=== PATIENT | female | born 1970 | race Caucasian/White ===

== ENCOUNTER → 2018-06-06 | Outpatient (CLI) | payer OTHER ==
--- NOTE | 2018-06-06 13:41 | Diagnostic Imaging Report ---
PROCEDURE: CT abdomen and pelvis without contrast. TECHNIQUE: Multiple contiguous axial images were obtained through the abdomen and pelvis without the use of intravenous contrast. INDICATION: Left upper quadrant pain. COMPARISON: No prior studies are available for comparison. FINDINGS: The lung bases are clear. The liver and gallbladder are unremarkable. The pancreas and spleen are unremarkable. No adrenal mass is detected. No renal calculi or hydronephrosis is identified. The aorta is non-aneurysmal. No definite central retroperitoneal or mesenteric lymphadenopathy is seen. The small and large bowel loops are normal in caliber. There is no ascites. The uterus appears enlarged. The bladder is unremarkable. There are some enlarged lymph nodes in the pelvis. A left obturator node measures approximately 2.2 x 1.6 cm. A second node just anterior to this on the left measures 2.3 x 1.6 cm. Mildly prominent right iliac nodes are seen. There are prominent left iliac nodes present as well as mildly prominent bilateral inguinal nodes. Bony structures demonstrate postop changes of posterior instrumented fusion at the L4-5 level. IMPRESSION: 1. Uterine enlargement. 2. Pelvic lymphadenopathy in the iliac and obturator regions, etiology indeterminate. Neoplastic or lymphomatous process cannot be entirely excluded. No other significant abnormality is seen. Dictated by: Dictated on workstation # [id number]
== END ==
LOC: RAD 13:07
PROVIDERS: ATTEND Nurse Practitioner Family
DX: C91.10 Chronic lymphocytic leukemia of B-cell type not having achieved remission (principal); R59.0 Localized enlarged lymph nodes; N85.2 Hypertrophy of uterus
CPT/HCPCS: 74176

== ENCOUNTER → 2018-07-06 | Outpatient (RCR) | payer OTHER ==
[2018-04-07 09:23] LABS: ABSOLUTE RETIC # 50 10e9/L (24-90); BASOPHILS % (AUTO) 0 % (0-10); EOSINOPHILS # (AUTO) 0.4 10^3/uL (0.0-0.3); EOSINOPHILS % (AUTO) 3 % (0-10); HEMATOCRIT 34 % (35-52); HEMOGLOBIN 10.4 G/DL (11.5-16.0); LYMPHOCYTES # (AUTO) 7.4 X 10^3 (1.0-4.0); LYMPHOCYTES % (AUTO) 52 % (12-44); MEAN CORPUSCULAR HEMOGLOBIN 21 PG (25-34); MEAN CORPUSCULAR HGB CONC 30 G/DL (32-36); MEAN CORPUSCULAR VOLUME 69 FL (80-99); MONOCYTES # (AUTO) 0.7 X 10^3 (0.0-1.0); MONOCYTES % (AUTO) 5 % (0-12); NEUTROPHILS # (AUTO) 5.7 X 10^3 (1.8-7.8); NEUTROPHILS % (AUTO) 40 % (42-75); PLATELET COUNT 337 10^3/uL (130-400); RED BLOOD COUNT 4.96 10^6/uL (4.35-5.85); RED CELL DISTRIBUTION WIDTH 20.2 % (10.0-14.5); WHITE BLOOD COUNT 14.1 10^3/uL (4.3-11.0)
[2018-04-07 10:08] LABS: BAND NEUTROPHILS 0 %; BASOPHILS % (MANUAL) 2 %; EOSINOPHILS % (MANUAL) 2 %; LYMPHOCYTES % (MANUAL) 51 %; MONOCYTES % (MANUAL) 3 %; NEUTROPHILS % (MANUAL) 42 %
[2018-04-07 10:09] LABS: ANISOCYTOSIS SLIGHT; ELLIPT/OVALOCYTES SLIGHT; MICROCYTOSIS SLIGHT
[2018-06-17 08:43] LABS: BASOPHILS % (AUTO) 0 % (0-10); EOSINOPHILS # (AUTO) 0.4 10^3/uL (0.0-0.3); EOSINOPHILS % (AUTO) 3 % (0-10); HEMATOCRIT 38 % (35-52); HEMOGLOBIN 12.5 G/DL (11.5-16.0); LYMPHOCYTES # (AUTO) 7.6 X 10^3 (1.0-4.0); LYMPHOCYTES % (AUTO) 51 % (12-44); MEAN CORPUSCULAR HEMOGLOBIN 26 PG (25-34); MEAN CORPUSCULAR HGB CONC 33 G/DL (32-36); MEAN CORPUSCULAR VOLUME 78 FL (80-99); MONOCYTES # (AUTO) 0.8 X 10^3 (0.0-1.0); MONOCYTES % (AUTO) 5 % (0-12); NEUTROPHILS % (AUTO) 41 % (42-75); PLATELET COUNT 269 10^3/uL (130-400); RED BLOOD COUNT 4.87 10^6/uL (4.35-5.85); RED CELL DISTRIBUTION WIDTH 20.7 % (10.0-14.5); WHITE BLOOD COUNT 14.8 10^3/uL (4.3-11.0)
[2018-06-17 09:00] LABS: ALANINE AMINOTRANSFERASE 34 U/L (0-55); ALBUMIN 4.2 GM/DL (3.2-4.5); ALKALINE PHOSPHATASE 47 U/L (40-136); BILIRUBIN,TOTAL 0.4 MG/DL (0.1-1.0); BUN/CREATININE RATIO 16; CALCIUM 9.2 MG/DL (8.5-10.1); CARBON DIOXIDE 24 MMOL/L (21-32); CHLORIDE 106 MMOL/L (98-107); CREATININE SERUM 0.87 MG/DL (0.60-1.30); GFR ESTIMATED > 60; GLUCOSE 110 MG/DL (70-105); POTASSIUM 4.4 MMOL/L (3.6-5.0); SODIUM 138 MMOL/L (135-145); TOTAL PROTEIN 6.5 GM/DL (6.4-8.2)
[2018-07-01 09:43] LABS: BASOPHILS % (AUTO) 0 % (0-10); EOSINOPHILS # (AUTO) 0.6 10^3/uL (0.0-0.3); EOSINOPHILS % (AUTO) 4 % (0-10); HEMATOCRIT 40 % (35-52); HEMOGLOBIN 13.2 G/DL (11.5-16.0); LYMPHOCYTES # (AUTO) 7.8 X 10^3 (1.0-4.0); LYMPHOCYTES % (AUTO) 50 % (12-44); MEAN CORPUSCULAR HEMOGLOBIN 26 PG (25-34); MEAN CORPUSCULAR HGB CONC 33 G/DL (32-36); MEAN CORPUSCULAR VOLUME 80 FL (80-99); MEAN PLATELET VOLUME 10.8 FL (7.4-10.4); MONOCYTES # (AUTO) 0.7 X 10^3 (0.0-1.0); MONOCYTES % (AUTO) 5 % (0-12); NEUTROPHILS # (AUTO) 6.6 X 10^3 (1.8-7.8); NEUTROPHILS % (AUTO) 42 % (42-75); PLATELET COUNT 306 10^3/uL (130-400); RED BLOOD COUNT 5.04 10^6/uL (4.35-5.85); RED CELL DISTRIBUTION WIDTH 18.7 % (10.0-14.5); WHITE BLOOD COUNT 15.6 10^3/uL (4.3-11.0)
[2018-07-01 09:59] LABS: ALANINE AMINOTRANSFERASE 32 U/L (0-55); ALKALINE PHOSPHATASE 51 U/L (40-136); BILIRUBIN,TOTAL 0.2 MG/DL (0.1-1.0); BUN/CREATININE RATIO 15; CALCIUM 9.2 MG/DL (8.5-10.1); CARBON DIOXIDE 25 MMOL/L (21-32); CHLORIDE 107 MMOL/L (98-107); CREATININE SERUM 0.87 MG/DL (0.60-1.30); GFR ESTIMATED > 60; GLUCOSE 106 MG/DL (70-105); POTASSIUM 4.6 MMOL/L (3.6-5.0); SODIUM 138 MMOL/L (135-145); TOTAL PROTEIN 6.6 GM/DL (6.4-8.2)
[2018-07-05 06:51] LABS: HEPATITIS C ANTIBODY C Non-Reactive (Non-Reactive)
[~2018-07-06] VITALS: Ht 165.1 cm; Wt 94.8 kg
[~2018-07-06] MED LIST: ACHD5005 PO; BENDAMUSTINE HCL IV SCH; BUSP5TAB59 PO; ESCI10TA PO; FAMOTIDINE 20MG/2ML IV (CANCER CTR) IV SCH; FERR159T2 PO; FEXO180T84 PO; LISI10TA2 PO; MULT-35 PO; NS (IVPB) CANCER CENTER 250 ML IV SCH; NS IV SCH; PALONOSETRON HCL 0.25 MG, DEXAMETHASONE INJECTION 10 MG in NS (IVPB) CANCER CENTER 50 ML IV SCH; RITUXIMAB FOR IV SCH; RITUXIMAB IV SCH; SIME125T50 PO; diphenhydrAMINE 50 MG/ML INJ (CANCER CENTER) IV PRN
== END | disposition home or self-care (01) ==
LOC: ONC 04-07 07:55
PROVIDERS: ATTEND Internal Medicine Hematology & Oncology
DX: C91.10 Chronic lymphocytic leukemia of B-cell type not having achieved remission (principal); D50.9 Iron deficiency anemia, unspecified; I10 Essential (primary) hypertension; F41.9 Anxiety disorder, unspecified; F32.9 Major depressive disorder, single episode, unspecified; E66.9 Obesity, unspecified; Z68.35 Body mass index [BMI] 35.0-35.9, adult; Z79.899 Other long term (current) drug therapy
CPT/HCPCS: 36415; 80053; 80074; 83615; 85007; 85025; 85027; 85045; 88184; 88185; 88368; 88369; 99213; 99214

== ENCOUNTER 2018-07-26 13:55 | Outpatient (CLI) | payer OTHER ==
[~2018-07-26] VITALS: Ht 160 cm; Wt 97.1 kg
[~2018-07-26 13:55] MED LIST changes: -BENDAMUSTINE HCL IV SCH; -FAMOTIDINE 20MG/2ML IV (CANCER CTR) IV SCH; -FERR159T2 PO; -FEXO180T84 PO; -MULT-35 PO; -NS (IVPB) CANCER CENTER 250 ML IV SCH; -NS IV SCH; -PALONOSETRON HCL 0.25 MG, DEXAMETHASONE INJECTION 10 MG in NS (IVPB) CANCER CENTER 50 ML IV SCH; -RITUXIMAB FOR IV SCH; -RITUXIMAB IV SCH; -SIME125T50 PO; -diphenhydrAMINE 50 MG/ML INJ (CANCER CENTER) IV PRN
[2018-07-26] MEDS ORDERED: FEXO180T84 PO ×2 (14:13)
[2018-07-26] MEDS ORDERED: MULT-35 PO ×2 (14:13)
[2018-07-26] MEDS ORDERED: SIME125T50 PO ×2 (14:13)
[2018-07-26] MEDS ORDERED: FERR159T2 PO ×2 (14:13)
[2018-07-27] MEDS ORDERED: ACHD5005 PO ×2 (10:56)
== END 2018-07-26 14:27 | disposition home or self-care (01) ==
LOC: PREOP 13:55
PROVIDERS: ATTEND Surgery
DX: Z01.818 Encounter for other preprocedural examination (principal)

== ENCOUNTER 2018-07-27 07:44 | Outpatient (RCR) | payer OTHER ==
[2018-07-13 08:54] LABS: BASOPHILS % (AUTO) 0 % (0-10); EOSINOPHILS # (AUTO) 0.4 10^3/uL (0.0-0.3); EOSINOPHILS % (AUTO) 3 % (0-10); HEMATOCRIT 39 % (35-52); HEMOGLOBIN 13.1 G/DL (11.5-16.0); LYMPHOCYTES # (AUTO) 7.2 X 10^3 (1.0-4.0); LYMPHOCYTES % (AUTO) 53 % (12-44); MEAN CORPUSCULAR HEMOGLOBIN 27 PG (25-34); MEAN CORPUSCULAR HGB CONC 33 G/DL (32-36); MEAN CORPUSCULAR VOLUME 80 FL (80-99); MEAN PLATELET VOLUME 11.3 FL (7.4-10.4); MONOCYTES # (AUTO) 0.8 X 10^3 (0.0-1.0); MONOCYTES % (AUTO) 6 % (0-12); NEUTROPHILS # (AUTO) 5.1 X 10^3 (1.8-7.8); NEUTROPHILS % (AUTO) 38 % (42-75); PLATELET COUNT 273 10^3/uL (130-400); RED BLOOD COUNT 4.92 10^6/uL (4.35-5.85); WHITE BLOOD COUNT 13.5 10^3/uL (4.3-11.0)
[2018-07-13 09:12] LABS: ALANINE AMINOTRANSFERASE 33 U/L (0-55); ALBUMIN 4.1 GM/DL (3.2-4.5); ALKALINE PHOSPHATASE 52 U/L (40-136); BILIRUBIN,TOTAL 0.3 MG/DL (0.1-1.0); BUN/CREATININE RATIO 17; CALCIUM 9.3 MG/DL (8.5-10.1); CARBON DIOXIDE 22 MMOL/L (21-32); CHLORIDE 106 MMOL/L (98-107); CREATININE SERUM 0.86 MG/DL (0.60-1.30); GFR ESTIMATED > 60; GLUCOSE 97 MG/DL (70-105); POTASSIUM 4.4 MMOL/L (3.6-5.0); SODIUM 137 MMOL/L (135-145); TOTAL PROTEIN 6.6 GM/DL (6.4-8.2)
[2018-07-20 10:50] LABS: BASOPHILS % (AUTO) 0 % (0-10); EOSINOPHILS # (AUTO) 0.4 10^3/uL (0.0-0.3); EOSINOPHILS % (AUTO) 6 % (0-10); HEMATOCRIT 42 % (35-52); LYMPHOCYTES # (AUTO) 0.8 X 10^3 (1.0-4.0); LYMPHOCYTES % (AUTO) 11 % (12-44); MEAN CORPUSCULAR HEMOGLOBIN 27 PG (25-34); MEAN CORPUSCULAR HGB CONC 34 G/DL (32-36); MEAN CORPUSCULAR VOLUME 80 FL (80-99); MEAN PLATELET VOLUME 10.9 FL (7.4-10.4); MONOCYTES # (AUTO) 0.5 X 10^3 (0.0-1.0); MONOCYTES % (AUTO) 7 % (0-12); NEUTROPHILS # (AUTO) 5.5 X 10^3 (1.8-7.8); NEUTROPHILS % (AUTO) 76 % (42-75); PLATELET COUNT 279 10^3/uL (130-400); RED BLOOD COUNT 5.21 10^6/uL (4.35-5.85); RED CELL DISTRIBUTION WIDTH 17.1 % (10.0-14.5); WHITE BLOOD COUNT 7.3 10^3/uL (4.3-11.0)
[2018-07-20 11:10] LABS: BUN/CREATININE RATIO 16; CALCIUM 9.4 MG/DL (8.5-10.1); CARBON DIOXIDE 24 MMOL/L (21-32); CHLORIDE 106 MMOL/L (98-107); CREATININE SERUM 0.85 MG/DL (0.60-1.30); GFR ESTIMATED > 60; GLUCOSE 98 MG/DL (70-105); POTASSIUM 3.9 MMOL/L (3.6-5.0); SODIUM 137 MMOL/L (135-145)
[~2018-07-27] VITALS: Ht 165.1 cm; Wt 94.8 kg
[~2018-07-27 07:44] MED LIST changes: +ACETAMINOPHEN 325 MG TAB (TYLENOL) CANCER CTR ONE; +BENDAMUSTINE HCL IV SCH; +FAMOTIDINE 20MG/2ML IV (CANCER CTR) IV SCH; +FERR159T2 PO; +FEXO180T84 PO; +MULT-35 PO; +NS (IVPB) CANCER CENTER 250 ML IV SCH; +NS IV 1000 ML (CANCER CTR) IV SCH; +NS IV SCH; +ONDANSETRON MDV (CANCER CENTER 16 MG, DEXAMETHASONE INJECTION 10 MG in NS (IVPB) CANCER... IV SCH; +PALONOSETRON HCL 0.25 MG, DEXAMETHASONE INJECTION 10 MG in NS (IVPB) CANCER CENTER 50 ML IV SCH; +RITUXIMAB FOR IV SCH; +RITUXIMAB IV SCH; +SIME125T50 PO; +[UNRECOGNIZED DRUG - REMARK] IV SCH; +diphenhydrAMINE 50 MG/ML INJ (CANCER CENTER) IV PRN
[2018-07-27 08:11] LABS: BASOPHILS % (AUTO) 0 % (0-10); EOSINOPHILS # (AUTO) 0.4 10^3/uL (0.0-0.3); EOSINOPHILS % (AUTO) 5 % (0-10); HEMATOCRIT 39 % (35-52); HEMOGLOBIN 13.1 G/DL (11.5-16.0); LYMPHOCYTES # (AUTO) 1.9 X 10^3 (1.0-4.0); LYMPHOCYTES % (AUTO) 21 % (12-44); MEAN CORPUSCULAR HEMOGLOBIN 27 PG (25-34); MEAN CORPUSCULAR HGB CONC 34 G/DL (32-36); MEAN CORPUSCULAR VOLUME 81 FL (80-99); MEAN PLATELET VOLUME 11.2 FL (7.4-10.4); MONOCYTES # (AUTO) 0.7 X 10^3 (0.0-1.0); MONOCYTES % (AUTO) 8 % (0-12); NEUTROPHILS # (AUTO) 6.1 X 10^3 (1.8-7.8); NEUTROPHILS % (AUTO) 67 % (42-75); PLATELET COUNT 229 10^3/uL (130-400); RED BLOOD COUNT 4.79 10^6/uL (4.35-5.85); RED CELL DISTRIBUTION WIDTH 16.5 % (10.0-14.5); WHITE BLOOD COUNT 9.2 10^3/uL (4.3-11.0)
[2018-07-27 08:32] LABS: BUN/CREATININE RATIO 14; CALCIUM 9.2 MG/DL (8.5-10.1); CARBON DIOXIDE 23 MMOL/L (21-32); CHLORIDE 107 MMOL/L (98-107); CREATININE SERUM 0.79 MG/DL (0.60-1.30); GFR ESTIMATED > 60; GLUCOSE 102 MG/DL (70-105); POTASSIUM 4.3 MMOL/L (3.6-5.0); SODIUM 139 MMOL/L (135-145)
[2018-07-27] MEDS ORDERED: ACHD5005 PO (10:56)
== END 2018-07-31 | disposition home or self-care (01) ==
LOC: ONC 07:44
PROVIDERS: ATTEND Internal Medicine Hematology & Oncology
DX: C91.10 Chronic lymphocytic leukemia of B-cell type not having achieved remission (principal); D50.9 Iron deficiency anemia, unspecified; I10 Essential (primary) hypertension; F41.9 Anxiety disorder, unspecified; F32.9 Major depressive disorder, single episode, unspecified; E66.9 Obesity, unspecified; Z68.35 Body mass index [BMI] 35.0-35.9, adult; Z79.899 Other long term (current) drug therapy
CPT/HCPCS: 36415; 80048; 80053; 83615; 85025; 96375; 96409; 96411; 96413; 96415

== ENCOUNTER 2018-07-27 07:54 | Day surgery (SDC) | payer OTHER ==
[~2018-07-27] VITALS: Ht 160 cm; Wt 97.1 kg
[~2018-07-27 07:54] MED LIST changes: -ACETAMINOPHEN 325 MG TAB (TYLENOL) CANCER CTR ONE; -BENDAMUSTINE HCL IV SCH; -FAMOTIDINE 20MG/2ML IV (CANCER CTR) IV SCH; -NS (IVPB) CANCER CENTER 250 ML IV SCH; -NS IV 1000 ML (CANCER CTR) IV SCH; -NS IV SCH; -ONDANSETRON MDV (CANCER CENTER 16 MG, DEXAMETHASONE INJECTION 10 MG in NS (IVPB) CANCER... IV SCH; -PALONOSETRON HCL 0.25 MG, DEXAMETHASONE INJECTION 10 MG in NS (IVPB) CANCER CENTER 50 ML IV SCH; -RITUXIMAB FOR IV SCH; -RITUXIMAB IV SCH; -[UNRECOGNIZED DRUG - REMARK] IV SCH; -diphenhydrAMINE 50 MG/ML INJ (CANCER CENTER) IV PRN
--- OUTSIDE RECORDS SUMMARY | 2018-07-27 07:58 | XMS REPORT ---
Author Author PEARL ALICEA [facility] Address [address] [place] [address] Care Team Providers Care Fish Housekeeper Name Role Phone PEARL ALICEA Unavailable PROBLEMS Type Condition ICD9-CM Code [id number] Code Onset Dates Condition Status SNOMED Code Problem Acute stress reaction F43.0 Active 36564264 Problem CLL (chronic lymphocytic leukemia) C91.90 Active 01921357 Problem Atypical lymphocytes present on peripheral blood smear R88.8 Active 667301624 Problem Moderate single current episode of major depressive disorder F32.1 Active 90911081 Problem Generalized anxiety disorder F41.1 Active 25604567 Problem Essential hypertension I10 Active 54101465 Problem Obesity (BMI 30-39.9) E66.9 Active 638119397 ALLERGIES Substance Reaction Event Type Date Status Sulfamethoxazole-Trimethoprim rash, itching Drug Allergy May, Active ENCOUNTERS Encounter Location Date Diagnosis [place] [id number] [place] [address] [id number] Jun, CLL (chronic lymphocytic leukemia) C91.90 [place] [id number] [place] [address] [id number] May, Left upper quadrant pain R10.12 ; Bloating R14.0 and CLL (chronic lymphocytic leukemia) C91.90 [facility] [id number] [place] [address] [id number] May, Muscle strain T14.8XXA [place] [id number] [place] [address] [id number] March, Atypical lymphocytes present on peripheral blood smear R88.8 and Anemia, unspecified type D64.9 [place] [id number] [place] [address] [id number] March, Generalized anxiety disorder F41.1 ; Moderate single current episode of major depressive disorder F32.1 ; Acute nasopharyngitis J00 ; Essential hypertension I10 and Anemia due to other cause, not classified D64.89 [facility] [id number] [place] [address] [id number] Jan, Acute nasopharyngitis J00 ; Laceration of right ear canal, initial encounter S01.311A and Essential hypertension I10 [place] [address] [place] [id number] [place] [address] [id number] Jan, Moderate single current episode of major depressive disorder F32.1 ; Generalized anxiety disorder F41.1 ; Cough R05 ; Elevated blood pressure reading in office without diagnosis of hypertension R03.0 and Allergic contact dermatitis due to plants, except food L23.7 [place] [id number] [place] [address] [id number] Dec, [address] [id number] Nov, Abnormal complete blood count R79.[address] [id number] Oct, Abnormal complete blood count R79.89 ; Obesity (BMI 30-39.9) E66.9 ; Generalized anxiety disorder F41.1 and Moderate single current episode of major depressive disorder F32.1 [place] [id number] [place] [address] [id number] Oct, Acute stress reaction F43.0 [place] [id number] [place] [address] [id number] Oct, Moderate single current episode of major depressive disorder F32.1 [place] [id number] [place] [address] [id number] Sep, Acute stress reaction F43.0 [place] [id number] [place] [address] [id number] Aug, Obesity (BMI 30-39.9) E66.[address] [id number] Aug, Acute stress reaction F43.0 ; Moderate single current episode of major depressive disorder F32.1 and Obesity (BMI 30-39.9) E66.[address] [place] [id number] Aug, [facility] [address] [facility] [id number] [id number] Aug, Acute stress reaction F43.0 ; Generalized anxiety disorder F41.1 and Moderate single current episode of major depressive disorder F32.1 [facility] [place] [address] [id number] [id number] Jul, Allergic contact dermatitis due to plants, except food L23.7 [facility] [address] [id number] [place] [phone] 10 May, 2017 Muscle spasm of back M62.830 and Strain of muscle and tendon of back wall of thorax, initial encounter S29.012A [facility] [place] [address] [facility] [id number] [id number] Jan, Allergic contact dermatitis due to plants, except food L23.7 [facility] [place] [address] [facility] [id number] [id number] March, Plant allergic contact dermatitis L23.7 and Itching L29.9 [facility] [address] [facility] [id number] [phone] Jan, Allergic contact dermatitis due to plants, except food L23.7 and Itching L29.9 IMMUNIZATIONS No Known Immunizations SOCIAL HISTORY Never Assessed REASON FOR VISIT Pt c/o chills/sweats, pain on left side after eating . started a couple weeks ago Anne PRINGLE PLAN OF CARE Activity Details Follow Up 1 Week Reason:abd pain VITAL SIGNS Height 62 in 2018-05-31 Weight 209.2 lbs 2018-05-31 Temperature 99.8 degrees Fahrenheit 2018-05-31 Heart Rate 80 bpm 2018-05-31 Respiratory Rate 16 2018-05-31 BMI 38.26 kg/m2 2018-05-31 Blood pressure systolic 122 mmHg 2018-05-31 Blood pressure diastolic 68 mmHg 2018-05-31 MEDICATIONS Medication Instructions Dosage Frequency Start Date End Date Duration Status Flonase 50 MCG/ACT Nasally twice a day 1 spray in each nostril 12h Jan, Active Flora Allergy 180 MG Orally Once a day 1 tablet as needed 24h Active Lisinopril 10 mg Orally Once a day 1 tablet 24h Jan, 30 day(s) Active Lexapro 10 mg Orally Once a day 1 tablet 24h Aug, 0 days Active Iron 325 (65 Fe) MG Orally Once a day 1 tablet 24h Active Simethicone 125 MG Orally Four times a day ac &hs 1 tablet w meals May Active BusPIRone HCl 5 mg Orally Three times a day 1 tablet 8h Aug, 0 days Active RESULTS No Results PROCEDURES Procedure Date Ordered Result Body Site MANUAL CELL COUNT, EACH May 31, 2018 COMPREHEN METABOLIC PANEL May 31, 2018 VENIPUNCT, ROUTINE* May 31, 2018 URINALYSIS, AUTO, W/O SCOPE May 31, 2018 INSTRUCTIONS MEDICATIONS ADMINISTERED No Known Medications MEDICAL (GENERAL) HISTORY Type Description Date Medical History anxiety Medical History [facility] Onc Consult 04/07/18 Suspect CLL, absolute lymphocytosis, not symptomatic, Iron def anemia-take OTC iron pills 65mg elemental iron twice per day before meals with orange juice, RTC in 3 weeks for lab results. Medical History 04/29/2018 Dr Islas [facility] Hematology consult, monitor in 8 weeks , CBC CMP and LDH, borderline CLL, since pt is not symtomtic will observe for now. Surgical History tubal ligation Surgical History MRSA in groin 2007 Surgical History back surgery, hardware placed in L3-L4-- Dr. [facility] 2009 Surgical History section Hospitalization History Surgery(s)/Childbirth(s) only
--- OUTSIDE RECORDS SUMMARY | 2018-07-27 07:58 | XMS REPORT ---
Author Author PEARL ALICAE [facility] Address [address] [place] [address] Care Team Providers Care Senior Mechanical Design Engineer Name Role Phone PEARL ALICEA Unavailable PROBLEMS Type Condition ICD9-CM Code FMZ92-SZ Code Onset Dates Condition Status SNOMED Code Problem Acute stress reaction F43.0 Active 93788021 Problem CLL (chronic lymphocytic leukemia) C91.90 Active 52422266 Problem Atypical lymphocytes present on peripheral blood smear R88.8 Active 180276240 Problem Moderate single current episode of major depressive disorder F32.1 Active 21560947 Problem Generalized anxiety disorder F41.1 Active 31565573 Problem Essential hypertension I10 Active 40019871 Problem Obesity (BMI 30-39.9) E66.9 Active 381207787 ALLERGIES Substance Reaction Event Type Date Status Sulfamethoxazole-Trimethoprim rash, itching Drug Allergy Jun, Active ENCOUNTERS Encounter Location Date Diagnosis [place] [id number] [place] [address] [id number] Jun, CLL (chronic lymphocytic leukemia) C91.90 [place] [id number] [place] [address] [id number] May, Left upper quadrant pain R10.12 ; Bloating R14.0 and CLL (chronic lymphocytic leukemia) C91.90 [place] [id number] [place] [address] [id number] May, Muscle strain T14.8XXA [place] [id number] [place] [address] [id number] March, Atypical lymphocytes present on peripheral blood smear R88.8 and Anemia, unspecified type D64.9 [place] [id number] [place] [address] [id number] March, Generalized anxiety disorder F41.1 ; Moderate single current episode of major depressive disorder F32.1 ; Acute nasopharyngitis J00 ; Essential hypertension I10 and Anemia due to other cause, not classified D64.89 [facility] [id number] [place] [address] [id number] Jan, Acute nasopharyngitis J00 ; Laceration of right ear canal, initial encounter S01.311A and Essential hypertension I10 [place] [id number] [place] [address] [id number] Jan, Moderate single current episode of major depressive disorder F32.1 ; Generalized anxiety disorder F41.1 ; Cough R05 ; Elevated blood pressure reading in office without diagnosis of hypertension R03.0 and Allergic contact dermatitis due to plants, except food L23.7 [place] [id number] [place] [id number] Dec, [address] [id number] Nov, Abnormal complete blood count R79.[address] [id number] Oct, Abnormal complete blood count R79.89 ; Obesity (BMI 30-39.9) E66.9 ; Generalized anxiety disorder F41.1 and Moderate single current episode of major depressive disorder F32.1 [place] [id number] [place] [address] [id number] Oct, Acute stress reaction F43.0 [place] [id number] [place] [address] [id number] Oct, Moderate single current episode of major depressive disorder F32.1 [place] [id number] [place] [address] [id number] Sep, Acute stress reaction F43.0 [place] [id number] [place] [address] [id number] Aug, Obesity (BMI 30-39.9) E66.[address] [id number] Aug, Acute stress reaction F43.0 ; Moderate single current episode of major depressive disorder F32.1 and Obesity (BMI 30-39.9) E66.[address] [place] [id number] Aug, [facility] [address] [id number] [id number] Aug, Acute stress reaction F43.0 ; Generalized anxiety disorder F41.1 and Moderate single current episode of major depressive disorder F32.1 [facility] [place] [address] [id number] [place] [id number] Jul, Allergic contact dermatitis due to plants, except food L23.7 [facility] [address] [id number] [place] [phone] 10 May, 2017 Muscle spasm of back M62.830 and Strain of muscle and tendon of back wall of thorax, initial encounter S29.012A [facility] [address] [facility] [id number] [id number] Jan, Allergic contact dermatitis due to plants, except food L23.7 [facility] [address] [facility] [id number] [id number] March, Plant allergic contact dermatitis L23.7 and Itching L29.9 [facility] [place] [address] [facility] [id number][place] [id number] Jan, Allergic contact dermatitis due to plants, except food L23.7 and Itching L29.9 IMMUNIZATIONS No Known Immunizations SOCIAL HISTORY Never Assessed REASON FOR VISIT here to go over lab results. tha Peace PLAN OF CARE Activity Details Follow Up prn Reason: VITAL SIGNS Height 62 in 2018-06-08 Weight 209.6 lbs 2018-06-08 Temperature 98.2 degrees Fahrenheit 2018-06-08 Heart Rate 55 bpm 2018-06-08 Respiratory Rate 16 2018-06-08 BMI 38.33 kg/m2 2018-06-08 Blood pressure systolic 130 mmHg 2018-06-08 Blood pressure diastolic 72 mmHg 2018-06-08 MEDICATIONS Medication Instructions Dosage Frequency Start Date End Date Duration Status Lexapro 10 mg Orally Once a day 1 tablet 24h Aug, 0 days Active Lisinopril 10 mg Orally Once a day 1 tablet 24h Jan, 30 day(s) Active Simethicone 125 MG Orally Four times a day ac &hs 1 tablet w meals May Active BusPIRone HCl 5 mg Orally Three times a day 1 tablet 8h 20 Aug, 2017 0 days Active Flonase 50 MCG/ACT Nasally twice a day 1 spray in each nostril 12h 16 Jan, 2018 Active Flora Allergy 180 MG Orally Once a day 1 tablet as needed 24h Active Iron 325 (65 Fe) MG Orally Once a day 1 tablet 24h Active RESULTS No Results PROCEDURES No Known procedures INSTRUCTIONS MEDICATIONS ADMINISTERED No Known Medications MEDICAL [...]
[2018-07-27 08:15] VITALS: BP 111/69
[2018-07-27] MEDS ORDERED: ceFAZolin 2 GM IV Premixed 50 ML IV ONE (08:30)
[2018-07-27] MEDS ORDERED: LACTATED RINGERS 1,000 ML IV PRN (08:45)
[2018-07-27] MEDS ORDERED: 0.9% SODIUM CHLORIDE PF INJ 20 ML VIAL ONE (08:55)
[2018-07-27] MEDS ORDERED: HEParin (CENTRAL IV FLUSH) 500 UNIT/5 ML SYR ONE (08:55)
[2018-07-27] MEDS ORDERED: FAMOTIDINE 20MG/2ML IV (PEPCID) IV ONE (09:45)
[2018-07-27] MEDS ORDERED: SCOPOLAMINE 1.5 MG (TRANSDERM-SCOP) PATCH TOP ONE (09:45)
[2018-07-27] MEDS ORDERED: ONDANSETRON 4 MG/2 ML (SDV) Z0FRAN IV ONE (09:45)
[2018-07-27] MEDS ORDERED: proPOfol 200 MG/20 ML (DIPRIVAN) VIAL IV ONE ×2 (09:46→10:48)
[2018-07-27] MEDS ORDERED: LIDOCAINE/EPI 1%-1:200,000 (XYLOCAINE) 10 ML VIAL ONE (09:47)
[2018-07-27] MEDS ORDERED: MIDAZOLAM 2 MG/2 ML (VERSED) VIAL ONE (09:47)
[2018-07-27] MEDS ORDERED: fentaNYL INJECTION 100 MCG/2 ML AMP ONE (09:47)
--- NOTE | 2018-07-27 10:13 | Progress Note-Pre Operative ---
Pre-Operative Progress Note H&P Reviewed The H&P was reviewed, patient examined and no changes noted. Time Seen by Provider: 10:11 Date H&P Reviewed: Jul 27, 2018 Time H&P Reviewed: 10:12 Pre-Operative Diagnosis: Leukemia, BRITTANY العلي DO Jul 27, 2018 10:13
--- NOTE | 2018-07-27 10:55 | Progress Note-Post Operative ---
Post-Operative Progess Note Surgeon (s)/Forest Fire Specialist Supervisor (s) Surgeon BRITTANY العلي DO Forest Fire Specialist Supervisor: NONE Pre-Operative Diagnosis Leukemia, Post-Operative Diagnosis Same Procedure & Operative Findings Date of Procedure 07/27/18 Procedure Performed/Findings Ling-Cath insertion Anesthesia Type MAC Estimated Blood Loss Estimated blood loss (mL): scant Specimens/Packing Specimens Removed none BRITTANY العلي DO Jul 27, 2018 10:55
[2018-07-27] MEDS ORDERED: ACHD5005 PO ×2 (10:56)
--- NOTE | 2018-07-27 10:58 | Discharge Inst-Surgical ---
Discharge Inst-Surgical Depart Medication/Instructions New, Converted or Re-Newed RX: RX Given to Pt/Family Patient Instructions Follow up Appt: Make appointment for 1 week. Instructions: No strenuous activity. May shower in 24 hours, no tub bath or soaking. Use incentive spirometer at home as directed. No Smoking Skin/Wound Care: May remove bandages in am. You need to leave the Dermabond on over incision it will fall off on its own. Symptoms to Report: Appetite Changes, Extremity Discoloration, Numbness/Tingling, Swelling Increased , Bleeding Excessive, Eyesight Changes, Pain Increased, Urine Color Change, Constipation(Persistent), Fever over 101 degree F, Pain/Pressure in chest, Urinating Difficulty, Cough Up/Vomit Blood, Heart Beat Irreg/Pounding, Pain/ Pressure in jaw, Vaginal Bleeding Increase, Cramps in feet or legs, Lightheadedness, Pain/Pressure in shoulder, Diarrhea(Persistent), Memory Changes Suddenly, Questions/Concerns, Weight gain consecutive days, Dizziness/ Fainting, Nausea/Vomiting, Shortness of Breath, Weight gain over 2 pounds If questions or concerns contact your physician Or seek help at emergency department. Activity Activity as Tolerated: Yes Driving Instructions: No Driving/Refer to Dr. Burgos Discharge Diet: No Restrictions Diet After 24 Hours: Clear Liquid if Nauseous If Any Problems/Questions/Issu: Contact Your Physician, Go to Emergency Room Skin/Wound Care Infection Signs and Symptoms: Increased Redness, Foul Odor of Wound, Increased Drainage, Skin Itchy or Has a Rash, Increased Swelling, Temperature Above 101 F Bathing Instructions: Shower Operative Area Clean and Dry: Keep Incision Clean/Dry Stitches/Chester/Dermabond Dis: Dermabond Ice Pack: Ice On and Off Site (as needed for pain) BRITTANY العلي DO Jul 27, 2018 10:58
[2018-07-27 11:25] VITALS: BP 122/79
[2018-07-27] MEDS ORDERED: HYDROcodone/APAP 5 MG/325 MG (LORTAB) TAB ONE (11:30)
[2018-07-27] MEDS ORDERED: HYDROcodone/APAP 5 MG/325 MG (LORTAB) TAB PO ONE (11:45)
[2018-07-27 11:55] VITALS: BP 115/68
--- NOTE | 2018-07-27 12:24 | Diagnostic Imaging Report ---
EXAMINATION: Fluoroscopy INDICATION: PowerPort insertion Fluoroscopic assistance was provided for Dr. Joseph during his power port insertion procedure. 4.7 seconds of fluoroscopy time was utilized. A single spot film of the right thorax was obtained. There is a Port-A-Cath in place. IMPRESSION: Fluoroscopic assistance was provided for Dr. Joseph. Dictated by: Dictated on workstation # [id number]
--- NOTE | 2018-07-27 13:34 | OPERATIVE REPORT ---
DATE OF SERVICE: PREOPERATIVE DIAGNOSES: 1. Leukemia. 2. Venous insufficiency. POSTOPERATIVE DIAGNOSES: 1. Leukemia. 2. Venous insufficiency. PROCEDURE: Port-A-Cath insertion right anterior chest wall and right subclavian vein. SURGEON: Elgin Joseph DO. TRANSMITTER CHIEF: None. ANESTHESIA: IV sedation by the FORMS DESIGNER. BLOOD LOSS: Scant. SPECIMENS: None. FLUIDS: Per anesthesia. POSTOPERATIVE CONDITION: Stable. INDICATION FOR PROCEDURE: The patient is a 47-year-old female, who was unfortunately recently diagnosed with leukemia and needs a Port-A-Cath for long-term IV access for chemotherapy. FINDINGS: The patient had a Port-A-Cath placed right anterior chest wall confirmed with fluoroscopy right subclavian vein. PROCEDURE NOTE: After informed consent was obtained, the patient was brought to the operating room, placed on the operating table in supine position. She was sterilely prepped and draped in a normal fashion. Local lidocaine was then used to infiltrate the right anterior chest wall towards the clavicle and under as well as area on the chest wall that we had used to create the pocket. The patient placed slightly Trendelenburg and then using negative aspiration, advanced the 18-gauge finder needle, on the second attempt cannulated the subclavian vein. Good flash of blood, removed the syringe, placed a guidewire down the needle using Seldinger technique, it went in easily, checked with fluoroscopy, a guidewire was down into the heart. Removed the needle, made a stab incision along the wire using a #11 blade and then made an incision on the right anterior chest wall with #11 blade, carried down through the skin into subcutaneous tissue, then deepened down to subcutaneous tissue with Bovie electrocautery, creating a pocket with a Bovie electrocautery as well as blunt dissection. I then tunneled the catheter from the stab incision into the pocket and then over the guidewire placed a dilator using the Seldinger technique, checked with fluoroscopy, it was in good position. I then removed the inner portion of the dilator and the guidewire and then placed the catheter down the dilator sheath, checked with fluoroscopy, it was again in good position, removed the dilator sheath and then attached the port to the catheter, attached easily and then placed a locking mechanism, accessed the port with a Venegas needle, good flash of blood, then easily flushed with saline and then got another good flash of blood and then flushed with heparinized saline. A 3-0 Prolene was then used to suture the port down in place, placed into the pocket, appeared to be in good position, checked with the fluoroscopy. There were no kinks, able to easily aspirate and flushed the port again and at this point tied this down. I then closed the subcutaneous tissue with 3-0 Vicryl two interrupted sutures and closed the skin with a 4-0 undyed Monocryl in a subcuticular fashion. Area was cleaned and dried. Dermabond was placed over this incision as well as a small stab incision and then a Band-Aid placed. The patient then transferred to the recovery room in stable condition. Sponge, instrument and needle count correct at the end of the case. Job ID: [id number] DocumentID: [id number] Dictated Date: 07/27/2018 11:02:03 Snuff Grinder And Screener Date: 07/27/2018 13:33:30 Dictated By: DO KIRK LOZA
== END 2018-07-27 12:15 | disposition home or self-care (01) ==
LOC: SDC 07:54
PROVIDERS: ATTEND Surgery
DX: C91.10 Chronic lymphocytic leukemia of B-cell type not having achieved remission (principal); I87.2 Venous insufficiency (chronic) (peripheral); Z11.2 Encounter for screening for other bacterial diseases; I10 Essential (primary) hypertension; F32.9 Major depressive disorder, single episode, unspecified; Z79.899 Other long term (current) drug therapy; Z88.2 Allergy status to sulfonamides
CPT/HCPCS: 84703; 87081

== ENCOUNTER 2018-08-10 21:21 | Inpatient (IN) | payer OTHER ==
[~2018-08-10] VITALS: Ht 165.1 cm; Wt 96.8 kg
--- OUTSIDE RECORDS SUMMARY | 2018-08-10 21:27 | XMS REPORT ---
Author Author LULU ROCK [facility] Address [address] [place] [address] Care Team Providers Care Regional Clinical Research Associate Name Role Phone LULU ROCK Unavailable PROBLEMS ALLERGIES ENCOUNTERS IMMUNIZATIONS No Known Immunizations SOCIAL HISTORY No smoking Hx information available REASON FOR VISIT PLAN OF CARE VITAL SIGNS MEDICATIONS RESULTS No Results PROCEDURES No Known procedures INSTRUCTIONS MEDICATIONS ADMINISTERED No Known Medications MEDICAL (GENERAL) HISTORY
--- OUTSIDE RECORDS SUMMARY | 2018-08-10 21:27 | XMS REPORT ---
Author Author LULU ROCK Organization [facility] Address [address] [place] [address] Care Team Providers Care Circuit Breaker Assembler Name Role Phone YADIRATAMMYJULISA LULU Unavailable PROBLEMS Type Condition ICD9-CM Code [id number] Code Onset Dates Condition Status SNOMED Code Problem Acute stress reaction F43.0 Active 12298597 Problem CLL (chronic lymphocytic leukemia) C91.90 Active 96824275 Problem Atypical lymphocytes present on peripheral blood smear R88.8 Active 828813769 Problem Moderate single current episode of major depressive disorder F32.1 Active 40329418 Problem Generalized anxiety disorder F41.1 Active 16311094 Problem Essential hypertension I10 Active 57849482 Problem Obesity (BMI 30-39.9) E66.9 Active 273111694 ALLERGIES Substance Reaction Event Type Date Status Sulfamethoxazole-Trimethoprim rash, itching Drug Allergy May, Active ENCOUNTERS Encounter Location Date Diagnosis [address] [id number] Aug, Acute nasopharyngitis [address] [place] [address] [place] [id number] [place] [address] [id number] Jul, Acute non-recurrent maxillary sinusitis J01.00 and CLL (chronic lymphocytic leukemia) C91.90 [facility] [id number] [place] [address] [id number] Jun, CLL (chronic lymphocytic leukemia) C91.90 [place] [id number] [place] [address] [id number] May, Left upper quadrant pain R10.12 ; Bloating R14.0 and CLL (chronic lymphocytic leukemia) C91.90 [facility] [id number] [place] [address] [id number] May, Muscle strain T14.8XXA [facility] [address] [id number] March, Atypical lymphocytes present on peripheral blood smear R88.8 and Anemia, unspecified type D64.9 [place] [id number] [place] [address] [id number] March, Generalized anxiety disorder F41.1 ; Moderate single current episode of major depressive disorder F32.1 ; Acute nasopharyngitis J00 ; Essential hypertension I10 and Anemia due to other cause, not classified D64.89 [place] [id number] [place] [address] [id number] Jan, Acute nasopharyngitis J00 ; Laceration of right ear canal, initial encounter S01.311A and Essential hypertension I10 [place] [id number] [place] [address] [id number] Jan, Moderate single current episode of major depressive disorder F32.1 ; Generalized anxiety disorder F41.1 ; Cough R05 ; Elevated blood pressure reading in office without diagnosis of hypertension R03.0 and Allergic contact dermatitis due to plants, except food L23.[address] [place] [address] [id number] Dec, [address] [id number] Nov, Abnormal complete blood count R79.89 [place] [id number] [place] [address] [id number] Oct, Abnormal complete blood count R79.89 ; Obesity (BMI 30-39.9) E66.9 ; Generalized anxiety disorder F41.1 and Moderate single current episode of major depressive disorder F32.[address] [place] [address] [id number] Oct, Acute stress reaction F43.0 [place] [id number] [place] [address] [id number] Oct, Moderate single current episode of major depressive disorder F32.1 [place] [id number] [place] [address] [id number] Sep, Acute stress reaction F43.0 [place] [id number] [place] [address] [id number] Aug, Obesity (BMI 30-39.9) E66.9 [facility] [id number] [id number] Aug, Acute stress reaction F43.0 ; Moderate single current episode of major depressive disorder F32.1 and Obesity (BMI 30-39.9) E66.9 [facility] [id number] [id number] Aug, [facility] [id number] [place] [address] [id number] Aug, Acute stress reaction F43.0 ; Generalized anxiety disorder F41.1 and Moderate single current episode of major depressive disorder F32.[address] [place] [address] [id number] Jul, Allergic contact dermatitis due to plants, except food L23.7 [facility] [place] [id number] [facility] [id number] [id number] May, Muscle spasm of back M62.830 and Strain of muscle and tendon of back wall of thorax, initial encounter S29.012A [facility] [id number] [place] [address] [id number] Jan, Allergic contact dermatitis due to plants, except food L23.7 [facility] [id number] [id number] March, Plant allergic contact dermatitis L23.7 and Itching L29.9 [facility] [id number] [phone] Jan, Allergic contact dermatitis due to plants, except food L23.7 and Itching L29.9 IMMUNIZATIONS No Known Immunizations SOCIAL HISTORY Never Assessed REASON FOR VISIT Pt c/o pain left groin, worse in the morning when she wakes up. hematology told her to watch her lymph nodes after dx w/ CLL Anne PRINGLE PLAN OF CARE Activity Details Follow Up prn Reason: VITAL SIGNS Height 62 in 2018-05-20 Weight 211 lbs 2018-05-20 Temperature 97.8 degrees Fahrenheit 2018-05-20 Heart Rate 78 bpm 2018-05-20 Respiratory Rate 16 2018-05-20 BMI 38.59 kg/m2 2018-05-20 Blood pressure systolic 128 mmHg 2018-05-20 Blood pressure diastolic 78 mmHg 2018-05-20 MEDICATIONS Medication Instructions Dosage Frequency Start Date End Date Duration Status Lisinopril 10 mg Orally Once a day 1 tablet 24h Jan, 30 day(s) Active Flonase 50 MCG/ACT Nasally twice a day 1 spray in each nostril 12h Jan, Active Flora Allergy 180 MG Orally Once a day 1 tablet as needed 24h Active BusPIRone HCl 5 mg Orally Three times a day 1 tablet 8h Aug, 0 days Active Lexapro 10 mg Orally Once a day 1 tablet 24h Aug, 0 days Active Iron 325 (65 Fe) MG Orally Once a day 1 tablet 24h Active RESULTS No Results PROCEDURES No Known procedures INSTRUCTIONS MEDICATIONS ADMINISTERED No Known Medications MEDICAL (GENERAL) HISTORY Type Description Date Medical History anxiety Medical History Onc Consult 04/07/18 Suspect CLL, absolute lymphocytosis, not symptomatic, Iron def anemia-take OTC iron pills 65mg elemental iron twice per day before meals with orange juice, RTC in 3 weeks for lab results. Medical History 04/29/2018 Dr Islas Hematology consult, monitor in 8 weeks , CBC CMP and LDH, borderline CLL, since pt is not symtomtic will observe for now. Medical History 07/06/18 ON, Dr Byrnes, CLL/SLL lugano stage III, CD49d unfavorable with classic B symptoms, iron def anemia, improved on dialy oral iron, treatmetn discussed and planned to begin in the next week. Medical History [facility] Currently doing twice a month Surgical History tubal ligation Surgical History MRSA in groin 2007 Surgical History back surgery, hardware placed in L3-L4-- Dr. [facility] 2010 Surgical History section Hospitalization History Surgery(s)/Childbirth(s) only
--- OUTSIDE RECORDS SUMMARY | 2018-08-10 21:27 | XMS REPORT ---
Author Author MCKENZIE GO Organization [facility] Address [address] [place] [address] Care Team Providers Care Tar Kettle Runner Name Role Phone MCKENZIE GO Unavailable PROBLEMS Type Condition ICD9-CM Code RKE09-FL Code Onset Dates Condition Status SNOMED Code Problem Acute stress reaction F43.0 Active 05272877 Problem CLL (chronic lymphocytic leukemia) C91.90 Active 60262172 Problem Atypical lymphocytes present on peripheral blood smear R88.8 Active 071639852 Problem Moderate single current episode of major depressive disorder F32.1 Active 53908589 Problem Generalized anxiety disorder F41.1 Active 98305808 Problem Essential hypertension I10 Active 24708221 Problem Obesity (BMI 30-39.9) E66.9 Active 394705982 ALLERGIES No Information ENCOUNTERS Encounter Location Date Diagnosis [facility] [address] [id number] Aug, Acute nasopharyngitis J00 [place] [address] [id number] Jul, Acute non-recurrent maxillary sinusitis J01.00 and CLL (chronic lymphocytic leukemia) C91.90 [facility] [address] [place] [address] [id number] [place] [address] [id number] Jun, CLL (chronic lymphocytic leukemia) C91.90 [facility] [address] [address] [id number] [place] [address] [id number] May, Left upper quadrant pain R10.12 ; Bloating R14.0 and CLL (chronic lymphocytic leukemia) C91.90 [facility] [address] [id number] [place] [address] [id number] May, Muscle strain T14.8XXA [place] [id number] [place] [address] [id number] March, Atypical lymphocytes present on peripheral blood smear R88.8 and Anemia, unspecified type D64.[address] [place] [address] [id number] March, Generalized anxiety disorder F41.1 ; Moderate single current episode of major depressive disorder F32.1 ; Acute nasopharyngitis J00 ; Essential hypertension I10 and Anemia due to other cause, not classified D64.89 [place] [id number] [place] [address] [id number] Jan, Acute nasopharyngitis J00 ; Laceration of right ear canal, initial encounter S01.311A and Essential hypertension I10 [place] [address] [place] [address] [id number] Jan, Moderate single current episode of major depressive disorder F32.1 ; Generalized anxiety disorder F41.1 ; Cough R05 ; Elevated blood pressure reading in office without diagnosis of hypertension R03.0 and Allergic contact dermatitis due to plants, except food L23.7 [address] [place] [address] [id number] Dec, [place] [id number] [place] [address] [id number] Nov, Abnormal complete blood count R79.89 [place] [id number] [place] [address] [id number] Oct, Abnormal complete blood count R79.89 ; Obesity (BMI 30-39.9) E66.9 ; Generalized anxiety disorder F41.1 and Moderate single current episode of major depressive disorder F32.[address] [place] [address] [id number] Oct, Acute stress reaction F43.0 [address] [place] [address] [id number] Oct, Moderate single current episode of major depressive disorder F32.1 [place] [id number] [place] [address] [id number] Sep, Acute stress reaction F43.0 [place] [id number] [place] [address] [id number] Aug, Obesity (BMI 30-39.9) E66.9 [place] [address] [facility] [id number] [id number] Aug, Acute stress reaction F43.0 ; Moderate single current episode of major depressive disorder F32.1 and Obesity (BMI 30-39.9) E66.9 [facility] [address] [facility] [id number] [id number] Aug, [address] [place] [address] [id number] Aug, Acute stress reaction F43.0 ; Generalized anxiety disorder F41.1 and Moderate single current episode of major depressive disorder F32.1 [address] [place] [address] [id number] Jul, Allergic contact dermatitis due to plants, except food L23.7 [facility] [address] [address] [id number] [id number] May, Muscle spasm of back M62.830 and Strain of muscle and tendon of back wall of thorax, initial encounter S29.012A [address] [id number] [id number] Jan, Allergic contact dermatitis due to plants, except food L23.7 [address] [place] [address] [id number] March, Plant allergic contact dermatitis L23.7 and Itching L29.[address] [id number][place] [id number] Jan, Allergic contact dermatitis due to plants, except food L23.7 and Itching L29.9 IMMUNIZATIONS No Known Immunizations SOCIAL HISTORY Never Assessed REASON FOR VISIT Refill request PLAN OF CARE VITAL SIGNS MEDICATIONS Medication Instructions Dosage Frequency Start Date End Date Duration Status Flonase 50 MCG/ACT Nasally twice a day 1 spray in each nostril 12h Jan, Active RESULTS No Results PROCEDURES No Known [...]
--- NOTE | 2018-08-10 21:41 | ED General ---
General Stated Complaint: CHILLS,VOMITING Source of Information: Patient, RN/MD (Dr Guardado), Spouse Exam Limitations: No Limitations History of Present Illness Date Seen by Provider: Aug 10, 2018 Time Seen by Provider: 21:26 Initial Comments The patient presents to the ER by private conveyance with her significant other chief complaint that she is been having one day prodromal syndromes and today she is having body aches fever or chills malaise. This really started this afternoon. She did have some nausea and vomiting so she tried eating some ice chips She felt so dry and continued to vomit. She is currently being treated by Dr. Ku, oncology for CLL and received her dose of chemotherapy this morning and was out by 2:00 in the afternoon. She is on month to of her treatment. She' s been tolerating the treatments very well. She's had a fever today and has used Tylenol for it with marginal success. She called Dr. Oshea who was on- call and he recommended she come out for evaluation. She's not had a cough or shortness of breath. She does not smoke or drink or use drugs. She denies any history of respiratory disease. She's had some marginal dull aching in her abdomen mostly in the epigastric region. Dr. Ku pushed on her belly and she said it was a little tender this morning while recieving Chemo. She thinks it has gotten a little worse. No painful urination or hematuria. And she had a loose watery stool this morning but she said that's normal about the time she starts her period and she started her period today. She's had her tubes tied. Allergies and Home Medications Allergies Coded Allergies: Sulfa (Sulfonamide Antibiotics) (Verified Allergy, Mild, RASH, 07/26/18) Home Medications Buspirone HCl 5 Mg Tablet, 5 MG PO TID, (Reported) Escitalopram Oxalate 10 Mg Tablet, 10 MG PO DAILY, (Reported) Ferrous Sulfate, Dried 159 Mg Tablet.er, 65 MG PO DAILY, (Reported) Fexofenadine HCl 180 Mg Tablet, 180 MG PO DAILY, (Reported) Hydrocodone Bit/Acetaminophen 1 Tab Tab, 1 TAB PO Q6H PRN for PAIN-MODERATE Prescribed by: BRITTANY العلي on 07/27/18 1050 Lisinopril 10 Mg Tablet, 10 MG PO DAILY, (Reported) Multivitamin 1 Each Tablet, 1 EACH PO DAILY, (Reported) Simethicone 125 Mg Tab.chew, 125 MG PO ACHS, (Reported) Patient Home Medication List Home Medication List Reviewed: Yes Review of Systems Review of Systems Constitutional: No chills, No diaphoresis EENTM: No hearing loss, No ear pain Respiratory: No cough, No dyspnea on exertion Cardiovascular: No no symptoms reported, No chest pain, No palpitations Gastrointestinal: abdominal pain; No constipation; diarrhea, nausea, vomiting Genitourinary: No decreased output, No discharge, No dysuria, No frequency, No hematuria : No Musculoskeletal: No back pain, No joint pain Skin: No pruritus, No rash Psychiatric/Neurological: Denies Headache, Denies Numbness Past Hfeodxz-Kdomuk-Binudx Hx Patient Social History Alcohol Use: Denies Use Recreational Drug Use: No Smoking Status: Never a Smoker Recent Foreign Travel: No Contact w/Someone Who Travel: No Recent Hopitalizations: No Seasonal Allergies Seasonal Allergies: Yes Past Medical History Section, Tubal Ligation Hypertension Reproductive Disorders: No Sexually Transmitted Disease: No HIV/AIDS: No Arthritis, Chronic Back Pain Hearing Impairment: Denies Leukemia What Type of Treatment Did You: Chemotherapy Anxiety Adverse Reaction/Blood Tranf: No Physical Exam-Suspected Sepsis Physical Exam Vital Signs Vital Signs - First Documented 08/10/18 22:07 Temp 101.7 Pulse 103 Resp 18 B/P (MAP) 144/79 (100) Pulse Ox 95 Capillary Refill : Height, Weight, BMI Height: 5'3.00" Weight: 214lbs. 0.0oz. 97.323790fh; 37.9 BMI Method:Stated General Appearance: WD/WN, Anxious, Mild Distress Eyes: Bilateral Eye Normal Inspection, Bilateral Eye PERRL, Bilateral Eye EOMI HEENT: PERRL/EOMI, TMs Normal, Normal ENT Inspection, Pharynx Normal; No Moist Mucous Membranes (Dry mm) Neck: Full Range of Motion, Normal Inspection, Non Tender, Supple Respiratory: Chest Non Tender, Lungs Clear, Normal Breath Sounds, No Accessory Muscle Use, No Respiratory Distress Cardiovascular: Regular Rate, Rhythm, No Edema, Normal Peripheral Pulses, Tachycardia Gastrointestinal: Normal Bowel Sounds, No Organomegaly, No Pulsatile Mass, Soft , Tenderness (suprapubic region; negative for Chan sign, McBurney's point tenderness, Rovsing, so as her other mesenteric signs.) Extremity: Normal Capillary Refill, Normal Inspection, Normal Range of Motion, No Calf Tenderness Neurologic/Psychiatric: Alert, Oriented x3, No Motor/Sensory Deficits Skin: normal color, warm/dry Focused Exam Lactate Level 08/10/18 21:36: Lactic Acid Level 3.11*H 08/10/18 23:35: Lactic Acid Level 2.70*H Lactic Acid Level Laboratory Tests Test 08/10/18 23:35 Lactic Acid Level 2.70 MMOL/L (0.50-2.00) *H Progress/Results/Core Measures Suspected Sepsis SIRS Temperature: Pulse: Respiratory Rate: Laboratory Tests 08/10/18 21:36: White Blood Count 18.0H Blood Pressure / Mean: 08/10/18 21:36: Lactic Acid Level 3.11*H 08/10/18 23:35: Lactic Acid Level 2.70*H Laboratory Tests 08/10/18 21:36: Creatinine 0.99, INR Comment 1.0, Platelet Count 243, Total Bilirubin 0.4 Results/Orders Lab Results Laboratory Tests Test 08/10/18 21:36 08/10/18 22:20 08/10/18 22:47 08/10/18 23:35 Range/Units White Blood Count 18.0 H 4.3-11.0 10^3/uL Red Blood Count 4.62 4.35-5.85 10^6/uL Hemoglobin 13.0 11.5-16.0 G/DL Hematocrit 37 35-52 % Mean Corpuscular Volume 80 80-99 FL Mean Corpuscular Hemoglobin 28 25-34 PG Mean Corpuscular Hemoglobin Concent 35 32-36 G/DL Red Cell Distribution Width 14.7 H 10.0-14.5 % Platelet Count 243 130-400 10^3/uL Mean Platelet Volume 11.2 H 7.4-10.4 FL Neutrophils (%) (Auto) 96 H 42-75 % Lymphocytes (%) (Auto) 1 L 12-44 % Monocytes (%) (Auto) 3 0-12 % Eosinophils (%) (Auto) 0 0-10 % Basophils (%) (Auto) 0 0-10 % Neutrophils # (Auto) 17.3 H 1.8-7.8 X 10^3 Lymphocytes # (Auto) 0.1 L 1.0-4.0 X 10^3 Monocytes # (Auto) 0.6 0.0-1.0 X 10^3 Eosinophils # (Auto) 0.0 0.0-0.3 10^3/uL Basophils # (Auto) 0.0 0.0-0.1 10^3/uL Neutrophils % (Manual) 76 % Lymphocytes % (Manual) 2 % Monocytes % (Manual) 5 % Eosinophils % (Manual) 0 % Basophils % (Manual) 0 % Band Neutrophils 17 % Clumped Platelets NORMAL Prothrombin Time 13.4 12.2-14.7 SEC INR Comment 1.0 0.8-1.4 Activated Partial Thromboplast Time 20 L 24-35 SEC Sodium Level 137 135-145 MMOL/L Potassium Level 3.7 3.6-5.0 MMOL/L Chloride Level 108 H 98-107 MMOL/L Carbon Dioxide Level 17 L 21-32 MMOL/L Anion Gap 12 5-14 MMOL/L Blood Urea Nitrogen 14 7-18 MG/DL Creatinine 0.99 0.60-1.30 MG/DL Estimat Glomerular Filtration Rate 60 BUN/Creatinine Ratio 14 Glucose Level 160 H 70-105 MG/DL Lactic Acid Level 3.11 *H 2.70 *H 0.50-2.00 MMOL/L Calcium Level 9.2 8.5-10.1 MG/DL Corrected Calcium 9.0 8.5-10.1 MG/DL Total Bilirubin 0.4 0.1-1.0 MG/DL Aspartate Amino Transf (AST/SGOT) 26 5-34 U/L Alanine Aminotransferase (ALT/SGPT) 37 0-55 U/L Alkaline Phosphatase 55 40-136 U/L Total Protein 6.9 6.4-8.2 GM/DL Albumin 4.2 3.2-4.5 GM/DL Serum Test, Qualitative NEGATIVE NEGATIVE Monoscreen NEGATIVE NEGATIVE Group A Streptococcus Screen NEGATIVE NEGATIVE Urine Color YELLOW Urine Clarity SLIGHTLY CLOUDY Urine pH 5 5-9 Urine Specific [place] 1.010 L 1.016-1.022 Urine Protein 2+ H NEGATIVE Urine Glucose (UA) NEGATIVE NEGATIVE Urine Ketones NEGATIVE NEGATIVE Urine Nitrite NEGATIVE NEGATIVE Urine Bilirubin NEGATIVE NEGATIVE Urine Urobilinogen NORMAL NORMAL MG/DL Urine Leukocyte Esterase 1+ H NEGATIVE Urine RBC (Auto) 5+ H NEGATIVE Urine RBC TNTC H /HPF Urine WBC 2-5 /HPF Urine Squamous Epithelial Cells 2-5 /HPF Urine Crystals NONE /LPF Urine Bacteria NONE /HPF Urine Casts NONE /LPF Urine Mucus NEGATIVE /LPF Urine Culture Indicated NO Micro Results Microbiology 08/10/18 Influenza Types A,B Antigen (ALFRED) - Final, Complete My Orders Orders - AGUEDA JOHNSON Cbc With Automated Diff (08/10/18 21:33) Comprehensive Metabolic Panel (08/10/18 21:33) Blood Culture (08/10/18 21:33) Sputum Culture (08/10/18:33) Urinalysis (08/10/18:33) Urine Culture (08/10/18:33) Protime With Inr (08/10/18:) Partial Thromboplastin Time (08/10/18:33) Chest 1 View, Ap/Pa Only (08/10/18:33) Saline Lock/Iv-Start (08/10/18:33) Saline Lock/Iv-Start (08/10/18:33) Vital Signs Adult Sepsis Patie Q15M (08/10/18 21:33) Ondansetron Injection (Zofran Injectio (08/10/18 21:45) O2 (08/10/18 21:33) Remove Rings In Anticipation O (08/10/18:33) Lactic Acid Analyzer (08/10/18:33) Lactated Ringers (Lr 1000 Ml Iv Solution (08/10/18 21:45) Piperacillin Sodium/Tazobactam (Zosyn Vi (08/10/18 21:45) Ketorolac Injection (Toradol Injection) (08/10/18 21:45) Influenza A And B Antigens (08/10/18 21:33) Rapid Strep A Screen (08/10/18 21:38) Monotest (08/10/18 21:38) Hcg,Qualitative Serum (08/10/18 21:41) Manual Differential (08/10/18 21:36) Acetaminophen Tablet (Tylenol Tablet) (08/10/18 23:00) Iohexol Injection (Omnipaque 350 Mg/Ml 1 (08/10/18 23:45) Ns (Ivpb) (Sodium Chloride 0.9%) (08/10/18 23:45) Ct Abdomen/Pelvis W (10/11/18 00:01) Medications Given in ED Current Medications Medications Dose Ordered Sig/Cehri Route Start Time Stop Time Status Last Admin Dose Admin Acetaminophen 1,000 mg ONCE ONCE PO 08/10/18 23:00 08/10/18 23:01 DC 08/10/18 23:28 1,000 MG Iohexol 100 ml ONCE ONCE IV 08/10/18 23:45 08/10/18 23:46 DC 08/11/18 00:26 100 ML Ketorolac Tromethamine 30 mg ONCE ONCE IVP 08/10/18 21:45 08/10/18 21:46 DC 08/10/18 21:53 30 MG Lactated Ringer's 2,000 ml @ 2,000 mls/hr PRN PRN IV 08/10/18 21:45 08/10/18 21:54 2,000 MLS/HR Ondansetron HCl 4 mg PRN PRN IV 08/10/18 21:45 08/10/18 21:54 DC 08/10/18 21:53 4 MG Piperacillin Sod/ Tazobactam Sod 4.5 gm/Sodium Chloride 100 ml @ 200 mls/hr ONCE ONCE IV 08/10/18 21:45 08/10/18 22:14 DC 08/10/18 22:53 200 MLS/HR Sodium Chloride 80 ml ONCE ONCE IV 08/10/18 23:45 08/10/18 23:46 DC 08/11/18 00:26 80 ML Vital Signs/I&O 08/10/18 08/10/18 08/11/18 22:07 23:28 00:45 Temp 101.7 102.5 101.6 Pulse 103 Resp 18 B/P (MAP) 144/79 (100) Pulse Ox 95 08/11/18 00:00 Intake Total 100 ml Balance 100 ml Capillary Refill : Progress Note #1: Time: 21:[address] Oshea encourages us to expect normal cell counts despite having received chemotherapy today. With her fever, chills runny get flu swab, UA given her suprapubic pain, septic workup with some fluids and Toradol for her body aches and fever. If we do not find a source of her infection then we would look into the abdomen with a CT scan. Zofran for nausea. We've selected Zosyn since we don 't have a clear source and it would control intra-abdominal sources. Progress Note #2: Time: 23:13 Progress Note Patient continues to have a mildly tender belly and no obvious reason for her symptoms. The red blood cells seen in her urine probably reflect the fact that she is on her period right now. She is not having any costovertebral angle tenderness. We'll obtain a CT with contrast for still's anything and be reasonable to put her in the hospital on IV antibiotics for observation. Viral gastroenteritis, dehydration, colitis versus other. Yesterday's white count was 8000 today's white count is 18,000 with a left shift of 75% neutrophils. Diagnostic Imaging Diagonstic Imaging: Xray Plain Films/CT/US/NM/MRI: chest (1v) Comments No acute cardiopulmonary process. Reviewed: Reviewed by Me Diagonstic Imaging: CT (with contrast) Plain Films/CT/US/NM/MRI: abdomen, pelvis Comments No acute intra-abdominal process noted. Reviewed: Reviewed by Me Departure Communication (Admissions) Time/Spoke to Admitting Phy: 02:00 Discussed case lab imaging findings with Dr. Cueto and she agrees to accept the patient. She agrees with Noy. Impression Primary Impression: Sepsis Qualified Codes: A41.9 - Sepsis, unspecified organism Additional Impressions: CLL (chronic lymphocytic leukemia) Dehydration Abdominal pain Qualified Codes: R10.13 - Epigastric pain Disposition: ADMITTED INPATIENT Condition: Stable Admissions Decision to Admit Reason: Admit from ER (General) Decision to Admit/Date: Aug 11, 2018 Time/Decision to Admit Time: 01:48 Departure-Patient Inst. Referrals: MAXWELL MURPHY WARNER MD (PCP/Family) Primary Care Physician Copy Copies To 1: MAXWELL MURPHY DO; TESSA KU MD, TITUS J Aug 10, 2018 21:41
[2018-08-10] MEDS ORDERED: KETOROLAC 30 MG/ML VIAL IVP ONE (21:45)
[2018-08-10] MEDS ORDERED: LACTATED RINGERS 2,000 ML IV PRN (21:45)
[2018-08-10] MEDS ORDERED: ONDANSETRON 4 MG/2 ML (SDV) Z0FRAN IV PRN (21:45)
[2018-08-10 21:52] LABS: BASOPHILS % (AUTO) 0 % (0-10); EOSINOPHILS % (AUTO) 0 % (0-10); HEMATOCRIT 37 % (35-52); LYMPHOCYTES # (AUTO) 0.1 X 10^3 (1.0-4.0); LYMPHOCYTES % (AUTO) 1 % (12-44); MEAN CORPUSCULAR HEMOGLOBIN 28 PG (25-34); MEAN CORPUSCULAR HGB CONC 35 G/DL (32-36); MEAN CORPUSCULAR VOLUME 80 FL (80-99); MEAN PLATELET VOLUME 11.2 FL (7.4-10.4); MONOCYTES # (AUTO) 0.6 X 10^3 (0.0-1.0); MONOCYTES % (AUTO) 3 % (0-12); NEUTROPHILS # (AUTO) 17.3 X 10^3 (1.8-7.8); NEUTROPHILS % (AUTO) 96 % (42-75); PLATELET COUNT 243 10^3/uL (130-400); RED BLOOD COUNT 4.62 10^6/uL (4.35-5.85); RED CELL DISTRIBUTION WIDTH 14.7 % (10.0-14.5)
[2018-08-10] MEDS: PIPERACILLIN SODIUM/TAZOBACTAM 4.5 GM in NS (IVPB) 100 ML IV ONE ×2 (21:53→22:53)
[2018-08-10 22:02] LABS: PROTHROMBIN TIME PATIENT 13.4 SEC (12.2-14.7)
[2018-08-10 22:09] LABS: ALBUMIN 4.2 GM/DL (3.2-4.5); BILIRUBIN,TOTAL 0.4 MG/DL (0.1-1.0); CALCIUM 9.2 MG/DL (8.5-10.1); CREATININE SERUM 0.99 MG/DL (0.60-1.30); POTASSIUM 3.7 MMOL/L (3.6-5.0); TOTAL PROTEIN 6.9 GM/DL (6.4-8.2)
[2018-08-10 22:10] LABS: BAND NEUTROPHILS 17 %; BASOPHILS % (MANUAL) 0 %; EOSINOPHILS % (MANUAL) 0 %; LYMPHOCYTES % (MANUAL) 2 %; MONOCYTES % (MANUAL) 5 %; NEUTROPHILS % (MANUAL) 76 %; PLATELET CLUMPS NORMAL
[2018-08-10] MEDS ORDERED: ACETAMINOPHEN 500 MG TAB (TYLENOL) PO ONE (23:00)
[2018-08-10 23:04] LABS: BILIRUBIN,URINE NEGATIVE (NEGATIVE); CLARITY,URINE SLIGHTLY CLOUDY; COLOR,URINE YELLOW; GLUCOSE, URINE (UA) NEGATIVE (NEGATIVE); KETONES,URINE NEGATIVE (NEGATIVE); LEUKOCYTE ESTERASE ,URINE 1+ (NEGATIVE); NITRITE,URINE NEGATIVE (NEGATIVE); PH,URINE 5 (5-9); PROTEIN,URINE 2+ (NEGATIVE); RBC,URINE TNTC /HPF; UROBILINOGEN,URINE NORMAL (NORMAL)
[2018-08-10] MEDS ORDERED: IOHEXOL 350 MG/ML 100 ML (OMNIPAQUE 350) VIAL IV ONE (23:45)
[2018-08-10] MEDS ORDERED: NS 250 ML (IVPB) BAG IV ONE (23:45)
[2018-08-11] MEDS ORDERED: KETOROLAC 30 MG/ML VIAL IVP ONE (03:15)
[2018-08-11] MEDS ORDERED: NS W/KCL 20 MEQ/L 1,000 ML IV ONE (03:25)
[2018-08-11] MEDS: NS W/KCL 20 MEQ/L 1,000 ML IV SCH ×5 (04:00→21:44)
[2018-08-11 04:27] VITALS: BP 119/56
[2018-08-11 05:00] LABS: BASOPHILS % (AUTO) 0 % (0-10); EOSINOPHILS # (AUTO) 0.2 10^3/uL (0.0-0.3); EOSINOPHILS % (AUTO) 1 % (0-10); HEMATOCRIT 34 % (35-52); HEMOGLOBIN 11.7 G/DL (11.5-16.0); LYMPHOCYTES # (AUTO) 0.1 X 10^3 (1.0-4.0); LYMPHOCYTES % (AUTO) 0 % (12-44); MEAN CORPUSCULAR HEMOGLOBIN 27 PG (25-34); MEAN CORPUSCULAR HGB CONC 34 G/DL (32-36); MEAN CORPUSCULAR VOLUME 80 FL (80-99); MEAN PLATELET VOLUME 10.8 FL (7.4-10.4); MONOCYTES # (AUTO) 0.7 X 10^3 (0.0-1.0); MONOCYTES % (AUTO) 4 % (0-12); NEUTROPHILS # (AUTO) 15.3 X 10^3 (1.8-7.8); NEUTROPHILS % (AUTO) 95 % (42-75); PLATELET COUNT 221 10^3/uL (130-400); RED CELL DISTRIBUTION WIDTH 14.9 % (10.0-14.5); WHITE BLOOD COUNT 16.2 10^3/uL (4.3-11.0)
[2018-08-11] MEDS ORDERED: PROMETHAZINE INJ 25 MG/ML (PHENERGAN) AMP IV PRN (05:00)
[2018-08-11] MEDS ORDERED: KETOROLAC 15 MG/ML VIAL IV PRN (05:00)
[2018-08-11] MEDS ORDERED: fentaNYL INJECTION 100 MCG/2 ML AMP IV PRN (05:00)
[2018-08-11] MEDS ORDERED: ONDANSETRON 4 MG/2 ML (SDV) Z0FRAN IV PRN (05:00)
[2018-08-11] MEDS ORDERED: KETOROLAC 15 MG/ML VIAL IVP PRN (05:15)
[2018-08-11 05:19] LABS: BUN/CREATININE RATIO 14; CALCIUM 8.4 MG/DL (8.5-10.1); CARBON DIOXIDE 19 MMOL/L (21-32); CHLORIDE 109 MMOL/L (98-107); CREATININE SERUM 0.95 MG/DL (0.60-1.30); GFR ESTIMATED > 60; GLUCOSE 141 MG/DL (70-105); POTASSIUM 3.9 MMOL/L (3.6-5.0); SODIUM 137 MMOL/L (135-145)
[2018-08-11] MEDS: PIPERACILLIN/TAZO 4.5 GM/NS 100 ML IV SCH ×6 (06:14→20:08)
--- NOTE | 2018-08-11 06:23 | Diagnostic Imaging Report ---
INDICATION: Nausea, emesis and epigastric pain. FINDINGS: Upright portable AP view of the chest is obtained. Overall heart size and pulmonary vascularity are within normal limits. There is no evidence of pneumothorax or consolidation. There is right anterior chest wall port with catheter tip projecting over the mid superior vena cava. No pneumothorax is seen. There is no evidence of significant pleural fluid. IMPRESSION: No definite acute abnormality is identified. Dictated by: Dictated on workstation # [id number]
--- NOTE | 2018-08-11 06:58 | Diagnostic Imaging Report ---
PROCEDURE: CT abdomen and pelvis with contrast. TECHNIQUE: Multiple contiguous axial images were obtained through the abdomen and pelvis after administration of intravenous contrast. INDICATION: Emesis and chills. Comparison is made to study of 06/06/2018. There is mild atelectasis in the left lung base. Note is made of low-density throughout the liver suggesting fatty infiltration. No focal, hepatic or splenic lesion is identified. Gallbladder, pancreas and adrenal glands are also unremarkable. There is no evidence of renal lesion. No free fluid is seen in the abdomen or pelvis. There are surgical findings in the lumbar spine. There are persistent prominent lymph nodes along the external iliac chains. The largest is near the left inguinal ring measuring 2 cm long axis. Heterogeneous solid mass in the uterus measures approximately 6 cm in diameter and would be most suggestive of uterine fibroid. IMPRESSION: Fatty infiltration of liver with left basilar atelectasis. Note is made of pelvic adenopathy which is not significantly changed when compared to the previous study. There is probable myomatous uterus, although clinical correlation and possible ultrasound followup would be of use. Dictated by: Dictated on workstation # [id number]
[2018-08-11] MEDS ORDERED: FLU QUADRIvalent (5+ YOA) 2018-2019 (AFLURIA) 0.5 ML IM ONE (07:30)
[2018-08-11 08:00] VITALS: BP 115/65
[2018-08-11] MEDS: ACETAMINOPHEN 500 MG TAB (TYLENOL) PO PRN ×2 (08:33→17:34)
[2018-08-11] MEDS ORDERED: ONDA8TAB12 PO (09:45)
[2018-08-11] MEDS ORDERED: FERR325T18 PO (09:45)
[2018-08-11] MEDS ORDERED: BUSP5TAB59 PO (09:45)
[2018-08-11] MEDS ORDERED: FLUT16SP22 NS (09:45)
[2018-08-11] MEDS ORDERED: ESCI10TA55 PO (09:45)
[2018-08-11] MEDS ORDERED: DOCU-143 PO (09:48)
[2018-08-11 12:00] VITALS: BP 111/57
[2018-08-11 15:35] VITALS: BP 108/56
--- NOTE | 2018-08-11 19:08 | CONSULTATION REPORT ---
DATE OF SERVICE: 08/11/2018 The patient is admitted to room #423. REFERRING PHYSICIAN: Delmy Cueto MD IMPRESSION: A 47-year-old female with: 1. History of CLL/SLL and on chemotherapy with Treanda plus Rituxan regimen started one month ago. 2. The patient admitted with one day history of shaking chills, fever to more than 101 degrees Fahrenheit, nausea and vomiting as well as abdominal pain. 3. Left lower lobe atelectasis by CT scan of the abdomen and pelvis, rule out pneumonia. RECOMMENDATIONS: 1. Obtain centeno cultures and start the patient on broad spectrum antibiotics because of the fever and immunocompromised status. 2. The patient started second course of chemotherapy on 08/10/2018 and I will hold day 2 of chemotherapy because of her infection. 3. We will monitor her blood counts serially as well as the chemistries. 4. Continue rest of care as you are doing. 5. We will follow the patient with you. BRIEF HISTORY: The patient is a 47-year-old female, who was diagnosed with CLL/SLL in 06/2018. She had stage III disease with unfavorable features. Because of this, she was started on chemotherapy with Treanda plus Rituxan regimen with the first course administered in July and the second course started on 08/10/2018. She contacted me on 08/10/2018 evening with complaints of shaking chills and fever to more than 101 degrees Fahrenheit at home. It is also associated with abdominal pain, nausea and vomiting with difficulty to eat or drink. Because of these reasons, she was instructed to proceed to the emergency room where she was evaluated and admitted to the hospital. Oncology consultation was obtained for concurrent care. PAST MEDICAL HISTORY: Significant for CLL/SLL diagnosed in 06/2018 as mentioned above. She has history of anxiety and depression dating back several years. History of hypertension diagnosed a few years ago and obesity. PAST SURGICAL HISTORY: Include tubal ligation in the past and back surgery. Also had axillary lymph node biopsy done in June and a diagnosis of SLL/CLL was made. SOCIAL HISTORY: The patient is and lives near [place], [place]. She denied any history of tobacco, alcohol or other recreational drug use. 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 Denied any significant exposure to chemicals. FAMILY HISTORY: Significant for her father with diabetes mellitus as well as coronary artery disease. Mother has diabetes mellitus and hypertension. PHYSICAL EXAMINATION: GENERAL: Today showed a middle-aged female, moderately obese, awake and oriented and in mild distress because of fatigue. VITAL SIGNS: Temperature at the time of evaluation was 98.1, pulse rate 77, respirations 16, blood pressure 108/56 with oxygen saturation of 98% on room air. T-max was 102.5 last night and 102.8 earlier today morning. HEENT: Normocephalic, extraocular muscles intact, conjunctivae pink, oral mucosa moist. NECK: Supple with no JVD. No cervical or supraclavicular lymphadenopathy palpable. Axillary lymph node palpable, measuring less than an inch. CHEST: Symmetrical. Port present and the site looked normal. LUNGS: Fairly clear to auscultation without wheezes or rales. CARDIOVASCULAR EXAM: Regular in rate and rhythm without murmurs or gallops. ABDOMEN: Obese, soft with mild tenderness diffusely without guarding or rebound. No hepatosplenomegaly or other masses palpable. EXTREMITIES: Showed no edema. NEUROLOGIC EXAMINATION: Grossly intact without focal motor deficits. LABORATORY DATA: CBC done today showed WBC 16.2, hemoglobin 11.7, platelet count of 221,000 with neutrophil count 15.3 and lymphocyte count 0.1. CBC done last night at the emergency room showed white count of 18, hemoglobin 13.0, platelet count 243,000 with neutrophil count of 17.3 and lymphocyte count of 0.1. The band neutrophils were 17% with mature neutrophils 76% on manual differential. Chemistry panel done at the time of admission showed normal electrolytes except CO2 level of 17. BUN was 14 and creatinine 0.99 with GFR of 60 mL per minute. Nonfasting glucose was 160. Lactic acid was elevated at 3.11. Liver function studies were within normal limits. Follow up lactic acid levels were decreasing. BMP done today showed a BUN of 13 and creatinine 0.95 with GFR more than 60 mL per minute. Nasal swab for influenza A and B antigens were negative. Blood cultures obtained last night showed no growth so far. Throat culture done yesterday showed no beta strep. Urine culture is in progress. UA showed 1+ leukocyte esterase, 2+ protein, too numerous to count red blood cells, 2 to 5 WBCs, no bacteria. Chest x-ray done at the emergency room showed no definite acute abnormality. CT scan of the abdomen and pelvis showed fatty infiltration of liver. Left basilar atelectasis. Pelvic adenopathy was present, which is stable compared to the previous scan from 06/06/2018. Heterogeneous solid mass in the uterus measuring 6 cm, felt to be a uterine fibroid. Thank you for allowing me to participate in this patient's care. I will follow the patient with you and make appropriate recommendations. Job ID: [id number] DocumentID: [id number] Dictated Date: 08/11/2018 17:53:29 Homeopathic Doctor Date: 08/11/2018 19:08:07 Dictated By: GISEL REED MD MTDD
--- NOTE | 2018-08-11 19:52 | History & Physicial (CHS) ---
HPI History of Present Illness: 47 yo female with CLL had rituxamab yesterday for the second course of her treatment and afterward when she went home she had nausea, vomiting and then started having severe chills. She denies symptoms prior to her appointment, including no cough, congestion, nausea, vomiting, dysuria. She does admit alternating diarrhea and constipation which she has always had trouble with. Date seen by provider: Aug 11, 2018 Time Seen by Provider: 12:25 Attending Physician Yeison Cueto MD PCP Roshan Byrnes MD Consult Date of Admission Aug 11, 2018 at 01:20 Home Medications Home Medications Reviewed patient Home Medication Reconciliation performed by pharmacy medication reconciliations aerospace technician and/or nursing. Patients Allergies have been reviewed. Allergies Coded Allergies: Sulfa (Sulfonamide Antibiotics) (Verified Allergy, Mild, RASH, 07/26/18) DYM-Plnzmb-Daycin Hx Patient Social History Alcohol Use: Denies Use Recreational Drug Use: No Smoking Status: Never a Smoker Recent Foreign Travel: No Contact w/other who traveled: No Recent Hopitalizations: No Recent Infectious Disease Expo: No Physical Abuse Screen: No Sexual Abuse: No Past Medical History PMHx: CLL Anxiety Depression HTN SurgHx: Tubal ligation C section Lumbar fusion Family Medical History Significant Family History: Diabetes, Hypertension Family History: Diabetes mellitus 19 FATHER 19 MOTHER Hypertension 19 FATHER 19 MOTHER G8 BROTHER Review of Systems (CHC) Constitutional: see HPI EENTM: No throat pain Respiratory: No cough Cardiovascular: No chest pain Gastrointestinal: see HPI Genitourinary: No dysuria Musculoskeletal: no symptoms reported Skin: no symptoms reported Psychiatric/Neurological: No Symptoms Reported Reviewed Test Results Reviewed Test Results Lab Laboratory Tests Test 08/10/18 21:36 08/10/18 22:20 08/10/18 22:47 08/10/18 23:35 Range/Units White Blood Count 18.0 H 4.3-11.0 10^3/uL Red Blood Count 4.62 4.35-5.85 10^6/uL Hemoglobin 13.0 11.5-16.0 G/DL Hematocrit 37 35-52 % Mean Corpuscular Volume 80 80-99 FL Mean Corpuscular Hemoglobin 28 25-34 PG Mean Corpuscular Hemoglobin Concent 35 32-36 G/DL Red Cell Distribution Width 14.7 H 10.0-14.5 % Platelet Count 243 130-400 10^3/uL Mean Platelet Volume 11.2 H 7.4-10.4 FL Neutrophils (%) (Auto) 96 H 42-75 % Lymphocytes (%) (Auto) 1 L 12-44 % Monocytes (%) (Auto) 3 0-12 % Eosinophils (%) (Auto) 0 0-10 % Basophils (%) (Auto) 0 0-10 % Neutrophils # (Auto) 17.3 H 1.8-7.8 X 10^3 Lymphocytes # (Auto) 0.1 L 1.0-4.0 X 10^3 Monocytes # (Auto) 0.6 0.0-1.0 X 10^3 Eosinophils # (Auto) 0.0 0.0-0.3 10^3/uL Basophils # (Auto) 0.0 0.0-0.1 10^3/uL Neutrophils % (Manual) 76 % Lymphocytes % (Manual) 2 % Monocytes % (Manual) 5 % Eosinophils % (Manual) 0 % Basophils % (Manual) 0 % Band Neutrophils 17 % Clumped Platelets NORMAL Prothrombin Time 13.4 12.2-14.7 SEC INR Comment 1.0 0.8-1.4 Activated Partial Thromboplast Time 20 L 24-35 SEC Sodium Level 137 135-145 MMOL/L Potassium Level 3.7 3.6-5.0 MMOL/L Chloride Level 108 H 98-107 MMOL/L Carbon Dioxide Level 17 L 21-32 MMOL/L Anion Gap 12 5-14 MMOL/L Blood Urea Nitrogen 14 7-18 MG/DL Creatinine 0.99 0.60-1.30 MG/DL Estimat Glomerular Filtration Rate 60 BUN/Creatinine Ratio 14 Glucose Level 160 H 70-105 MG/DL Lactic Acid Level 3.11 *H 2.70 *H 0.50-2.00 MMOL/L Calcium Level 9.2 8.5-10.1 MG/DL Corrected Calcium 9.0 8.5-10.1 MG/DL Total Bilirubin 0.4 0.1-1.0 MG/DL Aspartate Amino Transf (AST/SGOT) 26 5-34 U/L Alanine Aminotransferase (ALT/SGPT) 37 0-55 U/L Alkaline Phosphatase 55 40-136 U/L Total Protein 6.9 6.4-8.2 GM/DL Albumin 4.2 3.2-4.5 GM/DL Serum Test, Qualitative NEGATIVE NEGATIVE Monoscreen NEGATIVE NEGATIVE Group A Streptococcus Screen NEGATIVE NEGATIVE Urine Color YELLOW Urine Clarity SLIGHTLY CLOUDY Urine pH 5 5-9 Urine Specific [place] 1.010 L 1.016-1.022 Urine Protein 2+ H NEGATIVE Urine Glucose (UA) NEGATIVE NEGATIVE Urine Ketones NEGATIVE NEGATIVE Urine Nitrite NEGATIVE NEGATIVE Urine Bilirubin NEGATIVE NEGATIVE Urine Urobilinogen NORMAL NORMAL MG/DL Urine Leukocyte Esterase 1+ H NEGATIVE Urine RBC (Auto) 5+ H NEGATIVE Urine RBC TNTC H /HPF Urine WBC 2-5 /HPF Urine Squamous Epithelial Cells 2-5 /HPF Urine Crystals NONE /LPF Urine Bacteria NONE /HPF Urine Casts NONE /LPF Urine Mucus NEGATIVE /LPF Urine Culture Indicated NO Test 08/11/18 04:50 08/11/18 09:12 Range/Units White Blood Count 16.2 H 4.3-11.0 10^3/uL Red Blood Count 4.30 L 4.35-5.85 10^6/uL Hemoglobin 11.7 11.5-16.0 G/DL Hematocrit 34 L 35-52 % Mean Corpuscular Volume 80 80-99 FL Mean Corpuscular Hemoglobin 27 25-34 PG Mean Corpuscular Hemoglobin Concent 34 32-36 G/DL Red Cell Distribution Width 14.9 H 10.0-14.5 % Platelet Count 221 130-400 10^3/uL Mean Platelet Volume 10.8 H 7.4-10.4 FL Neutrophils (%) (Auto) 95 H 42-75 % Lymphocytes (%) (Auto) 0 L 12-44 % Monocytes (%) (Auto) 4 0-12 % Eosinophils (%) (Auto) 1 0-10 % Basophils (%) (Auto) 0 0-10 % Neutrophils # (Auto) 15.3 H 1.8-7.8 X 10^3 Lymphocytes # (Auto) 0.1 L 1.0-4.0 X 10^3 Monocytes # (Auto) 0.7 0.0-1.0 X 10^3 Eosinophils # (Auto) 0.2 0.0-0.3 10^3/uL Basophils # (Auto) 0.0 0.0-0.1 10^3/uL Sodium Level 137 135-145 MMOL/L Potassium Level 3.9 3.6-5.0 MMOL/L Chloride Level 109 H 98-107 MMOL/L Carbon Dioxide Level 19 L 21-32 MMOL/L Anion Gap 9 5-14 MMOL/L Blood Urea Nitrogen 13 7-18 MG/DL Creatinine 0.95 0.60-1.30 MG/DL Estimat Glomerular Filtration Rate > 60 BUN/Creatinine Ratio 14 Glucose Level 141 H 70-105 MG/DL Lactic Acid Level 2.44 *H 1.68 0.50-2.00 MMOL/L Calcium Level 8.4 L 8.5-10.1 MG/DL Physical Exam-(CHC) Physical Exam Vital Signs VS - Last 72 Hours, by Label 08/10/18 08/10/18 08/11/18 08/11/18 22:07 23:28 00:45 02:41 Temp 101.7 102.5 101.6 100.5 Pulse 103 92 Resp 18 18 B/P (MAP) 144/79 (100) 138/76 (96) Pulse Ox 95 95 08/11/18 08/11/18 08/11/18 08/11/18 02:45 04:27 08:00 08:00 Temp 102.8 101.4 Pulse 93 94 Resp 20 18 B/P (MAP) 119/56 (77) 115/65 (82) Pulse Ox 96 97 97 97 O2 Delivery Room Air Room Air 08/11/18 08/11/18 08/11/18 08/11/18 08:33 10:00 12:00 15:15 Temp 101.4 100.4 99.5 99.6 Pulse 87 Resp 18 B/P (MAP) 111/57 (75) Pulse Ox 96 O2 Delivery Room Air 08/11/18 08/11/18 08/11/18 08/11/18 15:35 17:34 17:38 19:16 Temp 98.1 100.4 100.4 Pulse 77 Resp 16 B/P (MAP) 108/56 (73) Pulse Ox 98 O2 Delivery Room Air Room Air 08/11/18 20:27 O2 Delivery Room Air Capillary Refill : Less Than 3 Seconds General Appearance: no apparent distress Respiratory: lungs clear, normal breath sounds Cardiovascular: regular rate, rhythm, no murmur Gastrointestinal: normal bowel sounds, soft Neurologic/Psychiatric: alert, normal mood/affect Skin: normal color, warm/dry Assessment/Plan Assessment/Plan Admission Status: Inpatient Order (span 2 midnights) Reason for Inpatient Admission: Febrile with leukocytosis with underlying hematologic malignancy and high risk for complication (1) Severe sepsis Status: Acute Assessment & Plan: Suspected severe sepsis but no clear source of infection at this time. Lactate above 2 on admit, has resolved with IVF. Febrile, leukocytosis and tachycardia on admission. CXR unremarkable, UA without evidence of infection, CT abdomen/pelvis unremarkable. Consider port infection, follow blood cultures. Zosyn for infection of unknown source. (2) CLL (chronic lymphocytic leukemia) Status: Chronic Assessment & Plan: Undergoing chemotherapy, had rituximab today, will consult with Oncology. (3) Hypertension Status: Chronic Assessment & Plan: BP on lower side currently, hold home meds Qualifiers: Qualified Codes: I10 - Essential (primary) hypertension (4) Anxiety Status: Chronic Assessment & Plan: Resume home meds (5) Depression Status: Chronic Assessment & Plan: Resume home meds (6) DVT prophylaxis Status: Acute Assessment & Plan: Enoxaparin Clinical Quality Measures DVT/VTE Risk/Contraindication: Risk Factor Score Per Nursin RFS Level Per Nursing on Admit: 4+=Very High YEISON CUETO MD Aug 11, 2018 7:52 pm
[2018-08-11 20:00] VITALS: BP 120/67
[2018-08-11] MEDS ORDERED: NON-FORMULARY MEDICATION 1 EA EA (Buspirone HCl 10 MG) PO SCH (21:00)
[2018-08-11] MEDS ORDERED: NON-FORMULARY MEDICATION 1 EA EA (Multivitamin (Daily Multiple Vitamin) 1 TAB) PO SCH (21:00)
[2018-08-11] MEDS ORDERED: NON-FORMULARY MEDICATION 1 EA EA (Simethicone 125 MG) PO SCH (21:00)
[2018-08-11] MEDS ORDERED: FLUTICASONE NASAL SPRAY (FLONASE) 16 GM BTL NS PRN (21:00)
[2018-08-11] MEDS: DOCUSATE SODIUM 100 MG (COLACE) CAP PO SCH (21:44)
[2018-08-11] MEDS: FERROUS SULF 325 MG (IRON) TAB PO SCH (21:44)
[2018-08-12 00:03] VITALS: BP 116/56
[2018-08-12] MEDS: NS W/KCL 20 MEQ/L 1,000 ML IV SCH ×2 (02:43→08:05)
[2018-08-12 04:04] VITALS: BP 111/56
[2018-08-12] MEDS: PIPERACILLIN/TAZO 4.5 GM/NS 100 ML IV SCH ×6 (04:17→20:56)
[2018-08-12] MEDS: MULTIVIT W/MINERALS TAB (THERAGRAN M) PO SCH (05:23)
[2018-08-12] MEDS: SIMETHICONE 80 MG (MYLICON) CHEW PO SCH ×4 (05:23→20:56)
[2018-08-12 05:36] LABS: BASOPHILS % (AUTO) 0 % (0-10); EOSINOPHILS # (AUTO) 1.3 10^3/uL (0.0-0.3); EOSINOPHILS % (AUTO) 14 % (0-10); HEMATOCRIT 33 % (35-52); LYMPHOCYTES # (AUTO) 0.2 X 10^3 (1.0-4.0); LYMPHOCYTES % (AUTO) 2 % (12-44); MEAN CORPUSCULAR HEMOGLOBIN 27 PG (25-34); MEAN CORPUSCULAR HGB CONC 33 G/DL (32-36); MEAN CORPUSCULAR VOLUME 82 FL (80-99); MEAN PLATELET VOLUME 10.7 FL (7.4-10.4); MONOCYTES # (AUTO) 0.6 X 10^3 (0.0-1.0); MONOCYTES % (AUTO) 6 % (0-12); NEUTROPHILS # (AUTO) 7.8 X 10^3 (1.8-7.8); NEUTROPHILS % (AUTO) 79 % (42-75); PLATELET COUNT 201 10^3/uL (130-400); RED BLOOD COUNT 4.02 10^6/uL (4.35-5.85); RED CELL DISTRIBUTION WIDTH 15.4 % (10.0-14.5); WHITE BLOOD COUNT 9.9 10^3/uL (4.3-11.0)
[2018-08-12 05:51] LABS: CALCIUM 7.4 MG/DL (8.5-10.1); POTASSIUM 4.1 MMOL/L (3.6-5.0)
[2018-08-12 08:00] VITALS: BP 128/58
[2018-08-12] MEDS: LORATADINE (CLARITIN) 10 MG TAB PO SCH (08:43)
[2018-08-12] MEDS: busPIRone 5 MG (BUSPAR) TAB PO SCH (08:44)
[2018-08-12] MEDS ORDERED: NON-FORMULARY MEDICATION 1 EA EA (Fexofenadine HCl (Allegra Allergy) 180 MG) PO SCH (09:00)
[2018-08-12] MEDS ORDERED: NON-FORMULARY MEDICATION 1 EA EA (Escitalopram Oxalate 10 MG) PO SCH (09:00)
[2018-08-12] MEDS ORDERED: NON-FORMULARY MEDICATION 1 EA EA (Buspirone HCl 5 MG) PO SCH (09:00)
[2018-08-12 12:00] VITALS: BP 118/59
--- NOTE | 2018-08-12 13:41 | Progress Note (SOAP) ---
Subjective Subjective/Events-last exam Febrile to Tmax 101.4 yesterday am with decreasing fever curve since then. She states she is feeling pretty well but quite swollen. Review of Systems Date Seen by Provider: Aug 12, 2018 Time Seen by Provider: 10:45 Focused Exam Lactate Level 08/10/18 23:35: Lactic Acid Level 2.70*H 08/11/18 04:50: Lactic Acid Level 2.44*H 08/11/18 09:12: Lactic Acid Level 1.68 Objective Exam Last Set of Vital Signs Vital Signs Date Time Temp Pulse Resp B/P (MAP) Pulse Ox O2 Delivery O2 Flow Rate FiO2 08/12/18 12:00 99.6 71 20 118/59 (78) 96 Room Air Capillary Refill : Less Than 3 Seconds I&O Intake and Output 08/12/18 00:00 Intake Total 5350 ml Output Total 1200 ml Balance 4150 ml Intake Oral 1150 ml IV Total 4200 ml Output Urine Total 1200 ml Daily Weight Change No General: Alert, No Acute Distress Lungs: Clear to Auscultation, Normal Air Movement Heart: Regular Rate, No Murmurs Neuro: Normal Speech Other physical findings Faintly erythematous plaques on lower abdomen and thighs Results/Procedures Lab Laboratory Tests 08/12/18 05:25: White Blood Count 9.9, Red Blood Count 4.02L, Hemoglobin 11.0L, Hematocrit 33L, Mean Corpuscular Volume 82, Mean Corpuscular Hemoglobin 27, Mean Corpuscular Hemoglobin Concent 33, Red Cell Distribution Width 15.4H, Platelet Count 201, Mean Platelet Volume 10.7H, Neutrophils (%) (Auto) 79H, Lymphocytes (%) (Auto) 2L, Monocytes (%) (Auto) 6, Eosinophils (%) (Auto) 14H, Basophils (%) (Auto) 0, Neutrophils # (Auto) 7.8, Lymphocytes # (Auto) 0.2L, Monocytes # (Auto) 0.6, Eosinophils # (Auto) 1.3H, Basophils # (Auto) 0.0, Sodium Level 143, Potassium Level 4.1, Chloride Level 115H, Carbon Dioxide Level 21, Anion Gap 7, Blood Urea Nitrogen 12, Creatinine 1.00, Estimat Glomerular Filtration Rate 59, BUN/ Creatinine Ratio 12, Glucose Level 102, Calcium Level 7.4L Microbiology 08/10/18 Blood Culture - Preliminary, Resulted No growth 08/10/18 Throat Culture - Preliminary, Resulted No Beta Strep isolated 08/10/18 Urine Culture - Preliminary, Resulted Culture In Progress Assessment/Plan Assessment/Plan (1) Severe sepsis Status: Resolved Assessment & Plan: Suspected severe sepsis but no clear source of infection at this time. Lactate above 2 on admit, has resolved with IVF. Febrile, leukocytosis and tachycardia on admission. CXR unremarkable, UA without evidence of infection, CT abdomen/pelvis unremarkable. Consider port infection, follow blood cultures. Zosyn for infection of unknown source. (2) CLL (chronic lymphocytic leukemia) Status: Chronic Assessment & Plan: Undergoing chemotherapy, had rituximab day of admit, will consult with Oncology. (3) Hypertension Status: Chronic Assessment & Plan: BP on lower side currently, hold home meds Qualifiers: Qualified Codes: I10 - Essential (primary) hypertension (4) Anxiety Status: Chronic Assessment & Plan: Resume home meds (5) Depression Status: Chronic Assessment & Plan: Resume home meds (6) DVT prophylaxis Status: Acute Assessment & Plan: Enoxaparin Clinical Quality Measures DVT/VTE Risk/Contraindication: Risk Factor Score Per Nursin RFS Level Per Nursing on Admit: 4+=Very High YEISON JAFFE MD Aug 12, 2018 1:41 pm
[2018-08-12 16:22] VITALS: BP 142/64
--- NOTE | 2018-08-12 16:38 | Progress Note-Standard ---
Standard Progress Note Progress Notes/Assess & Plan Date Seen by a Provider: Aug 12, 2018 Time Seen by a Provider: 16:33 Progress/Assessment & Plan 47-year-old female with CLL/SLL who was on treatment with Treanda plus Rituxan regimen admitted to the hospital on 08/10/2018 with fevers and chills. Patient received course 2 day 1 of chemotherapy earlier in that day. Warren cultures were obtained and patient was started on broad-spectrum antibiotic with cefepime. Cultures negative so far. Admission CT scan showed left lower lobe atelectasis. Patient is feeling better today with only low-grade temperature spikes. She is doing incentive spirometry regularly. Physical examination is unremarkable. Lab work reviewed and leukocytosis improving. Continue current therapy. There is no oncology coverage for this weekend. We will follow the patient on Wednesday. Focused Exam Lactate Level 08/10/18 23:35: Lactic Acid Level 2.70*H 08/11/18 04:50: Lactic Acid Level 2.44*H 08/11/18 09:12: Lactic Acid Level 1.68 GISEL REED Aug 12, 2018 16:38
[2018-08-12] MEDS: ACETAMINOPHEN 500 MG TAB (TYLENOL) PO PRN (17:43)
[2018-08-12 19:53] VITALS: BP 136/76
[2018-08-12] MEDS: DOCUSATE SODIUM 100 MG (COLACE) CAP PO SCH (20:55)
[2018-08-12] MEDS: FERROUS SULF 325 MG (IRON) TAB PO SCH (20:56)
[2018-08-12] MEDS ORDERED: busPIRone 10 MG (BUSPAR) TAB PO SCH (21:00)
[2018-08-13] VITALS: BP 122/60
[2018-08-13] MEDS: MULTIVIT W/MINERALS TAB (THERAGRAN M) PO SCH (05:09)
[2018-08-13] MEDS: SIMETHICONE 80 MG (MYLICON) CHEW PO SCH ×2 (05:30→11:33)
[2018-08-13] MEDS: PIPERACILLIN/TAZO 4.5 GM/NS 100 ML IV SCH ×4 (05:30→13:23)
[2018-08-13 08:00] VITALS: BP 129/61
[2018-08-13] MEDS: busPIRone 5 MG (BUSPAR) TAB PO SCH (08:44)
[2018-08-13] MEDS: LORATADINE (CLARITIN) 10 MG TAB PO SCH (08:44)
[2018-08-13] MEDS ORDERED: CEFD300C3 PO (12:25)
--- NOTE | 2018-08-13 12:26 | Discharge Instructions ---
Discharge [facility] Discharge Medications New, Converted or Re-Newed RX: Transmitted to Pharmacy New Medications: Cefdinir (Cefdinir) 300 Mg Capsule 300 MG PO BID for 5 Days, #10 CAP Continued Medications: Buspirone HCl (Buspirone HCl) 5 Mg Tablet 5 MG PO DAILY, TAB Buspirone HCl (Buspirone HCl) 5 Mg Tablet 10 MG PO HS, TAB TAKES 2 (5MG) TABLETS Docusate Sodium (Colace) 100 Mg Capsule 100 MG PO HS, CAP Escitalopram Oxalate (Escitalopram Oxalate) 10 Mg Tablet 10 MG PO DAILY, TAB Ferrous Sulfate (Ferrous Sulfate) 325 Mg Tablet 325 MG PO HS, TAB Fexofenadine HCl (Flora Allergy) 180 Mg Tablet 180 MG PO DAILY, TAB Fluticasone Propionate (Fluticasone Propionate) 16 Gm Forsan.susp 1 SPRAY NS BID PRN for ALLERGIES, EA Multivitamin (Daily Multiple Vitamin) 1 Each Tablet 1 TAB PO HS, TAB Ondansetron HCl (Ondansetron HCl) 8 Mg Tablet 8 MG PO Q8H PRN for NAUSEA/VOMITING-1ST LINE, TAB Simethicone (Simethicone) 125 Mg Tab.chew 125 MG PO ACHS, TAB Discontinued Medications: Lisinopril (Lisinopril) 10 Mg Tablet 10 MG PO DAILY, TAB Patient Instructions Goal/Follow Up Appt: You will be called on Wednesday with an appt for next week Patient Instructions: make sure you start your antibiotic tomorrow Return to The Hospital For: Unable to take medication Shortness of breath Fever or chills Activity & Diet Discharge Diet: No Restrictions Activity as Tolerated: Yes Copy Copies To 1: JOSE R VAIL MD, HOLLY R MD Aug 13, 2018 12:26 pm
[2018-08-13 15:50] VITALS: BP 128/61
== END 2018-08-13 15:50 | disposition home or self-care (01) | DRG 872 ==
LOC: EDUNIT# 21:21 → ER 21:23 → 4TH 08-11 01:20
PROVIDERS: ADMIT Family Medicine; ATTEND Family Medicine
DX: A41.9 Sepsis, unspecified organism (principal); E86.0 Dehydration; R10.13 Epigastric pain; C91.10 Chronic lymphocytic leukemia of B-cell type not having achieved remission; J98.11 Atelectasis; I10 Essential (primary) hypertension; F41.9 Anxiety disorder, unspecified; F32.9 Major depressive disorder, single episode, unspecified; E66.9 Obesity, unspecified; Z68.35 Body mass index [BMI] 35.0-35.9, adult
CPT/HCPCS: 36415; 71045; 74177; 80048; 80053; 81000; 83605; 84703; 85007; 85025; 85027; 85610; 85730; 86308; 87040; 87088; 87430; 87804; 94664; 96361; 96365; 96375

== ENCOUNTER 2018-10-27 10:40 | Outpatient (RCR) | payer OTHER ==
[2018-08-04 14:42] LABS: BASOPHILS % (AUTO) 0 % (0-10); EOSINOPHILS # (AUTO) 0.6 10^3/uL (0.0-0.3); EOSINOPHILS % (AUTO) 7 % (0-10); HEMATOCRIT 38 % (35-52); HEMOGLOBIN 13.2 G/DL (11.5-16.0); LYMPHOCYTES # (AUTO) 1.1 X 10^3 (1.0-4.0); LYMPHOCYTES % (AUTO) 14 % (12-44); MEAN CORPUSCULAR HEMOGLOBIN 28 PG (25-34); MEAN CORPUSCULAR HGB CONC 35 G/DL (32-36); MEAN CORPUSCULAR VOLUME 81 FL (80-99); MEAN PLATELET VOLUME 10.9 FL (7.4-10.4); MONOCYTES # (AUTO) 0.7 X 10^3 (0.0-1.0); MONOCYTES % (AUTO) 9 % (0-12); NEUTROPHILS # (AUTO) 5.6 X 10^3 (1.8-7.8); NEUTROPHILS % (AUTO) 70 % (42-75); PLATELET COUNT 266 10^3/uL (130-400); RED BLOOD COUNT 4.73 10^6/uL (4.35-5.85); RED CELL DISTRIBUTION WIDTH 15.2 % (10.0-14.5); WHITE BLOOD COUNT 8.1 10^3/uL (4.3-11.0)
[2018-08-04 14:56] LABS: BUN/CREATININE RATIO 12; CALCIUM 9.4 MG/DL (8.5-10.1); CARBON DIOXIDE 19 MMOL/L (21-32); CHLORIDE 108 MMOL/L (98-107); CREATININE SERUM 0.84 MG/DL (0.60-1.30); GFR ESTIMATED > 60; GLUCOSE 95 MG/DL (70-105); POTASSIUM 3.9 MMOL/L (3.6-5.0); SODIUM 139 MMOL/L (135-145)
[2018-08-10 11:30] LABS: BASOPHILS # (AUTO) 0.1 10^3/uL (0.0-0.1); BASOPHILS % (AUTO) 1 % (0-10); EOSINOPHILS # (AUTO) 0.6 10^3/uL (0.0-0.3); EOSINOPHILS % (AUTO) 7 % (0-10); HEMATOCRIT 39 % (35-52); HEMOGLOBIN 13.1 G/DL (11.5-16.0); LYMPHOCYTES # (AUTO) 1.1 X 10^3 (1.0-4.0); LYMPHOCYTES % (AUTO) 13 % (12-44); MEAN CORPUSCULAR HEMOGLOBIN 27 PG (25-34); MEAN CORPUSCULAR HGB CONC 34 G/DL (32-36); MEAN CORPUSCULAR VOLUME 80 FL (80-99); MEAN PLATELET VOLUME 10.8 FL (7.4-10.4); MONOCYTES # (AUTO) 0.7 X 10^3 (0.0-1.0); MONOCYTES % (AUTO) 8 % (0-12); NEUTROPHILS # (AUTO) 5.9 X 10^3 (1.8-7.8); NEUTROPHILS % (AUTO) 71 % (42-75); PLATELET COUNT 283 10^3/uL (130-400); RED BLOOD COUNT 4.84 10^6/uL (4.35-5.85); RED CELL DISTRIBUTION WIDTH 14.9 % (10.0-14.5); WHITE BLOOD COUNT 8.3 10^3/uL (4.3-11.0)
[2018-08-10 11:50] LABS: ALANINE AMINOTRANSFERASE 37 U/L (0-55); ALBUMIN 4.3 GM/DL (3.2-4.5); ALKALINE PHOSPHATASE 57 U/L (40-136); BILIRUBIN,TOTAL 0.3 MG/DL (0.1-1.0); BUN/CREATININE RATIO 15; CALCIUM 9.4 MG/DL (8.5-10.1); CARBON DIOXIDE 22 MMOL/L (21-32); CHLORIDE 107 MMOL/L (98-107); CREATININE SERUM 0.91 MG/DL (0.60-1.30); GFR ESTIMATED > 60; GLUCOSE 102 MG/DL (70-105); MAGNESIUM 2.2 MG/DL (1.8-2.4); POTASSIUM 4.1 MMOL/L (3.6-5.0); SODIUM 138 MMOL/L (135-145)
[2018-08-17 11:32] LABS: BASOPHILS # (AUTO) 0.1 10^3/uL (0.0-0.1); BASOPHILS % (AUTO) 1 % (0-10); EOSINOPHILS # (AUTO) 0.8 10^3/uL (0.0-0.3); EOSINOPHILS % (AUTO) 11 % (0-10); HEMATOCRIT 36 % (35-52); HEMOGLOBIN 12.7 G/DL (11.5-16.0); LYMPHOCYTES # (AUTO) 1.1 X 10^3 (1.0-4.0); LYMPHOCYTES % (AUTO) 16 % (12-44); MEAN CORPUSCULAR HEMOGLOBIN 28 PG (25-34); MEAN CORPUSCULAR HGB CONC 36 G/DL (32-36); MEAN CORPUSCULAR VOLUME 79 FL (80-99); MEAN PLATELET VOLUME 10.3 FL (7.4-10.4); MONOCYTES # (AUTO) 0.6 X 10^3 (0.0-1.0); MONOCYTES % (AUTO) 9 % (0-12); NEUTROPHILS # (AUTO) 4.5 X 10^3 (1.8-7.8); NEUTROPHILS % (AUTO) 64 % (42-75); PLATELET COUNT 263 10^3/uL (130-400); RED BLOOD COUNT 4.53 10^6/uL (4.35-5.85); RED CELL DISTRIBUTION WIDTH 14.3 % (10.0-14.5)
[2018-08-17 11:51] LABS: BUN/CREATININE RATIO 10; CALCIUM 9.3 MG/DL (8.5-10.1); CARBON DIOXIDE 23 MMOL/L (21-32); CHLORIDE 105 MMOL/L (98-107); CREATININE SERUM 0.87 MG/DL (0.60-1.30); GFR ESTIMATED > 60; GLUCOSE 86 MG/DL (70-105); POTASSIUM 3.6 MMOL/L (3.6-5.0); SODIUM 140 MMOL/L (135-145)
[2018-08-24 12:21] LABS: BASOPHILS % (AUTO) 1 % (0-10); EOSINOPHILS # (AUTO) 0.7 10^3/uL (0.0-0.3); EOSINOPHILS % (AUTO) 10 % (0-10); HEMATOCRIT 38 % (35-52); HEMOGLOBIN 12.8 G/DL (11.5-16.0); LYMPHOCYTES # (AUTO) 0.9 X 10^3 (1.0-4.0); LYMPHOCYTES % (AUTO) 13 % (12-44); MEAN CORPUSCULAR HEMOGLOBIN 27 PG (25-34); MEAN CORPUSCULAR HGB CONC 33 G/DL (32-36); MEAN CORPUSCULAR VOLUME 81 FL (80-99); MEAN PLATELET VOLUME 10.6 FL (7.4-10.4); MONOCYTES # (AUTO) 0.8 X 10^3 (0.0-1.0); MONOCYTES % (AUTO) 11 % (0-12); NEUTROPHILS # (AUTO) 4.4 X 10^3 (1.8-7.8); NEUTROPHILS % (AUTO) 65 % (42-75); PLATELET COUNT 244 10^3/uL (130-400); RED BLOOD COUNT 4.74 10^6/uL (4.35-5.85); RED CELL DISTRIBUTION WIDTH 15.1 % (10.0-14.5); WHITE BLOOD COUNT 6.8 10^3/uL (4.3-11.0)
[2018-08-24 12:42] LABS: BUN/CREATININE RATIO 13; CALCIUM 9.7 MG/DL (8.5-10.1); CARBON DIOXIDE 21 MMOL/L (21-32); CHLORIDE 106 MMOL/L (98-107); CREATININE SERUM 0.83 MG/DL (0.60-1.30); GFR ESTIMATED > 60; GLUCOSE 88 MG/DL (70-105); POTASSIUM 3.8 MMOL/L (3.6-5.0); SODIUM 140 MMOL/L (135-145)
[2018-08-31 10:54] LABS: BASOPHILS % (AUTO) 1 % (0-10); EOSINOPHILS # (AUTO) 0.5 10^3/uL (0.0-0.3); EOSINOPHILS % (AUTO) 9 % (0-10); HEMATOCRIT 39 % (35-52); HEMOGLOBIN 12.9 G/DL (11.5-16.0); LYMPHOCYTES % (AUTO) 16 % (12-44); MEAN CORPUSCULAR HEMOGLOBIN 28 PG (25-34); MEAN CORPUSCULAR HGB CONC 33 G/DL (32-36); MEAN CORPUSCULAR VOLUME 83 FL (80-99); MEAN PLATELET VOLUME 10.7 FL (7.4-10.4); MONOCYTES # (AUTO) 0.5 X 10^3 (0.0-1.0); MONOCYTES % (AUTO) 8 % (0-12); NEUTROPHILS # (AUTO) 4.3 X 10^3 (1.8-7.8); NEUTROPHILS % (AUTO) 67 % (42-75); PLATELET COUNT 312 10^3/uL (130-400); RED BLOOD COUNT 4.69 10^6/uL (4.35-5.85); RED CELL DISTRIBUTION WIDTH 15.2 % (10.0-14.5); WHITE BLOOD COUNT 6.3 10^3/uL (4.3-11.0)
[2018-08-31 11:09] LABS: BUN/CREATININE RATIO 13; CALCIUM 9.7 MG/DL (8.5-10.1); CARBON DIOXIDE 23 MMOL/L (21-32); CHLORIDE 106 MMOL/L (98-107); CREATININE SERUM 0.89 MG/DL (0.60-1.30); GFR ESTIMATED > 60; GLUCOSE 106 MG/DL (70-105); POTASSIUM 4.1 MMOL/L (3.6-5.0); SODIUM 138 MMOL/L (135-145)
[2018-09-08 09:36] LABS: BASOPHILS % (AUTO) 0 % (0-10); EOSINOPHILS # (AUTO) 0.5 10^3/uL (0.0-0.3); EOSINOPHILS % (AUTO) 10 % (0-10); HEMATOCRIT 34 % (35-52); HEMOGLOBIN 11.5 G/DL (11.5-16.0); LYMPHOCYTES # (AUTO) 0.7 X 10^3 (1.0-4.0); LYMPHOCYTES % (AUTO) 16 % (12-44); MEAN CORPUSCULAR HEMOGLOBIN 28 PG (25-34); MEAN CORPUSCULAR HGB CONC 34 G/DL (32-36); MEAN CORPUSCULAR VOLUME 82 FL (80-99); MEAN PLATELET VOLUME 10.4 FL (7.4-10.4); MONOCYTES # (AUTO) 0.4 X 10^3 (0.0-1.0); MONOCYTES % (AUTO) 8 % (0-12); NEUTROPHILS # (AUTO) 3.1 X 10^3 (1.8-7.8); NEUTROPHILS % (AUTO) 65 % (42-75); PLATELET COUNT 280 10^3/uL (130-400); RED BLOOD COUNT 4.09 10^6/uL (4.35-5.85); RED CELL DISTRIBUTION WIDTH 14.9 % (10.0-14.5); WHITE BLOOD COUNT 4.7 10^3/uL (4.3-11.0)
[2018-09-08 10:03] LABS: ALANINE AMINOTRANSFERASE 48 U/L (0-55); ALKALINE PHOSPHATASE 44 U/L (40-136); BILIRUBIN,TOTAL 0.3 MG/DL (0.1-1.0); BUN/CREATININE RATIO 13; CALCIUM 9.3 MG/DL (8.5-10.1); CARBON DIOXIDE 21 MMOL/L (21-32); CHLORIDE 107 MMOL/L (98-107); CREATININE SERUM 0.85 MG/DL (0.60-1.30); GFR ESTIMATED > 60; GLUCOSE 106 MG/DL (70-105); MAGNESIUM 1.9 MG/DL (1.8-2.4); POTASSIUM 3.8 MMOL/L (3.6-5.0); SODIUM 138 MMOL/L (135-145); TOTAL PROTEIN 6.3 GM/DL (6.4-8.2)
[2018-09-16 12:57] LABS: BASOPHILS % (AUTO) 0 % (0-10); EOSINOPHILS # (AUTO) 0.2 10^3/uL (0.0-0.3); EOSINOPHILS % (AUTO) 4 % (0-10); HEMATOCRIT 36 % (35-52); LYMPHOCYTES # (AUTO) 0.3 X 10^3 (1.0-4.0); LYMPHOCYTES % (AUTO) 6 % (12-44); MEAN CORPUSCULAR HEMOGLOBIN 28 PG (25-34); MEAN CORPUSCULAR HGB CONC 34 G/DL (32-36); MEAN CORPUSCULAR VOLUME 84 FL (80-99); MEAN PLATELET VOLUME 10.6 FL (7.4-10.4); MONOCYTES # (AUTO) 0.5 X 10^3 (0.0-1.0); MONOCYTES % (AUTO) 10 % (0-12); NEUTROPHILS # (AUTO) 4.3 X 10^3 (1.8-7.8); NEUTROPHILS % (AUTO) 80 % (42-75); PLATELET COUNT 307 10^3/uL (130-400); RED BLOOD COUNT 4.25 10^6/uL (4.35-5.85); RED CELL DISTRIBUTION WIDTH 14.9 % (10.0-14.5); WHITE BLOOD COUNT 5.3 10^3/uL (4.3-11.0)
[2018-09-16 13:15] LABS: BUN/CREATININE RATIO 15; CALCIUM 9.5 MG/DL (8.5-10.1); CARBON DIOXIDE 23 MMOL/L (21-32); CHLORIDE 104 MMOL/L (98-107); CREATININE SERUM 0.87 MG/DL (0.60-1.30); GFR ESTIMATED > 60; GLUCOSE 111 MG/DL (70-105); POTASSIUM 3.8 MMOL/L (3.6-5.0); SODIUM 138 MMOL/L (135-145)
[2018-09-21 10:16] LABS: BASOPHILS % (AUTO) 0 % (0-10); EOSINOPHILS # (AUTO) 0.3 10^3/uL (0.0-0.3); EOSINOPHILS % (AUTO) 6 % (0-10); HEMATOCRIT 39 % (35-52); HEMOGLOBIN 12.8 G/DL (11.5-16.0); LYMPHOCYTES # (AUTO) 0.3 X 10^3 (1.0-4.0); LYMPHOCYTES % (AUTO) 7 % (12-44); MEAN CORPUSCULAR HEMOGLOBIN 27 PG (25-34); MEAN CORPUSCULAR HGB CONC 33 G/DL (32-36); MEAN CORPUSCULAR VOLUME 83 FL (80-99); MEAN PLATELET VOLUME 10.6 FL (7.4-10.4); MONOCYTES # (AUTO) 0.5 X 10^3 (0.0-1.0); MONOCYTES % (AUTO) 10 % (0-12); NEUTROPHILS # (AUTO) 3.9 X 10^3 (1.8-7.8); NEUTROPHILS % (AUTO) 77 % (42-75); PLATELET COUNT 279 10^3/uL (130-400); RED BLOOD COUNT 4.69 10^6/uL (4.35-5.85); RED CELL DISTRIBUTION WIDTH 14.9 % (10.0-14.5)
[2018-09-21 10:37] LABS: BUN/CREATININE RATIO 16; CALCIUM 9.3 MG/DL (8.5-10.1); CARBON DIOXIDE 24 MMOL/L (21-32); CHLORIDE 106 MMOL/L (98-107); CREATININE SERUM 0.88 MG/DL (0.60-1.30); GFR ESTIMATED > 60; GLUCOSE 110 MG/DL (70-105); SODIUM 139 MMOL/L (135-145)
[2018-09-29 10:58] LABS: BASOPHILS % (AUTO) 1 % (0-10); EOSINOPHILS # (AUTO) 0.3 10^3/uL (0.0-0.3); EOSINOPHILS % (AUTO) 7 % (0-10); HEMATOCRIT 38 % (35-52); HEMOGLOBIN 12.5 G/DL (11.5-16.0); LYMPHOCYTES # (AUTO) 0.6 X 10^3 (1.0-4.0); LYMPHOCYTES % (AUTO) 17 % (12-44); MEAN CORPUSCULAR HEMOGLOBIN 27 PG (25-34); MEAN CORPUSCULAR HGB CONC 33 G/DL (32-36); MEAN CORPUSCULAR VOLUME 83 FL (80-99); MEAN PLATELET VOLUME 10.9 FL (7.4-10.4); MONOCYTES # (AUTO) 0.6 X 10^3 (0.0-1.0); MONOCYTES % (AUTO) 17 % (0-12); NEUTROPHILS # (AUTO) 2.2 X 10^3 (1.8-7.8); NEUTROPHILS % (AUTO) 59 % (42-75); PLATELET COUNT 281 10^3/uL (130-400); RED CELL DISTRIBUTION WIDTH 14.2 % (10.0-14.5); WHITE BLOOD COUNT 3.7 10^3/uL (4.3-11.0)
[2018-09-29 11:23] LABS: BUN/CREATININE RATIO 14; CALCIUM 9.2 MG/DL (8.5-10.1); CARBON DIOXIDE 21 MMOL/L (21-32); CHLORIDE 108 MMOL/L (98-107); CREATININE SERUM 0.78 MG/DL (0.60-1.30); GFR ESTIMATED > 60; GLUCOSE 85 MG/DL (70-105); POTASSIUM 4.3 MMOL/L (3.6-5.0); SODIUM 139 MMOL/L (135-145)
[2018-10-06 09:46] LABS: BASOPHILS % (AUTO) 1 % (0-10); EOSINOPHILS # (AUTO) 0.4 10^3/uL (0.0-0.3); EOSINOPHILS % (AUTO) 10 % (0-10); HEMATOCRIT 35 % (35-52); HEMOGLOBIN 11.8 G/DL (11.5-16.0); LYMPHOCYTES # (AUTO) 0.5 X 10^3 (1.0-4.0); LYMPHOCYTES % (AUTO) 13 % (12-44); MEAN CORPUSCULAR HEMOGLOBIN 27 PG (25-34); MEAN CORPUSCULAR HGB CONC 34 G/DL (32-36); MEAN CORPUSCULAR VOLUME 81 FL (80-99); MEAN PLATELET VOLUME 10.5 FL (7.4-10.4); MONOCYTES # (AUTO) 0.5 X 10^3 (0.0-1.0); MONOCYTES % (AUTO) 14 % (0-12); NEUTROPHILS # (AUTO) 2.3 X 10^3 (1.8-7.8); NEUTROPHILS % (AUTO) 63 % (42-75); PLATELET COUNT 297 10^3/uL (130-400); RED CELL DISTRIBUTION WIDTH 13.6 % (10.0-14.5); WHITE BLOOD COUNT 3.7 10^3/uL (4.3-11.0)
[2018-10-06 10:10] LABS: ALANINE AMINOTRANSFERASE 49 U/L (0-55); ALBUMIN 4.1 GM/DL (3.2-4.5); ALKALINE PHOSPHATASE 52 U/L (40-136); BILIRUBIN,TOTAL 0.4 MG/DL (0.1-1.0); BUN/CREATININE RATIO 18; CALCIUM 9.3 MG/DL (8.5-10.1); CARBON DIOXIDE 23 MMOL/L (21-32); CHLORIDE 107 MMOL/L (98-107); CREATININE SERUM 0.91 MG/DL (0.60-1.30); GFR ESTIMATED > 60; GLUCOSE 95 MG/DL (70-105); MAGNESIUM 2.4 MG/DL (1.8-2.4); POTASSIUM 4.1 MMOL/L (3.6-5.0); SODIUM 139 MMOL/L (135-145); TOTAL PROTEIN 6.6 GM/DL (6.4-8.2)
[2018-10-13 13:56] LABS: BASOPHILS % (AUTO) 0 % (0-10); EOSINOPHILS # (AUTO) 0.4 10^3/uL (0.0-0.3); EOSINOPHILS % (AUTO) 7 % (0-10); HEMATOCRIT 38 % (35-52); HEMOGLOBIN 12.3 G/DL (11.5-16.0); LYMPHOCYTES # (AUTO) 0.2 X 10^3 (1.0-4.0); LYMPHOCYTES % (AUTO) 4 % (12-44); MEAN CORPUSCULAR HEMOGLOBIN 27 PG (25-34); MEAN CORPUSCULAR HGB CONC 33 G/DL (32-36); MEAN CORPUSCULAR VOLUME 82 FL (80-99); MONOCYTES # (AUTO) 0.5 X 10^3 (0.0-1.0); MONOCYTES % (AUTO) 10 % (0-12); NEUTROPHILS # (AUTO) 4.3 X 10^3 (1.8-7.8); NEUTROPHILS % (AUTO) 79 % (42-75); PLATELET COUNT 250 10^3/uL (130-400); RED BLOOD COUNT 4.57 10^6/uL (4.35-5.85); RED CELL DISTRIBUTION WIDTH 13.5 % (10.0-14.5); WHITE BLOOD COUNT 5.4 10^3/uL (4.3-11.0)
[2018-10-13 14:11] LABS: BUN/CREATININE RATIO 17; CALCIUM 9.6 MG/DL (8.5-10.1); CARBON DIOXIDE 23 MMOL/L (21-32); CHLORIDE 105 MMOL/L (98-107); CREATININE SERUM 0.82 MG/DL (0.60-1.30); GFR ESTIMATED > 60; GLUCOSE 99 MG/DL (70-105); POTASSIUM 4.1 MMOL/L (3.6-5.0); SODIUM 138 MMOL/L (135-145)
[2018-10-21 13:56] LABS: BASOPHILS % (AUTO) 0 % (0-10); EOSINOPHILS # (AUTO) 0.2 10^3/uL (0.0-0.3); EOSINOPHILS % (AUTO) 4 % (0-10); HEMATOCRIT 38 % (35-52); HEMOGLOBIN 12.6 G/DL (11.5-16.0); LYMPHOCYTES # (AUTO) 0.3 X 10^3 (1.0-4.0); LYMPHOCYTES % (AUTO) 5 % (12-44); MEAN CORPUSCULAR HEMOGLOBIN 27 PG (25-34); MEAN CORPUSCULAR HGB CONC 34 G/DL (32-36); MEAN CORPUSCULAR VOLUME 82 FL (80-99); MEAN PLATELET VOLUME 10.7 FL (7.4-10.4); MONOCYTES # (AUTO) 0.6 X 10^3 (0.0-1.0); MONOCYTES % (AUTO) 10 % (0-12); NEUTROPHILS # (AUTO) 4.5 X 10^3 (1.8-7.8); NEUTROPHILS % (AUTO) 80 % (42-75); PLATELET COUNT 248 10^3/uL (130-400); RED CELL DISTRIBUTION WIDTH 13.9 % (10.0-14.5); WHITE BLOOD COUNT 5.6 10^3/uL (4.3-11.0)
[2018-10-21 14:14] LABS: BUN/CREATININE RATIO 17; CALCIUM 9.1 MG/DL (8.5-10.1); CARBON DIOXIDE 20 MMOL/L (21-32); CHLORIDE 104 MMOL/L (98-107); CREATININE SERUM 0.78 MG/DL (0.60-1.30); GFR ESTIMATED > 60; GLUCOSE 116 MG/DL (70-105); POTASSIUM 3.9 MMOL/L (3.6-5.0); SODIUM 136 MMOL/L (135-145)
[~2018-10-27] VITALS: Ht 165.1 cm; Wt 99.3 kg
[~2018-10-27 10:40] MED LIST changes: +ACETAMINOPHEN 325 MG TAB (TYLENOL) CANCER CTR PO PRN; +CEFD300C3 PO; +DOCU-143 PO; +ESCI10TA55 PO; +FAMOTIDINE 20MG/2ML IV (CANCER CTR) IV SCH; +FERR325T18 PO; +FLUT16SP22 NS; +NS IV 1000 ML (CANCER CTR) IV SCH; +NS IV 500 ML (CANCER CENTER) 500 ML ONE; +NS IV SCH; +ONDA8TAB12 PO; +ONDANSETRON MDV (CANCER CENTER 16 MG, DEXAMETHASONE INJECTION 10 MG in NS (IVPB) CANCER... IV SCH; +PALONOSETRON HCL 0.25 MG, DEXAMETHASONE INJECTION 10 MG in NS (IVPB) CANCER CENTER 50 ML IV SCH; +RITUXIMAB FOR IV SCH; +RITUXIMAB IV SCH; +[UNRECOGNIZED DRUG - REMARK] IV SCH; +diphenhydrAMINE 25 MG TAB (BENADRYL) CANCER CENTER PO ONE; +diphenhydrAMINE 50 MG/ML INJ (CANCER CENTER) IV PRN
[2018-10-27 10:51] LABS: BASOPHILS % (AUTO) 1 % (0-10); EOSINOPHILS # (AUTO) 0.1 10^3/uL (0.0-0.3); EOSINOPHILS % (AUTO) 4 % (0-10); HEMATOCRIT 36 % (35-52); HEMOGLOBIN 12.3 G/DL (11.5-16.0); LYMPHOCYTES # (AUTO) 1.2 X 10^3 (1.0-4.0); LYMPHOCYTES % (AUTO) 34 % (12-44); MEAN CORPUSCULAR HEMOGLOBIN 27 PG (25-34); MEAN CORPUSCULAR HGB CONC 34 G/DL (32-36); MEAN CORPUSCULAR VOLUME 80 FL (80-99); MEAN PLATELET VOLUME 10.5 FL (7.4-10.4); MONOCYTES # (AUTO) 0.5 X 10^3 (0.0-1.0); MONOCYTES % (AUTO) 15 % (0-12); NEUTROPHILS # (AUTO) 1.7 X 10^3 (1.8-7.8); NEUTROPHILS % (AUTO) 47 % (42-75); PLATELET COUNT 254 10^3/uL (130-400); RED BLOOD COUNT 4.57 10^6/uL (4.35-5.85); RED CELL DISTRIBUTION WIDTH 13.7 % (10.0-14.5); WHITE BLOOD COUNT 3.6 10^3/uL (4.3-11.0)
[2018-10-27 11:10] LABS: BUN/CREATININE RATIO 12; CALCIUM 9.3 MG/DL (8.5-10.1); CARBON DIOXIDE 21 MMOL/L (21-32); CHLORIDE 107 MMOL/L (98-107); CREATININE SERUM 0.89 MG/DL (0.60-1.30); GFR ESTIMATED > 60; GLUCOSE 86 MG/DL (70-105); POTASSIUM 3.7 MMOL/L (3.6-5.0); SODIUM 140 MMOL/L (135-145)
== END 2018-11-02 | disposition home or self-care (01) ==
LOC: ONC 10:40
PROVIDERS: ATTEND Internal Medicine Hematology & Oncology
DX: Z51.11 Encounter for antineoplastic chemotherapy (principal); C91.10 Chronic lymphocytic leukemia of B-cell type not having achieved remission; D50.9 Iron deficiency anemia, unspecified; I10 Essential (primary) hypertension; F41.9 Anxiety disorder, unspecified; F32.9 Major depressive disorder, single episode, unspecified; E66.9 Obesity, unspecified; Z68.35 Body mass index [BMI] 35.0-35.9, adult; Z79.899 Other long term (current) drug therapy
CPT/HCPCS: 36415; 36591; 80048; 80053; 82784; 83615; 83735; 85025; 88368; 88369; 96375; 96409; 96411; 96413; 96415; J9310

== ENCOUNTER → 2018-11-10 | Outpatient (CLI) | payer OTHER ==
[~2018-11-10] MED LIST changes: -ACETAMINOPHEN 325 MG TAB (TYLENOL) CANCER CTR PO PRN; -FAMOTIDINE 20MG/2ML IV (CANCER CTR) IV SCH; -NS IV 1000 ML (CANCER CTR) IV SCH; -NS IV 500 ML (CANCER CENTER) 500 ML ONE; -NS IV SCH; -ONDANSETRON MDV (CANCER CENTER 16 MG, DEXAMETHASONE INJECTION 10 MG in NS (IVPB) CANCER... IV SCH; -PALONOSETRON HCL 0.25 MG, DEXAMETHASONE INJECTION 10 MG in NS (IVPB) CANCER CENTER 50 ML IV SCH; -RITUXIMAB FOR IV SCH; -RITUXIMAB IV SCH; -[UNRECOGNIZED DRUG - REMARK] IV SCH; -diphenhydrAMINE 25 MG TAB (BENADRYL) CANCER CENTER PO ONE; -diphenhydrAMINE 50 MG/ML INJ (CANCER CENTER) IV PRN
--- NOTE | 2018-11-10 10:22 | Diagnostic Imaging Report ---
PROCEDURE: MR imaging cervical spine without contrast. TECHNIQUE: Multiplanar, multisequence MR imaging of the cervical spine was performed without contrast. INDICATION: Chronic neck pain. No prior studies are available for comparison. There is mild straightening of the normal cervical lordotic curvature. Overall alignment appears normal. The vertebral body marrow signal intensity is within normal limits. No geographic marrow lesion is seen. No edema or fracture is detected. There is some mild generalized desiccation to the discs as well as mild disc space narrowing at the C5-C6 level, degenerative change. There is normal homogeneous signal intensity to the cervical spinal cord. No abnormal cord signal is identified. C2-C3: Central canal and neural foramina are widely patent. C3-C4: Mild broad-based disc/osteophyte complex is present but central canal and neural foramina are widely patent. C4-C5: There is asymmetric left posterolateral disc/osteophyte complex indenting the ventral thecal sac. This does result in some narrowing of the left neural foramen and lateral recess. The right neural foramen is patent. Very mild central canal narrowing is present. C5-C6: Broad-based disc/osteophyte complex and uncovertebral joint degenerative change is present. This does result in significant bilateral neural foraminal stenosis. There is moderate central canal stenosis. C6-C7: Broad-based disc/osteophyte complex is present. Uncovertebral joint degenerative changes noted as well, greater on the left resulting in significant left neural foraminal stenosis. Right neural foramen appears to be patent. There is [id number] central canal narrowing. C7-T1: There is some asymmetric right para midline disc/osteophyte complex producing slight indentation upon the ventral thecal sac. Central canal and neural foramina remain patent. The paraspinous tissues are unremarkable. IMPRESSION: Multilevel cervical spondylosis with multilevel central canal and neural foraminal narrowing described level by level above. Dictated by: Dictated on workstation # [id number]
== END ==
LOC: RAD 08:25
PROVIDERS: ATTEND Nurse Practitioner Primary Care
DX: M47.22 Other spondylosis with radiculopathy, cervical region (principal); M48.02 Spinal stenosis, cervical region; M50.122 Cervical disc disorder at C5-C6 level with radiculopathy
CPT/HCPCS: 72141

== ENCOUNTER → 2018-12-05 | Outpatient (CLI) | payer OTHER ==
[~2018-12-05] MED LIST changes: +IOHEXOL 350 MG/ML 100 ML (OMNIPAQUE 350) VIAL IV ONE; +NS 100 ML (IVPB) BAG IV ONE; +RECEIVED CONTRAST (Hold Metformin) IV SCH
--- NOTE | 2018-12-05 15:36 | Diagnostic Imaging Report ---
PROCEDURE: CT head with and without contrast. TECHNIQUE: Multiple contiguous axial images were obtained through the brain before and after the administration of intravenous contrast. INDICATION: Patient with history of CLL. Patient complains of right-sided headache for three months as well as right-sided tingling. COMPARISON: No prior studies are available for comparison. FINDINGS: The ventricles and sulci are within normal limits. No sulcal effacement, midline shift or hemorrhage is detected. Cisterns are patent. No abnormal enhancement following contrast administration is identified. The visualized paranasal sinuses are clear. IMPRESSION: Unremarkable pre-and postcontrast CT of the brain. Dictated by: Dictated on workstation # [id number]
== END ==
LOC: RAD 15:01
PROVIDERS: ATTEND Internal Medicine Hematology & Oncology
DX: C91.10 Chronic lymphocytic leukemia of B-cell type not having achieved remission (principal); R51 Headache; R52 Pain, unspecified
CPT/HCPCS: 70470

== ENCOUNTER → 2019-01-02 | Outpatient (CLI) | payer SELFPAY ==
[~2019-01-02] MED LIST changes: -IOHEXOL 350 MG/ML 100 ML (OMNIPAQUE 350) VIAL IV ONE; -NS 100 ML (IVPB) BAG IV ONE; -RECEIVED CONTRAST (Hold Metformin) IV SCH
--- NOTE | 2019-01-02 10:40 | Diagnostic Imaging Report ---
PROCEDURE: US Hepatic (Liver). TECHNIQUE: Multiple real-time grayscale images were obtained over the right upper quadrant in various projections. INDICATION: Elevated liver enzymes and abdominal bloating. FINDINGS: The liver is normal in size at 14.3 cm. There is some increased echogenicity throughout the liver consistent with hepatic steatosis. No discrete liver mass is identified. Gallbladder is without stones or sludge. No wall thickening or biliary duct dilatation is seen. Partially visualized pancreas is unremarkable. Right kidney is unremarkable. There is no ascites. IMPRESSION: Hepatic steatosis. No other significant abnormality is detected. Dictated by: Dictated on workstation # [id number]
== END ==
LOC: RAD 08:55
PROVIDERS: ATTEND Internal Medicine Hematology & Oncology
DX: K76.0 Fatty (change of) liver, not elsewhere classified (principal)
CPT/HCPCS: 76705

== ENCOUNTER 2019-01-26 10:04 | Outpatient (RCR) | payer OTHER ==
[2018-11-03 09:41] LABS: BASOPHILS % (AUTO) 0 % (0-10); EOSINOPHILS # (AUTO) 0.2 10^3/uL (0.0-0.3); EOSINOPHILS % (AUTO) 7 % (0-10); HEMATOCRIT 36 % (35-52); HEMOGLOBIN 11.9 G/DL (11.5-16.0); LYMPHOCYTES # (AUTO) 0.6 X 10^3 (1.0-4.0); LYMPHOCYTES % (AUTO) 19 % (12-44); MEAN CORPUSCULAR HEMOGLOBIN 27 PG (25-34); MEAN CORPUSCULAR HGB CONC 33 G/DL (32-36); MEAN CORPUSCULAR VOLUME 81 FL (80-99); MEAN PLATELET VOLUME 10.6 FL (7.4-10.4); MONOCYTES # (AUTO) 0.4 X 10^3 (0.0-1.0); MONOCYTES % (AUTO) 13 % (0-12); NEUTROPHILS # (AUTO) 1.8 X 10^3 (1.8-7.8); NEUTROPHILS % (AUTO) 61 % (42-75); PLATELET COUNT 284 10^3/uL (130-400); RED CELL DISTRIBUTION WIDTH 13.5 % (10.0-14.5); WHITE BLOOD COUNT 2.9 10^3/uL (4.3-11.0)
[2018-11-03 09:58] LABS: ALANINE AMINOTRANSFERASE 53 U/L (0-55); ALBUMIN 4.1 GM/DL (3.2-4.5); ALKALINE PHOSPHATASE 45 U/L (40-136); BILIRUBIN,TOTAL 0.3 MG/DL (0.1-1.0); BUN/CREATININE RATIO 12; CALCIUM 9.1 MG/DL (8.5-10.1); CARBON DIOXIDE 24 MMOL/L (21-32); CHLORIDE 107 MMOL/L (98-107); GFR ESTIMATED > 60; GLUCOSE 123 MG/DL (70-105); POTASSIUM 3.8 MMOL/L (3.6-5.0); SODIUM 141 MMOL/L (135-145); TOTAL PROTEIN 6.4 GM/DL (6.4-8.2)
[2018-11-10 10:10] LABS: BASOPHILS % (AUTO) 0 % (0-10); EOSINOPHILS # (AUTO) 0.2 10^3/uL (0.0-0.3); EOSINOPHILS % (AUTO) 4 % (0-10); HEMATOCRIT 38 % (35-52); HEMOGLOBIN 12.4 G/DL (11.5-16.0); LYMPHOCYTES # (AUTO) 0.6 X 10^3 (1.0-4.0); LYMPHOCYTES % (AUTO) 12 % (12-44); MEAN CORPUSCULAR HEMOGLOBIN 27 PG (25-34); MEAN CORPUSCULAR HGB CONC 33 G/DL (32-36); MEAN CORPUSCULAR VOLUME 81 FL (80-99); MEAN PLATELET VOLUME 10.8 FL (7.4-10.4); MONOCYTES # (AUTO) 0.6 X 10^3 (0.0-1.0); MONOCYTES % (AUTO) 11 % (0-12); NEUTROPHILS # (AUTO) 3.6 X 10^3 (1.8-7.8); NEUTROPHILS % (AUTO) 73 % (42-75); PLATELET COUNT 313 10^3/uL (130-400); RED CELL DISTRIBUTION WIDTH 13.9 % (10.0-14.5); WHITE BLOOD COUNT 4.9 10^3/uL (4.3-11.0)
[2018-11-10 10:35] LABS: BUN/CREATININE RATIO 14; CALCIUM 9.5 MG/DL (8.5-10.1); CARBON DIOXIDE 25 MMOL/L (21-32); CHLORIDE 106 MMOL/L (98-107); CREATININE SERUM 0.84 MG/DL (0.60-1.30); GFR ESTIMATED > 60; GLUCOSE 88 MG/DL (70-105); POTASSIUM 4.7 MMOL/L (3.6-5.0); SODIUM 139 MMOL/L (135-145)
[2018-11-17 13:28] LABS: BASOPHILS % (AUTO) 0 % (0-10); EOSINOPHILS # (AUTO) 0.2 10^3/uL (0.0-0.3); EOSINOPHILS % (AUTO) 4 % (0-10); HEMATOCRIT 39 % (35-52); HEMOGLOBIN 12.7 G/DL (11.5-16.0); LYMPHOCYTES # (AUTO) 0.5 X 10^3 (1.0-4.0); LYMPHOCYTES % (AUTO) 10 % (12-44); MEAN CORPUSCULAR HEMOGLOBIN 26 PG (25-34); MEAN CORPUSCULAR HGB CONC 33 G/DL (32-36); MEAN CORPUSCULAR VOLUME 80 FL (80-99); MONOCYTES # (AUTO) 0.5 X 10^3 (0.0-1.0); MONOCYTES % (AUTO) 9 % (0-12); NEUTROPHILS # (AUTO) 3.9 X 10^3 (1.8-7.8); NEUTROPHILS % (AUTO) 76 % (42-75); PLATELET COUNT 207 10^3/uL (130-400); RED CELL DISTRIBUTION WIDTH 13.9 % (10.0-14.5); WHITE BLOOD COUNT 5.2 10^3/uL (4.3-11.0)
[2018-11-17 14:00] LABS: BUN/CREATININE RATIO 15; CALCIUM 9.2 MG/DL (8.5-10.1); CARBON DIOXIDE 23 MMOL/L (21-32); CHLORIDE 106 MMOL/L (98-107); CREATININE SERUM 0.82 MG/DL (0.60-1.30); GFR ESTIMATED > 60; GLUCOSE 123 MG/DL (70-105); POTASSIUM 3.9 MMOL/L (3.6-5.0); SODIUM 138 MMOL/L (135-145)
[2018-11-24 11:43] LABS: BASOPHILS % (AUTO) 0 % (0-10); EOSINOPHILS # (AUTO) 0.3 10^3/uL (0.0-0.3); EOSINOPHILS % (AUTO) 8 % (0-10); HEMATOCRIT 38 % (35-52); HEMOGLOBIN 12.6 G/DL (11.5-16.0); LYMPHOCYTES # (AUTO) 1.2 X 10^3 (1.0-4.0); LYMPHOCYTES % (AUTO) 32 % (12-44); MEAN CORPUSCULAR HEMOGLOBIN 27 PG (25-34); MEAN CORPUSCULAR HGB CONC 34 G/DL (32-36); MEAN CORPUSCULAR VOLUME 79 FL (80-99); MEAN PLATELET VOLUME 10.3 FL (7.4-10.4); MONOCYTES # (AUTO) 0.6 X 10^3 (0.0-1.0); MONOCYTES % (AUTO) 16 % (0-12); NEUTROPHILS # (AUTO) 1.8 X 10^3 (1.8-7.8); NEUTROPHILS % (AUTO) 44 % (42-75); PLATELET COUNT 208 10^3/uL (130-400); RED CELL DISTRIBUTION WIDTH 14.6 % (10.0-14.5); WHITE BLOOD COUNT 3.9 10^3/uL (4.3-11.0)
[2018-11-24 11:59] LABS: BUN/CREATININE RATIO 14; CALCIUM 9.4 MG/DL (8.5-10.1); CARBON DIOXIDE 23 MMOL/L (21-32); CHLORIDE 106 MMOL/L (98-107); CREATININE SERUM 0.85 MG/DL (0.60-1.30); GFR ESTIMATED > 60; GLUCOSE 106 MG/DL (70-105); POTASSIUM 4.3 MMOL/L (3.6-5.0); SODIUM 139 MMOL/L (135-145)
[2018-12-01 09:29] LABS: BASOPHILS % (AUTO) 0 % (0-10); EOSINOPHILS # (AUTO) 0.3 10^3/uL (0.0-0.3); EOSINOPHILS % (AUTO) 6 % (0-10); HEMATOCRIT 36 % (35-52); HEMOGLOBIN 11.9 G/DL (11.5-16.0); LYMPHOCYTES # (AUTO) 1.3 X 10^3 (1.0-4.0); LYMPHOCYTES % (AUTO) 28 % (12-44); MEAN CORPUSCULAR HEMOGLOBIN 26 PG (25-34); MEAN CORPUSCULAR HGB CONC 33 G/DL (32-36); MEAN CORPUSCULAR VOLUME 79 FL (80-99); MONOCYTES # (AUTO) 0.7 X 10^3 (0.0-1.0); MONOCYTES % (AUTO) 15 % (0-12); NEUTROPHILS # (AUTO) 2.3 X 10^3 (1.8-7.8); NEUTROPHILS % (AUTO) 51 % (42-75); PLATELET COUNT 229 10^3/uL (130-400); RED CELL DISTRIBUTION WIDTH 14.5 % (10.0-14.5); WHITE BLOOD COUNT 4.5 10^3/uL (4.3-11.0)
[2018-12-01 09:47] LABS: ALANINE AMINOTRANSFERASE 97 U/L (0-55); ALBUMIN 3.9 GM/DL (3.2-4.5); ALKALINE PHOSPHATASE 49 U/L (40-136); BILIRUBIN,TOTAL 0.3 MG/DL (0.1-1.0); BUN/CREATININE RATIO 14; CALCIUM 9.1 MG/DL (8.5-10.1); CARBON DIOXIDE 23 MMOL/L (21-32); CHLORIDE 106 MMOL/L (98-107); CREATININE SERUM 0.84 MG/DL (0.60-1.30); GFR ESTIMATED > 60; GLUCOSE 98 MG/DL (70-105); MAGNESIUM 1.9 MG/DL (1.8-2.4); POTASSIUM 3.8 MMOL/L (3.6-5.0); SODIUM 137 MMOL/L (135-145); TOTAL PROTEIN 6.3 GM/DL (6.4-8.2)
[2018-12-08 14:23] LABS: BASOPHILS % (AUTO) 0 % (0-10); EOSINOPHILS # (AUTO) 0.4 10^3/uL (0.0-0.3); EOSINOPHILS % (AUTO) 9 % (0-10); HEMATOCRIT 36 % (35-52); HEMOGLOBIN 12.2 G/DL (11.5-16.0); LYMPHOCYTES # (AUTO) 0.3 X 10^3 (1.0-4.0); LYMPHOCYTES % (AUTO) 6 % (12-44); MEAN CORPUSCULAR HEMOGLOBIN 27 PG (25-34); MEAN CORPUSCULAR HGB CONC 34 G/DL (32-36); MEAN CORPUSCULAR VOLUME 79 FL (80-99); MEAN PLATELET VOLUME 10.3 FL (7.4-10.4); MONOCYTES # (AUTO) 0.6 X 10^3 (0.0-1.0); MONOCYTES % (AUTO) 14 % (0-12); NEUTROPHILS # (AUTO) 2.9 X 10^3 (1.8-7.8); NEUTROPHILS % (AUTO) 71 % (42-75); PLATELET COUNT 271 10^3/uL (130-400); RED CELL DISTRIBUTION WIDTH 14.9 % (10.0-14.5); WHITE BLOOD COUNT 4.2 10^3/uL (4.3-11.0)
[2018-12-08 14:38] LABS: BUN/CREATININE RATIO 17; CALCIUM 9.5 MG/DL (8.5-10.1); CARBON DIOXIDE 23 MMOL/L (21-32); CHLORIDE 106 MMOL/L (98-107); CREATININE SERUM 0.93 MG/DL (0.60-1.30); GFR ESTIMATED > 60; GLUCOSE 100 MG/DL (70-105); POTASSIUM 4.3 MMOL/L (3.6-5.0); SODIUM 140 MMOL/L (135-145)
[2018-12-15 13:47] LABS: BASOPHILS % (AUTO) 0 % (0-10); EOSINOPHILS # (AUTO) 0.3 10^3/uL (0.0-0.3); EOSINOPHILS % (AUTO) 7 % (0-10); HEMATOCRIT 37 % (35-52); HEMOGLOBIN 12.2 G/DL (11.5-16.0); LYMPHOCYTES # (AUTO) 0.5 X 10^3 (1.0-4.0); LYMPHOCYTES % (AUTO) 13 % (12-44); MEAN CORPUSCULAR HEMOGLOBIN 26 PG (25-34); MEAN CORPUSCULAR HGB CONC 33 G/DL (32-36); MEAN CORPUSCULAR VOLUME 79 FL (80-99); MEAN PLATELET VOLUME 10.4 FL (7.4-10.4); MONOCYTES # (AUTO) 0.5 X 10^3 (0.0-1.0); MONOCYTES % (AUTO) 11 % (0-12); NEUTROPHILS % (AUTO) 70 % (42-75); PLATELET COUNT 241 10^3/uL (130-400); WHITE BLOOD COUNT 4.3 10^3/uL (4.3-11.0)
[2018-12-15 14:02] LABS: BUN/CREATININE RATIO 20; CALCIUM 9.3 MG/DL (8.5-10.1); CARBON DIOXIDE 24 MMOL/L (21-32); CHLORIDE 107 MMOL/L (98-107); CREATININE SERUM 0.79 MG/DL (0.60-1.30); GFR ESTIMATED > 60; GLUCOSE 134 MG/DL (70-105); POTASSIUM 4.1 MMOL/L (3.6-5.0); SODIUM 138 MMOL/L (135-145)
[2018-12-22 14:22] LABS: BASOPHILS % (AUTO) 0 % (0-10); EOSINOPHILS # (AUTO) 0.2 10^3/uL (0.0-0.3); EOSINOPHILS % (AUTO) 5 % (0-10); HEMATOCRIT 37 % (35-52); HEMOGLOBIN 12.2 G/DL (11.5-16.0); LYMPHOCYTES # (AUTO) 0.7 X 10^3 (1.0-4.0); LYMPHOCYTES % (AUTO) 14 % (12-44); MEAN CORPUSCULAR HEMOGLOBIN 27 PG (25-34); MEAN CORPUSCULAR HGB CONC 33 G/DL (32-36); MEAN CORPUSCULAR VOLUME 79 FL (80-99); MEAN PLATELET VOLUME 10.6 FL (7.4-10.4); MONOCYTES # (AUTO) 0.6 X 10^3 (0.0-1.0); MONOCYTES % (AUTO) 12 % (0-12); NEUTROPHILS # (AUTO) 3.7 X 10^3 (1.8-7.8); NEUTROPHILS % (AUTO) 70 % (42-75); PLATELET COUNT 244 10^3/uL (130-400); RED CELL DISTRIBUTION WIDTH 15.7 % (10.0-14.5); WHITE BLOOD COUNT 5.2 10^3/uL (4.3-11.0)
[2018-12-22 14:41] LABS: BUN/CREATININE RATIO 17; CALCIUM 9.8 MG/DL (8.5-10.1); CARBON DIOXIDE 25 MMOL/L (21-32); CHLORIDE 106 MMOL/L (98-107); CREATININE SERUM 0.84 MG/DL (0.60-1.30); GFR ESTIMATED > 60; GLUCOSE 115 MG/DL (70-105); POTASSIUM 4.1 MMOL/L (3.6-5.0); SODIUM 139 MMOL/L (135-145)
[2018-12-29 10:25] LABS: BASOPHILS % (AUTO) 0 % (0-10); EOSINOPHILS # (AUTO) 0.2 10^3/uL (0.0-0.3); EOSINOPHILS % (AUTO) 4 % (0-10); HEMATOCRIT 37 % (35-52); HEMOGLOBIN 12.6 G/DL (11.5-16.0); LYMPHOCYTES % (AUTO) 21 % (12-44); MEAN CORPUSCULAR HEMOGLOBIN 27 PG (25-34); MEAN CORPUSCULAR HGB CONC 34 G/DL (32-36); MEAN CORPUSCULAR VOLUME 78 FL (80-99); MEAN PLATELET VOLUME 10.3 FL (7.4-10.4); MONOCYTES # (AUTO) 0.6 X 10^3 (0.0-1.0); MONOCYTES % (AUTO) 12 % (0-12); NEUTROPHILS # (AUTO) 2.9 X 10^3 (1.8-7.8); NEUTROPHILS % (AUTO) 63 % (42-75); PLATELET COUNT 254 10^3/uL (130-400); RED CELL DISTRIBUTION WIDTH 16.2 % (10.0-14.5); WHITE BLOOD COUNT 4.7 10^3/uL (4.3-11.0)
[2018-12-29 10:46] LABS: ALANINE AMINOTRANSFERASE 123 U/L (0-55); ALBUMIN 4.1 GM/DL (3.2-4.5); ALKALINE PHOSPHATASE 45 U/L (40-136); BILIRUBIN,TOTAL 0.3 MG/DL (0.1-1.0); BUN/CREATININE RATIO 14; CALCIUM 9.7 MG/DL (8.5-10.1); CARBON DIOXIDE 25 MMOL/L (21-32); CHLORIDE 104 MMOL/L (98-107); CREATININE SERUM 0.91 MG/DL (0.60-1.30); GFR ESTIMATED > 60; GLUCOSE 82 MG/DL (70-105); POTASSIUM 4.1 MMOL/L (3.6-5.0); SODIUM 138 MMOL/L (135-145); TOTAL PROTEIN 6.6 GM/DL (6.4-8.2)
[2019-01-12 11:11] LABS: ALANINE AMINOTRANSFERASE 110 U/L (0-55); ALBUMIN 4.1 GM/DL (3.2-4.5); ALKALINE PHOSPHATASE 48 U/L (40-136); BILIRUBIN,TOTAL 0.3 MG/DL (0.1-1.0); BUN/CREATININE RATIO 16; CALCIUM 9.4 MG/DL (8.5-10.1); CARBON DIOXIDE 25 MMOL/L (21-32); CHLORIDE 107 MMOL/L (98-107); CREATININE SERUM 0.89 MG/DL (0.60-1.30); GFR ESTIMATED > 60; GLUCOSE 106 MG/DL (70-105); POTASSIUM 3.9 MMOL/L (3.6-5.0); SODIUM 140 MMOL/L (135-145); TOTAL PROTEIN 6.6 GM/DL (6.4-8.2)
[~2019-01-26] VITALS: Ht 165.1 cm; Wt 101.6 kg
[~2019-01-26 10:04] MED LIST changes: +ACETAMINOPHEN 325 MG TAB (TYLENOL) CANCER CTR PO PRN; +BENDAMUSTINE HCL IV SCH; +FAMOTIDINE 20MG/2ML IV (CANCER CTR) IV SCH; +NS (IVPB) CANCER CENTER 250 ML ONE; +NS IV 1000 ML (CANCER CTR) IV SCH; +NS IV 500 ML (CANCER CENTER) 500 ML ONE; +NS IV SCH; +ONDANSETRON MDV (CANCER CENTER 16 MG, DEXAMETHASONE INJECTION 10 MG in NS (IVPB) CANCER... IV SCH; +PALONOSETRON HCL 0.25 MG, DEXAMETHASONE INJECTION 10 MG in NS (IVPB) CANCER CENTER 50 ML IV SCH; +RITUXIMAB FOR IV SCH; +RITUXIMAB IV SCH; +[UNRECOGNIZED DRUG - REMARK] IV SCH; +diphenhydrAMINE 25 MG TAB (BENADRYL) CANCER CENTER PO SCH
[2019-01-26 10:21] LABS: BASOPHILS % (AUTO) 0 % (0-10); EOSINOPHILS # (AUTO) 0.2 10^3/uL (0.0-0.3); EOSINOPHILS % (AUTO) 5 % (0-10); HEMATOCRIT 39 % (35-52); HEMOGLOBIN 13.5 G/DL (11.5-16.0); LYMPHOCYTES # (AUTO) 0.6 X 10^3 (1.0-4.0); LYMPHOCYTES % (AUTO) 13 % (12-44); MEAN CORPUSCULAR HEMOGLOBIN 28 PG (25-34); MEAN CORPUSCULAR HGB CONC 35 G/DL (32-36); MEAN CORPUSCULAR VOLUME 79 FL (80-99); MONOCYTES # (AUTO) 0.5 X 10^3 (0.0-1.0); MONOCYTES % (AUTO) 10 % (0-12); NEUTROPHILS # (AUTO) 3.5 X 10^3 (1.8-7.8); NEUTROPHILS % (AUTO) 73 % (42-75); PLATELET COUNT 242 10^3/uL (130-400); RED CELL DISTRIBUTION WIDTH 16.3 % (10.0-14.5); WHITE BLOOD COUNT 4.8 10^3/uL (4.3-11.0)
[2019-01-26 10:39] LABS: ALANINE AMINOTRANSFERASE 98 U/L (0-55); ALBUMIN 4.1 GM/DL (3.2-4.5); ALKALINE PHOSPHATASE 49 U/L (40-136); BILIRUBIN,TOTAL 0.4 MG/DL (0.1-1.0); BUN/CREATININE RATIO 16; CALCIUM 9.7 MG/DL (8.5-10.1); CARBON DIOXIDE 25 MMOL/L (21-32); CHLORIDE 107 MMOL/L (98-107); CREATININE SERUM 0.87 MG/DL (0.60-1.30); GFR ESTIMATED > 60; GLUCOSE 87 MG/DL (70-105); POTASSIUM 3.9 MMOL/L (3.6-5.0); SODIUM 139 MMOL/L (135-145); TOTAL PROTEIN 6.6 GM/DL (6.4-8.2)
== END 2019-02-01 | disposition home or self-care (01) ==
LOC: ONC 10:04
PROVIDERS: ATTEND Internal Medicine Hematology & Oncology
DX: Z51.11 Encounter for antineoplastic chemotherapy (principal); C91.10 Chronic lymphocytic leukemia of B-cell type not having achieved remission; D50.9 Iron deficiency anemia, unspecified; I10 Essential (primary) hypertension; F41.9 Anxiety disorder, unspecified; F32.9 Major depressive disorder, single episode, unspecified; E66.9 Obesity, unspecified; Z68.35 Body mass index [BMI] 35.0-35.9, adult; Z79.899 Other long term (current) drug therapy
CPT/HCPCS: 36415; 36591; 80048; 80053; 82728; 83540; 83615; 83735; 85025; 96375; 96409; 96411; 96413; 96415; 99213; J9312

== ENCOUNTER 2019-03-21 15:04 | Emergency (ER) | payer OTHER ==
[~2019-03-21] VITALS: Ht 157.5 cm; Wt 97.5 kg
[~2019-03-21 15:04] MED LIST changes: -ACETAMINOPHEN 325 MG TAB (TYLENOL) CANCER CTR PO PRN; -BENDAMUSTINE HCL IV SCH; -FAMOTIDINE 20MG/2ML IV (CANCER CTR) IV SCH; -NS (IVPB) CANCER CENTER 250 ML ONE; -NS IV 1000 ML (CANCER CTR) IV SCH; -NS IV 500 ML (CANCER CENTER) 500 ML ONE; -NS IV SCH; -ONDANSETRON MDV (CANCER CENTER 16 MG, DEXAMETHASONE INJECTION 10 MG in NS (IVPB) CANCER... IV SCH; -PALONOSETRON HCL 0.25 MG, DEXAMETHASONE INJECTION 10 MG in NS (IVPB) CANCER CENTER 50 ML IV SCH; -RITUXIMAB FOR IV SCH; -RITUXIMAB IV SCH; -[UNRECOGNIZED DRUG - REMARK] IV SCH; -diphenhydrAMINE 25 MG TAB (BENADRYL) CANCER CENTER PO SCH
--- OUTSIDE RECORDS SUMMARY | 2019-03-21 15:11 | XMS REPORT | Continuity of Care Document ---
Author Organization Unknown Address Unknown Allergies There is no data. Medications There is no data. Problems There is no data. Procedures There is no data. Results Test Result Range THYROID ANALYZER - 08/27/17 15:43 TSH 1.01 mIU/L NRG CBC - 10/29/17 11:13 WHITE BLOOD CELL COUNT 14.6 Thousand/uL 3.8-10.8 RED BLOOD CELL COUNT 5.14 Million/uL 3.80-5.10 HEMOGLOBIN 10.7 g/dL 11.7-15.5 HEMATOCRIT 36.2 % 35.0-45.0 MCV 70.4 fL 80.0-100.0 MCH 20.8 pg 27.0-33.0 MCHC 29.6 g/dL 32.0-36.0 RDW 15.8 % 11.0-15.0 PLATELET COUNT 407 Thousand/uL 140-400 MPV 11.3 fL 7.5-12.5 ABSOLUTE NEUTROPHILS 6526 cells/uL 1264-4780 ABSOLUTE LYMPHOCYTES 7139 cells/uL 850-3900 ABSOLUTE MONOCYTES 555 cells/uL 200-950 ABSOLUTE EOSINOPHILS 336 cells/uL 15-500 ABSOLUTE BASOPHILS 44 cells/uL 0-200 NEUTROPHILS 44.7 % NRG LYMPHOCYTES 48.9 % NRG MONOCYTES 3.8 % NRG EOSINOPHILS 2.3 % NRG BASOPHILS 0.3 % NRG CBC w/MANUAL DIFF - 03/14/18 09:34 WHITE BLOOD CELL COUNT 15.6 Thousand/uL 3.8-10.8 RED BLOOD CELL COUNT 4.96 Million/uL 3.80-5.10 HEMOGLOBIN 10.2 g/dL 11.7-15.5 HEMATOCRIT 35.5 % 35.0-45.0 MCV 71.6 fL 80.0-100.0 MCH 20.6 pg 27.0-33.0 MCHC 28.7 g/dL 32.0-36.0 RDW 18.8 % 11.0-15.0 PLATELET COUNT 387 Thousand/uL 140-400 MPV 10.7 fL 7.5-12.5 ABSOLUTE NEUTROPHILS 5772 cells/uL 5925-0579 ABSOLUTE LYMPHOCYTES 8736 cells/uL 850-3900 ABSOLUTE MONOCYTES 624 cells/uL 200-950 ABSOLUTE EOSINOPHILS 468 cells/uL 15-500 ABSOLUTE BASOPHILS 0 cells/uL 0-200 NEUTROPHILS 37 % NRG LYMPHOCYTES 56 % NRG MONOCYTES 4 % NRG EOSINOPHILS 3 % NRG BASOPHILS 0 % NRG COMMENT(S) NRG CBC w/MANUAL DIFF - 05/31/18 17:34 WHITE BLOOD CELL COUNT 18.5 Thousand/uL 3.8-10.8 RED BLOOD CELL COUNT 5.35 Million/uL 3.80-5.10 HEMOGLOBIN 13.3 g/dL 11.7-15.5 HEMATOCRIT 41.5 % 35.0-45.0 MCV 77.6 fL 80.0-100.0 MCH 24.9 pg 27.0-33.0 MCHC 32.0 g/dL 32.0-36.0 RDW 20.7 % 11.0-15.0 PLATELET COUNT 324 Thousand/uL 140-400 MPV 11.1 fL 7.5-12.5 ABSOLUTE NEUTROPHILS 9065 cells/uL 0272-2581 ABSOLUTE LYMPHOCYTES 8510 cells/uL 850-3900 ABSOLUTE MONOCYTES 740 cells/uL 200-950 ABSOLUTE EOSINOPHILS 185 cells/uL 15-500 ABSOLUTE BASOPHILS 0 cells/uL 0-200 NEUTROPHILS 49 % NRG LYMPHOCYTES 46 % NRG MONOCYTES 4 % NRG EOSINOPHILS 1 % NRG BASOPHILS 0 % NRG COMMENT(S) NRG CULTURE, THROAT - 10/21/18 13:52 CULTURE, THROAT SEE NOTE NRG Encounters ACCT No. Visit Date/Time Discharge Status Pt. Type Provider Facility Loc./Unit Complaint [id number] 03/15/2019 16:40:00 03/15/2019 23:59:59 CLS Outpatient [facility] [id number] 10/21/2018 11:20:00 Document Registration [id number] 05/31/2018 16:40:00 Document Registration [id number] 03/14/2018 09:00:00 Document Registration [id number] 10/29/2017 09:00:00 Document Registration [id number] 08/27/2017 15:00:00 Document Registration
--- OUTSIDE RECORDS SUMMARY | 2019-03-21 15:11 | XMS REPORT ---
Author Author LDYEISON Organization [facility] Address [address] [place] [address] Care Team Providers Care Port Cdl A Driver Name Role Phone YEISON JAFFE Unavailable PROBLEMS Type Condition ICD9-CM Code LVM39-XL Code Onset Dates Condition Status SNOMED Code Problem Acute stress reaction F43.0 Active 43165938 Problem CLL (chronic lymphocytic leukemia) C91.90 Active 47987897 Problem Atypical lymphocytes present on peripheral blood smear R88.8 Active 758031529 Problem Moderate single current episode of major depressive disorder F32.1 Active 12953267 Problem Generalized anxiety disorder F41.1 Active 84442461 Problem Essential hypertension I10 Active 17750981 Problem Obesity (BMI 30-39.9) E66.9 Active 497421794 ALLERGIES Substance Reaction Event Type Date Status Sulfamethoxazole-Trimethoprim rash, itching Drug Allergy Aug, Active ENCOUNTERS Encounter Location Date Diagnosis [facility] [id number] [address] Aug, Moderate single current episode of major depressive disorder F32.1 ; Hospital discharge follow-up Z09 ; Essential hypertension I10 and Healthcare maintenance Z00.00 [facility] [id number] [phone] Aug, Acute nasopharyngitis J00 [facility] [id number] [id number] Jul, Acute non-recurrent maxillary sinusitis J01.00 and CLL (chronic lymphocytic leukemia) C91.90 [facility] [address] [place] [id number] [place] [id number] Jun, CLL (chronic lymphocytic leukemia) C91.90 [facility] [id number] [id number] May, Left upper quadrant pain R10.12 ; Bloating R14.0 and CLL (chronic lymphocytic leukemia) C91.90 [address] [place] [address] [id number] May, Muscle strain T14.8XXA [place] [id number] [place] [id number] March, Atypical lymphocytes present on peripheral blood smear R88.8 and Anemia, unspecified type D64.[address] [id number] March, Generalized anxiety disorder F41.1 ; Moderate single current episode of major depressive disorder F32.1 ; Acute nasopharyngitis J00 ; Essential hypertension I10 and Anemia due to other cause, not classified D64.89 [place] [id number] [place] [id number] Jan, Acute nasopharyngitis J00 ; Laceration of right ear canal, initial encounter S01.311A and Essential hypertension I10 [address] [id number] Jan, Moderate single current episode of major depressive disorder F32.1 ; Generalized anxiety disorder F41.1 ; Cough R05 ; Elevated blood pressure reading in office without diagnosis of hypertension R03.0 and Allergic contact dermatitis due to plants, except food L23.7 [place] [id number] [place] [id number] Dec, [place] [id number] [place] [id number] Nov, Abnormal complete blood count R79.89 [place] [id number] [place] [id number] Oct, Abnormal complete blood count R79.89 ; Obesity (BMI 30-39.9) E66.9 ; Generalized anxiety disorder F41.1 and Moderate single current episode of major depressive disorder F32.1 [place] [id number] [place] [address] [id number] Oct, Acute stress reaction F43.0 [place] [id number] [place] [address] [id number] Oct, Moderate single current episode of major depressive disorder F32.1 [facility] [address] [facility] [id number] [id number] Sep, Acute stress reaction F43.0 [facility] [id number] [place] [address] [phone] Aug, Obesity (BMI 30-39.9) E66.9 [address] [place] [address] [phone] Aug, Acute stress reaction F43.0 ; Moderate single current episode of major depressive disorder F32.1 and Obesity (BMI 30-39.9) E66.9 [address] [place] [address] [id number] Aug, [facility] [address] [place] [address] [id number] Aug, Acute stress reaction F43.0 ; Generalized anxiety disorder F41.1 and Moderate single current episode of major depressive disorder F32.1 [facility] [address] [place] [address] [id number] Jul, Allergic contact dermatitis due to plants, except food L23.7 [facility] [address] [id number] [id number] May, Muscle spasm of back M62.830 and Strain of muscle and tendon of back wall of thorax, initial encounter S29.012A [id number] [place] [address] [id number] Jan, Allergic contact dermatitis due to plants, except food L23.[address] [facility] [id number] [place] [address] [id number] March, Plant allergic contact dermatitis L23.7 and Itching L29.9 [facility] [address] [place] [address] [id number] Jan, Allergic contact dermatitis due to plants, except food L23.7 and Itching L29.9 IMMUNIZATIONS No Known Immunizations SOCIAL HISTORY Never Assessed REASON FOR VISIT hosp f/u 08/10-08/13. Pt had chemo tx and developed a fever that evening of 102. Pt was admitted at that time. Pt states that hospital says she was septic.-awoo ds PLAN OF CARE Activity Details Follow Up Next available, 6 Months Reason:Well woman, Depression/anxiety VITAL SIGNS Height 62 in 2018-08-22 Weight 213.7 lbs 2018-08-22 Temperature 98.1 degrees Fahrenheit 2018-08-22 Heart Rate 70 bpm 2018-08-22 Respiratory Rate 18 2018-08-22 BMI 39.08 kg/m2 2018-08-22 Blood pressure systolic 116 mmHg 2018-08-22 Blood pressure diastolic 72 mmHg 2018-08-22 MEDICATIONS Medication Instructions Dosage Frequency Start Date End Date Duration Status Lexapro 10 mg Orally Once a day 1 tablet 24h Aug, 90 days Active Flora Allergy 180 MG Orally Once a day 1 tablet as needed 24h Active Iron 325 (65 Fe) MG Orally Once a day 1 tablet 24h Active Flonase 50 MCG/ACT Nasally twice a day 1 spray in each nostril 12h Jan, Active BusPIRone HCl 5 mg Orally Three times a day 1 tablet 8h Aug, 0 days Active Simethicone 125 MG Orally Four times a day ac &hs 1 tablet w meals May, Active Rituximab 500 MG/50ML as directed Active Bendamustine HCl 100 MG as directed Active RESULTS No Results PROCEDURES No Known [...] Dr Islas Hematology consult, monitor in 8 weeks, CBC CMP and LDH, borderline CLL, since [...]
[2019-03-21] MEDS ORDERED: NS IV 1000 ML 1,000 ML IV SCH (15:22)
[2019-03-21] MEDS ORDERED: fentaNYL INJECTION 100 MCG/2 ML AMP IVP ONE (15:30)
[2019-03-21] MEDS ORDERED: ONDANSETRON 4 MG/2 ML (SDV) Z0FRAN IVP ONE (15:30)
--- NOTE | 2019-03-21 15:31 | ED Abdominal Pain ---
General Chief Complaint: Abdominal/GI Problems Stated Complaint: ABD PAIN/DIARRHEA X 9 DAYS Source of Information: Patient, Spouse Exam Limitations: No Limitations History of Present Illness Date Seen by Provider: March 21, 2019 Time Seen by Provider: 15:16 Initial Comments The patient presents to the ER from home with chief complaint of abdominal pain generally, diffuse, diarrhea 9 days. She recently completed in December her chemotherapy for chronic lymphocytic leukemia. She saw her primary care doctor a few days ago and they talked about ordering a CT of the abdomen pelvis but she has not heard back on that. She saw Dr. Byrnes her oncologist yesterday and he did some blood work and a C. difficile on the stool which was negative. She denies being on steroids or antibiotics recently. The last antibiotic she had was in December 2018, 3 months ago. She does not have a history of IBS, IBD. She's never had a colonoscopy, gluten insensitivity, abdominal surgery or trauma recently. No fevers or chills. She said the pain comes and goes and is a 7 or 8 out of 10 minutes at its peak. She tried Imodium for the first week with no benefit. She had a 3 doses of Imodium yesterday with no effect. She is having nausea without any vomiting. Allergies and Home Medications Allergies Coded Allergies: Sulfa (Sulfonamide Antibiotics) (Verified Allergy, Mild, RASH, 07/26/18) Home Medications Buspirone HCl 5 Mg Tablet, 5 MG PO DAILY, (Reported) Buspirone HCl 5 Mg Tablet, 10 MG PO HS, (Reported) TAKES 2 (5MG) TABLETS Fexofenadine HCl 180 Mg Tablet, 180 MG PO DAILY, (Reported) Patient Home Medication List Home Medication List Reviewed: Yes Review of Systems Review of Systems Constitutional: No chills, No fever EENTM: No Blurred Vision, No Double Vision Respiratory: Denies Cough, Denies Shortness of Air Cardiovascular: Denies Chest Pain, Denies Edema Gastrointestinal: Denies Abdomen Distended; Abdominal Pain; Denies Blood Streaked Stools, Denies Constipated; Diarrhea; Denies Difficulty Swallowing; Nausea; Denies Vomiting Genitourinary: Denies Burning, Denies Discharge Musculoskeletal: No back pain, No joint pain Skin: No pruritus, No rash Psychiatric/Neurological: Denies Headache, Denies Numbness Past Gjexzbg-Evkzlz-Srfacr Hx Patient Social History Alcohol Use: Denies Use Recreational Drug Use: No Smoking Status: Never a Smoker Recent Foreign Travel: No Contact w/Someone Who Travel: No Recent Hopitalizations: No Immunizations Up To Date PED Vaccines UTD: Yes Seasonal Allergies Seasonal Allergies: Yes Past Medical History Surgeries: Yes (infected lymph node removed, back sx, port , , tubal ligation) Section, Tubal Ligation Respiratory: No Currently Using CPAP: No Currently Using BIPAP: No Cardiac: Yes Hypertension Neurological: No Reproductive Disorders: No Sexually Transmitted Disease: No HIV/AIDS: No Gastrointestinal: No Musculoskeletal: Yes Chronic Back Pain Endocrine: No HEENT: No Hearing Impairment: Denies Cancer: Yes (CLL) Leukemia What Type of Treatment Did You: Chemotherapy Psychosocial: Yes Anxiety, Depression Integumentary: No Blood Disorders: Yes (LEUKEMIA) Adverse Reaction/Blood Tranf: No Family Medical History Diabetes mellitus 19 FATHER 19 MOTHER Hypertension 19 FATHER 19 MOTHER G8 BROTHER Diabetes, Hypertension Physical Exam Vital Signs Vital Signs - First Documented 03/21/19 15:10 Temp 97.8 Pulse 62 Resp 18 B/P (MAP) 145/84 (104) Pulse Ox 97 Capillary Refill : Height/Weight/BMI Height: 5'5.00" Weight: 213lbs. 8.0oz. 96.380704jq; 35.5 BMI Method:Stated General Appearance: WD/WN, mild distress HEENT: PERRL/EOMI, pharynx normal Neck: full range of motion, normal inspection Respiratory: normal breath sounds, no respiratory distress, no accessory muscle use Cardiovascular: normal peripheral pulses, regular rate, rhythm Gastrointestinal: normal bowel sounds, non tender, soft, no organomegaly, tenderness (mild, diffuse all 4 quadrants) Extremities: normal range of motion, normal capillary refill Neurologic/Psychiatric: alert, normal mood/affect, oriented x 3 Skin: normal color, warm/dry Focused Exam Lactate Level 03/21/19 15:48: Lactic Acid Level 0.90 Lactic Acid Level Laboratory Tests Test 03/21/19 15:48 Lactic Acid Level 0.90 MMOL/L (0.50-2.00) Progress/Results/Core Measures Results/Orders Lab Results Laboratory Tests Test 03/21/19 15:48 03/21/19 15:50 Range/Units White Blood Count 6.7 4.3-11.0 10^3/uL Red Blood Count 4.58 4.35-5.85 10^6/uL Hemoglobin 12.8 11.5-16.0 G/DL Hematocrit 37 35-52 % Mean Corpuscular Volume 81 80-99 FL Mean Corpuscular Hemoglobin 28 25-34 PG Mean Corpuscular Hemoglobin Concent 34 32-36 G/DL Red Cell Distribution Width 14.8 H 10.0-14.5 % Platelet Count 272 130-400 10^3/uL Mean Platelet Volume 10.9 H 7.4-10.4 FL Neutrophils (%) (Auto) 78 H 42-75 % Lymphocytes (%) (Auto) 10 L 12-44 % Monocytes (%) (Auto) 8 0-12 % Eosinophils (%) (Auto) 3 0-10 % Basophils (%) (Auto) 0 0-10 % Neutrophils # (Auto) 5.3 1.8-7.8 X 10^3 Lymphocytes # (Auto) 0.7 L 1.0-4.0 X 10^3 Monocytes # (Auto) 0.5 0.0-1.0 X 10^3 Eosinophils # (Auto) 0.2 0.0-0.3 10^3/uL Basophils # (Auto) 0.0 0.0-0.1 10^3/uL Sodium Level 140 135-145 MMOL/L Potassium Level 3.8 3.6-5.0 MMOL/L Chloride Level 109 H 98-107 MMOL/L Carbon Dioxide Level 20 L 21-32 MMOL/L Anion Gap 11 5-14 MMOL/L Blood Urea Nitrogen 12 7-18 MG/DL Creatinine 0.89 0.60-1.30 MG/DL Estimat Glomerular Filtration Rate > 60 BUN/Creatinine Ratio 13 Glucose Level 95 70-105 MG/DL Lactic Acid Level 0.90 0.50-2.00 MMOL/L Calcium Level 9.4 8.5-10.1 MG/DL Corrected Calcium 9.4 8.5-10.1 MG/DL Total Bilirubin 0.3 0.1-1.0 MG/DL Aspartate Amino Transf (AST/SGOT) 43 H 5-34 U/L Alanine Aminotransferase (ALT/SGPT) 68 H 0-55 U/L Alkaline Phosphatase 51 40-136 U/L C-Reactive Protein High Sensitivity 0.97 H 0.00-0.50 MG/DL Total Protein 6.4 6.4-8.2 GM/DL Albumin 4.0 3.2-4.5 GM/DL Lipase 19 8-78 U/L Monoscreen NEGATIVE NEGATIVE Urine Color YELLOW Urine Clarity CLEAR Urine pH 5 5-9 Urine Specific [place] 1.025 H 1.016-1.022 Urine Protein 1+ H NEGATIVE Urine Glucose (UA) NEGATIVE NEGATIVE Urine Ketones NEGATIVE NEGATIVE Urine Nitrite NEGATIVE NEGATIVE Urine Bilirubin NEGATIVE NEGATIVE Urine Urobilinogen NORMAL NORMAL MG/DL Urine Leukocyte Esterase NEGATIVE NEGATIVE Urine RBC (Auto) 3+ H NEGATIVE Urine RBC 5-10 H /HPF Urine WBC RARE /HPF Urine Squamous Epithelial Cells 10-25 H /HPF Urine Crystals NONE /LPF Urine Bacteria FEW H /HPF Urine Casts NONE /LPF Urine Mucus MODERATE H /LPF Urine Culture Indicated NO Stool Occult Blood Immunoassay NEGATIVE NEGATIVE Micro Results Microbiology 03/21/19 Fecal Leukocyte Stain - Final, Resulted 03/21/19 C. difficile GDH Antigen & Toxins - Final, Resulted 03/21/19 Stool Culture, Resulted Pending My Orders Orders - AGUEDA JOHNSON Ct Abdomen/Pelvis W (03/21/19 15:22) Cbc With Automated Diff (03/21/19 15:22) Comprehensive Metabolic Panel (03/21/19 15:22) Hs C Reactive Protein (03/21/19 15:22) Lipase (03/21/19 15:22) Monotest (03/21/19 15:22) Ua Culture If Indicated (03/21/19 15:22) Ed Iv/Invasive Line Start (03/21/19 15:22) Ns Iv 1000 Ml (Sodium Chloride 0.9%) (03/21/19 15:22) Fentanyl Injection (Sublimaze Injection (03/21/19 15:30) Ondansetron Injection (Zofran Injectio (03/21/19 15:30) Lactic Acid Analyzer (03/21/19 15:32) C Difficile Ag + Toxin A/B. (03/21/19 15:32) Stool Culture (03/21/19 15:32) Occult Blood Stool (03/21/19 15:32) Parasite Scrn Stool Giard Cryp (03/21/19 15:32) Fecal Wbc (03/21/19 15:32) Isolation Central Supply Req (03/21/19 15:32) Iohexol Injection (Omnipaque 350 Mg/Ml 1 (03/21/19 15:45) Received Contrast (Hold Metformin- Contr (03/21/19 15:45) Ns (Ivpb) (Sodium Chloride 0.9%) (03/21/19 15:45) Medications Given in ED Current Medications Medications Dose Ordered Sig/Cheri Route Start Time Stop Time Status Last Admin Dose Admin Fentanyl Citrate 50 mcg ONCE ONCE IVP 03/21/19 15:30 03/21/19 15:31 DC 03/21/19 15:50 50 MCG Iohexol 100 ml ONCE ONCE IV 03/21/19 15:45 03/21/19 15:46 DC 03/21/19 17:38 100 ML Ondansetron HCl 4 mg ONCE ONCE IVP 03/21/19 15:30 03/21/19 15:31 DC 03/21/19 15:50 4 MG Sodium Chloride 250 ml ONCE ONCE IV 03/21/19 15:45 03/21/19 15:46 DC 03/21/19 17:38 100 ML Vital Signs/I&O 03/21/19 15:10 Temp 97.8 Pulse 62 Resp 18 B/P (MAP) 145/84 (104) Pulse Ox 97 Progress Progress Note : Time: 15:30 Progress Note We've elected to use fentanyl for her pain is a May also help slow down her diarrhea. If we get a stool sample we will check it for usual bacteria. If it is watery we will recheck it for C. difficile toxin. We'll obtain a lactate to rule out severe dehydration or possibility of a mesenteric infarct. Possible she could have diverticulitis or bad gastroenteritis/colitis. We'll give her Zofran for her nausea and 1 L of normal saline and reexamine her. Her vital signs are aseptic. Basic complement of labs to compare to yesterday as well as a CT of the abdomen and pelvis with IV contrast. Diagnostic Imaging Diagonstic Imaging: CT (IV contrast) Plain Films/CT/US/NM/MRI: abdomen, pelvis Comments [facility] [place], [place] NAME: VISHNU THOMAS Milagro [facility] REC#: [id number] PT STATUS: REG ER : 1970 PHYSICIAN: AGUEDA JOHNSON MD ADMIT DATE: 03/21/19/ER Draft Date of Exam:03/21/19 CT ABDOMEN/PELVIS W CLINICAL INDICATION: Patient with nausea, vomiting, and diarrhea x9 days. Patient has entire abdominal pain. EXAM: CT scan of the abdomen and pelvis performed with 100 cc of Omnipaque 350 IV contrast with coronal and sagittal reformatted images. Portal venous and delayed phases were obtained. COMPARISON: CT scan of the abdomen and pelvis dated 08/11/2018. FINDINGS: Visualized lung bases are clear. There are small spurs involving both acetabular regions. There is posterior fusion hardware involving the L4-L5 level with posterior lumbar interbody fusion. This is also noted on the prior study. There are small degenerative spurs involving the visualized lower thoracic spine and lumbar spine. There is diffuse low-attenuation changes seen throughout the liver, likely related to fatty infiltration. There is no liver mass seen. Liver is otherwise unremarkable. Possible nonobstructive stones involving both kidneys versus excreted contrast seen. Otherwise, the spleen, pancreas, gallbladder, adrenal glands and both kidneys are unremarkable. There is no hydronephrosis or renal mass seen. There is no intra-abdominal free air or free fluid. There is no abdominal or pelvic lymphadenopathy. There is interval development of a roughly 4.1 cm cystic structure within the left adnexal region. There is interval decreased size of the mass within the myometrium which is measured at roughly 4.4 cm in greatest axial dimension on this exam and compares to the prior study measured at 6.1 cm. The remainder of the pelvic structures are unremarkable. The previously seen pelvic lymphadenopathy is resolved. Marker lymph node in the left lateral pelvic region currently measures 10 mm x 5 mm compared to prior study measured at 20 mm x 12 mm. There is diverticuli involving the transverse colon. There is no CT evidence of diverticulitis. Appendix is unremarkable. The colon is predominantly decompressed with the appearance of diffuse bowel wall thickening. There is no adjacent fat stranding seen. This appearance is different compared to prior study. The stomach is decompressed with small amount of fluid within it. The visualized portions of small bowel are unremarkable. The abdominal aorta and common iliac arteries are unremarkable. The bladder is fluid filled and unremarkable. The extraabdominal and extrapelvic soft tissue structures are unremarkable. IMPRESSION: 1: There is interval diffuse decompression of the colon with apparent bowel wall thickening. This apparent bowel wall thickening may be related to decompressed colon. There is no adjacent fat stranding adjacent to the colon. Colitis is suspected to be less likely. 2: There is a 4.1 cm cystic structure within the left adnexa region likely representing an ovarian cyst. 3: Interval decreased size of the heterogeneously enhancing mass within the uterine fundus. A fibroid may be considered. Clinical correlation with history of other uterine mass is suggested. 4: There is no evidence of intestinal obstruction, intra-abdominal free fluid or intra-abdominal free air. 5: There is interval resolution of previously seen pelvic lymphadenopathy. 6: Diffuse fatty infiltration of the liver. Dictated on workstation # [id number] Dict: 03/21/19 1747 Trans: 03/21/19 1806 [id number] Interpreted by: AD REAVES MD Electronically signed by: Reviewed: Reviewed by Me Departure Impression Primary Impression: Colitis presumed infectious Disposition: HOME, SELF-CARE Condition: Improved Departure-Patient Inst. Decision time for Depature: 18:49 Referrals: [facility] [place] Primary Care Physician LOLI ARBOLEDA APRN (Family) Primary Care Physician Patient Instructions: Colitis (DC) Add. Discharge Instructions: Please follow-up with the end of the week or early next week with your primary care doctor to review the send out labs that we obtained. Use the Lomotil 5 mg 4 times a day. Once again control of your diarrhea then you can reduce by 25% every day. Drink lots of fluids. Use the Zofran you already have as prescribed for nausea or vomiting. Use Tylenol and/or ibuprofen as necessary for pain. If you have breakthrough pain that lasts you can use the hydrocodone one tablet every 6 hours. Return to the nearest ER if you begin to have a fever, intractable pain, intractable nausea or other worrisome symptoms. Use probiotics one capsule twice a day or eat yogurt twice a day with active culture. All discharge instructions reviewed with patient and/or family. Voiced understanding. Scripts Diphenoxylate HCl/Atropine (Lomotil 2.5-0.025 mg Tablet) 1 Each Tablet 2 EACH PO QID, #30 TAB 0 Refills Prov: AGUEDA JOHNSON 03/21/19 Hydrocodone Bit/Acetaminophen (Hydrocodone/Acetaminophen 5/325mg Tablet) 1 Tab Tab 1 EACH PO Q6H PRN for PAIN-MODERATE MDD 10, #10 TAB 0 Refills Prov: AGUEDA JOHNSON 03/21/19 AGUEDA JOHNSON March 21, 2019 15:31
[2019-03-21] MEDS ORDERED: ESCI10TA PO (15:32)
[2019-03-21] MEDS ORDERED: HOLD METFORMIN - RECEIVED CONTRAST 20 ML VIAL IV SCH (15:45)
[2019-03-21] MEDS ORDERED: IOHEXOL 350 MG/ML 100 ML (OMNIPAQUE 350) VIAL IV ONE (15:45)
[2019-03-21] MEDS ORDERED: NS 250 ML (IVPB) BAG IV ONE (15:45)
[2019-03-21 15:55] LABS: BASOPHILS % (AUTO) 0 % (0-10); EOSINOPHILS # (AUTO) 0.2 10^3/uL (0.0-0.3); EOSINOPHILS % (AUTO) 3 % (0-10); HEMATOCRIT 37 % (35-52); HEMOGLOBIN 12.8 G/DL (11.5-16.0); LYMPHOCYTES # (AUTO) 0.7 X 10^3 (1.0-4.0); LYMPHOCYTES % (AUTO) 10 % (12-44); MEAN CORPUSCULAR HEMOGLOBIN 28 PG (25-34); MEAN CORPUSCULAR HGB CONC 34 G/DL (32-36); MEAN CORPUSCULAR VOLUME 81 FL (80-99); MEAN PLATELET VOLUME 10.9 FL (7.4-10.4); MONOCYTES # (AUTO) 0.5 X 10^3 (0.0-1.0); MONOCYTES % (AUTO) 8 % (0-12); NEUTROPHILS # (AUTO) 5.3 X 10^3 (1.8-7.8); NEUTROPHILS % (AUTO) 78 % (42-75); PLATELET COUNT 272 10^3/uL (130-400); RED CELL DISTRIBUTION WIDTH 14.8 % (10.0-14.5); WHITE BLOOD COUNT 6.7 10^3/uL (4.3-11.0)
[2019-03-21 16:05] LABS: BILIRUBIN,URINE NEGATIVE (NEGATIVE); CLARITY,URINE CLEAR; COLOR,URINE YELLOW; GLUCOSE, URINE (UA) NEGATIVE (NEGATIVE); KETONES,URINE NEGATIVE (NEGATIVE); LEUKOCYTE ESTERASE ,URINE NEGATIVE (NEGATIVE); NITRITE,URINE NEGATIVE (NEGATIVE); PH,URINE 5 (5-9); PROTEIN,URINE 1+ (NEGATIVE); UROBILINOGEN,URINE NORMAL (NORMAL)
[2019-03-21 16:14] LABS: ALANINE AMINOTRANSFERASE 68 U/L (0-55); ALKALINE PHOSPHATASE 51 U/L (40-136); BILIRUBIN,TOTAL 0.3 MG/DL (0.1-1.0); BUN/CREATININE RATIO 13; CALCIUM 9.4 MG/DL (8.5-10.1); CARBON DIOXIDE 20 MMOL/L (21-32); CHLORIDE 109 MMOL/L (98-107); CREATININE SERUM 0.89 MG/DL (0.60-1.30); GFR ESTIMATED > 60; GLUCOSE 95 MG/DL (70-105); LIPASE 19 U/L (8-78); POTASSIUM 3.8 MMOL/L (3.6-5.0); SODIUM 140 MMOL/L (135-145); TOTAL PROTEIN 6.4 GM/DL (6.4-8.2)
[2019-03-21 16:17] LABS: BACTERIA,URINE FEW /HPF; WBC,URINE RARE /HPF
--- NOTE | 2019-03-21 18:07 | Diagnostic Imaging Report ---
CLINICAL INDICATION: Patient with nausea, vomiting, and diarrhea x9 days. Patient has entire abdominal pain. EXAM: CT scan of the abdomen and pelvis performed with 100 cc of Omnipaque 350 IV contrast with coronal and sagittal reformatted images. Portal venous and delayed phases were obtained. COMPARISON: CT scan of the abdomen and pelvis dated 08/11/2018. FINDINGS: Visualized lung bases are clear. There are small spurs involving both acetabular regions. There is posterior fusion hardware involving the L4-L5 level with posterior lumbar interbody fusion. This is also noted on the prior study. There are small degenerative spurs involving the visualized lower thoracic spine and lumbar spine. There is diffuse low-attenuation changes seen throughout the liver, likely related to fatty infiltration. There is no liver mass seen. Liver is otherwise unremarkable. Possible nonobstructive stones involving both kidneys versus excreted contrast seen. Otherwise, the spleen, pancreas, gallbladder, adrenal glands and both kidneys are unremarkable. There is no hydronephrosis or renal mass seen. There is no intra-abdominal free air or free fluid. There is no abdominal or pelvic lymphadenopathy. There is interval development of a roughly 4.1 cm cystic structure within the left adnexal region. There is interval decreased size of the mass within the myometrium which is measured at roughly 4.4 cm in greatest axial dimension on this exam and compares to the prior study measured at 6.1 cm. The remainder of the pelvic structures are unremarkable. The previously seen pelvic lymphadenopathy is resolved. Marker lymph node in the left lateral pelvic region currently measures 10 mm x 5 mm compared to prior study measured at 20 mm x 12 mm. There is diverticuli involving the transverse colon. There is no CT evidence of diverticulitis. Appendix is unremarkable. The colon is predominantly decompressed with the appearance of diffuse bowel wall thickening. There is no adjacent fat stranding seen. This appearance is different compared to prior study. The stomach is decompressed with small amount of fluid within it. The visualized portions of small bowel are unremarkable. The abdominal aorta and common iliac arteries are unremarkable. The bladder is fluid filled and unremarkable. The extraabdominal and extrapelvic soft tissue structures are unremarkable. IMPRESSION: 1: There is interval diffuse decompression of the colon with apparent bowel wall thickening. This apparent bowel wall thickening may be related to decompressed colon. There is no adjacent fat stranding adjacent to the colon. Colitis is suspected to be less likely. 2: There is a 4.1 cm cystic structure within the left adnexa region likely representing an ovarian cyst. 3: Interval decreased size of the heterogeneously enhancing mass within the uterine fundus. A fibroid may be considered. 4: There is no evidence of intestinal obstruction, intra-abdominal free fluid or intra-abdominal free air. 5: There is interval resolution of previously seen pelvic lymphadenopathy. 6: Diffuse fatty infiltration of the liver. Dictated by: Dictated on workstation # [id number]
[2019-03-21] MEDS ORDERED: ACHD5005 PO (18:53)
[2019-03-21] MEDS ORDERED: DIPH1TAB PO (18:53)
[2019-03-21 18:55] VITALS: BP 144/85
== END 2019-03-21 18:55 | disposition home or self-care (01) ==
LOC: EDUNIT# 15:04 → ER 15:05
DX: K52.9 Noninfective gastroenteritis and colitis, unspecified (principal); I10 Essential (primary) hypertension; F41.9 Anxiety disorder, unspecified; F32.9 Major depressive disorder, single episode, unspecified; Z88.2 Allergy status to sulfonamides; Z92.21 Personal history of antineoplastic chemotherapy; Z82.49 Family history of ischemic heart disease and other diseases of the circulatory system; Z85.6 Personal history of leukemia; Z98.51 Tubal ligation status; Z98.890 Other specified postprocedural states
CPT/HCPCS: 36415; 74177; 80053; 81000; 82274; 83605; 83690; 85025; 86141; 86308; 87015; 87045; 87046; 87324; 87328; 87329; 87449; 87899; 89055

== ENCOUNTER 2019-04-14 05:47 | Outpatient (CLI) | payer OTHER ==
[~2019-04-14] VITALS: Ht 157.5 cm; Wt 97.5 kg
[~2019-04-14 05:47] MED LIST changes: +DIPH1TAB PO
[2019-04-14] MEDS ORDERED: LISI-552 PO (12:01)
== END 2019-04-14 12:03 | disposition home or self-care (01) ==
LOC: PREOP 05:47
PROVIDERS: ATTEND Surgery
DX: Z01.818 Encounter for other preprocedural examination (principal)

== ENCOUNTER 2019-04-17 11:37 | Day surgery (SDC) | payer OTHER ==
[~2019-04-17] VITALS: Ht 157.5 cm; Wt 97.5 kg
[~2019-04-17 11:37] MED LIST changes: +LISI-552 PO
[2019-04-17] MEDS ORDERED: LACTATED RINGERS 1,000 ML IV ONE (11:41)
--- OUTSIDE RECORDS SUMMARY | 2019-04-17 11:43 | XMS REPORT | Continuity of Care Document ---
Author Organization Unknown Address Unknown Allergies Active Description Code Type Severity Reaction Onset Reported/Identified Relationship to Patient Clinical Status Yes No Allergy Information Available [id number] Drug Allergy Unknown N/A 06/21/2018 Yes Sulfa (Sulfonamide Antibiotics) [id number] Drug Allergy Unknown N/A 06/22/2018 Yes Sulfa (Sulfonamide Antibiotics) [id number] Drug Allergy Mild RASH 07/26/2018 Medications There is no data. Problems Date Dx Coded Attending Type Code Diagnosis Diagnosed By 04/29/2018 TESSA KU MD, Ot D50.9 IRON DEFICIENCY ANEMIA, UNSPECIFIED 04/29/2018 TESSA KU MD Ot D72.820 LYMPHOCYTOSIS (SYMPTOMATIC) 06/22/2018 TESSA KU MD Ot C91.10 CHRONIC LYMPHOCYTIC LEUK OF B-CELL TYPE 06/22/2018 TESSA KU MD Ot D72.820 LYMPHOCYTOSIS (SYMPTOMATIC) 06/22/2018 TESSA KU MD Ot R59.0 LOCALIZED ENLARGED LYMPH NODES 06/22/2018 BRITTANY العلي DO Ot Z01.818 ENCOUNTER FOR OTHER PREPROCEDURAL EXAMIN 06/24/2018 BRITTANY العلي DO Ot Z01.818 ENCOUNTER FOR OTHER PREPROCEDURAL EXAMIN 06/24/2018 BRITTANY العلي DO Ot C91.10 CHRONIC LYMPHOCYTIC LEUK OF B-CELL TYPE 06/24/2018 BRITTANY العلي DO Ot E66.9 OBESITY, UNSPECIFIED 06/24/2018 BRITTANY العلي DO Ot I10 ESSENTIAL (PRIMARY) HYPERTENSION 06/24/2018 BRITTANY العلي DO Ot Z68.35 BODY MASS INDEX (BMI) 35.0-35.9, ADULT 06/26/2018 ES REYES APRN Ot F41.9 ANXIETY DISORDER, UNSPECIFIED 06/26/2018 ES REYES APRN Ot I10 ESSENTIAL (PRIMARY) HYPERTENSION 06/26/2018 ES REYES APRN Ot T63.461A TOXIC EFFECT OF VENOM OF WASPS, ACCIDENT 06/26/2018 ES REYES APRN Ot T78.40XA ALLERGY, UNSPECIFIED, INITIAL ENCOUNTER 06/26/2018 ES REYES APRN Ot Z79.52 HALFWAY (CURRENT) USE OF SYSTEMIC STER 06/26/2018 ES REYES APRN Ot Z85.6 PERSONAL HISTORY OF LEUKEMIA 06/26/2018 ES REYES APRN Ot Z87.59 PERSONAL HISTORY OF COMP OF PREG, CHLDBR 06/26/2018 ES REYES APRN Ot Z88.2 ALLERGY STATUS TO SULFONAMIDES STATUS 06/26/2018 ES REYES APRN Ot Z98.51 TUBAL LIGATION STATUS 06/28/2018 BRITTANY العلي DO Ot C91.10 CHRONIC LYMPHOCYTIC LEUK OF B-CELL TYPE 06/28/2018 BRITTANY العلي DO Ot E66.9 OBESITY, UNSPECIFIED 06/28/2018 BRITTANY العلي DO Ot I10 ESSENTIAL (PRIMARY) HYPERTENSION 06/28/2018 BRITTANY العلي DO Ot Z68.35 BODY MASS INDEX (BMI) 35.0-35.9, ADULT 06/29/2018 ES REYES APRN Ot F41.9 ANXIETY DISORDER, UNSPECIFIED 06/29/2018 ES REYES APRN Ot I10 ESSENTIAL (PRIMARY) HYPERTENSION 06/29/2018 ES REYES APRN Ot T63.461A TOXIC EFFECT OF VENOM OF WASPS, ACCIDENT 06/29/2018 ES REYES APRN Ot T78.40XA ALLERGY, UNSPECIFIED, INITIAL ENCOUNTER 06/29/2018 ES REYES APRN Ot Z79.52 HALFWAY (CURRENT) USE OF SYSTEMIC STER 06/29/2018 ES REYES APRN Ot Z85.6 PERSONAL HISTORY OF LEUKEMIA 06/29/2018 ES REYES APRN Ot Z87.59 PERSONAL HISTORY OF COMP OF PREG, CHLDBR 06/29/2018 ES REYES APRN Ot Z88.2 ALLERGY STATUS TO SULFONAMIDES STATUS 06/29/2018 ES REYES APRN Ot Z98.51 TUBAL LIGATION STATUS 07/01/2018 TESSA KU MD Ot D50.9 IRON DEFICIENCY ANEMIA, UNSPECIFIED 07/01/2018 TESSA KU MD Ot D72.820 LYMPHOCYTOSIS (SYMPTOMATIC) 07/01/2018 TESSA KU MD Ot D50.9 IRON DEFICIENCY ANEMIA, UNSPECIFIED 07/01/2018 TESSA KU MD Ot D72.820 LYMPHOCYTOSIS (SYMPTOMATIC) 07/01/2018 Ot C91.10 CHRONIC LYMPHOCYTIC LEUK OF B-CELL TYPE 07/01/2018 Ot N85.2 HYPERTROPHY OF UTERUS 07/01/2018 Ot R59.0 LOCALIZED ENLARGED LYMPH NODES 07/01/2018 TESSA KU MD Ot C91.10 CHRONIC LYMPHOCYTIC LEUK OF B-CELL TYPE 07/01/2018 TESSA KU MD Ot D72.820 LYMPHOCYTOSIS (SYMPTOMATIC) 07/01/2018 TESSA KU MD Ot R59.0 LOCALIZED ENLARGED LYMPH NODES 07/01/2018 TESSA KU MD Ot C91.10 CHRONIC LYMPHOCYTIC LEUK OF B-CELL TYPE 07/01/2018 TESSA KU MD Ot D72.820 LYMPHOCYTOSIS (SYMPTOMATIC) 07/01/2018 TESSA KU MD Ot R59.0 LOCALIZED ENLARGED LYMPH NODES 07/05/2018 TESSA KU MD Ot D50.9 IRON DEFICIENCY ANEMIA, UNSPECIFIED 07/05/2018 TESSA KU MD Ot D72.820 LYMPHOCYTOSIS (SYMPTOMATIC) 07/06/2018 TESSA KU MD Ot C91.10 CHRONIC LYMPHOCYTIC LEUK OF B-CELL TYPE 07/06/2018 TESSA KU MD Ot D50.9 IRON DEFICIENCY ANEMIA, UNSPECIFIED 07/06/2018 TESSA KU MD Ot D72.820 LYMPHOCYTOSIS (SYMPTOMATIC) 07/06/2018 TESSA KU MD Ot E66.9 OBESITY, UNSPECIFIED 07/06/2018 TESSA KU MD Ot F32.9 MAJOR DEPRESSIVE DISORDER, SINGLE EPISOD 07/06/2018 TESSA KU MD Ot F41.9 ANXIETY DISORDER, UNSPECIFIED 07/06/2018 TESSA KU MD Ot I10 ESSENTIAL (PRIMARY) HYPERTENSION 07/06/2018 TESSA KU MD Ot Z68.35 BODY MASS INDEX (BMI) 35.0-35.9, ADULT 07/06/2018 TESSA KU MD Ot Z79.899 OTHER MANAGER IMPLEMENTATION (CURRENT) DRUG THERAPY 07/08/2018 TESSA KU MD Ot D50.9 IRON DEFICIENCY ANEMIA, UNSPECIFIED 07/08/2018 TESSA KU MD Ot D72.820 LYMPHOCYTOSIS (SYMPTOMATIC) 07/08/2018 TESSA KU MD Ot C91.10 CHRONIC LYMPHOCYTIC LEUK OF B-CELL TYPE 07/08/2018 TESSA KU MD Ot D50.9 IRON DEFICIENCY ANEMIA, UNSPECIFIED 07/08/2018 TESSA KU MD Ot E66.9 OBESITY, UNSPECIFIED 07/08/2018 TESSA KU MD Ot F32.9 MAJOR DEPRESSIVE DISORDER, SINGLE EPISOD 07/08/2018 TESSA KU MD Ot F41.9 ANXIETY DISORDER, UNSPECIFIED 07/08/2018 TESSA KU MD Ot I10 ESSENTIAL (PRIMARY) HYPERTENSION 07/08/2018 TESSA KU MD Ot Z68.35 BODY MASS INDEX (BMI) 35.0-35.9, ADULT 07/08/2018 TESSA KU MD Ot Z79.899 OTHER MANAGER IMPLEMENTATION (CURRENT) DRUG THERAPY 07/12/2018 TESSA KU MD Ot C91.10 CHRONIC LYMPHOCYTIC LEUK OF B-CELL TYPE 07/12/2018 TESSA KU MD Ot D50.9 IRON DEFICIENCY ANEMIA, UNSPECIFIED 07/12/2018 TESSA KU MD Ot E66.9 OBESITY, UNSPECIFIED 07/12/2018 TESSA KU MD Ot F32.9 MAJOR DEPRESSIVE DISORDER, SINGLE EPISOD 07/12/2018 TESSA KU MD Ot F41.9 ANXIETY DISORDER, UNSPECIFIED 07/12/2018 TESSA KU MD Ot I10 ESSENTIAL (PRIMARY) HYPERTENSION 07/12/2018 TESSA KU MD Ot Z68.35 BODY MASS INDEX (BMI) 35.0-35.9, ADULT 07/12/2018 JACK KU MDNER Ot Z79.899 OTHER MANAGER IMPLEMENTATION (CURRENT) DRUG THERAPY 07/13/2018 TESSA KU MD Ot D50.9 IRON DEFICIENCY ANEMIA, UNSPECIFIED 07/13/2018 TESSA KU MD Ot D72.820 LYMPHOCYTOSIS (SYMPTOMATIC) 07/20/2018 TESSA KU MD Ot C91.10 CHRONIC LYMPHOCYTIC LEUK OF B-CELL TYPE 07/20/2018 TESSA KU MD Ot D50.9 IRON DEFICIENCY ANEMIA, UNSPECIFIED 07/20/2018 TESSA KU MD Ot E66.9 OBESITY, UNSPECIFIED 07/20/2018 TESSA KU MD Ot F32.9 MAJOR DEPRESSIVE DISORDER, SINGLE EPISOD 07/20/2018 TESSA KU MD Ot F41.9 ANXIETY DISORDER, UNSPECIFIED 07/20/2018 TESSA KU MD Ot I10 ESSENTIAL (PRIMARY) HYPERTENSION 07/20/2018 TESSA KU MD Ot Z68.35 BODY MASS INDEX (BMI) 35.0-35.9, ADULT 07/20/2018 TESSA KU MD Ot Z79.899 OTHER HALFWAY (CURRENT) DRUG THERAPY 07/26/2018 BRITTANY العلي DO Ot Z01.818 ENCOUNTER FOR OTHER PREPROCEDURAL EXAMIN 07/27/2018 Ot C91.10 CHRONIC LYMPHOCYTIC LEUK OF B-CELL TYPE 07/27/2018 Ot N85.2 HYPERTROPHY OF UTERUS 07/27/2018 Ot R59.0 LOCALIZED ENLARGED LYMPH NODES 07/27/2018 TESSA KU MD Ot C91.10 CHRONIC LYMPHOCYTIC LEUK OF B-CELL TYPE 07/27/2018 TESSA KU MD Ot D72.820 LYMPHOCYTOSIS (SYMPTOMATIC) 07/27/2018 TESSA KU MD Ot R59.0 LOCALIZED ENLARGED LYMPH NODES 07/27/2018 TESSA KU MD Ot C91.10 CHRONIC LYMPHOCYTIC LEUK OF B-CELL TYPE 07/27/2018 TESSA KU MD Ot D50.9 IRON DEFICIENCY ANEMIA, UNSPECIFIED 07/27/2018 TESSA KU MD Ot E66.9 OBESITY, UNSPECIFIED 07/27/2018 TESSA KU MD Ot F32.9 MAJOR DEPRESSIVE DISORDER, SINGLE EPISOD 07/27/2018 TESSA KU MD Ot F41.9 ANXIETY DISORDER, UNSPECIFIED 07/27/2018 TESSA KU MD Ot I10 ESSENTIAL (PRIMARY) HYPERTENSION 07/27/2018 TESSA KU MD, Ot Z68.35 BODY MASS INDEX (BMI) 35.0-35.9, ADULT 07/27/2018 TESSA KU MD Ot Z79.899 OTHER MANAGER IMPLEMENTATION (CURRENT) DRUG THERAPY 07/27/2018 TESSA KU MD Ot C91.10 CHRONIC LYMPHOCYTIC LEUK OF B-CELL TYPE 07/27/2018 TESSA KU MD Ot D50.9 IRON DEFICIENCY ANEMIA, UNSPECIFIED 07/27/2018 TESSA KU MD Ot E66.9 OBESITY, UNSPECIFIED 07/27/2018 TESSA KU MD Ot F32.9 MAJOR DEPRESSIVE DISORDER, SINGLE EPISOD 07/27/2018 TESSA KU MD Ot F41.9 ANXIETY DISORDER, UNSPECIFIED 07/27/2018 TESSA KU MD Ot I10 ESSENTIAL (PRIMARY) HYPERTENSION 07/27/2018 TESSA KU MD Ot Z68.35 BODY MASS INDEX (BMI) 35.0-35.9, ADULT 07/27/2018 TESSA KU MD Ot Z79.899 OTHER MANAGER IMPLEMENTATION (CURRENT) DRUG THERAPY 07/27/2018 TESSA KU MD, Ot C91.10 CHRONIC LYMPHOCYTIC LEUK OF B-CELL TYPE 07/27/2018 TESSA KU MD Ot D50.9 IRON DEFICIENCY ANEMIA, UNSPECIFIED 07/27/2018 TESSA KU MD Ot E66.9 OBESITY, UNSPECIFIED 07/27/2018 TESSA KU MD Ot F32.9 MAJOR DEPRESSIVE DISORDER, SINGLE EPISOD 07/27/2018 TESSA KU MD Ot F41.9 ANXIETY DISORDER, UNSPECIFIED 07/27/2018 TESSA KU MD Ot I10 ESSENTIAL (PRIMARY) HYPERTENSION 07/27/2018 TESSA KU MD Ot Z68.35 BODY MASS INDEX (BMI) 35.0-35.9, ADULT 07/27/2018 TESSA KU MD Ot Z79.899 OTHER HALFWAY (CURRENT) DRUG THERAPY 07/27/2018 BRITTANY العلي DO, Ot C91.10 CHRONIC LYMPHOCYTIC LEUK OF B-CELL TYPE 07/27/2018 BRITTANY العلي DO Ot F32.9 MAJOR DEPRESSIVE DISORDER, SINGLE EPISOD 07/27/2018 BRITTANY العلي DO Ot I10 ESSENTIAL (PRIMARY) HYPERTENSION 07/27/2018 BRITTANY العلي DO Ot I87.2 VENOUS INSUFFICIENCY (CHRONIC) (PERIPHER 07/27/2018 BRITTANY العلي DO Ot Z11.2 ENCOUNTER FOR SCREENING FOR OTHER BACTER 07/27/2018 BRITTANY العلي DO Ot Z79.899 OTHER HALFWAY (CURRENT) DRUG THERAPY 07/27/2018 BRITTANY العلي DO Ot Z88.2 ALLERGY STATUS TO SULFONAMIDES STATUS 07/31/2018 TESSA KU MD Ot C91.10 CHRONIC LYMPHOCYTIC LEUK OF B-CELL TYPE 07/31/2018 TESSA KU MD Ot D50.9 IRON DEFICIENCY ANEMIA, UNSPECIFIED 07/31/2018 TESSA KU MD Ot E66.9 OBESITY, UNSPECIFIED 07/31/2018 TESSA KU MD Ot F32.9 MAJOR DEPRESSIVE DISORDER, SINGLE EPISOD 07/31/2018 TESSA KU MD Ot F41.9 ANXIETY DISORDER, UNSPECIFIED 07/31/2018 TESSA KU MD Ot I10 ESSENTIAL (PRIMARY) HYPERTENSION 07/31/2018 TESSA KU MD Ot Z68.35 BODY MASS INDEX (BMI) 35.0-35.9, ADULT 07/31/2018 TESSA KU MD Ot Z79.899 OTHER MANAGER IMPLEMENTATION (CURRENT) DRUG THERAPY 08/02/2018 BRITTANY العلي DO B Ot C91.10 CHRONIC LYMPHOCYTIC LEUK OF B-CELL TYPE 08/02/2018 ADI العلي DOIC B Ot F32.9 MAJOR DEPRESSIVE DISORDER, SINGLE EPISOD 08/02/2018 SEVERIANO SWANN BRITTANY B Ot I10 ESSENTIAL (PRIMARY) HYPERTENSION 08/02/2018 ADI العلي DOIC B Ot I87.2 VENOUS INSUFFICIENCY (CHRONIC) (PERIPHER 08/02/2018 ADI العلي DOIC B Ot Z11.2 ENCOUNTER FOR SCREENING FOR OTHER BACTER 08/02/2018 BRITTANY العلي DO B Ot Z79.899 OTHER HALFWAY (CURRENT) DRUG THERAPY 08/02/2018 BRITTANY العلي DO B Ot Z88.2 ALLERGY STATUS TO SULFONAMIDES STATUS 08/02/2018 TESSA KU MD Ot C91.10 CHRONIC LYMPHOCYTIC LEUK OF B-CELL TYPE 08/02/2018 TESSA KU MD Ot D50.9 IRON DEFICIENCY ANEMIA, UNSPECIFIED 08/02/2018 TESSA KU MD Ot E66.9 OBESITY, UNSPECIFIED 08/02/2018 TESSA KU MD Ot F32.9 MAJOR DEPRESSIVE DISORDER, SINGLE EPISOD 08/02/2018 TESSA KU MD Ot F41.9 ANXIETY DISORDER, UNSPECIFIED 08/02/2018 TESSA KU MD Ot I10 ESSENTIAL (PRIMARY) HYPERTENSION 08/02/2018 TESSA KU MD Ot Z68.35 BODY MASS INDEX (BMI) 35.0-35.9, ADULT 08/02/2018 TESSA KU MD Ot Z79.899 OTHER MANAGER IMPLEMENTATION (CURRENT) DRUG THERAPY 08/10/2018 TESSA KU MD Ot C91.10 CHRONIC LYMPHOCYTIC LEUK OF B-CELL TYPE 08/10/2018 TESSA KU MD Ot D50.9 IRON DEFICIENCY ANEMIA, UNSPECIFIED 08/10/2018 TESSA KU MD Ot E66.9 OBESITY, UNSPECIFIED 08/10/2018 TESSA KU MD Ot F32.9 MAJOR DEPRESSIVE DISORDER, SINGLE EPISOD 08/10/2018 TESSA KU MD Ot F41.9 ANXIETY DISORDER, UNSPECIFIED 08/10/2018 TESSA KU MD Ot I10 ESSENTIAL (PRIMARY) HYPERTENSION 08/10/2018 TESSA KU MD Ot Z68.35 BODY MASS INDEX (BMI) 35.0-35.9, ADULT 08/10/2018 TESSA KU MD Ot Z79.899 OTHER HALFWAY (CURRENT) DRUG THERAPY 08/10/2018 Ot C91.10 CHRONIC LYMPHOCYTIC LEUK OF B-CELL TYPE 08/10/2018 Ot N85.2 HYPERTROPHY OF UTERUS 08/10/2018 Ot R59.0 LOCALIZED ENLARGED LYMPH NODES 08/10/2018 TESSA KU MD Ot C91.10 CHRONIC LYMPHOCYTIC LEUK OF B-CELL TYPE 08/10/2018 TESSA KU MD Ot D72.820 LYMPHOCYTOSIS (SYMPTOMATIC) 08/10/2018 TESSA KU MD Ot R59.0 LOCALIZED ENLARGED LYMPH NODES 08/10/2018 TESSA KU MD Ot C91.10 CHRONIC LYMPHOCYTIC LEUK OF B-CELL TYPE 08/10/2018 TESSA KU MD Ot D50.9 IRON DEFICIENCY ANEMIA, UNSPECIFIED 08/10/2018 TESSA KU MD Ot E66.9 OBESITY, UNSPECIFIED 08/10/2018 TESSA KU MD Ot F32.9 MAJOR DEPRESSIVE DISORDER, SINGLE EPISOD 08/10/2018 TESSA KU MD Ot F41.9 ANXIETY DISORDER, UNSPECIFIED 08/10/2018 TESSA KU MD Ot I10 ESSENTIAL (PRIMARY) HYPERTENSION 08/10/2018 TESSA KU MD, Ot Z68.35 BODY MASS INDEX (BMI) 35.0-35.9, ADULT 08/10/2018 TESSA KU MD Ot Z79.899 OTHER MANAGER IMPLEMENTATION (CURRENT) DRUG THERAPY 08/11/2018 Ot C91.10 CHRONIC LYMPHOCYTIC LEUK OF B-CELL TYPE 08/11/2018 Ot N85.2 HYPERTROPHY OF UTERUS 08/11/2018 Ot R59.0 LOCALIZED ENLARGED LYMPH NODES 08/11/2018 TESSA KU MD Ot C91.10 CHRONIC LYMPHOCYTIC LEUK OF B-CELL TYPE 08/11/2018 TESSA KU MD Ot D72.820 LYMPHOCYTOSIS (SYMPTOMATIC) 08/11/2018 TESSA KU MD Ot R59.0 LOCALIZED ENLARGED LYMPH NODES 08/11/2018 TESSA KU MD Ot C91.10 CHRONIC LYMPHOCYTIC LEUK OF B-CELL TYPE 08/11/2018 TESSA KU MD Ot D50.9 IRON DEFICIENCY ANEMIA, UNSPECIFIED 08/11/2018 TESSA KU MD Ot E66.9 OBESITY, UNSPECIFIED 08/11/2018 TESSA KU MD Ot F32.9 MAJOR DEPRESSIVE DISORDER, SINGLE EPISOD 08/11/2018 TESSA KU MD Ot F41.9 ANXIETY DISORDER, UNSPECIFIED 08/11/2018 TESSA KU MD Ot I10 ESSENTIAL (PRIMARY) HYPERTENSION 08/11/2018 TESSA KU MD Ot Z68.35 BODY MASS INDEX (BMI) 35.0-35.9, ADULT 08/11/2018 TESSA KU MD Ot Z79.899 OTHER MANAGER IMPLEMENTATION (CURRENT) DRUG THERAPY 08/13/2018 YEISON JAFFE MD Ot A41.9 SEPSIS, UNSPECIFIED ORGANISM 08/13/2018 YEISON JAFFE MD Ot C91.10 CHRONIC LYMPHOCYTIC LEUK OF B-CELL TYPE 08/13/2018 YEISON JAFFE MD Ot E66.9 OBESITY, UNSPECIFIED 08/13/2018 YEISON JAFFE MD Ot E86.0 DEHYDRATION 08/13/2018 YEISON JAFFE MD Ot F32.9 MAJOR DEPRESSIVE DISORDER, SINGLE EPISOD 08/13/2018 YEISON JAFFE MD Ot F41.9 ANXIETY DISORDER, UNSPECIFIED 08/13/2018 YEISON JAFFE MD Ot I10 ESSENTIAL (PRIMARY) HYPERTENSION 08/13/2018 YEISON JAFFE MD Ot J98.11 ATELECTASIS 08/13/2018 YEISON JAFFE MD Ot R10.13 EPIGASTRIC PAIN 08/13/2018 YEISON JAFFE MD Ot Z68.35 BODY MASS INDEX (BMI) 35.0-35.9, ADULT 10/06/2018 TESSA KU MD Ot C91.10 CHRONIC LYMPHOCYTIC LEUK OF B-CELL TYPE 10/06/2018 TESSA KU MD Ot D50.9 IRON DEFICIENCY ANEMIA, UNSPECIFIED 10/06/2018 TESSA KU MD Ot E66.9 OBESITY, UNSPECIFIED 10/06/2018 TESSA KU MD Ot F32.9 MAJOR DEPRESSIVE DISORDER, SINGLE EPISOD 10/06/2018 TESSA KU MD Ot F41.9 ANXIETY DISORDER, UNSPECIFIED 10/06/2018 TESSA KU MD Ot I10 ESSENTIAL (PRIMARY) HYPERTENSION 10/06/2018 TESSA KU MD Ot Z68.35 BODY MASS INDEX (BMI) 35.0-35.9, ADULT 10/06/2018 TESSA KU MD Ot Z79.899 OTHER MANAGER IMPLEMENTATION (CURRENT) DRUG THERAPY 10/13/2018 TESSA KU MD Ot C91.10 CHRONIC LYMPHOCYTIC LEUK OF B-CELL TYPE 10/13/2018 TESSA KU MD Ot D50.9 IRON DEFICIENCY ANEMIA, UNSPECIFIED 10/13/2018 TESSA KU MD Ot E66.9 OBESITY, UNSPECIFIED 10/13/2018 TESSA KU MD Ot F32.9 MAJOR DEPRESSIVE DISORDER, SINGLE EPISOD 10/13/2018 TESSA KU MD Ot F41.9 ANXIETY DISORDER, UNSPECIFIED 10/13/2018 TESSA KU MD Ot I10 ESSENTIAL (PRIMARY) HYPERTENSION 10/13/2018 TESSA KU MD Ot Z68.35 BODY MASS INDEX (BMI) 35.0-35.9, ADULT 10/13/2018 TESSA KU MD Ot Z79.899 OTHER HALFWAY (CURRENT) DRUG THERAPY 11/02/2018 TESSA KU MD Ot C91.10 CHRONIC LYMPHOCYTIC LEUK OF B-CELL TYPE 11/02/2018 TESSA KU MD Ot D50.9 IRON DEFICIENCY ANEMIA, UNSPECIFIED 11/02/2018 TESSA KU MD Ot E66.9 OBESITY, UNSPECIFIED 11/02/2018 TESSA KU MD Ot F32.9 MAJOR DEPRESSIVE DISORDER, SINGLE EPISOD 11/02/2018 TESSA KU MD Ot F41.9 ANXIETY DISORDER, UNSPECIFIED 11/02/2018 TESSA KU MD Ot I10 ESSENTIAL (PRIMARY) HYPERTENSION 11/02/2018 TESSA KU MD Ot Z51.11 ENCOUNTER FOR ANTINEOPLASTIC CHEMOTHERAP 11/02/2018 TESSA KU MD Ot Z68.35 BODY MASS INDEX (BMI) 35.0-35.9, ADULT 11/02/2018 TESSA KU MD Ot Z79.899 OTHER HALFWAY (CURRENT) DRUG THERAPY 11/03/2018 Ot C91.10 CHRONIC LYMPHOCYTIC LEUK OF B-CELL TYPE 11/03/2018 Ot N85.2 HYPERTROPHY OF UTERUS 11/03/2018 Ot R59.0 LOCALIZED ENLARGED LYMPH NODES 11/03/2018 TESSA KU MD Ot C91.10 CHRONIC LYMPHOCYTIC LEUK OF B-CELL TYPE 11/03/2018 TESSA KU MD Ot D72.820 LYMPHOCYTOSIS (SYMPTOMATIC) 11/03/2018 TESSA KU MD Ot R59.0 LOCALIZED ENLARGED LYMPH NODES 11/03/2018 TESSA KU MD Ot C91.10 CHRONIC LYMPHOCYTIC LEUK OF B-CELL TYPE 11/03/2018 TESSA KU MD Ot D50.9 IRON DEFICIENCY ANEMIA, UNSPECIFIED 11/03/2018 TESSA KU MD Ot E66.9 OBESITY, UNSPECIFIED 11/03/2018 TESSA KU MD Ot F32.9 MAJOR DEPRESSIVE DISORDER, SINGLE EPISOD 11/03/2018 TESSA KU MD Ot F41.9 ANXIETY DISORDER, UNSPECIFIED 11/03/2018 TESSA KU MD Ot I10 ESSENTIAL (PRIMARY) HYPERTENSION 11/03/2018 TESSA KU MD Ot Z68.35 BODY MASS INDEX (BMI) 35.0-35.9, ADULT 11/03/2018 TESSA KU MD Ot Z79.899 OTHER HALFWAY (CURRENT) DRUG THERAPY 11/03/2018 Ot C91.10 CHRONIC LYMPHOCYTIC LEUK OF B-CELL TYPE 11/03/2018 Ot N85.2 HYPERTROPHY OF UTERUS 11/03/2018 Ot R59.0 LOCALIZED ENLARGED LYMPH NODES 11/03/2018 TESSA KU MD Ot C91.10 CHRONIC LYMPHOCYTIC LEUK OF B-CELL TYPE 11/03/2018 TESSA KU MD Ot D72.820 LYMPHOCYTOSIS (SYMPTOMATIC) 11/03/2018 TESSA KU MD Ot R59.0 LOCALIZED ENLARGED LYMPH NODES 11/03/2018 TESSA KU MD Ot C91.10 CHRONIC LYMPHOCYTIC LEUK OF B-CELL TYPE 11/03/2018 TESSA KU MD, Ot D50.9 IRON DEFICIENCY ANEMIA, UNSPECIFIED 11/03/2018 TESSA KU MD Ot E66.9 OBESITY, UNSPECIFIED 11/03/2018 TESSA KU MD Ot F32.9 MAJOR DEPRESSIVE DISORDER, SINGLE EPISOD 11/03/2018 TESSA KU MD Ot F41.9 ANXIETY DISORDER, UNSPECIFIED 11/03/2018 TESSA KU MD Ot I10 ESSENTIAL (PRIMARY) HYPERTENSION 11/03/2018 TESSA KU MD Ot Z68.35 BODY MASS INDEX (BMI) 35.0-35.9, ADULT 11/03/2018 TESSA KU MD Ot Z79.899 OTHER MANAGER IMPLEMENTATION (CURRENT) DRUG THERAPY 11/03/2018 TESSA KU MD Ot C91.10 CHRONIC LYMPHOCYTIC LEUK OF B-CELL TYPE 11/03/2018 TESSA KU MD Ot D50.9 IRON DEFICIENCY ANEMIA, UNSPECIFIED 11/03/2018 TESSA KU MD Ot E66.9 OBESITY, UNSPECIFIED 11/03/2018 TESSA KU MD Ot F32.9 MAJOR DEPRESSIVE DISORDER, SINGLE EPISOD 11/03/2018 TESSA KU MD Ot F41.9 ANXIETY DISORDER, UNSPECIFIED 11/03/2018 TESSA KU MD Ot I10 ESSENTIAL (PRIMARY) HYPERTENSION 11/03/2018 TESSA KU MD Ot Z68.35 BODY MASS INDEX (BMI) 35.0-35.9, ADULT 11/03/2018 TESSA KU MD Ot Z79.899 OTHER MANAGER IMPLEMENTATION (CURRENT) DRUG THERAPY 11/03/2018 TESSA KU MD Ot C91.10 CHRONIC LYMPHOCYTIC LEUK OF B-CELL TYPE 11/03/2018 TESSA KU MD Ot D50.9 IRON DEFICIENCY ANEMIA, UNSPECIFIED 11/03/2018 TESSA KU MD Ot E66.9 OBESITY, UNSPECIFIED 11/03/2018 TESSA KU MD Ot F32.9 MAJOR DEPRESSIVE DISORDER, SINGLE EPISOD 11/03/2018 TESSA KU MD Ot F41.9 ANXIETY DISORDER, UNSPECIFIED 11/03/2018 TESSA KU MD Ot I10 ESSENTIAL (PRIMARY) HYPERTENSION 11/03/2018 TESSA KU MD Ot Z68.35 BODY MASS INDEX (BMI) 35.0-35.9, ADULT 11/03/2018 TESSA KU MD Ot Z79.899 OTHER MANAGER IMPLEMENTATION (CURRENT) DRUG THERAPY 11/03/2018 Ot C91.10 CHRONIC LYMPHOCYTIC LEUK OF B-CELL TYPE 11/03/2018 Ot N85.2 HYPERTROPHY OF UTERUS 11/03/2018 Ot R59.0 LOCALIZED ENLARGED LYMPH NODES 11/03/2018 TESSA KU MD Ot C91.10 CHRONIC LYMPHOCYTIC LEUK OF B-CELL TYPE 11/03/2018 TESSA KU MD Ot D72.820 LYMPHOCYTOSIS (SYMPTOMATIC) 11/03/2018 TESSA KU MD Ot R59.0 LOCALIZED ENLARGED LYMPH NODES 11/03/2018 TESSA KU MD Ot C91.10 CHRONIC LYMPHOCYTIC LEUK OF B-CELL TYPE 11/03/2018 TESSA KU MD Ot D50.9 IRON DEFICIENCY ANEMIA, UNSPECIFIED 11/03/2018 TESSA KU MD Ot E66.9 OBESITY, UNSPECIFIED 11/03/2018 TESSA KU MD Ot F32.9 MAJOR DEPRESSIVE DISORDER, SINGLE EPISOD 11/03/2018 TESSA KU MD Ot F41.9 ANXIETY DISORDER, UNSPECIFIED 11/03/2018 TESSA KU MD Ot I10 ESSENTIAL (PRIMARY) HYPERTENSION 11/03/2018 TESSA KU MD Ot Z68.35 BODY MASS INDEX (BMI) 35.0-35.9, ADULT 11/03/2018 TESSA KU MD Ot Z79.899 OTHER HALFWAY (CURRENT) DRUG THERAPY 11/04/2018 TESSA KU MD Ot C91.10 CHRONIC LYMPHOCYTIC LEUK OF B-CELL TYPE 11/04/2018 TESSA KU MD Ot D50.9 IRON DEFICIENCY ANEMIA, UNSPECIFIED 11/04/2018 TESSA KU MD Ot E66.9 OBESITY, UNSPECIFIED 11/04/2018 TESSA KU MD Ot F32.9 MAJOR DEPRESSIVE DISORDER, SINGLE EPISOD 11/04/2018 TESSA KU MD Ot F41.9 ANXIETY DISORDER, UNSPECIFIED 11/04/2018 TESSA KU MD Ot I10 ESSENTIAL (PRIMARY) HYPERTENSION 11/04/2018 TESSA KU MD Ot Z68.35 BODY MASS INDEX (BMI) 35.0-35.9, ADULT 11/04/2018 TESSA KU MD Ot Z79.899 OTHER MANAGER IMPLEMENTATION (CURRENT) DRUG THERAPY 11/04/2018 TESSA KU MD Ot C91.10 CHRONIC LYMPHOCYTIC LEUK OF B-CELL TYPE 11/04/2018 TESSA UK MD Ot D50.9 IRON DEFICIENCY ANEMIA, UNSPECIFIED 11/04/2018 TESSA KU MD Ot E66.9 OBESITY, UNSPECIFIED 11/04/2018 TESSA KU MD Ot F32.9 MAJOR DEPRESSIVE DISORDER, SINGLE EPISOD 11/04/2018 TESSA KU MD Ot F41.9 ANXIETY DISORDER, UNSPECIFIED 11/04/2018 TESSA KU MD Ot I10 ESSENTIAL (PRIMARY) HYPERTENSION 11/04/2018 TESSA KU MD Ot Z51.11 ENCOUNTER FOR ANTINEOPLASTIC CHEMOTHERAP 11/04/2018 TESSA KU MD Ot Z68.35 BODY MASS INDEX (BMI) 35.0-35.9, ADULT 11/04/2018 TESSA KU MD Ot Z79.899 OTHER HALFWAY (CURRENT) DRUG THERAPY 11/07/2018 TESSA KU MD, Ot C91.10 CHRONIC LYMPHOCYTIC LEUK OF B-CELL TYPE 11/07/2018 TESSA KU MD, Ot D50.9 IRON DEFICIENCY ANEMIA, UNSPECIFIED 11/07/2018 TESSA KU MD Ot E66.9 OBESITY, UNSPECIFIED 11/07/2018 TESSA KU MD, Ot F32.9 MAJOR DEPRESSIVE DISORDER, SINGLE EPISOD 11/07/2018 TESSA KU MD, Ot F41.9 ANXIETY DISORDER, UNSPECIFIED 11/07/2018 TESSA KU MD Ot I10 ESSENTIAL (PRIMARY) HYPERTENSION 11/07/2018 TESSA KU MD Ot Z51.11 ENCOUNTER FOR ANTINEOPLASTIC CHEMOTHERAP 11/07/2018 TESSA KU MD, Ot Z68.35 BODY MASS INDEX (BMI) 35.0-35.9, ADULT 11/07/2018 TESAS KU MD Ot Z79.899 OTHER HALFWAY (CURRENT) DRUG THERAPY 11/10/2018 Ot C91.10 CHRONIC LYMPHOCYTIC LEUK OF B-CELL TYPE 11/10/2018 Ot N85.2 HYPERTROPHY OF UTERUS 11/10/2018 Ot R59.0 LOCALIZED ENLARGED LYMPH NODES 11/10/2018 TESSA KU MD, Ot C91.10 CHRONIC LYMPHOCYTIC LEUK OF B-CELL TYPE 11/10/2018 TESSA KU MD Ot D72.820 LYMPHOCYTOSIS (SYMPTOMATIC) 11/10/2018 TESSA KU MD Ot R59.0 LOCALIZED ENLARGED LYMPH NODES 11/10/2018 TESSA KU MD Ot C91.10 CHRONIC LYMPHOCYTIC LEUK OF B-CELL TYPE 11/10/2018 TESSA KU MD, Ot D50.9 IRON DEFICIENCY ANEMIA, UNSPECIFIED 11/10/2018 TESSA KU MD Ot E66.9 OBESITY, UNSPECIFIED 11/10/2018 TESSA KU MD Ot F32.9 MAJOR DEPRESSIVE DISORDER, SINGLE EPISOD 11/10/2018 TESSA KU MD Ot F41.9 ANXIETY DISORDER, UNSPECIFIED 11/10/2018 TESSA KU MD Ot I10 ESSENTIAL (PRIMARY) HYPERTENSION 11/10/2018 TESSA KU MD Ot Z68.35 BODY MASS INDEX (BMI) 35.0-35.9, ADULT 11/10/2018 TESSA KU MD Ot Z79.899 OTHER HALFWAY (CURRENT) DRUG THERAPY 11/10/2018 Ot C91.10 CHRONIC LYMPHOCYTIC LEUK OF B-CELL TYPE 11/10/2018 Ot N85.2 HYPERTROPHY OF UTERUS 11/10/2018 Ot R59.0 LOCALIZED ENLARGED LYMPH NODES 11/10/2018 TESSA KU MD Ot C91.10 CHRONIC LYMPHOCYTIC LEUK OF B-CELL TYPE 11/10/2018 TESSA KU MD Ot D72.820 LYMPHOCYTOSIS (SYMPTOMATIC) 11/10/2018 TESSA KU MD Ot R59.0 LOCALIZED ENLARGED LYMPH NODES 11/10/2018 TESSA KU MD Ot C91.10 CHRONIC LYMPHOCYTIC LEUK OF B-CELL TYPE 11/10/2018 TESSA KU MD Ot D50.9 IRON DEFICIENCY ANEMIA, UNSPECIFIED 11/10/2018 TESSA KU MD Ot E66.9 OBESITY, UNSPECIFIED 11/10/2018 TESSA KU MD Ot F32.9 MAJOR DEPRESSIVE DISORDER, SINGLE EPISOD 11/10/2018 TESSA KU MD Ot F41.9 ANXIETY DISORDER, UNSPECIFIED 11/10/2018 TESSA KU MD Ot I10 ESSENTIAL (PRIMARY) HYPERTENSION 11/10/2018 TESSA KU MD Ot Z68.35 BODY MASS INDEX (BMI) 35.0-35.9, ADULT 11/10/2018 TESSA KU MD Ot Z79.899 OTHER MANAGER IMPLEMENTATION (CURRENT) DRUG THERAPY 12/01/2018 TESSA KU MD Ot C91.10 CHRONIC LYMPHOCYTIC LEUK OF B-CELL TYPE 12/01/2018 TESSA KU MD Ot D50.9 IRON DEFICIENCY ANEMIA, UNSPECIFIED 12/01/2018 TESSA KU MD Ot E66.9 OBESITY, UNSPECIFIED 12/01/2018 TESSA KU MD Ot F32.9 MAJOR DEPRESSIVE DISORDER, SINGLE EPISOD 12/01/2018 TESSA KU MD Ot F41.9 ANXIETY DISORDER, UNSPECIFIED 12/01/2018 TESSA KU MD Ot I10 ESSENTIAL (PRIMARY) HYPERTENSION 12/01/2018 TESSA KU MD Ot Z68.35 BODY MASS INDEX (BMI) 35.0-35.9, ADULT 12/01/2018 TESSA KU MD Ot Z79.899 OTHER MANAGER IMPLEMENTATION (CURRENT) DRUG THERAPY 12/06/2018 TESSA KU MD Ot C91.10 CHRONIC LYMPHOCYTIC LEUK OF B-CELL TYPE 12/06/2018 TESSA KU MD Ot R51 HEADACHE 12/06/2018 TESSA KU MD Ot R52 PAIN, UNSPECIFIED 12/08/2018 LOLI ARBOLEDA APRN Ot M47.22 OTHER SPONDYLOSIS WITH RADICULOPATHY, CE 12/08/2018 LOLI ARBOLEDA REED PRESS FEEDER Ot M48.02 SPINAL STENOSIS, CERVICAL REGION 12/08/2018 LOLI ARBOLEDA APRN Ot M50.122 CERVICAL DISC DISORDER AT C5-C6 LEVEL WI 12/28/2018 TESSA KU MD Ot C91.10 CHRONIC LYMPHOCYTIC LEUK OF B-CELL TYPE 12/28/2018 TESSA KU MD Ot R51 HEADACHE 12/28/2018 TESSA KU MD Ot R52 PAIN, UNSPECIFIED 12/28/2018 TESSA KU MD Ot C91.10 CHRONIC LYMPHOCYTIC LEUK OF B-CELL TYPE 12/28/2018 TESSA KU MD Ot R51 HEADACHE 12/28/2018 TESSA KU MD Ot R52 PAIN, UNSPECIFIED 01/03/2019 TESSA KU MD Ot K76.0 FATTY (CHANGE OF) LIVER, NOT ELSEWHERE C 01/26/2019 TESSA KU MD Ot C91.10 CHRONIC LYMPHOCYTIC LEUK OF B-CELL TYPE 01/26/2019 TESSA KU MD Ot D50.9 IRON DEFICIENCY ANEMIA, UNSPECIFIED 01/26/2019 TESSA KU MD Ot E66.9 OBESITY, UNSPECIFIED 01/26/2019 TESSA KU MD Ot F32.9 MAJOR DEPRESSIVE DISORDER, SINGLE EPISOD 01/26/2019 TESSA KU MD Ot F41.9 ANXIETY DISORDER, UNSPECIFIED 01/26/2019 TESSA KU MD Ot I10 ESSENTIAL (PRIMARY) HYPERTENSION 01/26/2019 TESSA KU MD Ot Z68.35 BODY MASS INDEX (BMI) 35.0-35.9, ADULT 01/26/2019 TESSA KU MD Ot Z79.899 OTHER HALFWAY (CURRENT) DRUG THERAPY 02/01/2019 TESSA KU MD Ot C91.10 CHRONIC LYMPHOCYTIC LEUK OF B-CELL TYPE 02/01/2019 TESSA KU MD Ot D50.9 IRON DEFICIENCY ANEMIA, UNSPECIFIED 02/01/2019 TESSA KU MD Ot E66.9 OBESITY, UNSPECIFIED 02/01/2019 TESSA KU MD, Ot F32.9 MAJOR DEPRESSIVE DISORDER, SINGLE EPISOD 02/01/2019 TESSA KU MD Ot F41.9 ANXIETY DISORDER, UNSPECIFIED 02/01/2019 TESSA KU MD, Ot I10 ESSENTIAL (PRIMARY) HYPERTENSION 02/01/2019 TESSA KU MD, Ot Z51.11 ENCOUNTER FOR ANTINEOPLASTIC CHEMOTHERAP 02/01/2019 TESSA KU MD, Ot Z68.35 BODY MASS INDEX (BMI) 35.0-35.9, ADULT 02/01/2019 TESSA KU MD, Ot Z79.899 OTHER HALFWAY (CURRENT) DRUG THERAPY 02/02/2019 Ot C91.10 CHRONIC LYMPHOCYTIC LEUK OF B-CELL TYPE 02/02/2019 Ot N85.2 HYPERTROPHY OF UTERUS 02/02/2019 Ot R59.0 LOCALIZED ENLARGED LYMPH NODES 02/02/2019 TESSA KU MD, Ot C91.10 CHRONIC LYMPHOCYTIC LEUK OF B-CELL TYPE 02/02/2019 TESSA KU MD Ot D72.820 LYMPHOCYTOSIS (SYMPTOMATIC) 02/02/2019 TESSA KU MD Ot R59.0 LOCALIZED ENLARGED LYMPH NODES 02/02/2019 LOLI ARBOLEDA REED [employer]ESS FEEDER Ot M47.22 OTHER SPONDYLOSIS WITH RADICULOPATHY, CE 02/02/2019 LOLI ARBOLEDA APRN Ot M48.02 SPINAL STENOSIS, CERVICAL REGION 02/02/2019 LOLI ARBOLEDA APRN Ot M50.122 CERVICAL DISC DISORDER AT C5-C6 LEVEL [place] 02/02/2019 TESSA KU MD, Ot C91.10 CHRONIC LYMPHOCYTIC LEUK OF B-CELL TYPE 02/02/2019 TESSA KU MD Ot R51 HEADACHE 02/02/2019 TESSA KU MD Ot R52 PAIN, UNSPECIFIED 02/02/2019 TESSA KU MD Ot K76.0 FATTY (CHANGE OF) LIVER, NOT ELSEWHERE C 02/02/2019 TESSA KU MD Ot C91.10 CHRONIC LYMPHOCYTIC LEUK OF B-CELL TYPE 02/02/2019 TESSA KU MD Ot D50.9 IRON DEFICIENCY ANEMIA, UNSPECIFIED 02/02/2019 TESSA KU MD Ot E66.9 OBESITY, UNSPECIFIED 02/02/2019 TESSA KU MD Ot F32.9 MAJOR DEPRESSIVE DISORDER, SINGLE EPISOD 02/02/2019 TESSA KU MD, Ot F41.9 ANXIETY DISORDER, UNSPECIFIED 02/02/2019 TESSA KU MD Ot I10 ESSENTIAL (PRIMARY) HYPERTENSION 02/02/2019 TESSA KU MD Ot Z68.35 BODY MASS INDEX (BMI) 35.0-35.9, ADULT 02/02/2019 TESSA KU MD Ot Z79.899 OTHER MANAGER IMPLEMENTATION (CURRENT) DRUG THERAPY 02/02/2019 TESSA KU MD Ot K76.0 FATTY (CHANGE OF) LIVER, NOT ELSEWHERE C 02/02/2019 TESSA KU MD Ot C91.10 CHRONIC LYMPHOCYTIC LEUK OF B-CELL TYPE 02/02/2019 TESSA KU MD Ot D50.9 IRON DEFICIENCY ANEMIA, UNSPECIFIED 02/02/2019 TESSA KU MD Ot E66.9 OBESITY, UNSPECIFIED 02/02/2019 TESSA KU MD Ot F32.9 MAJOR DEPRESSIVE DISORDER, SINGLE EPISOD 02/02/2019 TESSA KU MD Ot F41.9 ANXIETY DISORDER, UNSPECIFIED 02/02/2019 TESSA KU MD Ot I10 ESSENTIAL (PRIMARY) HYPERTENSION 02/02/2019 TESSA KU MD Ot Z51.11 ENCOUNTER FOR ANTINEOPLASTIC CHEMOTHERAP 02/02/2019 TESSA KU MD Ot Z68.35 BODY MASS INDEX (BMI) 35.0-35.9, ADULT 02/02/2019 TESSA KU MD Ot Z79.899 OTHER MANAGER IMPLEMENTATION (CURRENT) DRUG THERAPY 02/07/2019 TESSA KU MD Ot C91.10 CHRONIC LYMPHOCYTIC LEUK OF B-CELL TYPE 02/07/2019 TESSA KU MD Ot D50.9 IRON DEFICIENCY ANEMIA, UNSPECIFIED 02/07/2019 TESSA KU MD Ot E66.9 OBESITY, UNSPECIFIED 02/07/2019 TESSA KU MD Ot F32.9 MAJOR DEPRESSIVE DISORDER, SINGLE EPISOD 02/07/2019 TESSA KU MD Ot F41.9 ANXIETY DISORDER, UNSPECIFIED 02/07/2019 TESSA KU MD Ot I10 ESSENTIAL (PRIMARY) HYPERTENSION 02/07/2019 TESSA KU MD Ot Z51.11 ENCOUNTER FOR ANTINEOPLASTIC CHEMOTHERAP 02/07/2019 TESSA KU MD Ot Z68.35 BODY MASS INDEX (BMI) 35.0-35.9, ADULT 02/07/2019 TESSA KU MD Ot Z79.899 OTHER HALFWAY (CURRENT) DRUG THERAPY 02/09/2019 TESSA KU MD Ot K76.0 FATTY (CHANGE OF) LIVER, NOT ELSEWHERE C 03/21/2019 Ot C91.10 CHRONIC LYMPHOCYTIC LEUK OF B-CELL TYPE 03/21/2019 Ot N85.2 HYPERTROPHY OF UTERUS 03/21/2019 Ot R59.0 LOCALIZED ENLARGED LYMPH NODES 03/21/2019 TESSA KU MD Ot C91.10 CHRONIC LYMPHOCYTIC LEUK OF B-CELL TYPE 03/21/2019 TESSA KU MD Ot D72.820 LYMPHOCYTOSIS (SYMPTOMATIC) 03/21/2019 TESSA KU MD Ot R59.0 LOCALIZED ENLARGED LYMPH NODES 03/21/2019 LOLI ARBOLEDA APRN Ot M47.22 OTHER SPONDYLOSIS WITH RADICULOPATHY, CE 03/21/2019 LOLI ARBOLEDA APRN Ot M48.02 SPINAL STENOSIS, CERVICAL REGION 03/21/2019 LOLI ARBOLEDA APRN Ot M50.122 CERVICAL DISC DISORDER AT C5-C6 LEVEL [place] 03/21/2019 TESSA KU MD Ot C91.10 CHRONIC LYMPHOCYTIC LEUK OF B-CELL TYPE 03/21/2019 TESSA KU MD Ot R51 HEADACHE 03/21/2019 TESSA UK MD Ot R52 PAIN, UNSPECIFIED 03/21/2019 TESSA KU MD Ot K76.0 FATTY (CHANGE OF) LIVER, NOT ELSEWHERE C 03/21/2019 TESSA KU MD Ot C91.10 CHRONIC LYMPHOCYTIC LEUK OF B-CELL TYPE 03/21/2019 TESSA KU MD Ot Z45.2 ENCOUNTER FOR ADJUSTMENT AND MANAGEMENT 03/21/2019 AGUEDA JOHNSON MD Ot F32.9 MAJOR DEPRESSIVE DISORDER, SINGLE EPISOD 03/21/2019 AGUEDA JOHNSON MD Ot F41.9 ANXIETY DISORDER, UNSPECIFIED 03/21/2019 AGUEDA JOHNSON MD Ot I10 ESSENTIAL (PRIMARY) HYPERTENSION 03/21/2019 AGUEDA JOHNSON MD Ot K52.9 NONINFECTIVE GASTROENTERITIS AND COLITIS 03/21/2019 AGUEDA JOHNSON MD Ot R10.84 GENERALIZED ABDOMINAL PAIN 03/21/2019 AGUEDA JOHNSON MD Ot Z82.49 FAMILY HX OF ISCHEM HEART DIS AND OTH DI 03/21/2019 AGUEDA JOHNSON MD Ot Z85.6 PERSONAL HISTORY OF LEUKEMIA 03/21/2019 AGUEDA JOHNSON MD Ot Z88.2 ALLERGY STATUS TO SULFONAMIDES STATUS 03/21/2019 AGUEDA JOHNSON MD Ot Z92.21 PERSONAL HISTORY OF ANTINEOPLASTIC CHEMO 03/21/2019 AGUEDA JOHNSON MD Ot Z98.51 TUBAL LIGATION STATUS 03/21/2019 AGUEDA JOHNSON MD Ot Z98.890 OTHER SPECIFIED POSTPROCEDURAL STATES 03/23/2019 AGUEDA JOHNSON MD Ot F32.9 MAJOR DEPRESSIVE DISORDER, SINGLE EPISOD 03/23/2019 AGUEDA JOHNSON MD Ot F41.9 ANXIETY DISORDER, UNSPECIFIED 03/23/2019 AGUEDA JOHNSON MD Ot I10 ESSENTIAL (PRIMARY) HYPERTENSION 03/23/2019 AGUEDA JOHNSON MD Ot K52.9 NONINFECTIVE GASTROENTERITIS AND COLITIS 03/23/2019 AGUEDA JOHNSON MD Ot R10.84 GENERALIZED ABDOMINAL PAIN 03/23/2019 AGUEDA JOHNSON MD Ot Z82.49 FAMILY HX OF ISCHEM HEART DIS AND OTH DI 03/23/2019 AGUEDA JOHNSON MD Ot Z85.6 PERSONAL HISTORY OF LEUKEMIA 03/23/2019 AGUEDA OJHNSON MD Ot Z88.2 ALLERGY STATUS TO SULFONAMIDES STATUS 03/23/2019 AGUEDA JOHNSON MD Ot Z92.21 PERSONAL HISTORY OF ANTINEOPLASTIC CHEMO 03/23/2019 AGUEDA JOHNSON MD Ot Z98.51 TUBAL LIGATION STATUS 03/23/2019 AGUEDA JOHNSON MD Ot Z98.890 OTHER SPECIFIED POSTPROCEDURAL STATES Procedures There is no data. Results Test [...] 11.3 fL 7.5-12.5 ABSOLUTE NEUTROPHILS 6526 cells/uL 1327-0329 ABSOLUTE LYMPHOCYTES 7139 cells/uL 850-3900 ABSOLUTE MONOCYTES [...] 10.7 fL 7.5-12.5 ABSOLUTE NEUTROPHILS 5772 cells/uL 1269-4459 ABSOLUTE LYMPHOCYTES 8736 cells/uL 850-3900 ABSOLUTE MONOCYTES [...] 11.1 fL 7.5-12.5 ABSOLUTE NEUTROPHILS 9065 cells/uL 9167-8851 ABSOLUTE LYMPHOCYTES 8510 cells/uL 850-3900 ABSOLUTE MONOCYTES 740 cells/uL 200-950 ABSOLUTE EOSINOPHILS 185 cells/uL 15-500 ABSOLUTE BASOPHILS 0 cells/uL 0-200 NEUTROPHILS 49 % NRG LYMPHOCYTES 46 % NRG MONOCYTES 4 % NRG EOSINOPHILS 1 % NRG BASOPHILS 0 % NRG COMMENT(S) NRG Methicillin resistant Staphylococcus aureus (MRSA) screening culture - 06/24/18 07:25 Methicillin resistant Staphylococcus aureus (MRSA) screening culture NEG NRG Urine beta human chorionic gonadotropin (hCG) measurement - 07/27/18 08:02 Urine beta human chorionic gonadotropin (hCG) measurement NEGATIVE NEGATIVE Methicillin resistant Staphylococcus aureus (MRSA) screening culture - 07/27/18 08:12 Methicillin resistant Staphylococcus aureus (MRSA) screening culture NEG NRG Complete blood count (CBC) with automated white blood cell (WBC) differential - 08/10/18 21:36 Blood leukocytes automated count (number/volume) 18.0 10*3/uL 4.3-11.0 Blood erythrocytes automated count (number/volume) 4.62 10*6/uL 4.35-5.85 Venous blood hemoglobin measurement (mass/volume) 13.0 g/dL 11.5-16.0 Blood hematocrit (volume fraction) 37 % 35-52 Automated erythrocyte mean corpuscular volume 80 [foz_us] 80-99 Automated erythrocyte mean corpuscular hemoglobin (mass per erythrocyte) 28 pg 25-34 Automated erythrocyte mean corpuscular hemoglobin concentration measurement (mass/volume) 35 g/dL 32-36 Automated erythrocyte distribution width ratio 14.7 % 10.0- 14.5 Automated blood platelet count (count/volume) 243 10*3/uL 130-400 Automated blood platelet mean volume measurement 11.2 [foz_us] 7.4-10.4 Automated blood neutrophils/100 leukocytes 96 % 42-75 Automated blood lymphocytes/100 leukocytes 1 % 12-44 Blood monocytes/100 leukocytes 3 % 0-12 Automated blood eosinophils/100 leukocytes 0 % 0-10 Automated blood basophils/100 leukocytes 0 % 0-10 Blood neutrophils automated count (number/volume) 17.3 10*3 1.8-7.8 Blood lymphocytes automated count (number/volume) 0.1 10*3 1.0-4.0 Blood monocytes automated count (number/volume) 0.6 10*3 0.0- 1.0 Automated eosinophil count 0.0 10*3/uL 0.0-0.3 Automated blood basophil count (count/volume) 0.0 10*3/uL 0.0-0.1 Blood lactic acid measurement (moles/volume) - 08/10/18 21:36 Blood lactic acid measurement (moles/volume) 3.11 mmol/L 0.50- 2.00 Serum or plasma choriogonadotropin ( test) detection - 08/10/18 21:36 Serum or plasma choriogonadotropin ( test) detection NEGATIVE NEGATIVE Serum heterophile antibody titer - 08/10/18 21:36 Serum heterophile antibody titer NEGATIVE NEGATIVE PT panel in platelet poor plasma by coagulation assay - 08/10/18 21:36 Prothrombin time (PT) in platelet poor plasma by coagulation assay 13.4 s 12.2-14.7 INR in platelet poor plasma or blood by coagulation assay 1.0 0.8-1.4 Activated partial thromboplastin time (aPTT) in platelet poor plasma bycoagulation assay - 08/10/18 21:36 Activated partial thromboplastin time (aPTT) in platelet poor plasma bycoagulation assay 20 s 24-35 Comprehensive metabolic panel - 08/10/18 21:36 Serum or plasma sodium measurement (moles/volume) 137 mmol/L 135-145 Serum or plasma potassium measurement (moles/volume) 3.7 mmol/L 3.6-5.0 Serum or plasma chloride measurement (moles/volume) 108 mmol/L 98-107 Carbon dioxide 17 mmol/L 21-32 Serum or plasma anion gap determination (moles/volume) 12 mmol/L 5-14 Serum or plasma urea nitrogen measurement (mass/volume) 14 mg/dL 7-18 Serum or plasma creatinine measurement (mass/volume) 0.99 mg/dL 0.60-1.30 Serum or plasma urea nitrogen/creatinine mass ratio 14 NRG Serum or plasma creatinine measurement with calculation of estimated glomerular filtration rate 60 NRG Serum or plasma glucose measurement (mass/volume) 160 mg/dL 70-105 Serum or plasma calcium measurement (mass/volume) 9.2 mg/dL 8.5-10.1 Serum or plasma total bilirubin measurement (mass/volume) 0.4 mg/dL 0.1-1.0 Serum or plasma alkaline phosphatase measurement (enzymatic activity/volume) 55 U/L 40-136 Serum or plasma aspartate aminotransferase measurement (enzymatic activity/volume) 26 U/L 5-34 Serum or plasma alanine aminotransferase measurement (enzymatic activity/volume) 37 U/L 0-55 Serum or plasma protein measurement (mass/volume) 6.9 g/dL 6.4-8.2 Serum or plasma albumin measurement (mass/volume) 4.2 g/dL 3.2-4.5 CALCIUM CORRECTED 9.0 mg/dL 8.5-10.1 Blood manual differential performed detection - 08/10/18 21:36 Blood monocytes/100 leukocytes 5 % NRG Manual blood segmented neutrophils/100 leukocytes 76 % NRG Blood band neutrophils/100 leukocytes 17 % NRG Manual blood lymphocytes/100 leukocytes 2 % NRG Manual eosinophils/100 leukocytes in nose 0 % NRG Manual blood basophils/100 leukocytes 0 % NRG Blood platelet clump detection by light microscopy NORMAL NRG Bacterial blood culture - 08/10/18 21:36 Bacterial blood culture NG NRG Bacterial blood culture - 08/10/18 22:14 Bacterial blood culture NG NRG Streptococcus pyogenes antigen detection - 08/10/18 22:20 Streptococcus pyogenes antigen detection NEGATIVE NEGATIVE Influenza virus A and B antigen detection - 08/10/18 22:20 FLU RESULT NEGATIVE FOR INFLUENZA A AND B ANTIGENS BY IA NRG Bacterial throat culture - 08/10/18 22:20 Bacterial throat culture NBS NRG Complete urinalysis with reflex to culture - 08/10/18 22:47 Urine color determination YELLOW NRG Urine clarity determination SLIGHTLY CLOUDY NRG Urine pH measurement by test strip 5 5-9 Specific gravity of urine by test strip 1.010 1.016-1.022 Urine protein assay by test strip, semi-quantitative 2+ NEGATIVE Urine glucose detection by automated test strip NEGATIVE NEGATIVE Erythrocytes detection in urine sediment by light microscopy 5+ NEGATIVE Urine ketones detection by automated test strip NEGATIVE NEGATIVE Urine nitrite detection by test strip NEGATIVE NEGATIVE Urine total bilirubin detection by test strip NEGATIVE NEGATIVE Urine urobilinogen measurement by automated test strip (mass/volume) NORMAL NORMAL Urine leukocyte esterase detection by dipstick 1+ NEGATIVE Automated urine sediment erythrocyte count by microscopy (number/high power field) TNTC NRG Automated urine sediment leukocyte count by microscopy (number/high power field) [HPF] NRG Bacteria detection in urine sediment by light microscopy NONE NRG Squamous epithelial cells detection in urine sediment by light microscopy 2-5 NRG Crystals detection in urine sediment by light microscopy NONE NRG Casts detection in urine sediment by light microscopy NONE NRG Mucus detection in urine sediment by light microscopy NEGATIVE NRG Complete urinalysis with reflex to culture NO NRG Bacterial urine culture - 08/10/18 22:47 Bacterial urine culture SEE COMMEN NRG COLONY COUNT . NRG Serum or plasma lactate measurement (moles/volume) - 08/10/18 23:35 Serum or plasma lactate measurement (moles/volume) 2.70 mmol/L 0.50-2.00 Complete blood count (CBC) with automated white blood cell (WBC) differential - 08/11/18 04:50 Blood leukocytes automated count (number/volume) 16.2 10*3/uL 4.3-11.0 Blood erythrocytes automated count (number/volume) 4.30 10*6/uL 4.35-5.85 Venous blood hemoglobin measurement (mass/volume) 11.7 g/dL 11.5-16.0 Blood hematocrit (volume fraction) 34 % 35-52 Automated erythrocyte mean corpuscular volume 80 [foz_us] 80-99 Automated erythrocyte mean corpuscular hemoglobin (mass per erythrocyte) 27 pg 25-34 Automated erythrocyte mean corpuscular hemoglobin concentration measurement (mass/volume) 34 g/dL 32-36 Automated erythrocyte distribution width ratio 14.9 % 10.0- 14.5 Automated blood platelet count (count/volume) 221 10*3/uL 130-400 Automated blood platelet mean volume measurement 10.8 [foz_us] 7.4-10.4 Automated blood neutrophils/100 leukocytes 95 % 42-75 Automated blood lymphocytes/100 leukocytes 0 % 12-44 Blood monocytes/100 leukocytes 4 % 0-12 Automated blood eosinophils/100 leukocytes 1 % 0-10 Automated blood basophils/100 leukocytes 0 % 0-10 Blood neutrophils automated count (number/volume) 15.3 10*3 1.8-7.8 Blood lymphocytes automated count (number/volume) 0.1 10*3 1.0-4.0 Blood monocytes automated count (number/volume) 0.7 10*3 0.0- 1.0 Automated eosinophil count 0.2 10*3/uL 0.0-0.3 Automated blood basophil count (count/volume) 0.0 10*3/uL 0.0-0.1 Whole blood basic metabolic panel - 08/11/18 04:50 Serum or plasma sodium measurement (moles/volume) 137 mmol/L 135-145 Serum or plasma potassium measurement (moles/volume) 3.9 mmol/L 3.6-5.0 Serum or plasma chloride measurement (moles/volume) 109 mmol/L 98-107 Carbon dioxide 19 mmol/L 21-32 Serum or plasma anion gap determination (moles/volume) 9 mmol/L 5-14 Serum or plasma urea nitrogen measurement (mass/volume) 13 mg/dL 7-18 Serum or plasma creatinine measurement (mass/volume) 0.95 mg/dL 0.60-1.30 Serum or plasma urea nitrogen/creatinine mass ratio 14 NRG Serum or plasma creatinine measurement with calculation of estimated glomerular filtration rate > NRG Serum or plasma glucose measurement (mass/volume) 141 mg/dL 70-105 Serum or plasma calcium measurement (mass/volume) 8.4 mg/dL 8.5-10.1 Blood lactic acid measurement (moles/volume) - 08/11/18 04:50 Blood lactic acid measurement (moles/volume) 2.44 mmol/L 0.50- 2.00 Blood lactic acid measurement (moles/volume) - 08/11/18 09:12 Blood lactic acid measurement (moles/volume) 1.68 mmol/L 0.50- 2.00 Complete blood count (CBC) with automated white blood cell (WBC) differential - 08/12/18 05:25 Blood leukocytes automated count (number/volume) 9.9 10*3/uL 4.3-11.0 Blood erythrocytes automated count (number/volume) 4.02 10*6/uL 4.35-5.85 Venous blood hemoglobin measurement (mass/volume) 11.0 g/dL 11.5-16.0 Blood hematocrit (volume fraction) 33 % 35-52 Automated erythrocyte mean corpuscular volume 82 [foz_us] 80-99 Automated erythrocyte mean corpuscular hemoglobin (mass per erythrocyte) 27 pg 25-34 Automated erythrocyte mean corpuscular hemoglobin concentration measurement (mass/volume) 33 g/dL 32-36 Automated erythrocyte distribution width ratio 15.4 % 10.0- 14.5 Automated blood platelet count (count/volume) 201 10*3/uL 130-400 Automated blood platelet mean volume measurement 10.7 [foz_us] 7.4-10.4 Automated blood neutrophils/100 leukocytes 79 % 42-75 Automated blood lymphocytes/100 leukocytes 2 % 12-44 Blood monocytes/100 leukocytes 6 % 0-12 Automated blood eosinophils/100 leukocytes 14 % 0-10 Automated blood basophils/100 leukocytes 0 % 0-10 Blood neutrophils automated count (number/volume) 7.8 10*3 1.8-7.8 Blood lymphocytes automated count (number/volume) 0.2 10*3 1.0-4.0 Blood monocytes automated count (number/volume) 0.6 10*3 0.0- 1.0 Automated eosinophil count 1.3 10*3/uL 0.0-0.3 Automated blood basophil count (count/volume) 0.0 10*3/uL 0.0-0.1 Whole blood basic metabolic panel - 08/12/18 05:25 Serum or plasma sodium measurement (moles/volume) 143 mmol/L 135-145 Serum or plasma potassium measurement (moles/volume) 4.1 mmol/L 3.6-5.0 Serum or plasma chloride measurement (moles/volume) 115 mmol/L 98-107 Carbon dioxide 21 mmol/L 21-32 Serum or plasma anion gap determination (moles/volume) 7 mmol/L 5-14 Serum or plasma urea nitrogen measurement (mass/volume) 12 mg/dL 7-18 Serum or plasma creatinine measurement (mass/volume) 1.00 mg/dL 0.60-1.30 Serum or plasma urea nitrogen/creatinine mass ratio 12 NRG Serum or plasma creatinine measurement with calculation of estimated glomerular filtration rate 59 NRG Serum or plasma glucose measurement (mass/volume) 102 mg/dL 70-105 Serum or plasma calcium measurement (mass/volume) 7.4 mg/dL 8.5-10.1 CULTURE, THROAT - 10/21/18 13:52 CULTURE, THROAT SEE NOTE NRG Complete blood count (CBC) with automated white blood cell (WBC) differential - 03/21/19 15:48 Blood leukocytes automated count (number/volume) 6.7 10*3/uL 4.3-11.0 Blood erythrocytes automated count (number/volume) 4.58 10*6/uL 4.35-5.85 Venous blood hemoglobin measurement (mass/volume) 12.8 g/dL 11.5-16.0 Blood hematocrit (volume fraction) 37 % 35-52 Automated erythrocyte mean corpuscular volume 81 [foz_us] 80-99 Automated erythrocyte mean corpuscular hemoglobin (mass per erythrocyte) 28 pg 25-34 Automated erythrocyte mean corpuscular hemoglobin concentration measurement (mass/volume) 34 g/dL 32-36 Automated erythrocyte distribution width ratio 14.8 % 10.0- 14.5 Automated blood platelet count (count/volume) 272 10*3/uL 130-400 Automated blood platelet mean volume measurement 10.9 [foz_us] 7.4-10.4 Automated blood neutrophils/100 leukocytes 78 % 42-75 Automated blood lymphocytes/100 leukocytes 10 % 12-44 Blood monocytes/100 leukocytes 8 % 0-12 Automated blood eosinophils/100 leukocytes 3 % 0-10 Automated blood basophils/100 leukocytes 0 % 0-10 Blood neutrophils automated count (number/volume) 5.3 10*3 1.8-7.8 Blood lymphocytes automated count (number/volume) 0.7 10*3 1.0-4.0 Blood monocytes automated count (number/volume) 0.5 10*3 0.0- 1.0 Automated eosinophil count 0.2 10*3/uL 0.0-0.3 Automated blood basophil count (count/volume) 0.0 10*3/uL 0.0-0.1 Blood lactic acid measurement (moles/volume) - 03/21/19 15:48 Blood lactic acid measurement (moles/volume) 0.90 mmol/L 0.50- 2.00 Serum heterophile antibody titer - 03/21/19 15:48 Serum heterophile antibody titer NEGATIVE NEGATIVE Comprehensive metabolic panel - 03/21/19 15:48 Serum or plasma sodium measurement (moles/volume) 140 mmol/L 135-145 Serum or plasma potassium measurement (moles/volume) 3.8 mmol/L 3.6-5.0 Serum or plasma chloride measurement (moles/volume) 109 mmol/L 98-107 Carbon dioxide 20 mmol/L 21-32 Serum or plasma anion gap determination (moles/volume) 11 mmol/L 5-14 Serum or plasma urea nitrogen measurement (mass/volume) 12 mg/dL 7-18 Serum or plasma creatinine measurement (mass/volume) 0.89 mg/dL 0.60-1.30 Serum or plasma urea nitrogen/creatinine mass ratio 13 NRG Serum or plasma creatinine measurement with calculation of estimated glomerular filtration rate > NRG Serum or plasma glucose measurement (mass/volume) 95 mg/dL 70-105 Serum or plasma calcium measurement (mass/volume) 9.4 mg/dL 8.5-10.1 Serum or plasma total bilirubin measurement (mass/volume) 0.3 mg/dL 0.1-1.0 Serum or plasma alkaline phosphatase measurement (enzymatic activity/volume) 51 U/L 40-136 Serum or plasma aspartate aminotransferase measurement (enzymatic activity/volume) 43 U/L 5-34 Serum or plasma alanine aminotransferase measurement (enzymatic activity/volume) 68 U/L 0-55 Serum or plasma protein measurement (mass/volume) 6.4 g/dL 6.4-8.2 Serum or plasma albumin measurement (mass/volume) 4.0 g/dL 3.2-4.5 CALCIUM CORRECTED 9.4 mg/dL 8.5-10.1 Lipase - 03/21/19 15:48 Lipase 19 U/L 8-78 Serum or plasma C reactive protein measurement (mass/volume) - 03/21/19 15:48 Serum or plasma C reactive protein measurement (mass/volume) 0.97 mg/dL 0.00-0.50 Stool occult blood screen - 03/21/19 15:50 Stool gastrointestinal hemoglobin detection NEGATIVE NEGATIVE Complete urinalysis with reflex to culture - 03/21/19 15:50 Urine color determination YELLOW NRG Urine clarity determination CLEAR NRG Urine pH measurement by test strip 5 5-9 Specific gravity of urine by test strip 1.025 1.016-1.022 Urine protein assay by test strip, semi-quantitative 1+ NEGATIVE Urine glucose detection by automated test strip NEGATIVE NEGATIVE Erythrocytes detection in urine sediment by light microscopy 3+ NEGATIVE Urine ketones detection by automated test strip NEGATIVE NEGATIVE Urine nitrite detection by test strip NEGATIVE NEGATIVE Urine total bilirubin detection by test strip NEGATIVE NEGATIVE Urine urobilinogen measurement by automated test strip (mass/volume) NORMAL NORMAL Urine leukocyte esterase detection by dipstick NEGATIVE NEGATIVE Automated urine sediment erythrocyte count by microscopy (number/high power field) [HPF] NRG Automated urine sediment leukocyte count by microscopy (number/high power field) RARE NRG Bacteria detection in urine sediment by light microscopy FEW NRG Squamous epithelial cells detection in urine sediment by light microscopy 10-25 NRG Crystals detection in urine sediment by light microscopy NONE NRG Casts detection in urine sediment by light microscopy NONE NRG Mucus detection in urine sediment by light microscopy MODERATE NRG Complete urinalysis with reflex to culture NO NRG Stool leukocytes detection by light microscopy - 03/21/19 15:50 FECAL WBC RESULTS FEW WBC'S OBSERVED ON DIRECT SMEAR NRG FECAL NOTE FECAL LEUKOCYTES MAY BE INTERMITTENTLY PRESENT OR NRG FECAL NOTE UNEVENLY DISTRIBUTED IN STOOL SPECIMENS, AND WBC NRG FECAL NOTE MORPHOLOGY DEGRADES DURING TRANSPORT NRG FECAL NOTE NOTE: NRG C DIFFICILE AG + TOXIN A/B. - 03/21/19 15:50 RESULTS NEGATIVE FOR ANTIGEN AND TOXIN A/B NRG [id number] - 03/21/19 15:50 Stool bacteria identification by culture - 03/21/19 15:50 QUANTITY OF GROWTH . NRG Stool bacteria identification by culture SEE COMMEN NRG SUREPATH PAP AND HPV mRNA E6/E7 - 03/30/19 10:19 CLINICAL INFORMATION: NRG LMP: 10/2019 NRG PREV. PAP: NRG PREV. BX: NRG SOURCE: [employer] NRG STATEMENT OF ADEQUACY: NRG INTERPRETATION/RESULT: NRG FLAME DEGREASER: NRG HPV mRNA E6/E7, SUREPATH VIAL Not Detected NOT DETECTED COMMENT NRG Encounters ACCT No. Visit Date/Time Discharge Status Pt. Type Provider Facility Loc./Unit Complaint [id number] 04/03/2019 14:00:00 04/03/2019 23:59:59 CLS Outpatient LOLI ARBOLEDA [facility] [id number] 03/30/2019 09:20:00 Document Registration [id number] 10/21/2018 11:20:00 Document Registration [id number] 05/31/2018 16:40:00 Document Registration [id number] 03/14/2018 09:00:00 Document Registration [id number] 10/29/2017 09:00:00 Document Registration [id number] 08/27/2017 15:00:00 Document Registration [id number] 04/14/2019 05:47:00 04/14/2019 12:03:00 DIS Outpatient BRITTANY العلي DO [facility] PREOP COLONOSCOPY/EGD [id number] 03/21/2019 15:05:00 03/21/2019 18:55:00 DIS Emergency AGUEDA JOHNSON MD [facility] ER ABD PAIN/DIARRHEA X 9 DAYS [id number] 03/20/2019 12:56:00 03/20/2019 23:59:59 CLS Outpatient TESSA KU MD [facility] ONC [id number] 01/26/2019 10:04:00 02/01/2019 00:01:00 DIS Outpatient TESSA KU MD [facility] ONC [id number] 01/02/2019 08:55:00 01/02/2019 23:59:59 CLS Outpatient TESSA KU MD [facility] RAD ELEVATED LIVER ENZYMES [id number] 12/05/2018 15:01:00 12/05/2018 23:59:59 CLS Outpatient TESSA KU MD [facility] RAD CLL,HEADACHE,PAIN [id number] 11/10/2018 08:25:00 11/10/2018 23:59:59 CLS Outpatient LOLI ARBOLEDA APRN [facility] RAD CERVICAL RADICULOPATHY [id number] 10/27/2018 10:40:00 11/02/2018 00:01:00 DIS Outpatient TESSA KU MD [facility] ONC [id number] 08/11/2018 01:20:00 08/13/2018 15:50:00 DIS Inpatient YEISON JAFEF MD [facility] 4TH SEPSIS,HX CLL ON CHEMO, DEHYDRATION,ABDOMINAL PAIN [id number] 07/27/2018 07:44:00 07/31/2018 00:01:00 DIS Outpatient TESSA KU MD [facility] ONC [id number] 07/27/2018 07:54:00 07/27/2018 12:15:00 DIS Outpatient BRITTANY العلي DO [facility] SDC LEUKEMIA [id number] 07/26/2018 13:55:00 07/26/2018 14:27:00 DIS Outpatient BRITTANY العلي DO [facility] PREOP LEUKEMIA [id number] 07/06/2018 11:12:00 07/06/2018 00:01:00 DIS Outpatient TESSA KU MD [facility] ONC [id number] 06/26/2018 18:40:00 06/26/2018 19:35:00 DIS Emergency ES REYES APRN [facility] ER L LEG POSS RED HORNET STING [id number] 06/24/2018 07:10:00 06/24/2018 13:00:00 DIS Outpatient BRITTANY العلي DO [facility] CLL [id number] 06/22/2018 05:53:00 06/22/2018 23:59:59 CLS Outpatient BRITTANY العلي DO [facility] PREOP CLL [id number] 06/21/2018 08:34:00 06/21/2018 23:59:59 CLS Outpatient TESSA KU MD [facility] RAD [id number] LYMPHOCYTOSIS [id number] 04/17/2019 13:20:00 PEN Preadmit BRITTANY العلي DO [facility] ENDO DIARRHEA/ABD PAIN/DIVERTICULITIS [id number] 06/06/2018 13:07:00 Document Registration
[2019-04-17] MEDS ORDERED: LACTATED RINGERS 1,000 ML IV STA (11:52)
[2019-04-17] MEDS ORDERED: HURRICAINE EXT TUBE (BENZOCAINE) XX PRN (12:00)
[2019-04-17] MEDS ORDERED: PROPOFOL INJECTION 50 ML IV ONE (12:04)
[2019-04-17] MEDS ORDERED: MIDAZOLAM 2 MG/2 ML (VERSED) VIAL ONE (12:04)
--- NOTE | 2019-04-17 12:11 | Progress Note-Pre Operative ---
Pre-Operative Progress Note H&P Reviewed The H&P was reviewed, patient examined and no changes noted. Time Seen by Provider: 10:05 Date H&P Reviewed: Apr 17, 2019 Time H&P Reviewed: 10:06 Pre-Operative Diagnosis: Diarrhea, Gastritis, Diverticulitis BRITTANY العلي DO Apr 17, 2019 12:10
[2019-04-17 12:23] VITALS: BP 126/78
--- NOTE | 2019-04-17 12:38 | Progress Note-Post Operative ---
Post-Operative Progess Note Surgeon (s)/Entry Level Sales Consultant (s) Surgeon BRITTANY العلي DO Entry Level Sales Consultant: none Pre-Operative Diagnosis Diarrhea, Gastritis, Colitis Post-Operative Diagnosis Gastritis Hiatal hernia Internal hemorrhoids Procedure & Operative Findings Date of Procedure 04/17/19 Procedure Performed/Findings EGD with bx Colon Anesthesia Type IV sedation by GLAZE SUPERVISOR Estimated Blood Loss Estimated blood loss (mL): scant Specimens/Packing Specimens Removed antral bx GE jxn bx BRITTANY العلي DO Apr 17, 2019 12:38
--- NOTE | 2019-04-17 12:39 | Endoscopy Discharge Instruct ---
Endo Procedure/Findings Findings 1.: Gastritis 2.: Hiatal Hernia 3.: Internal Hemorrhoids Discharge Instructions - Activity: You might feel a little sleepy until tomorrow. This is due to the medicine you received to relax you. Until tomorrow, you should: NOT drive a car, operate machinery or power tools. NOT drink any alcoholic beverages. NOT make any important decisions or sign importortant papers. Do not return to work until tomorrow, unless otherwise instructed. Resume previous activities tomorrow. Diet: Start by taking liquids. If you tolerate liquids, advance to solid food. make an appointment for one week Notify Physician - If you experience excessive bleeding, unusual abdominal pain, fever, or chest pain, contact your doctor immediately. Follow-Up: - I have received and understand the above instructions and will call my doctor if I have any further questions. Patient Signature Date Nurse Signature Other (Relationship) BRITTANY العلي DO Apr 17, 2019 12:39
[2019-04-17 12:45] VITALS: BP 94/53
[2019-04-17 13:20] VITALS: BP 114/66
[2019-04-17 13:34] VITALS: BP 114/66
--- NOTE | 2019-04-17 14:38 | Anesthesia-General Post-Op ---
MAC Patient Condition Mental Status/LOC: Same as Preop Cardiovascular: Satisfactory Nausea/Vomiting: Absent Respiratory: Satisfactory Pain: Controlled Complications: Absent Post Op Complications Complications None Follow Up Care/Instructions Patient Instructions None needed. Anesthesiology Discharge Order Discharge Order Patient is doing well, no complaints, stable vital signs, no apparent adverse anesthesia problems. No complications reported per nursing. HUMBERTO GIRALDO CRNA Apr 17, 2019 14:38
--- NOTE | 2019-04-17 20:48 | OPERATIVE REPORT ---
DATE OF SERVICE: 04/17/2019 PREOPERATIVE DIAGNOSES: Diarrhea, gastritis, colitis. POSTOPERATIVE DIAGNOSES: Gastritis, hiatal hernia, internal hemorrhoids. PROCEDURES: 1. EGD with biopsy. 2. Colonoscopy. SURGEON: Elgin Joseph DO. CRUMB PACKER: None. ANESTHESIA: IV sedation by SPECIAL EDUCATION EDUCATIONAL ASSISTANT. SPECIMEN: Biopsy from antrum, biopsy of GE junction. BLOOD LOSS: Scant. FLUIDS: Per anesthesia. POSTOPERATIVE CONDITION: Stable. INDICATION FOR PROCEDURE: The patient is a 48-year-old female who has been having diarrhea, abdominal pain. A CT scan showed possible colitis. She had some chronic gastritis and needed a workup. FINDINGS: The patient had some mild gastritis seen, also had a hiatal hernia and then colonoscopy basically normal except for some internal hemorrhoids. PROCEDURE NOTE: After informed consent was obtained, the patient was brought to the endoscopy suite, placed in the bed, in left lateral decubitus position. She was administered IV sedation by the SPECIAL EDUCATION EDUCATIONAL ASSISTANT who then monitored her vitals the entire time, heart rate, blood pressure, and pulse ox and the scope was inserted down the mouth through the esophagus into the stomach. Upon entering the stomach, noted some mild gastritis, took a picture of this portion of the duodenum. First and second portion of duodenum looked fine. Pulled back and then did a biopsy of the antrum. Retroflexed the scope, saw a small hiatal hernia, took a picture of this, then pulled back into the GE junction, did a biopsy of the GE junction and then pulled this scope up the esophagus and out the mouth. Switched the camera, switched gloves and went down below, started the colonoscopy, pushed the scope all the way about 150 cm, able to get to the cecum, took a picture of appendiceal orifice, noted the ileocecal valve and then slowly withdrew the scope insufflating to look circumferentially at the holcomb looking at the cecum up the ascending colon to hepatic flexure, then down the transverse colon, splenic flexure, into the descending colon down in the sigmoid and finally into the rectum, retroflexed the rectal vault, saw some minimal internal hemorrhoids, did not see either obvious inflammation, thickening or ulcers or anything in the colon. Scope was removed. The patient tolerated the procedure and she was recovered in the endoscopy suite. Job ID: [id number] DocumentID: [id number] Dictated Date: 04/17/2019 14:47:26 Silk Screen Operator Date: 04/17/2019 20:47:14 Dictated By: ELGIN JOSEPH DO
== END 2019-04-17 13:35 | disposition home or self-care (01) ==
LOC: ENDO 11:37
PROVIDERS: ATTEND Surgery
DX: K29.50 Unspecified chronic gastritis without bleeding (principal); K44.9 Diaphragmatic hernia without obstruction or gangrene; K64.8 Other hemorrhoids; K52.9 Noninfective gastroenteritis and colitis, unspecified; F41.9 Anxiety disorder, unspecified; F32.9 Major depressive disorder, single episode, unspecified; I10 Essential (primary) hypertension; I87.2 Venous insufficiency (chronic) (peripheral); E66.9 Obesity, unspecified; C91.10 Chronic lymphocytic leukemia of B-cell type not having achieved remission

== ENCOUNTER 2019-04-27 08:18 | Outpatient (RCR) | payer OTHER ==
[2019-03-20 13:16] LABS: BASOPHILS % (AUTO) 0 % (0-10); EOSINOPHILS # (AUTO) 0.2 10^3/uL (0.0-0.3); EOSINOPHILS % (AUTO) 4 % (0-10); HEMATOCRIT 38 % (35-52); HEMOGLOBIN 13.2 G/DL (11.5-16.0); LYMPHOCYTES # (AUTO) 0.6 X 10^3 (1.0-4.0); LYMPHOCYTES % (AUTO) 9 % (12-44); MEAN CORPUSCULAR HEMOGLOBIN 28 PG (25-34); MEAN CORPUSCULAR HGB CONC 34 G/DL (32-36); MEAN CORPUSCULAR VOLUME 82 FL (80-99); MEAN PLATELET VOLUME 10.9 FL (7.4-10.4); MONOCYTES # (AUTO) 0.3 X 10^3 (0.0-1.0); MONOCYTES % (AUTO) 5 % (0-12); NEUTROPHILS % (AUTO) 82 % (42-75); PLATELET COUNT 249 10^3/uL (130-400); RED CELL DISTRIBUTION WIDTH 14.7 % (10.0-14.5); WHITE BLOOD COUNT 6.1 10^3/uL (4.3-11.0)
[2019-03-20 13:34] LABS: ALBUMIN 4.1 GM/DL (3.2-4.5); BILIRUBIN,TOTAL 0.4 MG/DL (0.1-1.0); CALCIUM 9.4 MG/DL (8.5-10.1); CREATININE SERUM 1.02 MG/DL (0.60-1.30); POTASSIUM 4.4 MMOL/L (3.6-5.0); TOTAL PROTEIN 6.6 GM/DL (6.4-8.2)
[2019-04-27 08:38] LABS: BASOPHILS % (AUTO) 0 % (0-10); EOSINOPHILS # (AUTO) 0.2 10^3/uL (0.0-0.3); EOSINOPHILS % (AUTO) 7 % (0-10); HEMATOCRIT 36 % (35-52); HEMOGLOBIN 12.3 G/DL (11.5-16.0); LYMPHOCYTES # (AUTO) 0.5 X 10^3 (1.0-4.0); LYMPHOCYTES % (AUTO) 15 % (12-44); MEAN CORPUSCULAR HEMOGLOBIN 28 PG (25-34); MEAN CORPUSCULAR HGB CONC 34 G/DL (32-36); MEAN CORPUSCULAR VOLUME 83 FL (80-99); MEAN PLATELET VOLUME 10.4 FL (7.4-10.4); MONOCYTES # (AUTO) 0.4 X 10^3 (0.0-1.0); MONOCYTES % (AUTO) 11 % (0-12); NEUTROPHILS # (AUTO) 2.4 X 10^3 (1.8-7.8); NEUTROPHILS % (AUTO) 67 % (42-75); PLATELET COUNT 289 10^3/uL (130-400); RED CELL DISTRIBUTION WIDTH 13.6 % (10.0-14.5); WHITE BLOOD COUNT 3.5 10^3/uL (4.3-11.0)
[2019-04-27 08:56] LABS: BUN/CREATININE RATIO 14; CARBON DIOXIDE 24 MMOL/L (21-32); CHLORIDE 105 MMOL/L (98-107); CREATININE SERUM 0.93 MG/DL (0.60-1.30); POTASSIUM 4.4 MMOL/L (3.6-5.0); SODIUM 138 MMOL/L (135-145)
[2019-04-27 08:57] LABS: ALANINE AMINOTRANSFERASE 86 U/L (0-55); ALKALINE PHOSPHATASE 56 U/L (40-136); BILIRUBIN,TOTAL 0.3 MG/DL (0.1-1.0); CALCIUM 9.2 MG/DL (8.5-10.1); GFR ESTIMATED > 60; GLUCOSE 131 MG/DL (70-105); TOTAL PROTEIN 6.4 GM/DL (6.4-8.2)
[2019-05-18] MEDS ORDERED: AZIT250T12 PO (14:18)
== END 2019-05-28 | disposition home or self-care (01) ==
LOC: ONC 08:18
PROVIDERS: ATTEND Internal Medicine Hematology & Oncology
DX: C91.10 Chronic lymphocytic leukemia of B-cell type not having achieved remission (principal); Z45.2 Encounter for adjustment and management of vascular access device
CPT/HCPCS: 36415; 80053; 83615; 85025; 87324; 87449; 96523; 99213

== ENCOUNTER 2019-05-18 13:02 | Emergency (ER) | payer SELFPAY, OTHER | END 2019-05-18 14:26 | disposition home or self-care (01) | LOC: ER 13:02 ==

== ENCOUNTER → 2019-07-10 | Outpatient (CLI) | payer OTHER ==
[~2019-07-10] MED LIST changes: +AZIT250T12 PO; +BARIUM SUSPENSION 2.1% (VANILLA SILQ) 450 ML PO ONE; +HOLD METFORMIN - RECEIVED CONTRAST 20 ML VIAL IV SCH; +IOHEXOL 350 MG/ML 100 ML (OMNIPAQUE 350) VIAL IV ONE; +NS 100 ML (IVPB) BAG IV ONE
--- NOTE | 2019-07-10 15:46 | Diagnostic Imaging Report ---
PROCEDURE: CT chest with contrast, CT abdomen and pelvis with and without contrast. TECHNIQUE: Pre and post intravenous contrast axial imaging of the abdomen and pelvis and post contrast axial imaging of the chest were performed. Auto Exposure Controls were utilized during the CT exam to meet ALARA standards for radiation dose reduction. INDICATION: Cough, recent history of pneumonia as well as abdominal pain and fatigue. COMPARISON: Comparison is made with prior CT chest from 06/21/[address] abdomen and pelvis from 03/21/2019. FINDINGS: CT CHEST: Previously noted bilateral axillary lymphadenopathy has resolved. There are normal size lymph nodes in the axilla bilaterally on today's study. No definite mediastinal or hilar lymphadenopathy is detected. No pericardial or pleural fluid is identified. No pulmonary infiltrates, nodules or masses are seen. IMPRESSION: Resolution of previously noted bilateral axillary lymphadenopathy. No new abnormality is detected. CT ABDOMEN AND PELVIS: No discrete liver mass is identified. Previously noted hepatic steatosis appears less apparent on today's study. The gallbladder is unremarkable. No biliary duct dilatation is seen. Pancreas and spleen are unremarkable. No adrenal mass is detected. Kidneys are unremarkable. Aorta is nonaneurysmal. No central retroperitoneal or mesenteric lymphadenopathy is detected. Uterine mass is again noted consistent with a fibroid. A right adnexal cyst is seen measuring 3.1 cm. Previously noted left adnexal cyst has resolved. There is no ascites. The bladder is unremarkable. No inguinal or iliac lymphadenopathy is seen. Postsurgical changes in the lower lumbar spine are noted. IMPRESSION: 1. Right adnexal cyst, likely ovarian. 2. Uterine fibroid. 3. No other significant abnormality in the abdomen or pelvis is seen. No lymphadenopathy is detected. Dictated by: Dictated on workstation # [id number]
== END ==
LOC: RAD 14:23
PROVIDERS: ATTEND Internal Medicine Hematology & Oncology
DX: N83.8 Other noninflammatory disorders of ovary, fallopian tube and broad ligament (principal); D25.9 Leiomyoma of uterus, unspecified; C91.10 Chronic lymphocytic leukemia of B-cell type not having achieved remission
CPT/HCPCS: 71260; 74178

== ENCOUNTER → 2019-08-21 | Outpatient (CLI) | payer OTHER ==
[~2019-08-21] MED LIST changes: -BARIUM SUSPENSION 2.1% (VANILLA SILQ) 450 ML PO ONE; -HOLD METFORMIN - RECEIVED CONTRAST 20 ML VIAL IV SCH; -IOHEXOL 350 MG/ML 100 ML (OMNIPAQUE 350) VIAL IV ONE; -NS 100 ML (IVPB) BAG IV ONE; +RT-ALBUTEROL SULF 2.5 MG/3 ML PRE-MIX VIAL INH ONE; +RT-ALBUTEROL SULF 2.5 MG/3 ML PRE-MIX VIAL ONE
== END ==
LOC: RT 11:17
PROVIDERS: ATTEND Nurse Practitioner Family
DX: R05 Cough (principal); R06.00 Dyspnea, unspecified
CPT/HCPCS: 94060; 94640; 94726; 94729

== ENCOUNTER 2019-09-22 12:39 | Outpatient (RCR) | payer OTHER ==
[2019-07-06 13:21] LABS: BASOPHILS % (AUTO) 0 % (0-10); EOSINOPHILS # (AUTO) 0.2 10^3/uL (0.0-0.3); EOSINOPHILS % (AUTO) 3 % (0-10); HEMATOCRIT 38 % (35-52); HEMOGLOBIN 12.6 G/DL (11.5-16.0); LYMPHOCYTES # (AUTO) 0.8 X 10^3 (1.0-4.0); LYMPHOCYTES % (AUTO) 11 % (12-44); MEAN CORPUSCULAR HEMOGLOBIN 27 PG (25-34); MEAN CORPUSCULAR HGB CONC 33 G/DL (32-36); MEAN CORPUSCULAR VOLUME 83 FL (80-99); MEAN PLATELET VOLUME 11.3 FL (7.4-10.4); MONOCYTES # (AUTO) 0.5 X 10^3 (0.0-1.0); MONOCYTES % (AUTO) 6 % (0-12); NEUTROPHILS # (AUTO) 6.1 X 10^3 (1.8-7.8); NEUTROPHILS % (AUTO) 80 % (42-75); PLATELET COUNT 233 10^3/uL (130-400); RED CELL DISTRIBUTION WIDTH 14.3 % (10.0-14.5); WHITE BLOOD COUNT 7.6 10^3/uL (4.3-11.0)
[2019-07-06 13:51] LABS: ALANINE AMINOTRANSFERASE 70 U/L (0-55); ALBUMIN 4.1 GM/DL (3.2-4.5); ALKALINE PHOSPHATASE 60 U/L (40-136); BILIRUBIN,TOTAL 0.3 MG/DL (0.1-1.0); BUN/CREATININE RATIO 15; CALCIUM 9.1 MG/DL (8.5-10.1); CARBON DIOXIDE 27 MMOL/L (21-32); CHLORIDE 105 MMOL/L (98-107); CREATININE SERUM 0.88 MG/DL (0.60-1.30); GFR ESTIMATED > 60; GLUCOSE 123 MG/DL (70-105); POTASSIUM 3.9 MMOL/L (3.6-5.0); SODIUM 140 MMOL/L (135-145); TOTAL PROTEIN 6.7 GM/DL (6.4-8.2)
[~2019-09-22 12:39] MED LIST changes: -RT-ALBUTEROL SULF 2.5 MG/3 ML PRE-MIX VIAL INH ONE; -RT-ALBUTEROL SULF 2.5 MG/3 ML PRE-MIX VIAL ONE
[2019-09-22 12:59] LABS: BASOPHILS % (AUTO) 0 % (0-10); EOSINOPHILS # (AUTO) 0.2 10^3/uL (0.0-0.3); EOSINOPHILS % (AUTO) 3 % (0-10); HEMATOCRIT 38 % (35-52); HEMOGLOBIN 12.7 G/DL (11.5-16.0); LYMPHOCYTES # (AUTO) 0.8 X 10^3 (1.0-4.0); LYMPHOCYTES % (AUTO) 12 % (12-44); MEAN CORPUSCULAR HEMOGLOBIN 27 PG (25-34); MEAN CORPUSCULAR HGB CONC 33 G/DL (32-36); MEAN CORPUSCULAR VOLUME 80 FL (80-99); MEAN PLATELET VOLUME 10.8 FL (7.4-10.4); MONOCYTES # (AUTO) 0.5 X 10^3 (0.0-1.0); MONOCYTES % (AUTO) 7 % (0-12); NEUTROPHILS # (AUTO) 5.6 X 10^3 (1.8-7.8); NEUTROPHILS % (AUTO) 79 % (42-75); PLATELET COUNT 277 10^3/uL (130-400); RED CELL DISTRIBUTION WIDTH 15.2 % (10.0-14.5); WHITE BLOOD COUNT 7.1 10^3/uL (4.3-11.0)
[2019-09-22 13:19] LABS: ALANINE AMINOTRANSFERASE 48 U/L (0-55); ALBUMIN 4.3 GM/DL (3.2-4.5); ALKALINE PHOSPHATASE 51 U/L (40-136); BILIRUBIN,TOTAL 0.2 MG/DL (0.1-1.0); BUN/CREATININE RATIO 14; CALCIUM 9.1 MG/DL (8.5-10.1); CARBON DIOXIDE 20 MMOL/L (21-32); CHLORIDE 107 MMOL/L (98-107); CREATININE SERUM 0.94 MG/DL (0.60-1.30); GFR ESTIMATED > 60; GLUCOSE 107 MG/DL (70-105); POTASSIUM 4.2 MMOL/L (3.6-5.0); SODIUM 138 MMOL/L (135-145); TOTAL PROTEIN 6.9 GM/DL (6.4-8.2)
== END 2019-10-04 | disposition home or self-care (01) ==
LOC: ONC 12:39
PROVIDERS: ATTEND Internal Medicine Hematology & Oncology
DX: C91.10 Chronic lymphocytic leukemia of B-cell type not having achieved remission (principal); Z45.2 Encounter for adjustment and management of vascular access device
CPT/HCPCS: 36415; 36591; 80053; 82784; 83516; 83520; 83615; 84443; 85025; 86255

== ENCOUNTER → 2019-11-13 | Outpatient (CLI) | payer OTHER ==
--- NOTE | 2019-11-13 15:49 | Diagnostic Imaging Report ---
PROCEDURE: MR imaging cervical spine without contrast. TECHNIQUE: Multiplanar, multisequence MR imaging of the cervical spine was performed without contrast. INDICATION: Neck pain and right arm pain and numbness. COMPARISON: Comparison is made with prior MRI of the cervical spine from 11/10/2018. FINDINGS: Straightening of the normal cervical lordotic curvature is similar to prior exam. The marrow signal intensity is unremarkable. There is generalized degenerative disc disease with variable disc space narrowing and desiccation. The cervical cord maintains normal signal intensity and morphology. No abnormal cord signal is seen. C2-C3: Central canal and neural foramina remain widely patent. C3-C4: Broad-based disc/osteophyte complex indents the ventral thecal sac. There appears be a very small right paramidline focal disc/osteophyte, similar to prior. There is some narrowing of the canal. Neural foramina are patent. C4-C5: Broad-based disc/osteophyte complex, asymmetric to the left is again noted, indenting the ventral thecal sac. There is left lateral recess and left neural foramen. Right neural foramen is patent. There is [id number]-rxmbisxf central canal narrowing. C5-C6: Broad-based disc/osteophyte complex and uncovertebral joint degenerative changes result in moderate central canal and significant bilateral neural foraminal stenosis. C6-C7: Broad-based disc/osteophyte complex indents the ventral thecal sac producing [id number] central canal narrowing. There is significant left neural foraminal narrowing. Right neural foramen is patent. C7-T1: Right para midline disc/osteophyte complex indents the ventral thecal sac, similar to prior. No significant central canal or neural foraminal narrowing is seen. Paraspinous tissues are unremarkable. IMPRESSION: Generalized cervical spondylosis with multilevel central canal and neural foraminal narrowing described level by level above. Overall appearance is very similar to the examination from 11/10/2018. Dictated by: Dictated on workstation # [id number]
== END ==
LOC: RAD 14:20
PROVIDERS: ATTEND Nurse Practitioner Primary Care
DX: M48.02 Spinal stenosis, cervical region (principal); M47.22 Other spondylosis with radiculopathy, cervical region; M50.10 Cervical disc disorder with radiculopathy, unspecified cervical region
CPT/HCPCS: 72141

== ENCOUNTER 2019-12-22 12:35 | Outpatient (RCR) | payer OTHER ==
[~2019-12-22 12:35] MED LIST changes: -ONDA8TAB12 PO; +ONDA8TAB15 PO
[2019-12-22 12:54] LABS: BASOPHILS % (AUTO) 0 % (0-10); EOSINOPHILS # (AUTO) 0.2 10^3/uL (0.0-0.3); EOSINOPHILS % (AUTO) 3 % (0-10); HEMATOCRIT 40 % (35-52); LYMPHOCYTES # (AUTO) 0.7 X 10^3 (1.0-4.0); LYMPHOCYTES % (AUTO) 11 % (12-44); MEAN CORPUSCULAR HEMOGLOBIN 27 PG (25-34); MEAN CORPUSCULAR HGB CONC 33 G/DL (32-36); MEAN CORPUSCULAR VOLUME 84 FL (80-99); MEAN PLATELET VOLUME 10.8 FL (7.4-10.4); MONOCYTES # (AUTO) 0.4 X 10^3 (0.0-1.0); MONOCYTES % (AUTO) 6 % (0-12); NEUTROPHILS # (AUTO) 5.6 X 10^3 (1.8-7.8); NEUTROPHILS % (AUTO) 81 % (42-75); PLATELET COUNT 261 10^3/uL (130-400); RED CELL DISTRIBUTION WIDTH 15.4 % (10.0-14.5); WHITE BLOOD COUNT 6.9 10^3/uL (4.3-11.0)
[2019-12-22 13:15] LABS: BILIRUBIN,TOTAL 0.2 MG/DL (0.1-1.0); CALCIUM 9.1 MG/DL (8.5-10.1); CREATININE SERUM 1.09 MG/DL (0.60-1.30); TOTAL PROTEIN 6.6 GM/DL (6.4-8.2)
[2020-03-19 13:27] LABS: BASOPHILS % (AUTO) 0 % (0-10); EOSINOPHILS # (AUTO) 0.3 10^3/uL (0.0-0.3); EOSINOPHILS % (AUTO) 4 % (0-10); HEMATOCRIT 39 % (35-52); LYMPHOCYTES # (AUTO) 0.9 X 10^3 (1.0-4.0); LYMPHOCYTES % (AUTO) 13 % (12-44); MEAN CORPUSCULAR HEMOGLOBIN 28 PG (25-34); MEAN CORPUSCULAR HGB CONC 33 G/DL (32-36); MEAN CORPUSCULAR VOLUME 82 FL (80-99); MEAN PLATELET VOLUME 10.8 FL (7.4-10.4); MONOCYTES # (AUTO) 0.5 X 10^3 (0.0-1.0); MONOCYTES % (AUTO) 7 % (0-12); NEUTROPHILS # (AUTO) 5.6 X 10^3 (1.8-7.8); NEUTROPHILS % (AUTO) 77 % (42-75); PLATELET COUNT 259 10^3/uL (130-400); RED CELL DISTRIBUTION WIDTH 13.7 % (10.0-14.5); WHITE BLOOD COUNT 7.3 10^3/uL (4.3-11.0)
[2020-03-19 13:50] LABS: BILIRUBIN,TOTAL 0.2 MG/DL (0.1-1.0); CREATININE SERUM 1.01 MG/DL (0.60-1.30); POTASSIUM 3.9 MMOL/L (3.6-5.0); TOTAL PROTEIN 6.8 GM/DL (6.4-8.2)
== END 2020-03-19 13:06 | disposition home or self-care (01) ==
LOC: ONC 12:35
PROVIDERS: ATTEND Internal Medicine Hematology & Oncology
DX: C91.10 Chronic lymphocytic leukemia of B-cell type not having achieved remission (principal); Z45.2 Encounter for adjustment and management of vascular access device
CPT/HCPCS: 36591; 80053; 83615; 85025

== ENCOUNTER 2020-03-19 13:10 | Outpatient (RCR) | payer OTHER | END 2020-06-13 11:54 | disposition home or self-care (01) | LOC: ONC 13:10 | PROVIDERS: ATTEND Internal Medicine Hematology & Oncology | DX: C91.10 Chronic lymphocytic leukemia of B-cell type not having achieved remission (principal); Z45.2 Encounter for adjustment and management of vascular access device | CPT/HCPCS: 36591 ==

== ENCOUNTER 2020-06-14 08:47 | Outpatient (RCR) | payer OTHER ==
[2020-06-14 08:57] LABS: BASOPHILS % (AUTO) 0 % (0-10); EOSINOPHILS # (AUTO) 0.2 10^3/uL (0.0-0.3); EOSINOPHILS % (AUTO) 3 % (0-10); HEMATOCRIT 39 % (35-52); LYMPHOCYTES # (AUTO) 1.2 X 10^3 (1.0-4.0); LYMPHOCYTES % (AUTO) 17 % (12-44); MEAN CORPUSCULAR HEMOGLOBIN 27 PG (25-34); MEAN CORPUSCULAR HGB CONC 33 G/DL (32-36); MEAN CORPUSCULAR VOLUME 81 FL (80-99); MEAN PLATELET VOLUME 11.1 FL (7.4-10.4); MONOCYTES # (AUTO) 0.3 X 10^3 (0.0-1.0); MONOCYTES % (AUTO) 4 % (0-12); NEUTROPHILS # (AUTO) 5.5 X 10^3 (1.8-7.8); NEUTROPHILS % (AUTO) 76 % (42-75); PLATELET COUNT 258 10^3/uL (130-400); WHITE BLOOD COUNT 7.3 10^3/uL (4.3-11.0)
[2020-06-14 09:14] LABS: ALBUMIN 4.1 GM/DL (3.2-4.5); BILIRUBIN,TOTAL 0.4 MG/DL (0.1-1.0); CALCIUM 9.3 MG/DL (8.5-10.1); CREATININE SERUM 1.04 MG/DL (0.60-1.30); TOTAL PROTEIN 6.7 GM/DL (6.4-8.2)
== END 2020-07-26 08:27 | disposition home or self-care (01) ==
LOC: ONC 08:47
PROVIDERS: ATTEND Internal Medicine Hematology & Oncology
DX: Z45.2 Encounter for adjustment and management of vascular access device (principal); C91.10 Chronic lymphocytic leukemia of B-cell type not having achieved remission; I10 Essential (primary) hypertension; J45.909 Unspecified asthma, uncomplicated
CPT/HCPCS: 80053; 83615; 85025; G0463

== ENCOUNTER → 2020-07-23 | Outpatient (CLI) | payer OTHER ==
--- NOTE | 2020-07-23 15:21 | Diagnostic Imaging Report ---
PROCEDURE: CT urinary tract, rule out kidney stone. TECHNIQUE: Multiple contiguous axial images were obtained through the abdomen and pelvis without the use of intravenous contrast. Auto Exposure Controls were utilized during the CT exam to meet ALARA standards for radiation dose reduction. INDICATION: Left flank pain, hematuria. COMPARISON: 07/10/2019. FINDINGS: There are no radiopaque urinary tract stones. There is no hydroureteronephrosis. No perinephric or periureteric edema. The unopacified urinary bladder is unremarkable. There is some heterogeneity of the uterus likely fibroids unchanged. There is no appendicitis or diverticulitis. Liver, gallbladder, bile ducts, spleen, adrenals, and pancreas are unremarkable. The aorta is nonaneurysmal. IMPRESSION: Known fibroid uterus. No radiodense urinary tract stone or urinary tract obstruction. No inflammatory process or acute-appearing abnormalities. Dictated by: Dictated on workstation # [id number]
== END ==
LOC: RAD 14:45
PROVIDERS: ATTEND Student in an Organized Health Care Education/Training Program
DX: D25.9 Leiomyoma of uterus, unspecified (principal); R31.9 Hematuria, unspecified
CPT/HCPCS: 74176

== ENCOUNTER 2020-08-29 14:19 | Outpatient (RCR) | payer OTHER ==
[2020-08-29 14:38] LABS: BASOPHILS % (AUTO) 0 % (0-10); EOSINOPHILS # (AUTO) 0.4 10^3/uL (0.0-0.3); EOSINOPHILS % (AUTO) 4 % (0-10); HEMATOCRIT 39 % (35-52); HEMOGLOBIN 12.7 g/dL (11.5-16.0); LYMPHOCYTES # (AUTO) 1.2 10^3/uL (1.0-4.0); LYMPHOCYTES % (AUTO) 12 % (12-44); MEAN CORPUSCULAR HEMOGLOBIN 27 pg (25-34); MEAN CORPUSCULAR HGB CONC 32 g/dL (32-36); MEAN CORPUSCULAR VOLUME 83 fL (80-99); MEAN PLATELET VOLUME 10.6 fL (9.0-12.2); MONOCYTES # (AUTO) 0.5 10^3/uL (0.0-1.0); MONOCYTES % (AUTO) 5 % (0-12); NEUTROPHILS # (AUTO) 8.2 10^3/uL (1.8-7.8); NEUTROPHILS % (AUTO) 79 % (42-75); PLATELET COUNT 272 10^3/uL (130-400); WHITE BLOOD COUNT 10.4 10^3/uL (4.3-11.0)
[2020-08-29 14:57] LABS: ALANINE AMINOTRANSFERASE 28 U/L (0-55); ALKALINE PHOSPHATASE 55 U/L (40-136); BILIRUBIN,TOTAL 0.2 MG/DL (0.1-1.0); BUN/CREATININE RATIO 15; CALCIUM 9.1 MG/DL (8.5-10.1); CARBON DIOXIDE 22 MMOL/L (21-32); CHLORIDE 105 MMOL/L (98-107); CREATININE SERUM 0.96 MG/DL (0.60-1.30); GFR ESTIMATED > 60; GLUCOSE 140 MG/DL (70-105); POTASSIUM 3.9 MMOL/L (3.6-5.0); SODIUM 139 MMOL/L (135-145); TOTAL PROTEIN 6.7 GM/DL (6.4-8.2)
== END 2020-11-08 14:45 | disposition home or self-care (01) ==
LOC: ONC 14:19
PROVIDERS: ATTEND Internal Medicine Hematology & Oncology
DX: C91.11 Chronic lymphocytic leukemia of B-cell type in remission (principal); I10 Essential (primary) hypertension; J45.909 Unspecified asthma, uncomplicated; D50.9 Iron deficiency anemia, unspecified; R31.9 Hematuria, unspecified; Z98.51 Tubal ligation status
CPT/HCPCS: 80053; 85025; G0463; 36591

== ENCOUNTER 2020-11-21 13:50 | Outpatient (RCR) | payer MEDICARE, OTHER ==
[~2020-11-21 13:50] MED LIST changes: +ESCI-2 PO; -ESCI10TA55 PO; -LISI-552 PO; -LISI10TA2 PO; +LISI10TA25 PO; +LISI20TA26 PO
[2020-11-21 14:13] LABS: BASOPHILS % (AUTO) 0 % (0-10); EOSINOPHILS # (AUTO) 0.3 10^3/uL (0.0-0.3); EOSINOPHILS % (AUTO) 4 % (0-10); HEMATOCRIT 42 % (35-52); HEMOGLOBIN 13.3 g/dL (11.5-16.0); LYMPHOCYTES # (AUTO) 1.2 10^3/uL (1.0-4.0); LYMPHOCYTES % (AUTO) 14 % (12-44); MEAN CORPUSCULAR HEMOGLOBIN 27 pg (25-34); MEAN CORPUSCULAR HGB CONC 32 g/dL (32-36); MEAN CORPUSCULAR VOLUME 85 fL (80-99); MEAN PLATELET VOLUME 10.8 fL (9.0-12.2); MONOCYTES # (AUTO) 0.5 10^3/uL (0.0-1.0); MONOCYTES % (AUTO) 6 % (0-12); NEUTROPHILS # (AUTO) 6.6 10^3/uL (1.8-7.8); NEUTROPHILS % (AUTO) 76 % (42-75); PLATELET COUNT 310 10^3/uL (130-400); WHITE BLOOD COUNT 8.7 10^3/uL (4.3-11.0)
[2020-11-21 14:40] LABS: ALANINE AMINOTRANSFERASE 27 U/L (0-55); ALBUMIN 4.1 GM/DL (3.2-4.5); ALKALINE PHOSPHATASE 50 U/L (40-136); BILIRUBIN,TOTAL 0.2 MG/DL (0.1-1.0); BUN/CREATININE RATIO 13; CALCIUM 9.1 MG/DL (8.5-10.1); CARBON DIOXIDE 22 MMOL/L (21-32); CHLORIDE 106 MMOL/L (98-107); CREATININE SERUM 0.92 MG/DL (0.60-1.30); GFR ESTIMATED > 60; GLUCOSE 86 MG/DL (70-105); POTASSIUM 4.2 MMOL/L (3.6-5.0); SODIUM 139 MMOL/L (135-145); TOTAL PROTEIN 6.8 GM/DL (6.4-8.2)
[2021-02-13 13:03] LABS: BASOPHILS % (AUTO) 0 % (0-10); EOSINOPHILS # (AUTO) 0.3 10^3/uL (0.0-0.3); EOSINOPHILS % (AUTO) 3 % (0-10); HEMATOCRIT 41 % (35-52); HEMOGLOBIN 12.9 g/dL (11.5-16.0); LYMPHOCYTES # (AUTO) 1.1 10^3/uL (1.0-4.0); LYMPHOCYTES % (AUTO) 14 % (12-44); MEAN CORPUSCULAR HEMOGLOBIN 27 pg (25-34); MEAN CORPUSCULAR HGB CONC 32 g/dL (32-36); MEAN CORPUSCULAR VOLUME 85 fL (80-99); MEAN PLATELET VOLUME 10.8 fL (9.0-12.2); MONOCYTES # (AUTO) 0.5 10^3/uL (0.0-1.0); MONOCYTES % (AUTO) 6 % (0-12); NEUTROPHILS # (AUTO) 5.7 10^3/uL (1.8-7.8); NEUTROPHILS % (AUTO) 76 % (42-75); PLATELET COUNT 296 10^3/uL (130-400); WHITE BLOOD COUNT 7.6 10^3/uL (4.3-11.0)
[2021-02-13 13:27] LABS: ALANINE AMINOTRANSFERASE 22 U/L (0-55); ALKALINE PHOSPHATASE 47 U/L (40-136); BILIRUBIN,TOTAL 0.3 MG/DL (0.1-1.0); BUN/CREATININE RATIO 13; CALCIUM 8.8 MG/DL (8.5-10.1); CARBON DIOXIDE 21 MMOL/L (21-32); CHLORIDE 107 MMOL/L (98-107); CREATININE SERUM 0.89 MG/DL (0.60-1.30); GFR ESTIMATED > 60; GLUCOSE 86 MG/DL (70-105); SODIUM 139 MMOL/L (135-145); TOTAL PROTEIN 6.7 GM/DL (6.4-8.2)
== END 2021-02-13 12:44 | disposition home or self-care (01) ==
LOC: ONC 13:50
PROVIDERS: ATTEND Internal Medicine Hematology & Oncology
DX: C91.11 Chronic lymphocytic leukemia of B-cell type in remission (principal); I10 Essential (primary) hypertension; J45.909 Unspecified asthma, uncomplicated; D50.9 Iron deficiency anemia, unspecified; R31.9 Hematuria, unspecified; Z98.51 Tubal ligation status
CPT/HCPCS: 36591; 80053; 85025

== ENCOUNTER 2021-05-09 12:58 | Outpatient (RCR) | payer MEDICARE, MEDICAID | END 2021-05-14 | disposition home or self-care (01) | LOC: ONC 12:58 | PROVIDERS: ATTEND Internal Medicine Hematology & Oncology | DX: C91.12 Chronic lymphocytic leukemia of B-cell type in relapse (principal); I10 Essential (primary) hypertension; J45.909 Unspecified asthma, uncomplicated; D50.9 Iron deficiency anemia, unspecified; D63.0 Anemia in neoplastic disease; R31.9 Hematuria, unspecified; F41.9 Anxiety disorder, unspecified; F32.9 Major depressive disorder, single episode, unspecified; E66.9 Obesity, unspecified; Z98.51 Tubal ligation status; Z68.39 Body mass index [BMI] 39.0-39.9, adult; Z79.2 Long term (current) use of antibiotics; Z79.51 Long term (current) use of inhaled steroids; Z79.899 Other long term (current) drug therapy | CPT/HCPCS: 36591; 96523 ==

== ENCOUNTER → 2021-07-29 | Outpatient (CLI) | payer MEDICARE, MEDICAID ==
[~2021-07-29] MED LIST changes: +HOLD METFORMIN - RECEIVED CONTRAST 20 ML VIAL IV SCH; +IOHEXOL 350 MG/ML 100 ML (OMNIPAQUE 350) VIAL IV ONE; +NS 100 ML (IVPB) BAG IV ONE
--- NOTE | 2021-07-29 17:44 | Diagnostic Imaging Report ---
PROCEDURE: CT chest, abdomen, and pelvis with contrast. TECHNIQUE: Multiple contiguous axial images were obtained through the chest, abdomen, and pelvis after the administration of intravenous contrast. Auto Exposure Controls were utilized during the CT exam to meet ALARA standards for radiation dose reduction. INDICATION: Enlarged lymph nodes. Comparison is made with prior CT from 07/10/2019. CT CHEST: A right chest wall port has the tip entering the right atrium. No axillary lymphadenopathy is detected. There is some air in the left axillary vein as well as in the main portal vein perhaps from injection. Small amount of air in the right atrium is noted. No definite mediastinal or hilar lymphadenopathy is detected. No pericardial or pleural fluid is identified. No pulmonary infiltrates, nodules or masses are identified. IMPRESSION: No evidence of thoracic lymphadenopathy or pulmonary mass. CT abdomen and pelvis: No focal liver mass is identified. The gallbladder is unremarkable. There is no biliary duct dilatation. Pancreas and spleen are unremarkable. No adrenal mass is detected. The kidneys are unremarkable. There is no hydronephrosis. Aorta is nonaneurysmal. No central retroperitoneal or mesenteric lymphadenopathy is detected. The small and large bowel loops are normal in caliber. There is a centrally necrotic but enhancing mass in the uterus measuring nearly 5 cm suggestive of fibroid. Bladder is unremarkable. There does appear to be contrast within the vagina, suggestive of a cystovaginal fistula. No pelvic lymphadenopathy is seen. Bony structures demonstrate postoperative changes of posterior instrumented fusion from L2 through L5. IMPRESSION: 1. No evidence of abdominal or pelvic lymphadenopathy. 2. Uterine mass suggestive of a fibroid. 3. Contrast within the vagina, suggestive of a cystovaginal fistula. Dictated by: Dictated on workstation # [id number]
== END ==
LOC: RAD 13:45
PROVIDERS: ATTEND Internal Medicine Hematology & Oncology
DX: N85.8 Other specified noninflammatory disorders of uterus (principal); C83.00 Small cell B-cell lymphoma, unspecified site; R59.1 Generalized enlarged lymph nodes
CPT/HCPCS: 71260; 74177

== ENCOUNTER → 2021-07-29 | Outpatient (CLI) | payer MEDICARE, MEDICAID ==
[~2021-07-29] MED LIST changes: -HOLD METFORMIN - RECEIVED CONTRAST 20 ML VIAL IV SCH; -IOHEXOL 350 MG/ML 100 ML (OMNIPAQUE 350) VIAL IV ONE; -NS 100 ML (IVPB) BAG IV ONE
--- NOTE | 2021-07-30 12:36 | Diagnostic Imaging Report ---
INDICATION: Routine screening. COMPARISON: 04/03/2019. TECHNIQUE: 2D and 3D bilateral screening mammography was performed with CAD. FINDINGS: Both breasts are heterogeneously dense, limiting the sensitivity of mammography. There is a nodular density in the medial right breast just medial to the nipple line on the CC view at mid depth. This appears to be superiorly located on the MLO view. Additional views are recommended. The left breast is unremarkable. There are occasional benign calcifications bilaterally. No malignant appearing microcalcifications are identified. The Qztvpy-i-Njud hub is located in the right axilla. The left axilla is unremarkable. IMPRESSION: Right breast nodular density. Additional views are recommended for further evaluation. ACR BI-RADS Category 0: Incomplete. (Needs additional imaging evaluation). Result letter will be mailed to the patient. Note: At least 10% of breast cancer is not imaged by mammography. Dictated by: Dictated on workstation # [id number]
== END ==
LOC: RAD 13:58
PROVIDERS: ATTEND Obstetrics & Gynecology
DX: Z12.31 Encounter for screening mammogram for malignant neoplasm of breast (principal)
CPT/HCPCS: 77063; 77067

== ENCOUNTER → 2021-08-07 | Outpatient (CLI) | payer MEDICARE, MEDICAID ==
--- NOTE | 2021-08-07 10:02 | Diagnostic Imaging Report ---
INDICATION: Right breast density. Patient presents for additional views. Correlation is made with screening study from 07/30/2021. Unilateral right 2-D and 3-D diagnostic mammography was performed. This includes spot compression CC and ML views as well as conventional 90 degree lateral views. There is a persistent density in the upper right breast approximately 6 cm from the nipple, 12-1:00 o'clock location. This may represent superimposed tissue. Ultrasound of this area is recommended. No suspicious microcalcifications are seen. IMPRESSION: BI-RADS 0 Persistent density in the upper right breast 6 cm from the nipple. Further evaluation with ultrasound is recommended and will be performed today. ACR BI-RADS Category 0: Incomplete. (Needs additional imaging evaluation). Result letter will be mailed to the patient. Note: At least 10% of breast cancer is not imaged by mammography. Dictated by: Dictated on workstation # [id number]
--- NOTE | 2021-08-07 11:32 | Diagnostic Imaging Report ---
INDICATION: Right breast density. CORRELATION is made with diagnostic mammogram earlier the same day as well as screening mammogram from 928.21. Sonographic interrogation of the upper right breast was performed. There is a tiny cyst at the 1:00 location, 4 cm from the nipple measuring 4 mm x 2 mm x 5 mm. This likely accounts for the mammographic density. No concerning sonographic finding is identified. IMPRESSION: BI-RADS Category 2 Small cyst at the 1:00 location of the right breast, likely accounting for the mammographic density. The patient may return to routine annual screening Patient tolerated the procedure and there were no immediate postprocedure complications. ACR BI-RADS Category 2: Benign findings. Result letter will be mailed to the patient. Note: At least 10% of breast cancer is not imaged by mammography. Dictated by: Dictated on workstation # [id number]
== END ==
LOC: RAD 09:15
PROVIDERS: ATTEND Obstetrics & Gynecology
DX: N60.01 Solitary cyst of right breast (principal)

== ENCOUNTER → 2021-08-07 | Outpatient (CLI) | payer MEDICARE, MEDICAID ==
[2021-08-07 10:36] LABS: FREE T4 (FREE THYROXINE) 0.93 NG/DL (0.70-1.48)
== END ==
LOC: LAB 09:03
PROVIDERS: ATTEND Otolaryngology Otolaryngology/Facial Plastic Surgery
DX: E04.1 Nontoxic single thyroid nodule (principal)
CPT/HCPCS: 36415; 84439; 84443

== ENCOUNTER 2021-08-14 13:08 | Outpatient (RCR) | payer MEDICARE, MEDICAID ==
[2021-07-22 10:06] LABS: BASOPHILS % (AUTO) 1 % (0-10); EOSINOPHILS # (AUTO) 0.3 10^3/uL (0.0-0.3); EOSINOPHILS % (AUTO) 4 % (0-10); HEMATOCRIT 44 % (35-52); HEMOGLOBIN 13.7 g/dL (11.5-16.0); LYMPHOCYTES # (AUTO) 1.2 10^3/uL (1.0-4.0); LYMPHOCYTES % (AUTO) 17 % (12-44); MEAN CORPUSCULAR HEMOGLOBIN 26 pg (25-34); MEAN CORPUSCULAR HGB CONC 31 g/dL (32-36); MEAN CORPUSCULAR VOLUME 81 fL (80-99); MEAN PLATELET VOLUME 10.9 fL (9.0-12.2); MONOCYTES # (AUTO) 0.4 10^3/uL (0.0-1.0); MONOCYTES % (AUTO) 6 % (0-12); NEUTROPHILS # (AUTO) 5.1 10^3/uL (1.8-7.8); NEUTROPHILS % (AUTO) 73 % (42-75); PLATELET COUNT 292 10^3/uL (130-400)
[2021-07-22 10:39] LABS: ALBUMIN 4.2 GM/DL (3.2-4.5); BILIRUBIN,TOTAL 0.3 MG/DL (0.1-1.0); CALCIUM 9.7 MG/DL (8.5-10.1); CREATININE SERUM 1.04 MG/DL (0.60-1.30); POTASSIUM 4.6 MMOL/L (3.6-5.0)
[~2021-08-14 13:08] MED LIST changes: +ONDA-106 PO; -ONDA8TAB15 PO
[2021-08-14 13:39] LABS: BASOPHILS % (AUTO) 1 % (0-10); EOSINOPHILS # (AUTO) 0.3 10^3/uL (0.0-0.3); EOSINOPHILS % (AUTO) 4 % (0-10); HEMATOCRIT 40 % (35-52); LYMPHOCYTES # (AUTO) 1.2 10^3/uL (1.0-4.0); LYMPHOCYTES % (AUTO) 15 % (12-44); MEAN CORPUSCULAR HEMOGLOBIN 26 pg (25-34); MEAN CORPUSCULAR HGB CONC 33 g/dL (32-36); MEAN CORPUSCULAR VOLUME 80 fL (80-99); MEAN PLATELET VOLUME 10.9 fL (9.0-12.2); MONOCYTES # (AUTO) 0.4 10^3/uL (0.0-1.0); MONOCYTES % (AUTO) 6 % (0-12); NEUTROPHILS # (AUTO) 5.6 10^3/uL (1.8-7.8); NEUTROPHILS % (AUTO) 74 % (42-75); PLATELET COUNT 285 10^3/uL (130-400); WHITE BLOOD COUNT 7.6 10^3/uL (4.3-11.0)
[2021-08-14 14:05] LABS: BILIRUBIN,TOTAL 0.3 MG/DL (0.1-1.0); CALCIUM 9.2 MG/DL (8.5-10.1); CREATININE SERUM 1.05 MG/DL (0.60-1.30); POTASSIUM 4.2 MMOL/L (3.6-5.0); TOTAL PROTEIN 6.6 GM/DL (6.4-8.2)
== END 2021-10-20 | disposition home or self-care (01) ==
LOC: ONC 13:08
PROVIDERS: ATTEND Internal Medicine Hematology & Oncology
DX: C91.12 Chronic lymphocytic leukemia of B-cell type in relapse (principal); I10 Essential (primary) hypertension; J45.909 Unspecified asthma, uncomplicated; D50.9 Iron deficiency anemia, unspecified; D63.0 Anemia in neoplastic disease; F41.8 Other specified anxiety disorders; E66.9 Obesity, unspecified; Z98.51 Tubal ligation status; Z68.39 Body mass index [BMI] 39.0-39.9, adult; Z79.2 Long term (current) use of antibiotics; Z79.51 Long term (current) use of inhaled steroids; Z79.899 Other long term (current) drug therapy
CPT/HCPCS: 36591; 80053; 83615; 85025; 99213

== ENCOUNTER 2021-11-01 11:00 | Emergency (ER) | payer MEDICARE, MEDICAID ==
[~2021-11-01] VITALS: Ht 160 cm; Wt 96.1 kg
--- NOTE | 2021-11-01 11:39 | ED Abdominal Pain ---
General Stated Complaint: LEFT SIDE ABD PAIN Source of Information: Patient Exam Limitations: No Limitations History of Present Illness Date Seen by Provider: Nov 01, 2021 Time Seen by Provider: 11:38 Initial Comments To ER with left upper abdominal pain since Wednesday (today is Wednesday). She has nausea and food worsens the pain and causes nausea. She denies any abnormal bowels. She denies any urinary troubles. No history of this. Timing/Duration: 3-4 Days Severity/Quality: Cramping Location: LUQ Radiation: No Radiation Activities at Onset: None Associated Symptoms: Denies Symptoms Allergies and Home Medications Allergies Coded Allergies: Sulfa (Sulfonamide Antibiotics) (Verified Allergy, Mild, RASH, 07/26/18) Patient Home Medication List Home Medication List Reviewed: Yes Azithromycin (Azithromycin) 250 Mg Tablet, 250 MG PO UD Prescribed by: MIGUELINA CANALES on 05/18/19 1418 Buspirone HCl (Buspirone HCl) 5 Mg Tablet, 5 MG PO DAILY, (Reported) Entered as Reported by: LISA BREWER on 06/22/18 1406 Buspirone HCl (Buspirone HCl) 5 Mg Tablet, 10 MG PO HS, (Reported) Entered as Reported by: LEONID EL on 08/11/18 0945 Escitalopram Oxalate (Lexapro) 10 Mg Tablet, 10 MG PO DAILY, (Reported) Entered as Reported by: REBEKAH CANALES on 03/21/19 1532 Fexofenadine HCl (Flora Allergy) 180 Mg Tablet, 180 MG PO DAILY, (Reported) Entered as Reported by: LOLI HUFF on 07/26/18 1413 Lisinopril (Lisinopril) 20 Mg Tablet, 20 MG PO DAILY, (Reported) Entered as Reported by: LISA BREWER on 04/14/19 1201 Pantoprazole Sodium (Protonix) 40 Mg Tablet.dr, 40 MG PO DAILY Prescribed by: ES REYES on 11/01/21 1333 Sucralfate (Carafate) 1 Gm Tablet, 1 GM PO QID Prescribed by: ES REYES on 11/01/21 1333 Review of Systems Review of Systems Constitutional: see HPI EENTM: No Symptoms Reported Respiratory: No Symptoms Reported Cardiovascular: No Symptoms Reported Gastrointestinal: See HPI, Abdominal Pain, Nausea Genitourinary: No Symptoms Reported Musculoskeletal: no symptoms reported Skin: no symptoms reported Psychiatric/Neurological: No Symptoms Reported Endocrine: No Symptoms Reported Hematologic/Lymphatic: No Symptoms Reported Past Mzgietz-Hhmedl-Lvfman Hx Immunizations Up To Date PED Vaccines UTD: Yes Seasonal Allergies Seasonal Allergies: Yes Past Medical History Surgeries: Yes (infected lymph node removed, back sx, port , ) Section, Tubal Ligation Respiratory: No Currently Using CPAP: No Currently Using BIPAP: No Cardiac: Yes Hypertension Neurological: No Reproductive Disorders: No Sexually Transmitted Disease: No HIV/AIDS: No Genitourinary: No Gastrointestinal: Yes Diverticulosis, Chronic Diarrhea Musculoskeletal: Yes Chronic Back Pain Endocrine: No HEENT: No Hearing Impairment: Denies Cancer: Yes (CLL) Leukemia What Type of Treatment Did You: Chemotherapy Psychosocial: Yes Anxiety, Depression Integumentary: No Blood Disorders: Yes (LEUKEMIA) Adverse Reaction/Blood Tranf: No Family Medical History Diabetes mellitus 19 FATHER 19 MOTHER Hypertension 19 FATHER 19 MOTHER G8 BROTHER Diabetes, Hypertension Physical Exam Vital Signs Vital Signs - First Documented 11/01/21 11:20 Temp 36.7 Pulse 65 Resp 18 B/P (MAP) 154/94 (114) Pulse Ox 98 O2 Delivery Room Air Capillary Refill : Height/Weight/BMI Height: 5'3.00" Weight: 201lbs. 0.0oz. [id number]; 39.3 BMI Method:Stated General Appearance: WD/WN, no apparent distress HEENT: PERRL/EOMI, normal ENT inspection Neck: non-tender, full range of motion Respiratory: no respiratory distress, no accessory muscle use Cardiovascular: regular rate, rhythm, no murmur Gastrointestinal: normal bowel sounds, soft, tenderness Extremities: normal range of motion, non-tender Neurologic/Psychiatric: alert, normal mood/affect, oriented x 3 Skin: normal color, warm/dry Progress/Results/Core Measures Results/Orders Lab Results Laboratory Tests Test 11/01/21 11:30 11/01/21 12:12 Range/Units White Blood Count 5.8 4.3-11.0 10^3/uL Red Blood Count 5.19 H 3.80-5.11 10^6/uL Hemoglobin 14.0 11.5-16.0 g/dL Hematocrit 43 35-52 % Mean Corpuscular Volume 82 80-99 fL Mean Corpuscular Hemoglobin 27 25-34 pg Mean Corpuscular Hemoglobin Concent 33 32-36 g/dL Red Cell Distribution Width 14.0 10.0-14.5 % Platelet Count 282 130-400 10^3/uL Mean Platelet Volume 10.9 9.0-12.2 fL Immature Granulocyte % (Auto) 1 % Neutrophils (%) (Auto) 70 42-75 % Lymphocytes (%) (Auto) 19 12-44 % Monocytes (%) (Auto) 6 0-12 % Eosinophils (%) (Auto) 4 0-10 % Basophils (%) (Auto) 0 0-10 % Neutrophils # (Auto) 4.1 1.8-7.8 10^3/uL Lymphocytes # (Auto) 1.1 1.0-4.0 10^3/uL Monocytes # (Auto) 0.4 0.0-1.0 10^3/uL Eosinophils # (Auto) 0.2 0.0-0.3 10^3/uL Basophils # (Auto) 0.0 0.0-0.1 10^3/uL Immature Granulocyte # (Auto) 0.0 0.0-0.1 10^3/uL Sodium Level 141 135-145 MMOL/L Potassium Level 4.3 3.6-5.0 MMOL/L Chloride Level 107 98-107 MMOL/L Carbon Dioxide Level 22 21-32 MMOL/L Anion Gap 12 5-14 MMOL/L Blood Urea Nitrogen 11 7-18 MG/DL Creatinine 0.91 0.60-1.30 MG/DL Estimat Glomerular Filtration Rate 65 BUN/Creatinine Ratio 12 Glucose Level 91 70-105 MG/DL Calcium Level 9.4 8.5-10.1 MG/DL Corrected Calcium 9.2 8.5-10.1 MG/DL Total Bilirubin 0.4 0.1-1.0 MG/DL Aspartate Amino Transf (AST/SGOT) 16 5-34 U/L Alanine Aminotransferase (ALT/SGPT) 24 0-55 U/L Alkaline Phosphatase 59 40-136 U/L C-Reactive Protein High Sensitivity 1.67 H 0.00-0.50 MG/DL Total Protein 6.9 6.4-8.2 GM/DL Albumin 4.3 3.2-4.5 GM/DL Lipase 19 8-78 U/L Serum Test, Qualitative NEGATIVE NEGATIVE Urine Color YELLOW Urine Clarity CLEAR Urine pH 6.0 5-9 Urine Specific Dexter <=1.005 1.016-1.022 Urine Protein NEGATIVE NEGATIVE Urine Glucose (UA) NEGATIVE NEGATIVE Urine Ketones NEGATIVE NEGATIVE Urine Nitrite NEGATIVE NEGATIVE Urine Bilirubin NEGATIVE NEGATIVE Urine Urobilinogen 0.2 < = 1.0 MG/DL Urine Leukocyte Esterase NEGATIVE NEGATIVE Urine RBC (Auto) TRACE-I H NEGATIVE Urine RBC NONE /HPF Urine WBC RARE /HPF Urine Squamous Epithelial Cells 0-2 /HPF Urine Crystals NONE /LPF Urine Bacteria NEGATIVE /HPF Urine Casts NONE /LPF Urine Mucus NEGATIVE /LPF Urine Culture Indicated NO My Orders Orders - ES REYES APRN Cbc With Automated Diff (11/01/21 11:35) Hs C Reactive Protein (11/01/21 11:35) Comprehensive Metabolic Panel (11/01/21 11:35) Lipase (11/01/21 11:35) Ua Culture If Indicated (11/01/21 11:35) Ed Iv/Invasive Line Start (11/01/21 11:35) Ct Abdomen/Pelvis W (11/01/21 11:35) Fentanyl Inj (Sublimaze Injection) (11/01/21 11:45) Antacid Suspension (Mylanta Suspension (11/01/21 11:45) Lidocaine 2% Viscous 15 Ml (Xylocaine Vi (11/01/21 11:45) Ondansetron Injection (Zofran Injectio (11/01/21 11:45) Hcg,Qualitative Serum (11/01/21 11:39) Iohexol Injection (Omnipaque 350 Mg/Ml 1 (11/01/21 12:30) Received Contrast (Hold Metformin- Contr (11/01/21 12:30) Ns (Ivpb) (Sodium Chloride 0.9% Ivpb Bag (11/01/21 12:30) Medications Given in ED Current Medications Medications Dose Ordered Sig/Cheri Route Start Time Stop Time Status Last Admin Dose Admin Al Hydrox/Mg Hydrox/Simethicone 30 ml ONCE ONCE PO 11/01/21 11:45 11/01/21 11:46 DC 11/01/21 11:56 30 ML Fentanyl Citrate 50 mcg ONCE ONCE IVP 11/01/21 11:45 11/01/21 11:46 DC 11/01/21 11:56 50 MCG Iohexol 100 ml ONCE ONCE IV 11/01/21 12:30 11/01/21 12:31 DC 11/01/21 12:53 100 ML Lidocaine HCl 15 ml ONCE ONCE PO 11/01/21 11:45 11/01/21 11:46 DC 11/01/21 11:55 15 ML Ondansetron HCl 4 mg ONCE ONCE IVP 11/01/21 11:45 11/01/21 11:46 DC 11/01/21 11:56 4 MG Sodium Chloride 100 ml ONCE ONCE IV 11/01/21 12:30 11/01/21 12:31 DC 11/01/21 12:53 80 ML Vital Signs/I&O 11/01/21 11:20 Temp 36.7 Pulse 65 Resp 18 B/P (MAP) 154/94 (114) Pulse Ox 98 O2 Delivery Room Air Departure Communication (Admissions) 1329-at this time, after fentanyl and gi cocktail, pain is gone. Labs and ct do not reveal source of pain, given location and improvement after gi cocktail likely gastritis. Will dc to home on ppi+carafate. Impression Primary Impression: Gastritis Disposition: 01 HOME, SELF-CARE Condition: Stable Departure-Patient Inst. Decision time for Depature: 13:30 Referrals: [facility] [place]) Primary Care Physician LOLI ARBOLEDA APRN (Family) Primary Care Physician Patient Instructions: Gastritis ED Add. Discharge Instructions: 1. REturn to er for any concerns 2. MEdication as directed. Follow up with your doctor next week Scripts Sucralfate (Carafate) 1 Gm Tablet 1 GM PO QID, #40 TAB Prov: ES REYES COUNTER SERVER 11/01/21 Pantoprazole Sodium (Protonix) 40 Mg Tablet. 40 MG PO DAILY, #30 TAB Prov: ES REYES APRN 11/01/21 SE REYES APRN Nov 01, 2021 11:39
[2021-11-01 11:40] LABS: BASOPHILS % (AUTO) 0 % (0-10); EOSINOPHILS # (AUTO) 0.2 10^3/uL (0.0-0.3); EOSINOPHILS % (AUTO) 4 % (0-10); HEMATOCRIT 43 % (35-52); LYMPHOCYTES # (AUTO) 1.1 10^3/uL (1.0-4.0); LYMPHOCYTES % (AUTO) 19 % (12-44); MEAN CORPUSCULAR HEMOGLOBIN 27 pg (25-34); MEAN CORPUSCULAR HGB CONC 33 g/dL (32-36); MEAN CORPUSCULAR VOLUME 82 fL (80-99); MEAN PLATELET VOLUME 10.9 fL (9.0-12.2); MONOCYTES # (AUTO) 0.4 10^3/uL (0.0-1.0); MONOCYTES % (AUTO) 6 % (0-12); NEUTROPHILS # (AUTO) 4.1 10^3/uL (1.8-7.8); NEUTROPHILS % (AUTO) 70 % (42-75); PLATELET COUNT 282 10^3/uL (130-400); WHITE BLOOD COUNT 5.8 10^3/uL (4.3-11.0)
[2021-11-01] MEDS ORDERED: fentaNYL INJ 100 MCG/2 ML AMP IVP ONE (11:45)
[2021-11-01] MEDS ORDERED: LIDOCAINE 2% VISCOUS 15 ML UDC PO ONE (11:45)
[2021-11-01] MEDS ORDERED: ANTACID SUSP 30 ML UDC (MYLANTA) PO ONE (11:45)
[2021-11-01] MEDS ORDERED: ONDANSETRON 4 MG/2 ML (SDV) Z0FRAN IVP ONE (11:45)
[2021-11-01 11:50] LABS: ALBUMIN 4.3 GM/DL (3.2-4.5); POTASSIUM 4.3 MMOL/L (3.6-5.0)
[2021-11-01 11:52] LABS: CALCIUM 9.4 MG/DL (8.5-10.1)
[2021-11-01 11:53] LABS: TOTAL PROTEIN 6.9 GM/DL (6.4-8.2)
[2021-11-01 11:55] LABS: BILIRUBIN,TOTAL 0.4 MG/DL (0.1-1.0)
[2021-11-01 11:57] LABS: CREATININE SERUM 0.91 MG/DL (0.60-1.30)
[2021-11-01 12:17] LABS: BILIRUBIN,URINE NEGATIVE (NEGATIVE); CLARITY,URINE CLEAR; COLOR,URINE YELLOW; GLUCOSE, URINE (UA) NEGATIVE (NEGATIVE); KETONES,URINE NEGATIVE (NEGATIVE); LEUKOCYTE ESTERASE ,URINE NEGATIVE (NEGATIVE); NITRITE,URINE NEGATIVE (NEGATIVE); PROTEIN,URINE NEGATIVE (NEGATIVE)
[2021-11-01 12:25] LABS: BACTERIA,URINE NEGATIVE /HPF; SQUAMOUS EPITHELIAL CELL,UR 0-2 /HPF; WBC,URINE RARE /HPF
[2021-11-01] MEDS ORDERED: IOHEXOL 350 MG/ML 100 ML (OMNIPAQUE 350) VIAL IV ONE (12:30)
[2021-11-01] MEDS ORDERED: NS 100 ML (IVPB) BAG IV ONE (12:30)
[2021-11-01] MEDS ORDERED: HOLD METFORMIN - RECEIVED CONTRAST 20 ML VIAL IV SCH (12:30)
[2021-11-01] MEDS ORDERED: SUCR1TAB36 PO (13:33)
[2021-11-01] MEDS ORDERED: PANT40TA2 PO (13:33)
--- NOTE | 2021-11-01 13:41 | Diagnostic Imaging Report ---
EXAMINATION: CT abdomen and pelvis with intravenous contrast. TECHNIQUE: Multiple contiguous axial images were obtained through the abdomen and pelvis after the uneventful administration of intravenous contrast. All CT scans use one or more of the following dose optimizing techniques: Automated exposure control, MA and/or KvP adjustment based on patient size and exam type or iterative reconstruction. HISTORY: Left upper quadrant abdominal pain. History of leukemia. COMPARISON: 07/29/2021. FINDINGS: The heart is unremarkable. The included lung bases are clear. The liver, spleen, pancreas, adrenal glands, and kidneys have a normal appearance. There is no pathologically enlarged mesenteric or retroperitoneal adenopathy. The bowel loops are nondilated. There is no free fluid or free air. No acute osseous abnormalities. Posterior fusion changes are visualized from L2 to L5. Ureters and bladder are grossly normal. An enhancing mass is seen within the fundus of the uterus consistent with fibroid. This is similar in appearance to the prior exam. There is no free air, loculated collection, or adenopathy in the pelvis. IMPRESSION: 1. No acute abnormalities are seen in the abdomen and pelvis. No bowel obstruction, free fluid, or free air. 2. Similar appearance of a fibroid within the fundus of the uterus. 3. No pathologically enlarged lymph nodes are seen in the abdomen and pelvis. Dictated by: Dictated on workstation # [id number]
[2021-11-01 13:50] VITALS: BP 134/79
== END 2021-11-01 13:50 | disposition home or self-care (01) ==
LOC: EDUNIT# 11:00 → ER 11:02
DX: K29.70 Gastritis, unspecified, without bleeding (principal); I10 Essential (primary) hypertension; F41.9 Anxiety disorder, unspecified; F32.9 Major depressive disorder, single episode, unspecified; Z79.899 Other long term (current) drug therapy
CPT/HCPCS: 36415; 74177; 80053; 81000; 83690; 84703; 85025; 86141

== ENCOUNTER 2021-11-06 09:17 | Outpatient (RCR) | payer MEDICARE, MEDICAID ==
[~2021-11-06 09:17] MED LIST changes: +PANT40TA2 PO; +SUCR1TAB36 PO
== END 2021-12-01 | disposition home or self-care (01) ==
LOC: ONC 09:17
PROVIDERS: ATTEND Internal Medicine Hematology & Oncology
DX: Z45.2 Encounter for adjustment and management of vascular access device (principal); C91.12 Chronic lymphocytic leukemia of B-cell type in relapse; I10 Essential (primary) hypertension; J45.909 Unspecified asthma, uncomplicated; E66.9 Obesity, unspecified; Z98.51 Tubal ligation status; Z79.2 Long term (current) use of antibiotics; Z79.51 Long term (current) use of inhaled steroids; Z79.899 Other long term (current) drug therapy
CPT/HCPCS: 96523

== ENCOUNTER → 2022-01-26 | Outpatient (CLI) | payer MEDICARE, MEDICAID ==
--- NOTE | 2022-01-26 13:37 | Diagnostic Imaging Report ---
INDICATION: Left breast pain. Correlation is made prior mammogram 07/29/2021 and 04/03/2019. Unilateral left 2-D and 3-D diagnostic mammography was performed with CAD. Left breast remains heterogeneously dense, limiting the sensitivity of mammography. BB marker was placed at the area of pain in the upper and outer aspect of the left breast. The parenchymal pattern is stable. No mass is identified. No malignant-appearing microcalcifications are seen. There are benign calcifications in the left breast. Left axilla is unremarkable. IMPRESSION: BI-RADS Category 0 No mammographic features suspicious for malignancy are identified. Even so, directed sonographic interrogation of the area pain in the upper outer left breast is recommended and will be performed today. ACR BI-RADS Category 0: Incomplete. (Needs additional imaging evaluation). Result letter will be mailed to the patient. Note: At least 10% of breast cancer is not imaged by mammography. Dictated by: Dictated on workstation # [id number]
--- NOTE | 2022-01-26 13:59 | Diagnostic Imaging Report ---
INDICATION: Left breast pain. COMPARISON: Correlation is made with the diagnostic mammogram from earlier this same day. FINDINGS: Sonographic interrogation of the area of pain in the upper outer left breast was performed. No solid or cystic mass is identified. No sonographic abnormality is identified. IMPRESSION: No sonographic abnormality is detected. ACR BI-RADS Category 1: Negative. Dictated by: Dictated on workstation # [id number]
== END ==
LOC: RAD 13:15
PROVIDERS: ATTEND Nurse Practitioner Family
DX: N64.4 Mastodynia (principal)
CPT/HCPCS: 76642; 77065; G0279

== ENCOUNTER → 2022-01-29 | Outpatient (RCR) | payer MEDICARE, MEDICAID ==
[2022-01-29 14:19] LABS: BASOPHILS % (AUTO) 0 % (0-10); EOSINOPHILS # (AUTO) 0.3 10^3/uL (0.0-0.3); EOSINOPHILS % (AUTO) 5 % (0-10); HEMATOCRIT 40 % (35-52); HEMOGLOBIN 13.2 g/dL (11.5-16.0); LYMPHOCYTES # (AUTO) 1.4 10^3/uL (1.0-4.0); LYMPHOCYTES % (AUTO) 20 % (12-44); MEAN CORPUSCULAR HEMOGLOBIN 27 pg (25-34); MEAN CORPUSCULAR HGB CONC 33 g/dL (32-36); MEAN CORPUSCULAR VOLUME 82 fL (80-99); MEAN PLATELET VOLUME 10.9 fL (9.0-12.2); MONOCYTES # (AUTO) 0.5 10^3/uL (0.0-1.0); MONOCYTES % (AUTO) 8 % (0-12); NEUTROPHILS # (AUTO) 4.8 10^3/uL (1.8-7.8); NEUTROPHILS % (AUTO) 68 % (42-75); PLATELET COUNT 327 10^3/uL (130-400)
[2022-01-29 14:30] LABS: ALBUMIN 3.9 GM/DL (3.2-4.5)
[2022-01-29 14:32] LABS: CALCIUM 8.9 MG/DL (8.5-10.1)
[2022-01-29 14:33] LABS: TOTAL PROTEIN 6.5 GM/DL (6.4-8.2)
[2022-01-29 14:35] LABS: BILIRUBIN,TOTAL 0.2 MG/DL (0.1-1.0)
[2022-01-29 14:36] LABS: CREATININE SERUM 0.98 MG/DL (0.60-1.30)
== END ==
LOC: ONC 13:57
PROVIDERS: ATTEND Internal Medicine Hematology & Oncology
DX: Z45.2 Encounter for adjustment and management of vascular access device (principal); C91.12 Chronic lymphocytic leukemia of B-cell type in relapse; I10 Essential (primary) hypertension; J45.909 Unspecified asthma, uncomplicated; E66.9 Obesity, unspecified; Z98.51 Tubal ligation status; Z79.2 Long term (current) use of antibiotics; Z79.51 Long term (current) use of inhaled steroids; Z79.899 Other long term (current) drug therapy
CPT/HCPCS: 80053; 83615; 85025; G0463; 36591; 99213

== ENCOUNTER 2022-04-29 10:03 | Outpatient (RCR) | payer MEDICARE, MEDICAID | END 2022-04-30 | LOC: ONC 10:03 | PROVIDERS: ATTEND Internal Medicine Hematology & Oncology | DX: Z45.2 Encounter for adjustment and management of vascular access device (principal); C91.12 Chronic lymphocytic leukemia of B-cell type in relapse; I10 Essential (primary) hypertension; J45.909 Unspecified asthma, uncomplicated; E66.9 Obesity, unspecified; Z79.899 Other long term (current) drug therapy | CPT/HCPCS: 96523 ==

== ENCOUNTER → 2022-05-27 | Outpatient (CLI) | payer MEDICARE, MEDICAID ==
--- NOTE | 2022-05-27 09:09 | Diagnostic Imaging Report ---
PROCEDURE: US Gallbladder. TECHNIQUE: Multiple real-time grayscale images were obtained over the right upper quadrant in various projections. INDICATION: Right upper quadrant pain. EXAMINATION: Ultrasound gallbladder 05/27/2022 FINDINGS: The liver appears unremarkable with no focal masses or lesions appreciated. There is no intrahepatic biliary dilatation. The common duct is 0.5 cm in thickness. Gallbladder wall within normal limits with no pericholecystic fluid or cholelithiasis appreciated. Pancreas is obscured by overlying bowel gas. Visualized aspects of the aorta and IVC unremarkable. Right kidney 10.4 cm in length. There is no hydronephrosis. No solid or cystic lesions appreciated. IMPRESSION: 1. Unremarkable right upper quadrant sonogram. Dictated by: Dictated on workstation # [id number]
== END ==
LOC: RAD 08:22
PROVIDERS: ATTEND Nurse Practitioner Family
DX: R10.13 Epigastric pain (principal); R10.11 Right upper quadrant pain
CPT/HCPCS: 76705

== ENCOUNTER → 2022-06-05 | Outpatient (CLI) | payer MEDICARE, MEDICAID ==
[~2022-06-05] MED LIST changes: +CATHETER FLUSH 10 ML SYR IV PRN; +HOLD METFORMIN - RECEIVED CONTRAST 20 ML VIAL IV SCH; +IOHEXOL 350 MG/ML 100 ML (OMNIPAQUE 350) VIAL IV ONE; +NS 100 ML (IVPB) BAG IV ONE
--- NOTE | 2022-06-05 13:21 | Diagnostic Imaging Report ---
PROCEDURE: CT abdomen and pelvis with contrast. TECHNIQUE: Multiple contiguous axial images were obtained through the abdomen and pelvis after administration of intravenous contrast. Auto Exposure Controls were utilized during the CT exam to meet ALARA standards for radiation dose reduction. All CT scans use one or more of the following dose optimizing techniques: Automated exposure control, MA and/or KvP adjustment based on patient size and exam type or iterative reconstruction. INDICATION: Right upper quadrant pain. Patient does have a history of leukemia. COMPARISON: Correlation is made with prior CT from 11/01/2021. FINDINGS: Lung bases are clear. No focal liver mass is identified. The gallbladder is unremarkable. There is no biliary ductal dilatation. Pancreas and spleen are unremarkable. No adrenal mass is identified. Kidneys are unremarkable apart from a tiny cortical low-attenuation lesion in the upper pole of the left kidney, likely a cyst. No calculi or hydronephrosis is identified. There is some questionable mild enhancement to the proximal right ureter, but no discrete mass is identified. Bladder is decompressed. The uterus contains an enhancing mass consistent with a fibroid. This was seen previously. Aorta is nonaneurysmal. Small and large bowel loops are normal in caliber. There is no obstruction. No free fluid or fluid collection is seen. Bony structures demonstrate postop changes of posterior instrumented fusion from L2 through L5. IMPRESSION: 1. Fibroid uterus. 2. There is some mild enhancement to the proximal right ureteral wall, perhaps owing to urinary tract infection. No mass or calculus is seen. There is no hydronephrosis. Dictated by: Dictated on workstation # [id number]
== END ==
LOC: RAD 12:15
PROVIDERS: ATTEND Nurse Practitioner Family
DX: D25.9 Leiomyoma of uterus, unspecified (principal); Z85.6 Personal history of leukemia
CPT/HCPCS: 74177

== ENCOUNTER → 2022-06-22 | Outpatient (CLI) | payer MEDICARE, MEDICAID ==
[~2022-06-22] MED LIST changes: -CATHETER FLUSH 10 ML SYR IV PRN; +CATHETER FLUSH 10 ML SYR IVP PRN; -HOLD METFORMIN - RECEIVED CONTRAST 20 ML VIAL IV SCH; -IOHEXOL 350 MG/ML 100 ML (OMNIPAQUE 350) VIAL IV ONE; -NS 100 ML (IVPB) BAG IV ONE
--- NOTE | 2022-06-22 18:18 | Diagnostic Imaging Report ---
INDICATION: Right upper quadrant abdominal pain. Patient was administered 5.2 mCi technetium 99m Choletec intravenously and imaging over the abdomen was performed. At 45 minutes, patient ingested 8 ounces of Ensure and the gallbladder ejection fraction was calculated. Patient denied discomfort during the study. There is homogeneous uptake of activity by the liver with prompt excretion of activity into the gallbladder and common duct. Normal passage of activity into the small bowel is noted. Gallbladder ejection fraction is abnormally low at 8%. Normal values are 35% or greater. IMPRESSION: 1. Patent cystic duct and common bile duct. 2. Low gallbladder ejection fraction of 8%. Dictated by: Dictated on workstation # [id number]
== END ==
LOC: CARD 12:45
PROVIDERS: ATTEND Nurse Practitioner Family
DX: R10.11 Right upper quadrant pain (principal)
CPT/HCPCS: 78227; A9537

== ENCOUNTER 2022-07-01 06:18 | Outpatient (CLI) | payer MEDICARE, MEDICAID ==
[~2022-07-01] VITALS: Ht 160 cm; Wt 96.1 kg
[~2022-07-01 06:18] MED LIST changes: -CATHETER FLUSH 10 ML SYR IVP PRN
[2022-07-02] MEDS ORDERED: LOSA25TA41 PO (12:26)
[2022-07-02] MEDS ORDERED: FLUO10CA29 PO (12:26)
== END 2022-07-02 15:59 | disposition home or self-care (01) ==
LOC: PREOP 06:18
PROVIDERS: ATTEND Surgery
DX: Z01.818 Encounter for other preprocedural examination (principal)

== ENCOUNTER → 2022-07-08 | Day surgery (SDC) | payer MEDICARE, MEDICAID ==
[2022-07-08] VITALS (13 sets, daily range): BP systolic 129–194; BP diastolic 79–105
[~2022-07-08] VITALS: Ht 160 cm; Wt 96.1 kg
[~2022-07-08] MED LIST changes: +ATROPINE INJ 0.4 MG/ML SDV ONE; +FLUO10CA29 PO; +GLYCOPYRROLATE 0.2 MG/ML (ROBINUL) 2 ML VIAL ONE; +HYDROcodone/APAP 5 MG/325 MG (LORTAB) TAB ONE; +HYDROcodone/APAP 5 MG/325 MG (LORTAB) TAB PO ONE; +HYDROmorphone 2 MG/ML VIAL (DILAUDID) IV ONE; +INDOCYANINE GREEN 25 MG (ICG) VIAL IV ONE; +LIDOCAINE PF 1% 5 ML (XYLOCAINE) AMP ONE; +LIDOCAINE/EPI 2% 1:100,00 (XYLOCAINE) 20 ML VIAL INJ ONE; +LIDOCAINE/EPI 2% 1:200,00 (XYLOCAINE) 20 ML VIAL ONE; +LOSA25TA41 PO; +MEPERIDINE (DEMEROL) INJ 50 MG/ML IVP ONE; +MIDAZOLAM 2 MG/2 ML (VERSED) VIAL ONE; +NEOSTIGMINE (BLOXIVERZ ) 1 MG/1ML 10 ML VIAL ONE; +ONDANSETRON 4 MG/2 ML (SDV) Z0FRAN IVP PRN; +ONDANSETRON 4 MG/2 ML (SDV) Z0FRAN ONE; +PROMETHAZINE INJ 25 MG/ML (PHENERGAN) AMP IVP ONE; +ROCURONIUM 10 MG/ML 5 ML SYRINGE IV ONE; +SEVOFLURANE (ULTANE) 15 ML INHAL SOLN ONE; +ceFAZolin INJECTION 3,000 MG in NS (IVPB) 100 ML IV ONE; +fentaNYL INJ 100 MCG/2 ML AMP ONE; +morphine INJ 10 MG/ML 1ML (SYR OR VIAL) IVP ONE; +morphine INJ 10 MG/ML 1ML (SYR OR VIAL) ONE; +proPOfol 200 MG/20 ML (DIPRIVAN) VIAL IV ONE
[2022-07-08] MEDS: LACTATED RINGERS 1,000 ML IV PRN ×2 (07:53→10:41)
--- NOTE | 2022-07-08 08:28 | Progress Note-Pre Operative ---
Pre-Operative Progress Note Date of Available H&P: Jun 30, 2022 Date H&P Reviewed: Jul 08, 2022 Time H&P Reviewed: 08:24 History & Physical: H&P Reviewed, Patient Examed, No changes noted Pre-Operative Diagnosis: Biliary Dyskinesia BRITTANY العلي DO Jul 08, 2022 08:28
--- NOTE | 2022-07-08 11:11 | Progress Note-Post Operative ---
Post-Operative Progess Note Surgeon (s)/Cooper Apprentice (s) Surgeon BRITTANY العلي DO Cooper Apprentice: Suzy Pre-Operative Diagnosis Biliary Dyskinesia Post-Operative Diagnosis same Procedure & Operative Findings Date of Procedure 07/08/22 Procedure Performed/Findings PROCEDURE: Laparoscopic cholecystectomy with intraoperative cholangiogram. COMPLICATIONS: None. PROCEDURE: The patient was taken to the operating suite and was prepped and draped in a sterile fashion. A surgical pause was performed. Just superior to the umbilicus, a 12 mm incision was made. Dissection was taken down to the fascia, which was then scored and grasped with a Mich and the abdomen was then entered. An 0 Vicryl suture was placed in a bvfhah-na-nupup fashion and a Morales trocar was placed and secured. Pneumoperitoneum was achieved. Three 8mm trochars were placed; one on the right and two on the left almost in line with supra- umbilical trochar. The instruments were placed and the robot was docked to the patient. The gallbladder was then grasped and elevated superiorly while a second grasper pulled infero-laterally. There was a lot of fat around the gallbladder (adhesions) which usually indicates previous gallbladder attacks. The cystic duct and cystic artery were then dissected out. Clip was placed on the distal portion of the cystic duct. The cholangiogram was then performed; using the ICG dye. Able to visualize the cystic duct going into the commone duct and saw the common hepatic. There did not appear to be any blockage down towards duodenum. Clips were placed on proximal portion of the cystic duct and on the cystic artery. The duct was then transected, as was the cystic artery. Hook cautery was used to dissect the gallbladder from the gallbladder fossa achieving hemostasis. The gallbladder was placed in an Endobag and removed through the 12 mm trocar site. The abdomen was then reinspected. Copious amounts of irrigation were used to irrigate the abdomen and there were no signs of active bleeding. Hemostasis had been achieved. The 12 mm fascial defect was then closed with 0 Vicryl suture that had been placed in a [id number] fashion. The abdomen was then desufflated, the trocars were removed. The abdomen was then washed and dried. The skin was then closed using 4-0 Monocryl in a subcuticular fashion. The abdomen was washed and dried and Skin Affix was place over incisions. Patient tolerated the procedure well without any complications and was taken to the recovery room in stable condition. Dr. Almonte helped in this case; making incisions, closing incisions, identifying anatomy, taking the gallbladder out. Anesthesia Type GET Estimated Blood Loss Estimated blood loss (mL): scant Specimens/Packing Specimens Removed GB and contents BRITTANY العلي DO Jul 08, 2022 11:11
--- NOTE | 2022-07-08 11:14 | Discharge Inst-Surgical ---
Discharge Inst-Surgical Depart Medication/Instructions New, Converted or Re-Newed RX: Transmitted to Pharmacy Patient Instructions Follow up Appt: Make appointment for 1 week. [phone] Instructions: No lifting greater than 20 pounds. No strenuous activity. May shower in 24 hours, no tub bath or soaking. Use incentive spirometer at home as directed. No Smoking Skin/Wound Care: May remove bandages in am. You need to leave the Dermabond on incision it will fall off on it's own. Symptoms to Report: Appetite Changes, Extremity Discoloration, Numbness/Tingling, Swelling Increased, Bleeding Excessive, Eyesight Changes, Pain Increased, Urine Color Change, Constipation(Persistent), Fever over 101 degree F, Pain/Pressure in chest, Urinating Difficulty, Cough Up/Vomit Blood, Heart Beat Irreg/Pounding, Pain/Pressure in jaw, Cramps in feet or legs, Lightheadedness, Pain/Pressure in shoulder, Diarrhea(Persistent), Memory Changes Suddenly, Questions/Concerns, Weight gain consecutive days, Dizziness/Fainting, Nausea/Vomiting, Shortness of Breath, Weight gain over 2 pounds If questions or concerns contact your physician Or seek help at emergency department. Activity Activity as Tolerated: Yes Activity Instructions: Avoid Stress to Incision Driving Instructions: No Driving/Refer to Dr. Burgos Discharge Diet: Avoid Fatty Foods, Low Fat/Low Cholesterol If Any Problems/Questions/Issu: Contact Your Physician, Go to Emergency Room Skin/Wound Care Infection Signs and Symptoms: Increased Redness, Foul Odor of Wound, Increased Drainage, Skin Itchy or Has a Rash, Increased Swelling, Temperature Above 101 F Bathing Instructions: Shower Stitches/Valeria/Dermabond Dis: BRITTANY Carrillo DO Jul 08, 2022 11:14
--- NOTE | 2022-07-08 11:35 | Anesthesia-General Post-Op ---
General Patient Condition Mental Status/LOC: Same as Preop Cardiovascular: Satisfactory Nausea/Vomiting: Absent Respiratory: Satisfactory Pain: Controlled Complications: Absent Post Op Complications Complications None Follow Up Care/Instructions Patient Instructions None needed. Anesthesia/Patient Condition Patient Condition Patient is doing well, no complaints, stable vital signs, no apparent adverse anesthesia problems. No complications reported per nursing. MALIK IVEY CRNA Jul 08, 2022 11:35
== END | disposition home or self-care (01) ==
LOC: SDC 07:28
PROVIDERS: ATTEND Surgery
DX: K82.8 Other specified diseases of gallbladder (principal); K81.1 Chronic cholecystitis; E66.01 Morbid (severe) obesity due to excess calories; Z68.37 Body mass index [BMI] 37.0-37.9, adult
CPT/HCPCS: 84703; 87081; 88304

== ENCOUNTER → 2022-07-16 | Outpatient (CLI) | payer MEDICARE, MEDICAID ==
[~2022-07-16] MED LIST changes: -ATROPINE INJ 0.4 MG/ML SDV ONE; +CATHETER FLUSH 10 ML SYR IV PRN; +CEPH500C PO; -GLYCOPYRROLATE 0.2 MG/ML (ROBINUL) 2 ML VIAL ONE; +HOLD METFORMIN - RECEIVED CONTRAST 20 ML VIAL IV SCH; -HYDROcodone/APAP 5 MG/325 MG (LORTAB) TAB ONE; -HYDROcodone/APAP 5 MG/325 MG (LORTAB) TAB PO ONE; -HYDROmorphone 2 MG/ML VIAL (DILAUDID) IV ONE; -INDOCYANINE GREEN 25 MG (ICG) VIAL IV ONE; +IOHEXOL 350 MG/ML 100 ML (OMNIPAQUE 350) VIAL IV ONE; -LIDOCAINE PF 1% 5 ML (XYLOCAINE) AMP ONE; -LIDOCAINE/EPI 2% 1:100,00 (XYLOCAINE) 20 ML VIAL INJ ONE; -LIDOCAINE/EPI 2% 1:200,00 (XYLOCAINE) 20 ML VIAL ONE; -MEPERIDINE (DEMEROL) INJ 50 MG/ML IVP ONE; -MIDAZOLAM 2 MG/2 ML (VERSED) VIAL ONE; -NEOSTIGMINE (BLOXIVERZ ) 1 MG/1ML 10 ML VIAL ONE; +NS 100 ML (IVPB) BAG IV ONE; -ONDANSETRON 4 MG/2 ML (SDV) Z0FRAN IVP PRN; -ONDANSETRON 4 MG/2 ML (SDV) Z0FRAN ONE; -PROMETHAZINE INJ 25 MG/ML (PHENERGAN) AMP IVP ONE; -ROCURONIUM 10 MG/ML 5 ML SYRINGE IV ONE; -SEVOFLURANE (ULTANE) 15 ML INHAL SOLN ONE; -ceFAZolin INJECTION 3,000 MG in NS (IVPB) 100 ML IV ONE; -fentaNYL INJ 100 MCG/2 ML AMP ONE; -morphine INJ 10 MG/ML 1ML (SYR OR VIAL) IVP ONE; -morphine INJ 10 MG/ML 1ML (SYR OR VIAL) ONE; -proPOfol 200 MG/20 ML (DIPRIVAN) VIAL IV ONE
[2022-07-16 11:10] LABS: BASOPHILS % (AUTO) 0 % (0-10); EOSINOPHILS # (AUTO) 0.4 10^3/uL (0.0-0.3); EOSINOPHILS % (AUTO) 3 % (0-10); HEMATOCRIT 42 % (35-52); HEMOGLOBIN 13.8 g/dL (11.5-16.0); LYMPHOCYTES # (AUTO) 1.2 10^3/uL (1.0-4.0); LYMPHOCYTES % (AUTO) 10 % (12-44); MEAN CORPUSCULAR HEMOGLOBIN 26 pg (25-34); MEAN CORPUSCULAR HGB CONC 33 g/dL (32-36); MEAN CORPUSCULAR VOLUME 81 fL (80-99); MEAN PLATELET VOLUME 10.3 fL (9.0-12.2); MONOCYTES # (AUTO) 0.7 10^3/uL (0.0-1.0); MONOCYTES % (AUTO) 6 % (0-12); NEUTROPHILS # (AUTO) 9.3 10^3/uL (1.8-7.8); NEUTROPHILS % (AUTO) 80 % (42-75); PLATELET COUNT 309 10^3/uL (130-400); WHITE BLOOD COUNT 11.6 10^3/uL (4.3-11.0)
[2022-07-16 11:41] LABS: ALBUMIN 4.3 GM/DL (3.2-4.5); BILIRUBIN,TOTAL 0.5 MG/DL (0.1-1.0); CALCIUM 9.4 MG/DL (8.5-10.1); CREATININE SERUM 0.96 MG/DL (0.60-1.30); POTASSIUM 4.5 MMOL/L (3.6-5.0)
--- NOTE | 2022-07-16 14:39 | Diagnostic Imaging Report ---
PROCEDURE: CT chest, abdomen, and pelvis with contrast. TECHNIQUE: Multiple contiguous axial images were obtained through the chest, abdomen, and pelvis after the administration of intravenous contrast. Auto Exposure Controls were utilized during the CT exam to meet ALARA standards for radiation dose reduction. INDICATION: B-cell lymphoma. Patient is also status post recent cholecystectomy. COMPARISON: Comparison is made with prior CT chest from 07/09/[address] abdomen and pelvis from 06/05/2022. FINDINGS: CT CHEST: A right chest wall port remains in place. Tip again appears to be located within the right atrium and perhaps extending partially into the right ventricle as well. No axillary lymphadenopathy is identified. No mediastinal or hilar lymphadenopathy is detected. No pericardial or pleural fluid is identified. Lungs show some linear scarring or atelectasis in the right lower lobe. No pulmonary nodule, mass or infiltrate is detected. IMPRESSION: Stable CT chest. There is no evidence of thoracic lymphadenopathy. CT ABDOMEN AND PELVIS: No focal liver mass is detected. Gallbladder is surgically absent. There is no biliary ductal dilatation. Pancreas and spleen are unremarkable. No adrenal mass is detected. Kidneys are without calculi or hydronephrosis. Aorta is nonaneurysmal. Postop changes in midline anterior abdominal wall are noted. The bowel loops are normal in caliber. There is no obstruction. Uterine fibroids again noted. Bladder is unremarkable. There is no free fluid or fluid collection. No abdominal or pelvic lymphadenopathy is detected. Postop changes of posterior instrumented fusion in the lower lumbar spine are noted. IMPRESSION: Stable CT abdomen and pelvis since exam from 06/05/2022. There is no evidence of abdominal or pelvic lymphadenopathy. Dictated by: Dictated on workstation # [id number]
== END ==
LOC: RAD 10:47
PROVIDERS: ATTEND Internal Medicine Hematology & Oncology
DX: C83.00 Small cell B-cell lymphoma, unspecified site (principal); R10.84 Generalized abdominal pain; Z90.49 Acquired absence of other specified parts of digestive tract
CPT/HCPCS: 36415; 71260; 74177; 80053; 85025

== ENCOUNTER 2022-07-19 15:12 | Emergency (ER) | payer MEDICARE, MEDICAID ==
[~2022-07-19] VITALS: Ht 160 cm; Wt 97.0 kg
[~2022-07-19 15:12] MED LIST changes: -CATHETER FLUSH 10 ML SYR IV PRN; -CEPH500C PO; -HOLD METFORMIN - RECEIVED CONTRAST 20 ML VIAL IV SCH; -IOHEXOL 350 MG/ML 100 ML (OMNIPAQUE 350) VIAL IV ONE; -NS 100 ML (IVPB) BAG IV ONE
--- NOTE | 2022-07-19 15:31 | ED Abdominal Pain ---
General Chief Complaint: Abdominal/GI Problems Stated Complaint: RIGHT SIDE ABD PAIN UTI SYMPTOMS/BLOOD IN URINE Nursing Triage Note: TO ROOM 06 VIA AMBULATORY. COMPLAINS OF RIGHT SIDE PAIN THAT RADIATES INTO SHOULDER. HAD A LAP CHOLEY 1.[address] العلي RECENTLY FOR THIS PAIN AND HAD A CT AND BLOOD WORK DONE HERE THAT WAS NEG. Source of Information: Patient Exam Limitations: No Limitations History of Present Illness Date Seen by Provider: Jul 19, 2022 Time Seen by Provider: 15:25 Initial Comments Patient presents to the emergency department with right sided abdominal pain that radiates into right shoulder. Had her gallbladder taken out about week and half ago. Saw surgeon on for the same complaint and had CT scan done at that time. Reports that everything looked good with that. No history of kidney stones in the past. States that yesterday when she urinated she noticed bright red blood in her urine. Denies dysuria. Denies fever. Timing/Duration: 4-5 Days Severity/Quality: Moderate Location: Other Radiation: Shoulder (right) Activities at Onset: None Modifying Factors: Worsens With Lying down, Worsens With Movement, Worsens With Palpation Associated Symptoms: Back Pain; No Chest Pain, No Diaphoresis, No Fever/Chills; Nausea/Vomiting Allergies and Home Medications Allergies Coded Allergies: Sulfa (Sulfonamide Antibiotics) (Verified Allergy, Mild, RASH, 07/26/18) Patient Home Medication List Home Medication List Reviewed: Yes Buspirone HCl (Buspirone HCl) 5 Mg Tablet, 5 MG PO DAILY, (Reported) Entered as Reported by: LISA BREWER on 06/22/18 1406 Buspirone HCl (Buspirone HCl) 5 Mg Tablet, 10 MG PO HS, (Reported) Entered as Reported by: LEONID EL on 08/11/18 0945 Fexofenadine HCl (Flora Allergy) 180 Mg Tablet, 180 MG PO DAILY, (Reported) Entered as Reported by: LOLI HUFF on 07/26/18 1413 Fluoxetine HCl (Prozac) 10 Mg Capsule, 10 MG PO DAILY, (Reported) Entered as Reported by: PRINCE BUNCH on 07/02/22 1226 Hydrocodone Bit/Acetaminophen (HYDROcodone/APAP 5 MG/325 MG TAB) 1 Tab Tab, 1 TAB PO Q8H PRN for PAIN-MODERATE (5-7) Prescribed by: BRITTANY العلي on 07/08/22 1113 Losartan Potassium (Losartan Potassium) 25 Mg Tablet, 25 MG PO DAILY, (Reported) Entered as Reported by: PRINCE BUNCH on 07/02/22 1226 Pantoprazole Sodium (Protonix) 40 Mg Tablet.dr, 40 MG PO DAILY Prescribed by: ES REYES on 11/01/21 1333 Review of Systems Review of Systems Constitutional: No chills, No dizziness, No fever Respiratory: No Symptoms Reported Cardiovascular: No Symptoms Reported Gastrointestinal: Abdominal Pain; Denies Diarrhea; Nausea; Denies Vomiting Genitourinary: Burning; Denies Discharge, Denies Frequency; Flank Pain (right sided) Musculoskeletal: No joint pain, No joint swelling Skin: no symptoms reported All Other Systems Reviewed Negative Unless Noted: Yes Past Tnjunly-Lbzdrf-Bomugb Hx Patient Social History Tobacco Use?: No Substance use?: No Alcohol Use?: No Immunizations Up To Date PED Vaccines UTD: Yes First/Initial COVID19 Vaccinat: DECEMBER 2020 Second COVID19 Vaccination Kiran: UNKNOWN Third COVID19 Vaccination Date: DECEMBER 2020 COVID19 Vaccine Aml Analyst: T-SystemA Seasonal Allergies Seasonal Allergies: Yes Past Medical History Surgeries: Yes (infected lymph node removed, back sx X2, NECK, port ) Section, Orthopedic, Tubal Ligation Respiratory: Yes Asthma Currently Using CPAP: No Currently Using BIPAP: No Cardiac: Yes Hypertension Neurological: No 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 Sexually Transmitted Disease: No HIV/AIDS: No Genitourinary: No Gastrointestinal: Yes Gastroesophageal Reflux, Diverticulosis, Chronic Diarrhea Musculoskeletal: Yes Chronic Back Pain Endocrine: No HEENT: No Hearing Impairment: Denies Cancer: Yes (CLL) Leukemia Did You Recieve Any Treatments: Yes What Type of Treatment Did You: Chemotherapy Psychosocial: Yes Anxiety, Depression Integumentary: No Blood Disorders: Yes (LEUKEMIA) Adverse Reaction/Blood Tranf: No Family Medical History Reviewed Nursing Family Hx Diabetes mellitus 19 FATHER 19 MOTHER Hypertension 19 FATHER 19 MOTHER G8 BROTHER Diabetes, Hypertension Physical Exam Vital Signs Vital Signs - First Documented 07/19/22 15:15 Temp 37.1 Pulse 70 Resp 16 B/P (MAP) 183/99 (127) Pulse Ox 95 O2 Delivery Room Air Capillary Refill : Less Than 3 Seconds Height/Weight/BMI Height: 5'3.00" Weight: 201lbs. 0.0oz. [id number]; 37.00 BMI Method:Stated General Appearance: WD/WN, no apparent distress Respiratory: chest non-tender, lungs clear, normal breath sounds, no respiratory distress, no accessory muscle use Cardiovascular: regular rate, rhythm, no edema Gastrointestinal: non tender, soft; No abnormal bowel sounds, No guarding, No rebound, No tenderness Extremities: normal range of motion, non-tender, normal inspection Back: CVA tenderness (R); No CVA tenderness (L) Neurologic/Psychiatric: alert, normal mood/affect, oriented x 3 Skin: normal color, warm/dry Progress/Results/Core Measures Results/Orders Lab Results Laboratory Tests Test 07/19/22 15:20 07/19/22 15:40 Range/Units Urine Color YELLOW Urine Clarity CLOUDY Urine pH 5.5 5-9 Urine Specific [place] >=1.030 1.016-1.022 Urine Protein TRACE H NEGATIVE Urine Glucose (UA) NEGATIVE NEGATIVE Urine Ketones NEGATIVE NEGATIVE Urine Nitrite NEGATIVE NEGATIVE Urine Bilirubin NEGATIVE NEGATIVE Urine Urobilinogen 0.2 < = 1.0 MG/DL Urine Leukocyte Esterase 2+ H NEGATIVE Urine RBC (Auto) 1+ H NEGATIVE Urine RBC 2-5 H /HPF Urine WBC 50-100 H /HPF Urine Squamous Epithelial Cells 2-5 /HPF Urine Crystals NONE /LPF Urine Bacteria TRACE /HPF Urine Casts NONE /LPF Urine Mucus NEGATIVE /LPF Urine Culture Indicated YES White Blood Count 8.8 4.3-11.0 10^3/uL Red Blood Count 4.98 3.80-5.11 10^6/uL Hemoglobin 13.3 11.5-16.0 g/dL Hematocrit 40 35-52 % Mean Corpuscular Volume 80 80-99 fL Mean Corpuscular Hemoglobin 27 25-34 pg Mean Corpuscular Hemoglobin Concent 34 32-36 g/dL Red Cell Distribution Width 13.7 10.0-14.5 % Platelet Count 323 130-400 10^3/uL Mean Platelet Volume 10.6 9.0-12.2 fL Immature Granulocyte % (Auto) 0 % Neutrophils (%) (Auto) 72 42-75 % Lymphocytes (%) (Auto) 16 12-44 % Monocytes (%) (Auto) 7 0-12 % Eosinophils (%) (Auto) 5 0-10 % Basophils (%) (Auto) 0 0-10 % Neutrophils # (Auto) 6.3 1.8-7.8 10^3/uL Lymphocytes # (Auto) 1.5 1.0-4.0 10^3/uL Monocytes # (Auto) 0.6 0.0-1.0 10^3/uL Eosinophils # (Auto) 0.4 H 0.0-0.3 10^3/uL Basophils # (Auto) 0.0 0.0-0.1 10^3/uL Immature Granulocyte # (Auto) 0.0 0.0-0.1 10^3/uL Sodium Level 141 135-145 MMOL/L Potassium Level 3.9 3.6-5.0 MMOL/L Chloride Level 107 98-107 MMOL/L Carbon Dioxide Level 19 L 21-32 MMOL/L Anion Gap 15 H 5-14 MMOL/L Blood Urea Nitrogen 14 7-18 MG/DL Creatinine 1.04 0.60-1.30 MG/DL Estimat Glomerular Filtration Rate 65 BUN/Creatinine Ratio 13 Glucose Level 92 70-105 MG/DL Calcium Level 9.4 8.5-10.1 MG/DL Corrected Calcium 9.2 8.5-10.1 MG/DL Total Bilirubin 0.3 0.1-1.0 MG/DL Aspartate Amino Transf (AST/SGOT) 23 5-34 U/L Alanine Aminotransferase (ALT/SGPT) 39 0-55 U/L Alkaline Phosphatase 67 40-136 U/L Total Protein 7.1 6.4-8.2 GM/DL Albumin 4.3 3.2-4.5 GM/DL Amylase Level 55 25-125 U/L Lipase 23 8-78 U/L My Orders Orders - LULU ANDERSON APRN Comprehensive Metabolic Panel (07/19/22 15:31) Lipase (07/19/22 15:31) Amylase (07/19/22 15:31) Ua Culture If Indicated (07/19/22 15:31) Ed Iv/Invasive Line Start (07/19/22 15:31) Cbc With Automated Diff (07/19/22 15:31) Ketorolac Injection (Toradol Injection) (07/19/22 15:45) Ns Iv 1000 Ml (Sodium Chloride 0.9%) (07/19/22 15:45) Urine Culture (07/19/22 15:20) Rocephin 2 Gm Ivpb (1x Dose) (07/19/22 16:30) Medications Given in ED Current Medications Medications Dose Ordered Sig/Cheri Route Start Time Stop Time Status Last Admin Dose Admin Ketorolac Tromethamine 30 mg ONCE ONCE IVP 07/19/22 15:45 07/19/22 15:46 DC 07/19/22 15:42 30 MG Vital Signs/I&O 07/19/22 15:15 Temp 37.1 Pulse 70 Resp 16 B/P (MAP) 183/99 (127) Pulse Ox 95 O2 Delivery Room Air Blood Pressure Mean: 127 Progress Progress Note : Progress Note 1617: Spoke to patient and in regards to labs. Explained to patient that the flank pain that she is having is likely secondary to kidney infection. Will go ahead and give her Rocephin 2 grams IV while she is here. Will send out antibiotics to the pharmacy. Do not think that the pain she is having is related to recent surgery. Rather a kidney infection. Reasons to return to the ER were discussed with patient in addition. Departure Impression Primary Impression: Pyelonephritis Disposition: HOME, SELF-CARE Condition: Stable Departure-Patient Inst. Decision time for Depature: 16:21 Referrals: [facility]/ (PCP) Primary Care Physician REBEKAH PIERSON APRN (Family) Primary Care Physician Patient Instructions: Kidney Infection Add. Discharge Instructions: 1. Home and rest. 2. Push fluids. 3. Alternate Tylenol/Ibuprofen as needed for pain. 4. Follow up with PCP as needed. 5. Cephalexin as directed until finished. 6. Return here if worse or concerns. All discharge instructions reviewed with patient and/or family. Voiced understanding. Scripts Cephalexin (Cephalexin) 500 Mg Capsule 500 MG PO BID for 10 Days, #20 CAP Prov: LULU ANDERSON APRN 07/19/22 LULU ANDERSON APRN Jul 19, 2022 15:31
[2022-07-19 15:44] LABS: BILIRUBIN,URINE NEGATIVE (NEGATIVE); CLARITY,URINE CLOUDY; COLOR,URINE YELLOW; GLUCOSE, URINE (UA) NEGATIVE (NEGATIVE); KETONES,URINE NEGATIVE (NEGATIVE); LEUKOCYTE ESTERASE ,URINE 2+ (NEGATIVE); NITRITE,URINE NEGATIVE (NEGATIVE); PH,URINE 5.5 (5-9); PROTEIN,URINE TRACE (NEGATIVE)
[2022-07-19] MEDS ORDERED: NS IV 1000 ML 1,000 ML IV SCH (15:45)
[2022-07-19] MEDS ORDERED: KETOROLAC 30 MG/ML VIAL IVP ONE (15:45)
[2022-07-19 15:52] LABS: BASOPHILS % (AUTO) 0 % (0-10); EOSINOPHILS # (AUTO) 0.4 10^3/uL (0.0-0.3); EOSINOPHILS % (AUTO) 5 % (0-10); HEMATOCRIT 40 % (35-52); HEMOGLOBIN 13.3 g/dL (11.5-16.0); LYMPHOCYTES # (AUTO) 1.5 10^3/uL (1.0-4.0); LYMPHOCYTES % (AUTO) 16 % (12-44); MEAN CORPUSCULAR HEMOGLOBIN 27 pg (25-34); MEAN CORPUSCULAR HGB CONC 34 g/dL (32-36); MEAN CORPUSCULAR VOLUME 80 fL (80-99); MEAN PLATELET VOLUME 10.6 fL (9.0-12.2); MONOCYTES # (AUTO) 0.6 10^3/uL (0.0-1.0); MONOCYTES % (AUTO) 7 % (0-12); NEUTROPHILS # (AUTO) 6.3 10^3/uL (1.8-7.8); NEUTROPHILS % (AUTO) 72 % (42-75); PLATELET COUNT 323 10^3/uL (130-400); WHITE BLOOD COUNT 8.8 10^3/uL (4.3-11.0)
[2022-07-19 16:03] LABS: ALBUMIN 4.3 GM/DL (3.2-4.5); POTASSIUM 3.9 MMOL/L (3.6-5.0)
[2022-07-19 16:03] LABS: BACTERIA,URINE TRACE /HPF; WBC,URINE 50-100 /HPF
[2022-07-19 16:04] LABS: CALCIUM 9.4 MG/DL (8.5-10.1)
[2022-07-19 16:06] LABS: TOTAL PROTEIN 7.1 GM/DL (6.4-8.2)
[2022-07-19 16:07] LABS: BILIRUBIN,TOTAL 0.3 MG/DL (0.1-1.0)
[2022-07-19 16:09] LABS: CREATININE SERUM 1.04 MG/DL (0.60-1.30)
[2022-07-19] MEDS ORDERED: CEPH500C PO (16:23)
[2022-07-19] MEDS ORDERED: cefTRIAXone 2,000 MG in NS (IVPB) 50 ML IV ONE (16:30)
[2022-07-19 17:02] VITALS: BP 148/85
== END 2022-07-19 17:02 | disposition home or self-care (01) ==
LOC: EDUNIT# 15:12 → ER 15:15
DX: N12 Tubulo-interstitial nephritis, not specified as acute or chronic (principal)
CPT/HCPCS: 36415; 80053; 81000; 82150; 83690; 85025; 87077; 87088; 87186

== ENCOUNTER 2022-08-03 10:55 | Outpatient (RCR) | payer MEDICARE, MEDICAID ==
[~2022-08-03 10:55] MED LIST changes: +CEPH500C PO
[2022-08-11] MEDS ORDERED: ONDA4TAB11 SL (15:30)
== END 2022-08-31 | disposition home or self-care (01) ==
LOC: ONC 10:55
PROVIDERS: ATTEND Internal Medicine Hematology & Oncology
DX: C91.12 Chronic lymphocytic leukemia of B-cell type in relapse (principal); I10 Essential (primary) hypertension; J45.909 Unspecified asthma, uncomplicated; E66.9 Obesity, unspecified; Z79.899 Other long term (current) drug therapy
CPT/HCPCS: 84443; G0463; 99213

== ENCOUNTER 2022-08-11 12:47 | Emergency (ER) | payer MEDICARE, MEDICAID ==
[~2022-08-11] VITALS: Ht 160 cm; Wt 99.7 kg
[2022-08-11] MEDS ORDERED: fentaNYL INJ 100 MCG/2 ML AMP IVP ONE (13:15)
[2022-08-11] MEDS ORDERED: NS IV 1000 ML 1,000 ML IV SCH (13:15)
[2022-08-11] MEDS ORDERED: ONDANSETRON 4 MG/2 ML (SDV) Z0FRAN IVP ONE (13:15)
[2022-08-11 13:36] LABS: BACTERIA,URINE NEGATIVE /HPF; BILIRUBIN,URINE NEGATIVE (NEGATIVE); CLARITY,URINE CLEAR; COLOR,URINE YELLOW; GLUCOSE, URINE (UA) NEGATIVE (NEGATIVE); KETONES,URINE 1+ (NEGATIVE); LEUKOCYTE ESTERASE ,URINE NEGATIVE (NEGATIVE); NITRITE,URINE NEGATIVE (NEGATIVE); PROTEIN,URINE NEGATIVE (NEGATIVE); SQUAMOUS EPITHELIAL CELL,UR RARE /HPF
[2022-08-11 13:53] LABS: BASOPHILS % (AUTO) 0 % (0-10); EOSINOPHILS # (AUTO) 0.2 10^3/uL (0.0-0.3); EOSINOPHILS % (AUTO) 2 % (0-10); HEMATOCRIT 40 % (35-52); HEMOGLOBIN 13.1 g/dL (11.5-16.0); LYMPHOCYTES # (AUTO) 0.4 10^3/uL (1.0-4.0); LYMPHOCYTES % (AUTO) 3 % (12-44); MEAN CORPUSCULAR HEMOGLOBIN 26 pg (25-34); MEAN CORPUSCULAR HGB CONC 33 g/dL (32-36); MEAN CORPUSCULAR VOLUME 80 fL (80-99); MEAN PLATELET VOLUME 10.9 fL (9.0-12.2); MONOCYTES # (AUTO) 0.4 10^3/uL (0.0-1.0); MONOCYTES % (AUTO) 3 % (0-12); NEUTROPHILS # (AUTO) 11.1 10^3/uL (1.8-7.8); NEUTROPHILS % (AUTO) 91 % (42-75); PLATELET COUNT 251 10^3/uL (130-400); WHITE BLOOD COUNT 12.1 10^3/uL (4.3-11.0)
[2022-08-11 14:06] LABS: ALBUMIN 4.1 GM/DL (3.2-4.5)
[2022-08-11 14:07] LABS: POTASSIUM 3.9 MMOL/L (3.6-5.0)
[2022-08-11 14:08] LABS: CALCIUM 9.1 MG/DL (8.5-10.1)
[2022-08-11 14:09] LABS: TOTAL PROTEIN 6.5 GM/DL (6.4-8.2)
[2022-08-11 14:11] LABS: BILIRUBIN,TOTAL 0.6 MG/DL (0.1-1.0)
[2022-08-11 14:13] LABS: CREATININE SERUM 0.98 MG/DL (0.60-1.30)
[2022-08-11 14:14] LABS: BAND NEUTROPHILS 0 %; BASOPHILS % (MANUAL) 0 %; EOSINOPHILS % (MANUAL) 3 %; LYMPHOCYTES % (MANUAL) 1 %; MONOCYTES % (MANUAL) 1 %; NEUTROPHILS % (MANUAL) 95 %; RBC MORPH NORMAL
[2022-08-11] MEDS ORDERED: ACETAMINOPHEN 500 MG TAB (TYLENOL) PO ONE (14:15)
--- NOTE | 2022-08-11 14:50 | Diagnostic Imaging Report ---
INDICATION: Shortness of breath and fever and body aches. Frontal chest obtained at 2:23 p.m. and compared to 05/18/2019. FINDINGS: Port-A-Cath is unchanged. The heart and mediastinal silhouette are normal in appearance. Lungs appear clear. There is no pneumothorax or pleural fluid. IMPRESSION: No acute process in the chest. Dictated by: Dictated on workstation # [id number]
--- NOTE | 2022-08-11 15:22 | ED General ---
General Chief Complaint: - Reproductive Stated Complaint: BODYACHES/NAUSEA Nursing Triage Note: PT PRESENTS TO ED VIA POV ACCOMAPANIED BY SPOUSE FROM HOME WITH COMPLAINTS OF BODY ACHES, CHILLS, SOA WITH EXERTION, BACK PAIN,FEVER, AND NAUSEA. PT STATES SHE WAS RECENTLY DIAGNOSED WITH A UTI AND HAS HAD 3 DOSES OF HER ANTIBIOTIC. PT STATES SHE FEELS LIKE SHE IS GETTING WORSE. Source of Information: Patient, Family Exam Limitations: No Limitations History of Present Illness Date Seen by Provider: Aug 11, 2022 Time Seen by Provider: 13:00 Timing/Duration: 2-3 Days Severity: Moderate Associated Systoms: Cough, Fever/Chills, Loss of Appetite, Malaise, Nausea/Vomiting, Other (diarrhea) Allergies and Home Medications Allergies Coded Allergies: Sulfa (Sulfonamide Antibiotics) (Verified Allergy, Mild, RASH, 07/26/18) Patient Home Medication List Home Medication List Reviewed: Yes Buspirone HCl (Buspirone HCl) 5 Mg Tablet, 5 MG PO DAILY, (Reported) Entered as Reported by: LISA BREWER on 06/22/18 1406 Buspirone HCl (Buspirone HCl) 5 Mg Tablet, 10 MG PO HS, (Reported) Entered as Reported by: LEONID EL on 08/11/18 0945 Cephalexin (Cephalexin) 500 Mg Capsule, 500 MG PO BID Prescribed by: Esther Damico on 07/19/22 1623 Fexofenadine HCl (Flora Allergy) 180 Mg Tablet, 180 MG PO DAILY, (Reported) Entered as Reported by: LOLI HUFF on 07/26/18 1413 Fluoxetine HCl (Prozac) 10 Mg Capsule, 10 MG PO DAILY, (Reported) Entered as Reported by: PRINCE BUNCH on 07/02/22 1226 Hydrocodone Bit/Acetaminophen (HYDROcodone/APAP 5 MG/325 MG TAB) 1 Tab Tab, 1 TAB PO Q8H PRN for PAIN-MODERATE (5-7) Prescribed by: BRITTANY العلي on 07/08/22 1113 Losartan Potassium (Losartan Potassium) 25 Mg Tablet, 25 MG PO DAILY, (Reported) Entered as Reported by: PRINCE BUNCH on 07/02/22 1226 Pantoprazole Sodium (Protonix) 40 Mg Tablet.dr, 40 MG PO DAILY Prescribed by: ES REYES on 11/01/21 1333 Review of Systems Review of Systems Constitutional: see HPI, fever, malaise EENTM: no symptoms reported Respiratory: cough Cardiovascular: no symptoms reported Gastrointestinal: diarrhea, nausea Genitourinary: no symptoms reported Musculoskeletal: muscle cramps (body aches) Skin: no symptoms reported Psychiatric/Neurological: Headache All Other Systems Reviewed Negative Unless Noted: Yes Past Ahmbyum-Hvwohs-Pnlhxw Hx Patient Social History Tobacco Use?: No Substance use?: No Alcohol Use?: No Pt feels they are or have been: No Immunizations Up To Date PED Vaccines UTD: Yes First/Initial COVID19 Vaccinat: UNKNOWN Second COVID19 Vaccination Kiran: UNKNOWN Third COVID19 Vaccination Date: UNKNOWN Seasonal Allergies Seasonal Allergies: Yes Past Medical History Surgery/Hospitalization HX: PMH: CLL SX: BACK, NECK, GALLBLADDER, PORT, TUBAL Surgeries: Yes (infected lymph node removed, back sx X2, NECK, port ) Section, Orthopedic, Tubal Ligation Respiratory: Yes Asthma Currently Using CPAP: No Currently Using BIPAP: No Cardiac: Yes Hypertension Neurological: No 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 Sexually Transmitted Disease: No HIV/AIDS: No Genitourinary: No Gastrointestinal: Yes Gastroesophageal Reflux, Diverticulosis, Chronic Diarrhea Musculoskeletal: Yes Chronic Back Pain Endocrine: No HEENT: No Hearing Impairment: Denies Cancer: Yes (CLL) Leukemia Did You Recieve Any Treatments: Yes What Type of Treatment Did You: Chemotherapy Psychosocial: Yes Anxiety, Depression Integumentary: No Blood Disorders: Yes (LEUKEMIA) Adverse Reaction/Blood Tranf: No Family Medical History Diabetes mellitus 19 FATHER 19 MOTHER Hypertension 19 FATHER 19 MOTHER G8 BROTHER Diabetes, Hypertension Physical Exam Vital Signs Vital Signs - First Documented 08/11/22 12:51 Temp 38.1 Pulse 100 Resp 16 B/P (MAP) 156/92 (113) Pulse Ox 95 Capillary Refill : Less Than 3 Seconds Height, Weight, BMI Height: 5'3.00" Weight: 201lbs. 0.0oz. 91.990141fw; 38.00 BMI Method:Stated General Appearance: No Apparent Distress, WD/WN Eyes: Bilateral Eye Normal Inspection, Bilateral Eye PERRL, Bilateral Eye EOMI HEENT: PERRL/EOMI, Pharynx Normal Neck: Normal Inspection, Non Tender, Supple Respiratory: Lungs Clear, Normal Breath Sounds, No Accessory Muscle Use, No Respiratory Distress Cardiovascular: Regular Rate, Rhythm, Normal Peripheral Pulses Gastrointestinal: Normal Bowel Sounds, Non Tender, Soft Extremity: Normal Capillary Refill, Normal Inspection, Normal Range of Motion, Non Tender, No Calf Tenderness, No Pedal Edema Neurologic/Psychiatric: Alert, Oriented x3, No Motor/Sensory Deficits, Normal Mood/Affect, bufferer II-XII Norm as Tested Skin: Normal Color, Warm/Dry Focused Exam Lactate Level 08/11/22 13:35: Lactic Acid Level 0.91 Lactic Acid Level Laboratory Tests Test 08/11/22 13:35 Lactic Acid Level 0.91 MMOL/L (0.50-2.00) Progress/Results/Core Measures Suspected Sepsis SIRS Temperature: Pulse: 100 Respiratory Rate: 16 Laboratory Tests 08/11/22 13:35: White Blood Count 12.1H Blood Pressure 156 /92 Mean: 113 08/11/22 13:35: Lactic Acid Level 0.91 Laboratory Tests 08/11/22 13:35: Creatinine 0.98, INR Comment 1.0, Platelet Count 251, Total Bilirubin 0.6 Results/Orders Lab Results Laboratory Tests Test 08/11/22 13:00 08/11/22 13:03 08/11/22 13:35 Range/Units Urine Color YELLOW Urine Clarity CLEAR Urine pH 5.0 5-9 Urine Specific [place] 1.015 L 1.016-1.022 Urine Protein NEGATIVE NEGATIVE Urine Glucose (UA) NEGATIVE NEGATIVE Urine Ketones 1+ H NEGATIVE Urine Nitrite NEGATIVE NEGATIVE Urine Bilirubin NEGATIVE NEGATIVE Urine Urobilinogen 0.2 < = 1.0 MG/DL Urine Leukocyte Esterase NEGATIVE NEGATIVE Urine RBC (Auto) 1+ H NEGATIVE Urine RBC NONE /HPF Urine WBC NONE /HPF Urine Squamous Epithelial Cells RARE /HPF Urine Crystals NONE /LPF Urine Bacteria NEGATIVE /HPF Urine Casts NONE /LPF Urine Mucus NEGATIVE /LPF Urine Culture Indicated CULTURE PENDING Influenza Type A (RT-PCR) Not Detected Not Detecte Influenza Type B (RT-PCR) Not Detected Not Detecte SARS-CoV-2 RNA (RT-PCR) Not Detected Not Detecte White Blood Count 12.1 H 4.3-11.0 10^3/uL Red Blood Count 5.01 3.80-5.11 10^6/uL Hemoglobin 13.1 11.5-16.0 g/dL Hematocrit 40 35-52 % Mean Corpuscular Volume 80 80-99 fL Mean Corpuscular Hemoglobin 26 25-34 pg Mean Corpuscular Hemoglobin Concent 33 32-36 g/dL Red Cell Distribution Width 14.6 H 10.0-14.5 % Platelet Count 251 130-400 10^3/uL Mean Platelet Volume 10.9 9.0-12.2 fL Immature Granulocyte % (Auto) 0 % Neutrophils (%) (Auto) 91 H 42-75 % Lymphocytes (%) (Auto) 3 L 12-44 % Monocytes (%) (Auto) 3 0-12 % Eosinophils (%) (Auto) 2 0-10 % Basophils (%) (Auto) 0 0-10 % Neutrophils # (Auto) 11.1 H 1.8-7.8 10^3/uL Lymphocytes # (Auto) 0.4 L 1.0-4.0 10^3/uL Monocytes # (Auto) 0.4 0.0-1.0 10^3/uL Eosinophils # (Auto) 0.2 0.0-0.3 10^3/uL Basophils # (Auto) 0.0 0.0-0.1 10^3/uL Immature Granulocyte # (Auto) 0.0 0.0-0.1 10^3/uL Neutrophils % (Manual) 95 % Lymphocytes % (Manual) 1 % Monocytes % (Manual) 1 % Eosinophils % (Manual) 3 % Basophils % (Manual) 0 % Band Neutrophils 0 % Blood Morphology Comment NORMAL Prothrombin Time 14.0 12.2-14.7 SEC INR Comment 1.0 0.8-1.4 Activated Partial Thromboplast Time 24 24-35 SEC Sodium Level 136 135-145 MMOL/L Potassium Level 3.9 3.6-5.0 MMOL/L Chloride Level 105 98-107 MMOL/L Carbon Dioxide Level 22 21-32 MMOL/L Anion Gap 9 5-14 MMOL/L Blood Urea Nitrogen 11 7-18 MG/DL Creatinine 0.98 0.60-1.30 MG/DL Estimat Glomerular Filtration Rate 70 BUN/Creatinine Ratio 11 Glucose Level 98 70-105 MG/DL Lactic Acid Level 0.91 0.50-2.00 MMOL/L Calcium Level 9.1 8.5-10.1 MG/DL Corrected Calcium 9.0 8.5-10.1 MG/DL Total Bilirubin 0.6 0.1-1.0 MG/DL Aspartate Amino Transf (AST/SGOT) 51 H 5-34 U/L Alanine Aminotransferase (ALT/SGPT) 79 H 0-55 U/L Alkaline Phosphatase 61 40-136 U/L Total Protein 6.5 6.4-8.2 GM/DL Albumin 4.1 3.2-4.5 GM/DL My Orders Orders - JC HALEY MD Cbc With Automated Diff (08/11/22 13:11) Comprehensive Metabolic Panel (08/11/22 13:11) Blood Culture (08/11/22 13:11) Sputum Culture (08/11/22 13:11) Urinalysis (08/11/22 13:11) Urine Culture (08/11/22 13:11) Protime With Inr (08/11/22 13:11) Partial Thromboplastin Time (08/11/22 13:11) Chest 1 View, Ap/Pa Only (08/11/22 13:11) Ed Iv/Invasive Line Start (08/11/22 13:11) Ed Iv/Invasive Line Start (08/11/22 13:11) Vital Signs Adult Sepsis Patie Q15M (08/11/22 13:11) O2 (08/11/22 13:11) Remove Rings In Anticipation O (08/11/22 13:11) Lactic Acid Analyzer (08/11/22 13:11) Covid 19 Inhouse Test (08/11/22 13:11) Influenza A And B By Pcr (08/11/22 13:11) Isolation Central Supply Req (08/11/22 13:11) Ns Iv 1000 Ml (Sodium Chloride 0.9%) (08/11/22 13:15) Ondansetron Injection (Zofran Injectio (08/11/22 13:15) Fentanyl Inj (Sublimaze Injection) (08/11/22 13:15) Manual Differential (08/11/22 13:35) Acetaminophen Tablet (Tylenol Tablet) (08/11/22 14:15) Medications Given in ED Current Medications Medications Dose Ordered Sig/Cheri Route Start Time Stop Time Status Last Admin Dose Admin Acetaminophen 1,000 mg ONCE ONCE PO 08/11/22 14:15 08/11/22 14:16 DC 08/11/22 14:15 1,000 MG Fentanyl Citrate 50 mcg ONCE ONCE IVP 08/11/22 13:15 08/11/22 13:16 DC 08/11/22 13:49 50 MCG Ondansetron HCl 8 mg ONCE ONCE IVP 08/11/22 13:15 08/11/22 13:16 DC 08/11/22 13:49 8 MG Vital Signs/I&O 08/11/22 12:51 Temp 38.1 Pulse 100 Resp 16 B/P (MAP) 156/92 (113) Pulse Ox 95 Capillary Refill : Less Than 3 Seconds Blood Pressure Mean: 113 Progress Note : Time: 15:21 Progress Note Feels a little bit better, nausea much improved still has some body aches. We reviewed labs, imaging, COVID testing. Her labs are reassuring, mild leukocytosis at 12,000. COVID-negative flu negative. Chest x-ray unremarkable. Heart rate is down in the 70s. Recommend supportive care at home. No concern for sepsis. Patient is comfortable with the plan of care. All questions are sought and answered. Diagnostic Imaging Diagonstic Imaging: Xray Plain Films/CT/US/NM/MRI: chest Comments [facility]. [place], [place] NAME: VISHNU THOMAS [facility] REC#: [id number] PT STATUS: REG ER : 1970 PHYSICIAN: JC HALEY MD ADMIT DATE: 08/11/22/ER Signed Date of Exam:08/11/22 CHEST 1 VIEW, AP/PA ONLY INDICATION: Shortness of breath and fever and body aches. Frontal chest obtained at 2:23 p.m. and compared to 05/18/2019. FINDINGS: Port-A-Cath is unchanged. The heart and mediastinal silhouette are normal in appearance. Lungs appear clear. There is no pneumothorax or pleural fluid. IMPRESSION: No acute process in the chest. Dictated by: Dictated on workstation # [id number] Dict: 08/11/22 1447 Trans: 08/11/22 1518 [id number] Interpreted by: JASON PACK MD Electronically signed by: JASON PACK MD 08/11/22 1518 Departure Impression Primary Impression: Viral syndrome Disposition: 01 HOME, SELF-CARE Condition: Improved Departure-Patient Inst. Decision time for Depature: 15:27 Referrals: [facility]/KARLEE (PCP) Primary Care Physician REBEKAH PIERSON APRN (Family) Primary Care Physician Patient Instructions: Viral Syndrome (DC) Add. Discharge Instructions: Drink plenty of fluids to stay well hydrated. Nausea medications 4mg every 8 hours as needed for nausea and vomiting. Extra Strength Tylenol 2 tablets every 6 hours as needed for fever over 1004. and body aches. Frequent small meals to keep your nutrition and energy right. You might consider re-testing with an at home test kit for Covid in 2 days, If you have any worsening concerns or emergent complaints please come back to the ER for re-evaluation. Scripts Ondansetron (Ondansetron Odt) 4 Mg Tab.rapdis 4 MG SL Q8H PRN for NAUSEA/VOMITING, #15 TAB Prov: JC HALEY MD 08/11/22 Copy Copies To 1: MAXWELL MURPHY KATHRYN M MD Aug 11, 2022 15:22
[2022-08-11] MEDS ORDERED: ONDA4TAB11 SL (15:30)
[2022-08-11 15:40] VITALS: BP 126/78
== END 2022-08-11 15:40 | disposition home or self-care (01) ==
LOC: EDUNIT# 12:47 → ER 12:49
DX: B34.9 Viral infection, unspecified (principal); R11.2 Nausea with vomiting, unspecified; D72.829 Elevated white blood cell count, unspecified; Z20.822 Contact with and (suspected) exposure to COVID-19
CPT/HCPCS: 36415; 71045; 80053; 81000; 83605; 85007; 85027; 85610; 85730; 87040; 87088; 87636

== ENCOUNTER → 2022-09-29 | Outpatient (CLI) | payer OTHER, MEDICAID ==
[~2022-09-29] MED LIST changes: +ONDA4TAB11 SL
--- NOTE | 2022-09-29 12:47 | Diagnostic Imaging Report ---
INDICATION: Screening for osteoporosis. Parent with a history of hip fracture. History of CLL, in remission. COMPARISON: None available. FINDINGS: AP Spine L1-L4: [BMD (g/cm2): NA] [T-Score: NA] [Z-Score: NA] [BMD Previous: NA] [BMD % Change: NA] LT Hip Neck: [BMD (g/cm2): 1.063] [T-Score: 0.2] [Z-Score: 0.5] LT Hip Total: [BMD (g/cm2):1.168] [T-Score:1.3] [Z-Score: 1.2] [BMD Previous: NA] [BMD % Change: NA] RT Hip Neck: [BMD (g/cm2):1.033] [T-Score:0.0] [Z-Score:0.3] RT Hip Total: [BMD (g/cm2):1.188] [T-score:1.4] [Z-Score:1.3] [BMD Previous:NA] [BMD % Change:NA] *Indicates significant change from prior examination based on 95% confidence level. World Health Organization criteria for BMD interpretation classify patients as Normal (T-score at or above -1.0), Osteopenic (T-score between -1.0 and -2.5) or Osteoporotic (T-score at or below -2.5). LIMITATIONS AND MODIFICATION: The lumbar spine was not evaluated secondary to post surgical changes. IMPRESSION: 1. Normal bone mineral density. 2. Baseline examination. 3. See below National Osteoporosis Foundation guidelines on when to potentially initiate pharmacologic therapy. Based on the National Osteoporosis Foundation Guidelines, pharmacologic treatment should be initiated in any of the following, unless clinical conditions suggest otherwise: * Any patient with prior fragility fracture of the hip or vertebrae. A spine fracture indicates 5X risk for subsequent spine fracture and 2X risk for subsequent hip fracture. * Osteoporosis (T-score <-2.5). * Postmenopausal women and men age 50 and older with low bone mass/osteopenia (T-score between -1.0 and -2.5) by DXA and 10-year major osteoporotic fracture greater than 20% or a 10-year probability of hip fracture greater than 3%. These fracture risks are supplied above in the FRAX score, if applicable. * Clinician judgement and/or patient preferences may indicate treatment for people with 10-year fracture probabilities above or below these levels. Dictated by: Dictated on workstation # [id number]
--- NOTE | 2022-09-30 08:47 | Diagnostic Imaging Report ---
INDICATION: Bilateral screening mammogram with CAD. CAD is utilized. The current study was also evaluated with a Computer Aided Detection (CAD) system. This study was compared to the prior exams of 01/06/2022, 07/29/2021 and 04/03/2019. AT this time there are no current complaints. There are scattered fibroglandular densities in both breasts which could obscure a lesion. When compared to the previous study there has been no significant change. There is no primary or secondary sign of malignancy noted. As seen on the previous exams there is a Port-A-Cath overlying the pectoralis muscle on the right. By history the patient has a diagnosis of chronic lymphocytic leukemia. IMPRESSION: 1. There is no evidence of malignancy. ACR category 1 ACR BI-RADS Category 1: Negative. Result letter will be mailed to the patient. Note: At least 10% of breast cancer is not imaged by mammography. Dictated by: Dictated on workstation # [id number]
== END ==
LOC: RAD 09:45
PROVIDERS: ATTEND Nurse Practitioner Family
DX: Z12.31 Encounter for screening mammogram for malignant neoplasm of breast (principal); Z85.6 Personal history of leukemia; Z87.81 Personal history of (healed) traumatic fracture
CPT/HCPCS: 77063; 77067; 77080

== ENCOUNTER 2022-10-15 10:48 | Outpatient (RCR) | payer MEDICARE, MEDICAID | END 2022-10-31 | disposition home or self-care (01) | LOC: ONC 10:48 | PROVIDERS: ATTEND Internal Medicine Hematology & Oncology | DX: Z45.2 Encounter for adjustment and management of vascular access device (principal); C91.12 Chronic lymphocytic leukemia of B-cell type in relapse; I10 Essential (primary) hypertension; J45.909 Unspecified asthma, uncomplicated; E66.9 Obesity, unspecified; Z79.899 Other long term (current) drug therapy | CPT/HCPCS: 96523 ==

== ENCOUNTER → 2022-12-02 | Outpatient (CLI) | payer MEDICARE, MEDICAID ==
[2022-12-02 14:51] LABS: HEMATOCRIT 42 % (35-52); HEMOGLOBIN 13.7 g/dL (11.5-16.0); MEAN CORPUSCULAR HEMOGLOBIN 27 pg (25-34); MEAN CORPUSCULAR HGB CONC 33 g/dL (32-36); MEAN CORPUSCULAR VOLUME 81 fL (80-99); MEAN PLATELET VOLUME 10.4 fL (9.0-12.2); PLATELET COUNT 299 10^3/uL (130-400); WHITE BLOOD COUNT 8.1 10^3/uL (4.3-11.0)
[2022-12-02 15:19] LABS: ALBUMIN 4.2 GM/DL (3.2-4.5); BILIRUBIN,TOTAL 0.3 MG/DL (0.1-1.0); CALCIUM 9.5 MG/DL (8.5-10.1); CREATININE SERUM 1.14 MG/DL (0.60-1.30); POTASSIUM 3.8 MMOL/L (3.6-5.0); TOTAL PROTEIN 6.9 GM/DL (6.4-8.2)
--- NOTE | 2022-12-02 15:48 | Diagnostic Imaging Report ---
INDICATION: Prior neck surgery. TIME OF EXAM: 3:02 PM. FINDINGS: AP and lateral views of the cervical spine demonstrate normal curvature and alignment. There are postop changes of ACDF with anterior plate and screws transfixing the C4-C7 levels. Orthopedic hardware appears intact without fracture or loosening. Prevertebral tissues are normal. No fractures are seen. IMPRESSION: C4-C7 ACDF. No complicating feature is detected. Dictated by: Dictated on workstation # [id number]
--- NOTE | 2022-12-02 16:02 | Diagnostic Imaging Report ---
INDICATION: Back pain. TIME OF EXAM: 3:13 PM. FINDINGS: AP and lateral views of the lumbar spine demonstrate postop changes of posterior instrumented fusion extending from L2 through L5. There appear to be laminectomy changes at the L2 and L3 levels. Hardware appears to be intact. Vertebral body heights are well-maintained. There is degenerative disc disease at the L2-L3 and L4-L5 levels. No fracture is detected. IMPRESSION: Degenerative and postop changes. No acute abnormality is detected. Dictated by: Dictated on workstation # [id number]
--- NOTE | 2022-12-02 16:21 | Diagnostic Imaging Report ---
EXAMINATION: Right foot radiographs, 2 views. COMPARISON: None. HISTORY: 51-year-old female, right heel pain. FINDINGS: There is degenerative type calcaneal enthesopathy. There is no radiographic evidence of retrocalcaneal bursitis. There is no identified bone erosion. There is no identified acute fracture. There is a small normal variant os navicularis. There is a bipartite medial sesamoid. There is degenerative type enthesopathy in the region of the peroneus brevis tendon attachment. IMPRESSION: 1. Degenerative type calcaneal enthesopathy. 2. Additional radiographic evaluation of the right foot is largely unremarkable. Dictated by: Dictated on workstation # [id number]
--- NOTE | 2022-12-02 16:22 | Diagnostic Imaging Report ---
Indication: Back pain. Time of Exam: 3:08 PM AP and lateral views of the thoracic spine were obtained. Curvature and alignment is normal. Vertebral body heights are well-maintained. No acute compression fracture is seen. There is generalized degenerative disc disease with mild disc space narrowing. Pedicles and paraspinous line are intact. Impression: Thoracic spondylosis. No acute bony abnormality is detected. Dictated by: Dictated on workstation # [id number]
== END ==
LOC: RAD 14:27
PROVIDERS: ATTEND Nurse Practitioner Family
DX: C91.10 Chronic lymphocytic leukemia of B-cell type not having achieved remission (principal); E55.9 Vitamin D deficiency, unspecified; I10 Essential (primary) hypertension; M72.2 Plantar fascial fibromatosis; M47.816 Spondylosis without myelopathy or radiculopathy, lumbar region; M47.817 Spondylosis without myelopathy or radiculopathy, lumbosacral region; M19.011 Primary osteoarthritis, right shoulder; M77.31 Calcaneal spur, right foot; Z98.1 Arthrodesis status
CPT/HCPCS: 36415; 72040; 72070; 72100; 73620; 80053; 82306; 85027

== ENCOUNTER 2022-12-11 09:27 | Emergency (ER) | payer MEDICARE, MEDICAID ==
[~2022-12-11] VITALS: Ht 177 cm; Wt 99.7 kg
[2022-12-11 09:50] LABS: BASOPHILS % (AUTO) 0 % (0-10); EOSINOPHILS # (AUTO) 0.3 10^3/uL (0.0-0.3); EOSINOPHILS % (AUTO) 4 % (0-10); HEMATOCRIT 42 % (35-52); LYMPHOCYTES # (AUTO) 1.1 10^3/uL (1.0-4.0); LYMPHOCYTES % (AUTO) 16 % (12-44); MEAN CORPUSCULAR HEMOGLOBIN 27 pg (25-34); MEAN CORPUSCULAR HGB CONC 33 g/dL (32-36); MEAN CORPUSCULAR VOLUME 81 fL (80-99); MEAN PLATELET VOLUME 10.8 fL (9.0-12.2); MONOCYTES # (AUTO) 0.5 10^3/uL (0.0-1.0); MONOCYTES % (AUTO) 7 % (0-12); NEUTROPHILS # (AUTO) 4.9 10^3/uL (1.8-7.8); NEUTROPHILS % (AUTO) 72 % (42-75); PLATELET COUNT 305 10^3/uL (130-400); WHITE BLOOD COUNT 6.8 10^3/uL (4.3-11.0)
[2022-12-11] MEDS ORDERED: ASPIRIN 81 MG CHEW (CHILDREN'S ASA) PO ONE (10:00)
[2022-12-11] MEDS ORDERED: NITROGLYCERIN 0.4 MG SL TABS BTL 25'S SL PRN (10:00)
[2022-12-11 10:03] LABS: ALBUMIN 4.2 GM/DL (3.2-4.5)
[2022-12-11 10:04] LABS: CALCIUM 9.6 MG/DL (8.5-10.1)
[2022-12-11 10:06] LABS: TOTAL PROTEIN 6.7 GM/DL (6.4-8.2)
[2022-12-11 10:09] LABS: CREATININE SERUM 0.88 MG/DL (0.60-1.30)
[2022-12-11 10:16] LABS: PROTHROMBIN TIME PATIENT 13.3 SEC (12.2-14.7)
--- NOTE | 2022-12-11 10:30 | Diagnostic Imaging Report ---
INDICATION: Intermittent left-sided chest pain. EXAMINATION: Chest 12/11/2022 COMPARISON: 08/11/2022. FINDINGS: The heart is unremarkable. Pulmonary vasculature is slightly congested. There is focal atelectasis versus infiltrate in the right lung base. Remaining lungs clear. No effusions. No pneumothorax. Right chest port tip lies at the junction of the SVC and right atrium. There are postoperative changes in the cervical spine. IMPRESSION: 1. Mild pulmonary vascular congestion. 2. Focal infiltrate in the right lung base. Follow-up recommended to assure resolution. Dictated by: Dictated on workstation # [id number]
[2022-12-11 10:37] LABS: BILIRUBIN,TOTAL 0.5 MG/DL (0.1-1.0)
[2022-12-11 10:53] LABS: FREE T4 (FREE THYROXINE) 0.95 NG/DL (0.70-1.48)
--- NOTE | 2022-12-11 10:55 | ED Chest Pain ---
General Chief Complaint: Chest Pain Stated Complaint: CHEST PAIN ON LEFT SIDE | HIGH BLOOD PRESSURE Nursing Triage Note: PT AMBULATORY TO ER WITH SO. PT REPORTS HAS BEEN HAVING INTERMITTENT L SIDED CHEST PAIN FOR A WHILE, REPORTS BP HAS ALSO BEEN ELEVATED. PT REPORTS HER LOSARTAN DOSE WAS RECENTLY INCREASED, NOW TAKING 25MG BID, BP STILL ELEVATED. PT REPORTS THE PAIN TODAY IS LOCATED UNDER HER L BREAST AND RADIATED AROUND INTO BACK. Source: patient Exam Limitations: no limitations History of Present Illness Date Seen by Provider: Dec 11, 2022 Time Seen by Provider: 09:37 Initial Comments This 51-year-old woman presents to emergency room with complaints of left lower chest pain intermittently for the past couple of weeks. This has been accompanied by hypertension, especially when she is active. She tends to have headaches when she is hyperactive. This morning she felt like her neck was swollen. Her losartan was increased 8 days ago from 25 mg daily to 25 mg twice daily. She reports bending over worsens the pain as does activity. The pain is dull in nature and rated as 5/10 at present. It does seem to be worse with both exertion and deep breathing. She sometimes feels lightheaded, dizzy, and nauseated. She has no known history of coronary artery disease. She has history of hypertension and CLL that is in remission. She denies any cough or fever. She has not been treating the pain with any medication. Her primary care provider is Candice Longo at [facility] in [facility] ([facility] Dr. Duckworth is her oncologist. Allergies and Home Medications Allergies Coded Allergies: Sulfa (Sulfonamide Antibiotics) (Verified Allergy, Mild, RASH, 07/26/18) Patient Home Medication List Home Medication List Reviewed: Yes Azithromycin (Azithromycin) 250 Mg Tablet, 250 MG PO UD Prescribed by: DURAN SANCHEZ on 12/11/22 1252 Buspirone HCl (Buspirone HCl) 5 Mg Tablet, 5 MG PO DAILY, (Reported) Entered as Reported by: LISA BREWER on 06/22/18 1406 Buspirone HCl (Buspirone HCl) 5 Mg Tablet, 10 MG PO HS, (Reported) Entered as Reported by: LEONID EL on 08/11/18 0945 Cephalexin (Cephalexin) 500 Mg Capsule, 500 MG PO BID Prescribed by: Esther Damico on 07/19/22 1623 Fexofenadine HCl (Flora Allergy) 180 Mg Tablet, 180 MG PO DAILY, (Reported) Entered as Reported by: LOLI HUFF on 07/26/18 1413 Fluoxetine HCl (Prozac) 10 Mg Capsule, 10 MG PO DAILY, (Reported) Entered as Reported by: PRINCE BUNCH on 07/02/22 1226 Hydrocodone Bit/Acetaminophen (HYDROcodone/APAP 5 MG/325 MG TAB) 1 Tab Tab, 1 TAB PO Q8H PRN for PAIN-MODERATE (5-7) Prescribed by: BIRTTANY العلي on 07/08/22 1113 Losartan Potassium (Losartan Potassium) 25 Mg Tablet, 25 MG PO DAILY, (Reported) Entered as Reported by: PRINEC BUNCH on 07/02/22 1226 Metoprolol Succinate (Toprol Xl) 25 Mg Tab.er.24h, 25 MG PO DAILY Prescribed by: DURAN SANCHEZ on 12/11/22 1253 Ondansetron (Ondansetron Odt) 4 Mg Tab.rapdis, 4 MG SL Q8H PRN for NAUSEA/VOMITING Prescribed by: JC HALEY on 08/11/22 1530 Pantoprazole Sodium (Protonix) 40 Mg Tablet.dr, 40 MG PO DAILY Prescribed by: ES REYES on 11/01/21 1333 Review of Systems Review of Systems Constitutional: no symptoms reported EENTM: See HPI Respiratory: See HPI Cardiovascular: See HPI Gastrointestinal: See HPI Genitourinary: No Symptoms Reported Musculoskeletal: see HPI Skin: no symptoms reported; No rash Psychiatric/Neurological: See HPI, Headache Endocrine: No Symptoms Reported Hematologic/Lymphatic: No Symptoms Reported Past Ihxkfoa-Poqqmc-Uztcrj Hx Patient Social History Tobacco Use?: No Use of E-Cig and/or Vaping dev: No Substance use?: No Alcohol Use?: No Pt feels they are or have been: No Immunizations Up To Date PED Vaccines UTD: Yes First/Initial COVID19 Vaccinat: RECEIVED, UNK WHEN Second COVID19 Vaccination Kiran: RECEIVED, UNK WHEN Third COVID19 Vaccination Date: UNKNOWN COVID19 Vaccine Embedded Processor: UNK Seasonal Allergies Seasonal Allergies: Yes Past Medical History Surgery/Hospitalization HX: PMH: CLL SX: BACK, NECK, GALLBLADDER, PORT, TUBAL Surgeries: Yes (infected lymph node removed, back sx X2, NECK, port ) Section, Gallbladder, Orthopedic (back and neck), Tubal Ligation Respiratory: Yes Asthma Currently Using CPAP: No Currently Using BIPAP: No Cardiac: Yes Hypertension Neurological: No Reproductive Disorders: No 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 Sexually Transmitted Disease: No HIV/AIDS: No Genitourinary: No Gastrointestinal: Yes Gastroesophageal Reflux, Diverticulosis, Chronic Diarrhea Musculoskeletal: Yes Chronic Back Pain Endocrine: No HEENT: No Hearing Impairment: Denies Cancer: Yes (CLL in remission) Leukemia Did You Recieve Any Treatments: Yes What Type of Treatment Did You: Chemotherapy Psychosocial: Yes Anxiety, Depression Integumentary: No Blood Disorders: Yes (LEUKEMIA) Adverse Reaction/Blood Tranf: No Family Medical History Diabetes mellitus 19 FATHER 19 MOTHER Hypertension 19 FATHER 19 MOTHER G8 BROTHER Diabetes, Hypertension Physical Exam Vital Signs Vital Signs - First Documented 12/11/22 09:32 Temp 36.6 Pulse 72 Resp 20 B/P (MAP) 170/113 (132) Pulse Ox 97 O2 Delivery Room Air Capillary Refill : Height, Weight, BMI Height: 5'3.00" Weight: 201lbs. 0.0oz. 91.947342dt; 31.00 BMI Method:Stated General Appearance: No Apparent Distress, WD/WN HEENT: PERRL/EOMI, Normal ENT Inspection Neck: Normal Inspection; No JVD Respiratory: Chest Non Tender, Lungs Clear, Normal Breath Sounds, No Accessory Muscle Use Cardiovascular: Regular Rate, Rhythm, No Edema, No Murmur Gastrointestinal: Normal Bowel Sounds, Non Tender, Soft; No Distended Extremity: Normal Inspection, Non Tender, No Calf Tenderness, No Pedal Edema Neurologic/Psychiatric: Alert, Oriented x3, Normal Mood/Affect, nurse practitioner per diem II-XII Norm as Tested Skin: Normal Color, Warm/Dry; No Rash Progress/Results/Core Measures Results/Orders Lab Results Laboratory Tests Test 12/11/22 09:41 12/11/22 11:45 Range/Units White Blood Count 6.8 4.3-11.0 10^3/uL Red Blood Count 5.22 H 3.80-5.11 10^6/uL Hemoglobin 14.0 11.5-16.0 g/dL Hematocrit 42 35-52 % Mean Corpuscular Volume 81 80-99 fL Mean Corpuscular Hemoglobin 27 25-34 pg Mean Corpuscular Hemoglobin Concent 33 32-36 g/dL Red Cell Distribution Width 13.9 10.0-14.5 % Platelet Count 305 130-400 10^3/uL Mean Platelet Volume 10.8 9.0-12.2 fL Immature Granulocyte % (Auto) 0 % Neutrophils (%) (Auto) 72 42-75 % Lymphocytes (%) (Auto) 16 12-44 % Monocytes (%) (Auto) 7 0-12 % Eosinophils (%) (Auto) 4 0-10 % Basophils (%) (Auto) 0 0-10 % Neutrophils # (Auto) 4.9 1.8-7.8 10^3/uL Lymphocytes # (Auto) 1.1 1.0-4.0 10^3/uL Monocytes # (Auto) 0.5 0.0-1.0 10^3/uL Eosinophils # (Auto) 0.3 0.0-0.3 10^3/uL Basophils # (Auto) 0.0 0.0-0.1 10^3/uL Immature Granulocyte # (Auto) 0.0 0.0-0.1 10^3/uL Erythrocyte Sedimentation Rate 13 0-30 MM/HR Prothrombin Time 13.3 12.2-14.7 SEC INR Comment 1.0 0.8-1.4 Activated Partial Thromboplast Time 25 24-35 SEC D-Dimer < 0.27 0.00-0.49 UG/ML Sodium Level 139 135-145 MMOL/L Potassium Level 4.0 3.6-5.0 MMOL/L Chloride Level 105 98-107 MMOL/L Carbon Dioxide Level 24 21-32 MMOL/L Anion Gap 10 5-14 MMOL/L Blood Urea Nitrogen 13 7-18 MG/DL Creatinine 0.88 0.60-1.30 MG/DL Estimat Glomerular Filtration Rate 80 BUN/Creatinine Ratio 15 Glucose Level 109 H 70-105 MG/DL Calcium Level 9.6 8.5-10.1 MG/DL Corrected Calcium 9.4 8.5-10.1 MG/DL Magnesium Level 2.0 1.6-2.4 MG/DL Total Bilirubin 0.5 0.1-1.0 MG/DL Aspartate Amino Transf (AST/SGOT) 41 H 5-34 U/L Alanine Aminotransferase (ALT/SGPT) 69 H 0-55 U/L Alkaline Phosphatase 83 40-136 U/L Myoglobin 90.9 10.0-92.0 NG/ML Troponin I < 0.028 < 0.028 <0.028 NG/ML C-Reactive Protein High Sensitivity 1.38 H 0.00-0.50 MG/DL B-Type Natriuretic Peptide 19.0 <100.0 PG/ML Total Protein 6.7 6.4-8.2 GM/DL Albumin 4.2 3.2-4.5 GM/DL Thyroid Stimulating Hormone (TSH) 1.84 0.35-4.94 UIU/ML Free Thyroxine 0.95 0.70-1.48 NG/DL My Orders Orders - DURAN COBURN MD Cbc With Automated Diff (12/11/22 09:37) Magnesium (12/11/22 09:37) Chest 1 View, Ap/Pa Only (12/11/22 09:37) Ekg Tracing (12/11/22 09:37) Comprehensive Metabolic Panel (12/11/22 09:37) Myoglobin Serum (12/11/22 09:37) Protime With Inr (12/11/22 09:37) Partial Thromboplastin Time (12/11/22 09:37) O2 (12/11/22 09:37) Monitor-Rhythm Ecg Trace Only (12/11/22 09:37) Ed Iv/Invasive Line Start (12/11/22 09:37) Troponin I [place] (12/11/22 09:37) Nitroglycerin 0.4 Mg Btl 25's (Nitrostat (12/11/22 10:00) Aspirin Chewable Tablet (Baby Aspirin Ch (12/11/22 10:00) Thyroid Stimulating Hormone (12/11/22 09:59) Free T4 (Free Thyroxine) (12/11/22 09:59) Fibrin Degradation Products (12/11/22 10:36) Hs C Reactive Protein (12/11/22 10:42) Erythrocyte Sedimentation Rate (12/11/22 10:42) Troponin I Dio (12/11/22 11:45) Bnp Dio (12/11/22 10:55) Medications Given in ED Vital Signs/I&O 12/11/22 12/11/22 12/11/22 09:32 09:49 12:59 Temp 36.6 Pulse 72 58 Resp 20 18 B/P (MAP) 170/113 (132) 139/87 Pulse Ox 97 97 96 O2 Delivery Room Air Room Air Room Air Blood Pressure Mean: 132 Progress Progress Note : Progress Note EKG was interpreted by me and demonstrated no ischemic changes. Chest x-ray was reviewed by me and radiologist report reviewed. There was question of infiltrates. Thorough lab work-up was reviewed by me. CBC and chemistry demonstrated no abnormalities. BNP is elevated indicating increased left ventricular end diastolic dilatation which may be seen in CHF. Suggested no evidence of heart failure. ESR and CRP inflammatory markers suggested no significant inflammatory component such as pneumonia, autoimmune disorders, pericarditis, etc. Normal D-dimer effectively ruled out pulmonary embolus. Repeat troponin was negative. ACS was ruled out. Patient was treated with nitroglycerin and aspirin. There was no significant improvement in symptoms. Blood pressure did decrease some. Blood pressure trended down during the course of the ER visit. 2 separate issues were being addressed today. 1 was chest pain, and the other was hypertension with exertion. I am addressing hypertension with exertion by prescribing a beta-kelle. Hopefully this will decrease sympathetic response to exertion and reduce these abrupt fluctuations in blood pressure. Pain management with bish-gcj-wuyhsrv medications was advised for the chest pain. See discharge instructions for further discussion. Azithromycin was prescribed as a precaution due to the possible infiltrates noted on the chest x-ray as interpreted by the radiologist. Initial ECG Impression Date: Dec 11, 2022 Initial ECG Impression Time: 09:38 Initial ECG Rate: 60 Initial ECG Rhythm: Normal Sinus Comment Sinus rhythm with no ST elevation or depression. No abnormal intervals. LVH noted by automated read. PVCs not noted on the EKG but multiple PVCs noted on telemetry. Diagnostic Imaging Diagonstic Imaging: Xray Plain Films/CT/US/NM/MRI: chest Comments NAME: VISHNU THOMAS [facility] REC#: [id number] PT STATUS: REG ER : 1970 PHYSICIAN: DURAN COBURN MD ADMIT DATE: 12/11/22/ER Draft Date of Exam:12/11/22 CHEST 1 VIEW, AP/PA ONLY INDICATION: Intermittent left-sided chest pain. EXAMINATION: Chest 12/11/2022 COMPARISON: 08/11/2022. FINDINGS: The heart is unremarkable. Pulmonary vasculature is slightly congested. There is focal atelectasis versus infiltrate in the right lung base. Remaining lungs clear. No effusions. No pneumothorax. Right chest port tip lies at the junction of the SVC and right atrium. There are postoperative changes in the cervical spine. IMPRESSION: 1. Mild pulmonary vascular congestion. 2. Focal infiltrate in the right lung base. Follow-up recommended to assure resolution. Dictated on workstation # [id number] Dict: 12/11/22 1026 Trans: 12/11/22 1030 [facility] [id number] Interpreted by: RENNY SALAS MD Departure Impression Primary Impression: Atypical chest pain Additional Impression: Labile hypertension Disposition: 01 HOME, SELF-CARE Condition: Improved Departure-Patient Inst. Decision time for Depature: 12:48 Referrals: AUSTIN DELCID (PCP) Primary Care Physician [facility]KARLEE (Family) Primary Care Physician Patient Instructions: Chest Pain Add. Discharge Instructions: Your heart evaluation was normal in the emergency room. Your x-ray demonstrated a possible suggestion of pneumonia. Complete the azithromycin as prescribed to treat possible pneumonia. Add Toprol-XL 25 mg daily to your blood pressure regimen. This may help prevent spikes in blood pressure with activity. Follow-up with your primary care provider in about a week. If your symptoms have not resolved within a week of starting azithromycin, please also follow-up with Dr. Duckworth. Arrange for a repeat chest x-ray when you follow-up with your primary care provider. This was recommended by the radiologist. Because of the location of your pain, the stomach or esophagus may be involved. You may increase your omeprazole to twice daily dosing. You may try treating her pain with Tylenol (acetaminophen) up to 1000 mg every 6 hours as needed and/or ibuprofen up to 600 mg every 6 hours as needed. If you take ibuprofen, be sure to also take your omeprazole and take with food or milk as ibuprofen may be irritating to the stomach. If ibuprofen is causing noticeable stomach irritation, stop ibuprofen and use Tylenol alone. Return to the emergency room if you have any worsening of symptoms despite following these instructions. All discharge instructions reviewed with patient and/or family. Voiced understanding. Scripts Metoprolol Succinate (Toprol Xl) 25 Mg Tab.er.24h 25 MG PO DAILY, #30 TAB Prov: BRUEGGEMANN,DURAN T MD 12/11/22 Azithromycin (Azithromycin) 250 Mg Tablet 250 MG PO UD, #6 TAB TAKE 2 TABLETS ON DAY ONE THEN TAKE 1 TABLET DAILY FOR FOUR MORE DAYS Prov: DURAN COBURN MD 12/11/22 Copy Copies To 1: MARY ALICE DUCKWORTH MD, JOSHUA T MD Dec 11, 2022 10:55
[2022-12-11] MEDS ORDERED: AZIT250T12 PO (12:52)
[2022-12-11] MEDS ORDERED: METO-351 PO (12:53)
[2022-12-11 12:59] VITALS: BP 139/87
== END 2022-12-11 12:59 | disposition home or self-care (01) ==
LOC: EDUNIT# 09:27 → ER 09:30
DX: I10 Essential (primary) hypertension (principal); Z88.2 Allergy status to sulfonamides
CPT/HCPCS: 36415; 71045; 80053; 83735; 83874; 83880; 84439; 84443; 84484; 85025; 85379; 85610; 85652; 85730; 86141; 93005; 93041

== ENCOUNTER 2023-02-08 10:11 | Outpatient (RCR) | payer MEDICARE, MEDICAID ==
[~2023-02-08 10:11] MED LIST changes: +METO-351 PO
[2023-02-08 10:31] LABS: BASOPHILS % (AUTO) 1 % (0-10); EOSINOPHILS # (AUTO) 0.4 10^3/uL (0.0-0.3); EOSINOPHILS % (AUTO) 6 % (0-10); HEMATOCRIT 37 % (35-52); HEMOGLOBIN 12.2 g/dL (11.5-16.0); LYMPHOCYTES # (AUTO) 0.9 10^3/uL (1.0-4.0); LYMPHOCYTES % (AUTO) 15 % (12-44); MEAN CORPUSCULAR HEMOGLOBIN 27 pg (25-34); MEAN CORPUSCULAR HGB CONC 33 g/dL (32-36); MEAN CORPUSCULAR VOLUME 82 fL (80-99); MEAN PLATELET VOLUME 10.9 fL (9.0-12.2); MONOCYTES # (AUTO) 0.4 10^3/uL (0.0-1.0); MONOCYTES % (AUTO) 7 % (0-12); NEUTROPHILS # (AUTO) 4.4 10^3/uL (1.8-7.8); NEUTROPHILS % (AUTO) 72 % (42-75); PLATELET COUNT 274 10^3/uL (130-400); WHITE BLOOD COUNT 6.1 10^3/uL (4.3-11.0)
[2023-02-08 10:56] LABS: ALBUMIN 3.8 GM/DL (3.2-4.5); BILIRUBIN,TOTAL 0.4 MG/DL (0.1-1.0); CALCIUM 8.7 MG/DL (8.5-10.1); CREATININE SERUM 0.93 MG/DL (0.60-1.30); POTASSIUM 3.9 MMOL/L (3.6-5.0)
== END 2023-02-28 | disposition home or self-care (01) ==
LOC: ONC 10:11
PROVIDERS: ATTEND Internal Medicine Hematology & Oncology
DX: C83.00 Small cell B-cell lymphoma, unspecified site (principal); I10 Essential (primary) hypertension; E66.9 Obesity, unspecified; N82.0 Vesicovaginal fistula; Z79.899 Other long term (current) drug therapy
CPT/HCPCS: 36415; 80053; 84443; 85025

== ENCOUNTER 2023-05-11 11:19 | Outpatient (RCR) | payer MEDICARE, MEDICAID | END 2023-05-31 | disposition home or self-care (01) | LOC: ONC 11:19 | PROVIDERS: ATTEND Internal Medicine Hematology & Oncology | DX: Z45.2 Encounter for adjustment and management of vascular access device (principal); C83.00 Small cell B-cell lymphoma, unspecified site; I10 Essential (primary) hypertension; E66.9 Obesity, unspecified; N82.0 Vesicovaginal fistula; Z79.899 Other long term (current) drug therapy | CPT/HCPCS: 96523 ==

== ENCOUNTER → 2023-05-11 | Outpatient (CLI) | payer MEDICARE, MEDICAID ==
[2023-05-11 12:29] LABS: BASOPHILS % (AUTO) 1 % (0-10); EOSINOPHILS # (AUTO) 0.4 10^3/uL (0.0-0.3); EOSINOPHILS % (AUTO) 5 % (0-10); HEMATOCRIT 42 % (35-52); HEMOGLOBIN 13.5 g/dL (11.5-16.0); LYMPHOCYTES # (AUTO) 1.4 10^3/uL (1.0-4.0); LYMPHOCYTES % (AUTO) 18 % (12-44); MEAN CORPUSCULAR HEMOGLOBIN 26 pg (25-34); MEAN CORPUSCULAR HGB CONC 32 g/dL (32-36); MEAN CORPUSCULAR VOLUME 82 fL (80-99); MEAN PLATELET VOLUME 10.8 fL (9.0-12.2); MONOCYTES # (AUTO) 0.5 10^3/uL (0.0-1.0); MONOCYTES % (AUTO) 6 % (0-12); NEUTROPHILS # (AUTO) 5.2 10^3/uL (1.8-7.8); NEUTROPHILS % (AUTO) 69 % (42-75); PLATELET COUNT 293 10^3/uL (130-400); WHITE BLOOD COUNT 7.6 10^3/uL (4.3-11.0)
[2023-05-11 12:48] LABS: ALBUMIN 4.2 GM/DL (3.2-4.5); BILIRUBIN,TOTAL 0.5 MG/DL (0.1-1.0); CALCIUM 9.5 MG/DL (8.5-10.1); CREATININE SERUM 1.06 MG/DL (0.60-1.30); POTASSIUM 4.6 MMOL/L (3.6-5.0); TOTAL PROTEIN 6.5 GM/DL (6.4-8.2)
== END ==
LOC: LAB 11:52
PROVIDERS: ATTEND Nurse Practitioner Family
DX: I10 Essential (primary) hypertension (principal); E78.5 Hyperlipidemia, unspecified
CPT/HCPCS: 36415; 80053; 80061; 85025

== ENCOUNTER → 2023-06-18 | Outpatient (CLI) | payer MEDICARE, MEDICAID ==
--- NOTE | 2023-06-18 09:12 | Diagnostic Imaging Report ---
PROCEDURE: CT head without contrast. TECHNIQUE: Multiple contiguous axial images were obtained through the brain without the use of intravenous contrast. Auto Exposure Controls were utilized during the CT exam to meet ALARA standards for radiation dose reduction. INDICATION: Left-sided headache and dizziness. Comparison is made with prior head CT from 12/05/2018. The ventricles and sulci are within normal limits. No sulcal effacement or midline shift is identified. No acute intra-axial or extra-axial hemorrhage is detected. Cisterns are patent. Visualized paranasal sinuses are clear. IMPRESSION: No acute intracranial process is identified. Dictated by: Dictated on workstation # [id number]
--- NOTE | 2023-06-18 11:31 | Diagnostic Imaging Report ---
PROCEDURE: US Hepatic (Liver). TECHNIQUE: Multiple real-time grayscale images were obtained over the right upper quadrant in various projections. INDICATION: Elevated liver enzymes. Patient is status post cholecystectomy in 2021. The liver is normal in size at 15 cm. The portal vein is patent and shows normal direction of flow. No liver mass is identified. The gallbladder is surgically absent. There is no biliary ductal dilatation. The pancreas is grossly unremarkable. The aorta is nonaneurysmal. The IVC is patent. Right kidney is without calculi or hydronephrosis. There is no ascites. IMPRESSION: Status post cholecystectomy. This study is otherwise unremarkable. Dictated by: Dictated on workstation # [id number]
== END ==
LOC: RAD 07:56
PROVIDERS: ATTEND Nurse Practitioner Family
DX: K76.0 Fatty (change of) liver, not elsewhere classified (principal); J32.9 Chronic sinusitis, unspecified; R42 Dizziness and giddiness; R51.9 Headache, unspecified; Z90.49 Acquired absence of other specified parts of digestive tract
CPT/HCPCS: 70450; 76705

== ENCOUNTER 2023-07-15 12:12 | Emergency (ER) | payer MEDICARE, MEDICAID ==
[~2023-07-15] VITALS: Ht 160 cm; Wt 103.0 kg
--- NOTE | 2023-07-15 12:39 | ED Abdominal Pain ---
General Chief Complaint: Abdominal/GI Problems Stated Complaint: LT SIDE PAIN | ABD PAIN | Nursing Triage Note: PT STATES LT FLANK PAIN FOR 2 WKS THAT HAS MOVED TO MID ABD AND BACK, NAUSEA, NOT EATING, DIARRHEA, NO PERIOD FOR 3 YRS AND THEN HAD SOME SPOTTING A FEW WEEKS AGO THAT WENT AWAY Source of Information: Patient Exam Limitations: No Limitations History of Present Illness Date Seen by Provider: Jul 15, 2023 Time Seen by Provider: 12:29 Initial Comments 52-year-old female presents emergency department today for left flank and abdominal pain. Symptoms present constantly for the last 2 weeks. It is sharp stabbing in her left leg with radiation to her left anterior abdomen, periumbi lical region. Denies any fevers or chills. She has had some nausea without vomiting. She is also describing some loose stools a couple of times a day. She does tell me that she had not had a menstrual cycle for about 3 years but few weeks ago had some mild spotting for a couple of days that went away and she has not had any trouble since that time. No urinary symptoms. All other systems reviewed and negative except documented per HPI. Voice recognition software was used to help create this chart Allergies and Home Medications Allergies Coded Allergies: Sulfa (Sulfonamide Antibiotics) (Verified Allergy, Mild, RASH, 07/26/18) Patient Home Medication List Home Medication List Reviewed: Yes Azithromycin (Azithromycin) 250 Mg Tablet, 250 MG PO UD Prescribed by: DURAN SANCHEZ on 12/11/22 1252 Buspirone HCl (Buspirone HCl) 5 Mg Tablet, 5 MG PO DAILY, (Reported) Entered as Reported by: LISA BREWER on 06/22/18 1406 Buspirone HCl (Buspirone HCl) 5 Mg Tablet, 10 MG PO HS, (Reported) Entered as Reported by: LEONID EL on 08/11/18 0945 Cephalexin (Cephalexin) 500 Mg Capsule, 500 MG PO BID Prescribed by: Esther Damico on 07/19/22 1623 Fexofenadine HCl (Flora Allergy) 180 Mg Tablet, 180 MG PO DAILY, (Reported) Entered as Reported by: LOLI HUFF on 07/26/18 1413 Fluoxetine HCl (Prozac) 10 Mg Capsule, 10 MG PO DAILY, (Reported) Entered as Reported by: PRINCE BUNCH on 07/02/22 1226 Hydrocodone Bit/Acetaminophen (HYDROcodone/APAP 5 MG/325 MG TAB) 1 Tab Tab, 1 TAB PO Q8H PRN for PAIN-MODERATE (5-7) Prescribed by: BRITTANY العلي on 07/08/22 1113 Losartan Potassium (Losartan Potassium) 25 Mg Tablet, 25 MG PO DAILY, (Reported) Entered as Reported by: PRINCE BUNCH on 07/02/22 1226 Metoprolol Succinate (Toprol Xl) 25 Mg Tab.er.24h, 25 MG PO DAILY Prescribed by: DURAN SANCHEZ on 12/11/22 1253 Ondansetron (Ondansetron Odt) 4 Mg Tab.rapdis, 4 MG SL Q8H PRN for NAUSEA/VOMITING Prescribed by: JC HALEY on 08/11/22 1530 Pantoprazole Sodium (Protonix) 40 Mg Tablet.dr, 40 MG PO DAILY Prescribed by: ES REYES on 11/01/21 1333 Review of Systems Review of Systems Constitutional: see HPI Past Eyzlspp-Nlxaha-Lmweio Hx Patient Social History Tobacco Use?: No Use of E-Cig and/or Vaping dev: No Substance use?: No Alcohol Use?: No Immunizations Up To Date PED Vaccines UTD: Yes First/Initial COVID19 Vaccinat: RECEIVED, UNK WHEN Second COVID19 Vaccination Kiran: RECEIVED, UNK WHEN Third COVID19 Vaccination Date: UNKNOWN Seasonal Allergies Seasonal Allergies: Yes Past Medical History Surgery/Hospitalization HX: PMH: CLL SX: BACK, NECK, GALLBLADDER, PORT, TUBAL Surgeries: Yes (infected lymph node removed, back sx X2, NECK, port ) Section, Gallbladder, Orthopedic, Tubal Ligation Respiratory: Yes Asthma Currently Using CPAP: No Currently Using BIPAP: No Cardiac: Yes Hypertension Neurological: No Reproductive Disorders: No 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 Sexually Transmitted Disease: No HIV/AIDS: No Genitourinary: No Gastrointestinal: Yes Gastroesophageal Reflux, Diverticulosis, Chronic Diarrhea Musculoskeletal: Yes Chronic Back Pain Endocrine: No HEENT: No Hearing Impairment: Denies Cancer: Yes (CLL in remission) Leukemia Did You Recieve Any Treatments: Yes What Type of Treatment Did You: Chemotherapy Psychosocial: Yes Anxiety, Depression Integumentary: No Blood Disorders: Yes (LEUKEMIA) Adverse Reaction/Blood Tranf: No Family Medical History Diabetes mellitus 19 FATHER 19 MOTHER Hypertension 19 FATHER 19 MOTHER G8 BROTHER Diabetes, Hypertension Physical Exam Vital Signs Vital Signs - First Documented 07/15/23 12:32 Temp 36.6 Pulse 56 Resp 20 B/P (MAP) 180/104 (129) Pulse Ox 97 O2 Delivery Room Air Capillary Refill : Less Than 3 Seconds Height/Weight/BMI Height: 5'3.00" Weight: 201lbs. 0.0oz. 91.894655zr; 40.00 BMI Method:Stated General Appearance: WD/WN, no apparent distress HEENT: normal ENT inspection, pharynx normal Neck: non-tender, supple Respiratory: chest non-tender, lungs clear, normal breath sounds, no respiratory distress, no accessory muscle use Cardiovascular: regular rate, rhythm, no murmur Gastrointestinal: normal bowel sounds, soft, no organomegaly, tenderness (Mild diffuse abdominal tenderness without any rebound or guarding. No mass organomegaly. No skin changes.) Extremities: normal range of motion, non-tender, normal inspection, normal capillary refill Neurologic/Psychiatric: alert, oriented x 3 Skin: normal color, warm/dry Progress/Results/Core Measures Results/Orders Lab Results Laboratory Tests Test 07/15/23 12:35 07/15/23 12:55 Range/Units Urine Color YELLOW Urine Clarity CLOUDY Urine pH 5.5 5-9 Urine Specific [place] 1.020 1.016-1.022 Urine Protein NEGATIVE NEGATIVE Urine Glucose (UA) NEGATIVE NEGATIVE Urine Ketones NEGATIVE NEGATIVE Urine Nitrite POSITIVE H NEGATIVE Urine Bilirubin NEGATIVE NEGATIVE Urine Urobilinogen 0.2 < = 1.0 MG/DL Urine Leukocyte Esterase 3+ H NEGATIVE Urine RBC (Auto) 1+ H NEGATIVE Urine RBC 2-5 H /HPF Urine WBC TNTC H /HPF Urine Squamous Epithelial Cells 10-25 H /HPF Urine Crystals NONE /LPF Urine Bacteria LARGE H /HPF Urine Casts NONE /LPF Urine Mucus NEGATIVE /LPF Urine Culture Indicated YES White Blood Count 8.1 4.3-11.0 10^3/uL Red Blood Count 4.93 3.80-5.11 10^6/uL Hemoglobin 13.3 11.5-16.0 g/dL Hematocrit 41 35-52 % Mean Corpuscular Volume 84 80-99 fL Mean Corpuscular Hemoglobin 27 25-34 pg Mean Corpuscular Hemoglobin Concent 32 32-36 g/dL Red Cell Distribution Width 14.4 10.0-14.5 % Platelet Count 297 130-400 10^3/uL Mean Platelet Volume 11.0 9.0-12.2 fL Immature Granulocyte % (Auto) 1 % Neutrophils (%) (Auto) 74 42-75 % Lymphocytes (%) (Auto) 15 12-44 % Monocytes (%) (Auto) 7 0-12 % Eosinophils (%) (Auto) 3 0-10 % Basophils (%) (Auto) 1 0-10 % Neutrophils # (Auto) 6.0 1.8-7.8 10^3/uL Lymphocytes # (Auto) 1.2 1.0-4.0 10^3/uL Monocytes # (Auto) 0.6 0.0-1.0 10^3/uL Eosinophils # (Auto) 0.3 0.0-0.3 10^3/uL Basophils # (Auto) 0.0 0.0-0.1 10^3/uL Immature Granulocyte # (Auto) 0.0 0.0-0.1 10^3/uL Sodium Level 137 135-145 MMOL/L Potassium Level 4.3 3.6-5.0 MMOL/L Chloride Level 104 98-107 MMOL/L Carbon Dioxide Level 23 21-32 MMOL/L Anion Gap 10 5-14 MMOL/L Blood Urea Nitrogen 14 7-18 MG/DL Creatinine 0.94 0.60-1.30 MG/DL Estimat Glomerular Filtration Rate 73 BUN/Creatinine Ratio 15 Glucose Level 87 70-105 MG/DL Calcium Level 8.8 8.5-10.1 MG/DL Corrected Calcium 8.8 8.5-10.1 MG/DL Total Bilirubin 0.6 0.1-1.0 MG/DL Aspartate Amino Transf (AST/SGOT) 44 H 5-34 U/L Alanine Aminotransferase (ALT/SGPT) 61 H 0-55 U/L Alkaline Phosphatase 92 40-136 U/L Total Protein 6.4 6.4-8.2 GM/DL Albumin 4.0 3.2-4.5 GM/DL Lipase 16 8-78 U/L My Orders Orders - WOOD EVANS DO Comprehensive Metabolic Panel (07/15/23 12:36) Lipase (07/15/23 12:36) Ua Culture If Indicated (07/15/23 12:36) Urine Bedside (07/15/23 12:36) Cbc With Automated Diff (07/15/23 12:36) Ct Abd/Pelvis Wo(Kidney Stone) (07/15/23 12:36) Ketorolac Injection (Ketorolac Injection (07/15/23 12:45) Urine Culture (07/15/23 12:35) Medications Given in ED Current Medications Medications Dose Ordered Sig/Cheri Route Start Time Stop Time Status Last Admin Dose Admin Ketorolac Tromethamine 15 mg ONCE ONCE IVP 07/15/23 12:45 07/15/23 12:46 DC 07/15/23 13:02 15 MG Vital Signs/I&O 07/15/23 07/15/23 12:32 13:02 Temp 36.6 36.6 Pulse 56 Resp 20 B/P (MAP) 180/104 (129) Pulse Ox 97 O2 Delivery Room Air Blood Pressure Mean: 129 Departure Impression Primary Impression: UTI (urinary tract infection) Qualified Codes: N30.01 - Acute cystitis with hematuria Disposition: HOME, SELF-CARE Condition: Stable Departure-Patient Inst. Referrals: AUSTIN DELCID (PCP) Primary Care Physician [facility] (Family) Primary Care Physician Patient Instructions: Urinary tract infections in adults Add. Discharge Instructions: You are seen in the emergency department today for abdominal pain. You likely have a mild urinary tract infection. Please take the antibiotics as prescribed until they are gone. Use your symptoms persist I recommend you follow-up with your primary doctor for further evaluation and treatment recommendations. Return to the emergency department for any severe concerns. All discharge instructions reviewed with patient and/or family. Voiced understanding. Scripts Cephalexin (Cephalexin) 500 Mg Tablet 500 MG PO BID for 5 Days, #5 TAB Prov: WOOD EVANS DO 07/15/23 WOOD EVANS DO Jul 15, 2023 12:39
[2023-07-15] MEDS ORDERED: KETOROLAC INJ 15 MG/ML VIAL IVP ONE (12:45)
[2023-07-15 12:58] LABS: CLARITY,URINE CLOUDY; COLOR,URINE YELLOW; GLUCOSE, URINE (UA) NEGATIVE (NEGATIVE); KETONES,URINE NEGATIVE (NEGATIVE); PH,URINE 5.5 (5-9); PROTEIN,URINE NEGATIVE (NEGATIVE)
[2023-07-15 12:59] LABS: BACTERIA,URINE LARGE /HPF; BILIRUBIN,URINE NEGATIVE (NEGATIVE); LEUKOCYTE ESTERASE ,URINE 3+ (NEGATIVE); NITRITE,URINE POSITIVE (NEGATIVE); WBC,URINE TNTC /HPF
[2023-07-15 13:08] LABS: BASOPHILS % (AUTO) 1 % (0-10); EOSINOPHILS # (AUTO) 0.3 10^3/uL (0.0-0.3); EOSINOPHILS % (AUTO) 3 % (0-10); HEMATOCRIT 41 % (35-52); HEMOGLOBIN 13.3 g/dL (11.5-16.0); LYMPHOCYTES # (AUTO) 1.2 10^3/uL (1.0-4.0); LYMPHOCYTES % (AUTO) 15 % (12-44); MEAN CORPUSCULAR HEMOGLOBIN 27 pg (25-34); MEAN CORPUSCULAR HGB CONC 32 g/dL (32-36); MEAN CORPUSCULAR VOLUME 84 fL (80-99); MONOCYTES # (AUTO) 0.6 10^3/uL (0.0-1.0); MONOCYTES % (AUTO) 7 % (0-12); NEUTROPHILS % (AUTO) 74 % (42-75); PLATELET COUNT 297 10^3/uL (130-400); WHITE BLOOD COUNT 8.1 10^3/uL (4.3-11.0)
[2023-07-15 13:22] LABS: POTASSIUM 4.3 MMOL/L (3.6-5.0)
[2023-07-15 13:23] LABS: CALCIUM 8.8 MG/DL (8.5-10.1)
[2023-07-15 13:24] LABS: TOTAL PROTEIN 6.4 GM/DL (6.4-8.2)
[2023-07-15 13:26] LABS: BILIRUBIN,TOTAL 0.6 MG/DL (0.1-1.0)
[2023-07-15 13:28] LABS: CREATININE SERUM 0.94 MG/DL (0.60-1.30)
--- NOTE | 2023-07-15 13:36 | Diagnostic Imaging Report ---
PROCEDURE: CT urinary tract, rule out kidney stone. TECHNIQUE: Multiple contiguous axial images were obtained through the abdomen and pelvis without the use of intravenous contrast. Auto Exposure Controls were utilized during the CT exam to meet ALARA standards for radiation dose reduction. INDICATION: Left flank plain COMPARISON: 07/16/2022 FINDINGS: Unenhanced images of liver and spleen reveal no focal abnormality. Gallbladder surgically absent. There is no significant biliary ductal dilatation. No pancreatic or adrenal gland abnormality is identified. Unenhanced images of the kidneys are unremarkable. There is no evidence of urinary tract calculus or obstruction. Occasional calcified phleboliths are seen bilaterally in the pelvis. There is small anterior abdominal wall defect with omental fat protrusion. No bowel hernia or obstruction is seen. There is no evidence of pathologically enlarged adenopathy. IMPRESSION: No acute abnormality or adverse change. Dictated by: Dictated on workstation # [id number]
[2023-07-15] MEDS ORDERED: CEPH500T PO (13:41)
[2023-07-15 13:48] VITALS: BP 137/74
== END 2023-07-15 13:52 | disposition home or self-care (01) ==
LOC: EDUNIT# 12:12 → ER 12:14
DX: N39.0 Urinary tract infection, site not specified (principal); Z88.2 Allergy status to sulfonamides; Z87.19 Personal history of other diseases of the digestive system
CPT/HCPCS: 36415; 74176; 80053; 81000; 83690; 84703; 85025; 87077; 87088; 87186

== ENCOUNTER 2023-08-09 08:34 | Outpatient (RCR) | payer MEDICARE, MEDICAID ==
[~2023-08-09 08:34] MED LIST changes: +CEPH500T PO
[2023-08-09 09:09] LABS: BASOPHILS % (AUTO) 1 % (0-10); EOSINOPHILS # (AUTO) 0.4 10^3/uL (0.0-0.3); EOSINOPHILS % (AUTO) 6 % (0-10); HEMATOCRIT 40 % (35-52); HEMOGLOBIN 12.8 g/dL (11.5-16.0); LYMPHOCYTES # (AUTO) 1.1 10^3/uL (1.0-4.0); LYMPHOCYTES % (AUTO) 17 % (12-44); MEAN CORPUSCULAR HEMOGLOBIN 27 pg (25-34); MEAN CORPUSCULAR HGB CONC 32 g/dL (32-36); MEAN CORPUSCULAR VOLUME 85 fL (80-99); MEAN PLATELET VOLUME 11.1 fL (9.0-12.2); MONOCYTES # (AUTO) 0.5 10^3/uL (0.0-1.0); MONOCYTES % (AUTO) 7 % (0-12); NEUTROPHILS # (AUTO) 4.7 10^3/uL (1.8-7.8); NEUTROPHILS % (AUTO) 70 % (42-75); PLATELET COUNT 248 10^3/uL (130-400); WHITE BLOOD COUNT 6.8 10^3/uL (4.3-11.0)
[2023-08-09 09:30] LABS: ALBUMIN 3.8 GM/DL (3.2-4.5); BILIRUBIN,TOTAL 0.4 MG/DL (0.1-1.0); CALCIUM 8.6 MG/DL (8.5-10.1); CREATININE SERUM 0.96 MG/DL (0.60-1.30); TOTAL PROTEIN 5.9 GM/DL (6.4-8.2)
[2023-08-18] MEDS ORDERED: RT-ALBUINH INH (10:32)
[2023-08-18] MEDS ORDERED: MONT-40 PO (10:32)
[2023-08-18] MEDS ORDERED: MULT-348 PO (10:32)
[2023-08-18] MEDS ORDERED: BUPR-105 PO (10:32)
[2023-08-18] MEDS ORDERED: MECL-291 PO (10:32)
[2023-08-18] MEDS ORDERED: TIZA2CAP9 PO (10:32)
[2023-09-01] MEDS ORDERED: ACHD5005 PO (14:14)
== END 2023-08-31 | disposition home or self-care (01) ==
LOC: ONC 08:34
PROVIDERS: ATTEND Internal Medicine Hematology & Oncology
DX: C91.11 Chronic lymphocytic leukemia of B-cell type in remission (principal); I10 Essential (primary) hypertension; E66.9 Obesity, unspecified; N82.0 Vesicovaginal fistula; Z79.899 Other long term (current) drug therapy
CPT/HCPCS: 36591; 80053; 85025; 99214

== ENCOUNTER 2023-08-18 05:36 | Outpatient (CLI) | payer MEDICARE, MEDICAID ==
[~2023-08-18] VITALS: Ht 157.5 cm; Wt 104.6 kg
[2023-08-18] MEDS ORDERED: BUPR-105 PO (10:32)
[2023-08-18] MEDS ORDERED: MONT-40 PO (10:32)
[2023-08-18] MEDS ORDERED: MULT-348 PO (10:32)
[2023-08-18] MEDS ORDERED: RT-ALBUINH INH (10:32)
[2023-08-18] MEDS ORDERED: TIZA2CAP9 PO (10:32)
[2023-08-18] MEDS ORDERED: MECL-291 PO (10:32)
== END 2023-08-18 10:33 | disposition home or self-care (01) ==
LOC: PREOP 05:36
PROVIDERS: ATTEND Surgery
DX: Z01.818 Encounter for other preprocedural examination (principal)

== ENCOUNTER 2023-09-01 10:09 | Day surgery (SDC) | payer MEDICARE, MEDICAID ==
[~2023-09-01] VITALS: Ht 157.5 cm; Wt 104.6 kg
[2023-09-01] VITALS (8 sets, daily range): BP systolic 115–140; BP diastolic 65–91
[~2023-09-01 10:09] MED LIST changes: +BUPR-105 PO; +MECL-291 PO; +MONT-40 PO; +MULT-348 PO; +RT-ALBUINH INH; +TIZA2CAP9 PO
[2023-09-01] MEDS ORDERED: ceFAZolin INJECTION 2,000 MG in NS (IVPB) 50 ML 50 ML IV ONE (10:30)
[2023-09-01] MEDS ORDERED: LACTATED RINGERS 1,000 ML 1,000 ML IV PRN (10:30)
[2023-09-01] MEDS ORDERED: FAMOTIDINE INJ 20MG/2ML VIAL IV ONE (10:45)
[2023-09-01] MEDS ORDERED: ONDANSETRON INJECTION 4 MG/2 ML (SDV) IV ONE (10:45)
--- NOTE | 2023-09-01 11:40 | Progress Note-Pre Operative ---
Pre-Operative Progress Note Date of Available H&P: Aug 12, 2023 Date H&P Reviewed: Sep 01, 2023 Time H&P Reviewed: 11:38 History & Physical: H&P Reviewed, Patient Examed, No changes noted Pre-Operative Diagnosis: Venous insufficiency, luke-cath BRITTANY العلي DO Sep 01, 2023 11:40
[2023-09-01] MEDS ORDERED: LIDOCAINE 2% w/EPI 1:100,000 20 ML VIAL ONE (13:05)
[2023-09-01] MEDS ORDERED: MIDAZOLAM INJ 2 MG/2 ML VIAL ONE (13:12)
--- NOTE | 2023-09-01 14:13 | Progress Note-Post Operative ---
Post-Operative Progess Note Surgeon (s)/Semiconductor Packages Platemaker (s) Surgeon BRITTANY العلي DO Semiconductor Packages Platemaker: SUSIE Macdonald Pre-Operative Diagnosis Venous insufficiency, luke-cath Post-Operative Diagnosis same Procedure & Operative Findings Date of Procedure 09/01/23 Procedure Performed/Findings PROCEDURE: Removal of luke-cath COMPLICATIONS: None. INDICATIONS: The patient is a 52 year-old female who had a port previously placed. Patient is ok to have port removed. The patient was explained risk and benefits of the procedure and wished to proceed with procedure. Consent was signed on the chart. PROCEDURE: The patient was taken to the operating suite and was prepped and draped in sterile fashion. A surgical pause was performed. Local anesthetic was infiltrated to the area around the port. A #15 blade scalpel was used to make an incision. Cautery was used to dissect down to the port which was then grasped and then dissected around. The catheter was removed in its entirety and a 3-0 Vicryl was used to close the catheter tract. The port was then able to be dissected out of the pocket, with the capsule and both removed. The wound was then irrigated with copious amounts of irrigation. Hemo- stasis had been achieved. The skin was then closed using 4-0 Vicryl, 3 interrupted subcuticular stitches. The area was then washed and dried and Skin Affix placed over the incision. The patient tolerated the procedure well without complication and was taken to recovery room in stable condition. Anesthesia Type IV sedation by CASH RECONCILIATION SPECIALIST Estimated Blood Loss Estimated blood loss (mL): scant Specimens/Packing Specimens Removed port, not sent to BRITTANY Crisostomo DO Sep 01, 2023 14:13
[2023-09-01] MEDS ORDERED: ACHD5005 PO (14:14)
--- NOTE | 2023-09-01 14:15 | Discharge Inst-Surgical ---
Discharge Inst-Surgical Depart Medication/Instructions New, Converted or Re-Newed RX: Transmitted to Pharmacy Patient Instructions Follow up Appt: Make appointment for 2 weeks. [phone] Instructions: No lifting greater than 20 pounds. No strenuous activity. May shower in 24 hours, no tub bath or soaking. Use incentive spirometer at home as directed. No Smoking Skin/Wound Care: May remove bandages in am. You need to leave the Dermabond on incision it will fall off on it's own. Symptoms to Report: Appetite Changes, Extremity Discoloration, Numbness/Tingling, Swelling Increased, Bleeding Excessive, Eyesight Changes, Pain Increased, Urine Color Change, Constipation(Persistent), Fever over 101 degree F, Pain/Pressure in chest, Urinating Difficulty, Cough Up/Vomit Blood, Heart Beat Irreg/Pounding, Pain/Pressure in jaw, Cramps in feet or legs, Lightheadedness, Pain/Pressure in shoulder, Diarrhea(Persistent), Memory Changes Suddenly, Questions/Concerns, Weight gain consecutive days, Dizziness/Fainting, Nausea/Vomiting, Shortness of Breath, Weight gain over 2 pounds If questions or concerns contact your physician Or seek help at emergency department. Activity Activity as Tolerated: Yes Activity Instructions: Avoid Stress to Incision Driving Instructions: No Driving/Refer to Dr. Burgos Discharge Diet: No Restrictions Diet After 24 Hours: Clear Liquid if Nauseous If Any Problems/Questions/Issu: Contact Your Physician, Go to Emergency Room Skin/Wound Care Infection Signs and Symptoms: Increased Redness, Foul Odor of Wound, Increased Drainage, Skin Itchy or Has a Rash, Increased Swelling, Temperature Above 101 F Bathing Instructions: Shower Stitches/Valeria/Dermabond Dis: BRITTANY Carrillo DO Sep 01, 2023 14:15
--- NOTE | 2023-09-01 14:22 | Anesthesia-General Post-Op ---
MAC Patient Condition Mental Status/LOC: Same as Preop Cardiovascular: Satisfactory Nausea/Vomiting: Absent Respiratory: Satisfactory Pain: Controlled Complications: Absent Post Op Complications Complications None Follow Up Care/Instructions Patient Instructions None needed. Anesthesiology Discharge Order Discharge Order Patient is doing well, no complaints, stable vital signs, no apparent adverse anesthesia problems. No complications reported per nursing. CAYETANO NAZARIO CRNA Sep 01, 2023 14:22
[2023-09-01] MEDS ORDERED: morphine INJ 10 MG/ML 1ML (SYR OR VIAL) IVP ONE (14:30)
[2023-09-01] MEDS ORDERED: ONDANSETRON INJECTION 4 MG/2 ML (SDV) IVP PRN (14:30)
== END 2023-09-01 15:25 | disposition home or self-care (01) ==
LOC: SDC 10:09
PROVIDERS: ATTEND Surgery
DX: Z45.2 Encounter for adjustment and management of vascular access device (principal); I87.2 Venous insufficiency (chronic) (peripheral); K43.2 Incisional hernia without obstruction or gangrene; E66.01 Morbid (severe) obesity due to excess calories; Z68.41 Body mass index [BMI] 40.0-44.9, adult; Z85.72 Personal history of non-Hodgkin lymphomas
CPT/HCPCS: 87081

== ENCOUNTER → 2023-10-01 | Outpatient (CLI) | payer MEDICARE, MEDICAID ==
--- NOTE | 2023-10-01 11:24 | Diagnostic Imaging Report ---
INDICATION: Routine screening. Comparison is made with prior mammogram from 09/29/2022 and 07/29/2021. 2-D and 3-D bilateral screening mammography was performed with CAD. Both breasts are heterogeneously dense, limiting the sensitivity of mammography. There are benign calcifications present. No mass or malignant-appearing microcalcifications are identified. Axillae are unremarkable. IMPRESSION: No mammographic features suspicious for malignancy are identified. ACR BI-RADS Category 2: Benign findings. Result letter will be mailed to the patient. Note: At least 10% of breast cancer is not imaged by mammography. BI-RADS Category 2 Dictated by: Dictated on workstation # [id number]
== END ==
LOC: RAD 07:23
PROVIDERS: ATTEND Nurse Practitioner Family
DX: Z12.31 Encounter for screening mammogram for malignant neoplasm of breast (principal)
CPT/HCPCS: 77063; 77067